=== PATIENT | male | born 1945 | race Caucasian/White ===

== ENCOUNTER 2018-02-08 04:52 | Emergency (ER) | payer OTHER ==
[~2018-02-08] VITALS: Ht 175.3 cm; Wt 145.0 kg
[~2018-02-08 04:52] MED LIST: ASPEC81; ATEN50TA8 PO; ATOR-24 PO; CALCTAB5 PO; CENTTAB41 PO; CLC100 PO; DVN/160 PO; FELO10TA2 PO; FINA5TAB PO; GLC500 PO; IBUP-1428; INSDGI SC; LISI40TA PO; LSX40 PO; MCR5 PO; NVLGI SC; POTA-335 PO; PRLSR20 PO; TERA5CAP PO; ULT50 PO; ZRX25 PO; [UNRECOGNIZED DRUG - OTHER]; [UNRECOGNIZED DRUG - OTHER]
[2018-02-08 04:56] VITALS: TEMP 36.4; Ht 175.3 cm; Wt 145.0 kg
[2018-02-08] MEDS ORDERED: KETOROLAC TROMETHAMINE 30 MG/ML VIAL IV STA (05:17)
[2018-02-08] MEDS ORDERED: DiphenhydrAMINE HCL 50 MG/ML VIAL IV STA (05:17)
[2018-02-08] MEDS ORDERED: METOCLOPRAMIDE HCL INJ 5 MG/ML 2 ML VIAL IV STA (05:17)
[2018-02-08 05:40] LABS: BASO % 0.4 %; BASO ABS # 0.03 K/uL (0-0.2); EOS % 5.3 %; HEMATOCRIT 37.2 % (42-52); IG# 0.02 K/uL (0.00-0.02); LYMPH % 23.9 %; LYMPH ABS # 1.82 K/uL (1.2-3.4); MEAN CELL VOLUME 85.1 fL (80-100); MEAN CORPUSCULAR HEMOGLOBIN 27.5 pg (25-34); MEAN CORPUSCULAR HGB CONC 32.3 g/dl (32-36); MEAN PLATELET VOLUME 11.1 fL (7.4-10.4); MONO ABS # 0.61 K/uL (0.11-0.59); NEUT % 62.1 %; NEUT ABS # 4.73 K/uL (1.4-6.5); PLATELET COUNT 194 K/uL (130-400); RED CELL DISTRIBUTION WIDTH CV 14.1 % (11.5-14.5); RED CELL DISTRIBUTION WIDTH SD 43.9 fL (36.4-46.3); WHITE BLOOD COUNT 7.61 K/uL (4.8-10.8)
--- NOTE | 2018-02-08 05:46 | EMERGENCY ROOM VISIT NOTE ---
ED Visit Note First contact with patient: 05:04 I saw this patient in conjunction with Candida Vasquez PA-C. I agree with her decision making and treatment plan.
[2018-02-08 06:01] LABS: ALBUMIN 3.2 gm/dl (3.4-5.0); ALKALINE PHOSPHATASE 133 U/L (45-117); ALT/SGPT 25 U/L (12-78); AST/SGOT 13 U/L (15-37); BLOOD UREA NITROGEN 20 mg/dl (7-18); CALCIUM 8.1 mg/dl (8.5-10.1); CARBON DIOXIDE 29 mmol/L (21-32); CREATININE 1.57 mg/dl (0.60-1.40); GLUCOSE 269 mg/dl (70-99); POTASSIUM 4.9 mmol/L (3.5-5.1); SODIUM 136 mmol/L (136-145)
[2018-02-08] MEDS ORDERED: SODIUM CHLORIDE 0.9% 500ML 500 ML IV STA (06:05)
--- NOTE | 2018-02-08 06:13 | DIAGNOSTIC IMAGING REPORT ---
ORBIT RADIOGRAPHS 3 VIEWS HISTORY: pre-MRI screening. COMPARISON: None. FINDINGS: There are no radiopaque foreign bodies identified within the orbits. IMPRESSION: No radiopaque foreign bodies identified within the orbits. Electronically signed by: Urban Borrero M.D. 02/08/2018 6:11 AM Dictated Date/Time: 02/08/2018 6:10 AM
[2018-02-08] MEDS ORDERED: ASPI81TA28 PO (06:48)
[2018-02-08] MEDS ORDERED: DOCU100C31 PO (06:49)
[2018-02-08] MEDS ORDERED: EPP3/2 IM (06:49)
[2018-02-08] MEDS ORDERED: LISI-725 PO (06:50)
--- NOTE | 2018-02-08 06:50 | EMERGENCY ROOM VISIT NOTE ---
History First contact with patient: 05:04 Chief Complaint: BACK PAIN Stated Complaint: SEVERE BACK PAIN,TROUBLE WALKING History of Present Illness The patient is a 73 year old male who presents to the Emergency Room with complaints of severe low back pain that radiates to his left side for the past month that has gotten progressively worse over the past few days. Patient states he is having difficulty ambulating secondary to the pain. Pain described as aching, ranging in severity 10 out of 10 worse with movement and better with rest. His legs bilaterally feel weak. [facility] and a muscle relaxant. This is not helping. No recent imaging of the back. Patient denies fall, fever, chills, chest pain, dyspnea, abdominal pain, loss of bowel bladder control, saddle anesthesia, IV drug abuse. Review of Systems An 10 system review of systems was completed with positives and pertinent negatives listed in the HPI. Past Medical/Surgical History Diabetes, hypertension, hyperlipidemia, BPH, leg edema, GERD, cataract surgery, tonsillectomy Social History Smoking Status: Former Smoker Smokeless Tobacco Use: No Alcohol Use: occasionally Drug Use: none Marital Status: Housing Status: lives with family Occupation Status: retired Current/Historical Medications Scheduled Aspirin (Aspirin Ec), 81 MG PO DAILY Atenolol (Tenormin), 25 MG PO BID Atorvastatin (Lipitor), 40 MG PO HS Calcium (Caltrate), 1 PO BID Docusate Sodium (Docusate Sodium), 1 CAP PO BID Felodipine (Plendil), 5 MG PO BID Furosemide (Furosemide), 80 MG PO DAILY Glyburide (Diabeta *), 5 MG PO BID Insulin Aspart (Novolog), 0 SC TIDM Insulin Glargine (Lantus), 55 UNITS SC BID Lisinopril (Zestril), 20 MG PO DAILY Metformin HCL (Glucophage *), 1,000 MG PO BID Metolazone (Metolazone), 2.5 MG PO 2XWK Omeprazole (Prilosec), 20 MG PO BID Potassium Chloride (Micro-K Ext Rel), 40 MEQ PO BIDM Terazosin (Hytrin), 5 MG PO BID Valsartan (Diovan), 160 MG PO DAILY Scheduled PRN Tramadol HCl (Tramadol HCl), 50 MG PO Q8 PRN for Pain Miscellaneous Medications Ibuprofen (Motrin) Physical Exam Vital Signs Date Time Temp Pulse Resp B/P (MAP) Pulse Ox O2 Delivery O2 Flow Rate FiO2 02/08/18 04:56 36.4 77 20 166/69 93 Room Air Physical Exam VITALS: Vitals are noted on the nurse's note and reviewed by myself. Vital signs reviewed. GENERAL: Pleasant male morbidly obese, in no acute distress, nondiaphoretic, well-developed well-nourished. SKIN: The skin was without rashes, erythema, edema, or bruising. There is no tenting of the skin. Capillary reflex less than 2 seconds. HEAD: Normocephalic atraumatic. EARS: External auditory canals clear, tympanic membranes pearly gunn without erythema or effusion bilaterally. EYES: Pupils equal round and reactive to light and accommodation. Conjunctivae without injection, sclerae without icterus. Extraocular movements intact. NOSE: Patent, turbinates without inflammation or discharge. MOUTH: Mucous membranes moist. Pharynx without erythema or exudate. Uvula midline. Airway patent. Tongue does not deviate. NECK: Supple without nuchal rigidity. No lymphadenopathy. No thyromegaly. Cervical spine is nontender. No JVD. HEART: Regular rate and rhythm LUNGS: Clear to auscultation bilaterally without wheezes, rales or rhonchi. No retractions or accessory muscle use. ABDOMEN: Positive bowel sounds x 4. Normal tympanic percussion. Soft, protuberant, obese, nontender, without masses or organomegaly. Sifuentes sign negative. No guarding or rebound tenderness. No CVA tenderness MUSCULOSKELETAL: No muscle atrophy, erythema, or edema noted. No thoracic or lumbar tenderness, no step-offs. Positive straight release on the left. +1 patellar reflexes bilaterally. Patient is able to plantarflex and dorsiflex. Patient has extreme difficulty with ambulation and required assistance to the bed. NEURO: Patient was alert and oriented to person place and time. Normal sensation to light and sharp touch. No focal neurological deficits. Medical Decision & Procedures Laboratory Results 02/08/18 05:20 Red Blood Count 4.37, Mean Corpuscular Volume 85.1, Mean Corpuscular Hemoglobin 27.5, Mean Corpuscular Hemoglobin Concent 32.3, Mean Platelet Volume 11.1, Neutrophils (%) (Auto) 62.1, Lymphocytes (%) (Auto) 23.9, Monocytes (%) (Auto) 8.0, Eosinophils (%) (Auto) 5.3, Basophils (%) (Auto) 0.4, Neutrophils # (Auto) 4.73, Lymphocytes # (Auto) 1.82, Monocytes # (Auto) 0.61, Eosinophils # (Auto) 0.40, Basophils # (Auto) 0.03 02/08/18 05:20 Test 02/08/18 05:20 White Blood Count 7.61 K/uL (4.8-10.8) Red Blood Count 4.37 M/uL (4.7-6.1) Hemoglobin 12.0 g/dL (14.0-18.0) Hematocrit 37.2 % (42-52) Mean Corpuscular Volume 85.1 fL (80-100) Mean Corpuscular Hemoglobin 27.5 pg (25-34) Mean Corpuscular Hemoglobin Concent 32.3 g/dl (32-36) Platelet Count 194 K/uL (130-400) Mean Platelet Volume 11.1 fL (7.4-10.4) Neutrophils (%) (Auto) 62.1 % Lymphocytes (%) (Auto) 23.9 % Monocytes (%) (Auto) 8.0 % Eosinophils (%) (Auto) 5.3 % Basophils (%) (Auto) 0.4 % Neutrophils # (Auto) 4.73 K/uL (1.4-6.5) Lymphocytes # (Auto) 1.82 K/uL (1.2-3.4) Monocytes # (Auto) 0.61 K/uL (0.11-0.59) Eosinophils # (Auto) 0.40 K/uL (0-0.5) Basophils # (Auto) 0.03 K/uL (0-0.2) RDW Standard Deviation 43.9 fL (36.4-46.3) RDW Coefficient of Variation 14.1 % (11.5-14.5) Immature Granulocyte % (Auto) 0.3 % Immature Granulocyte # (Auto) 0.02 K/uL (0.00-0.02) Anion Gap 6.0 mmol/L (3-11) Est Creatinine Clear Calc Drug Dose 61.3 ml/min Estimated GFR () 50.6 Estimated GFR (Non- 43.7 BUN/Creatinine Ratio 12.7 (10-20) Calcium Level 8.1 mg/dl (8.5-10.1) Total Bilirubin 0.3 mg/dl (0.2-1) Direct Bilirubin < 0.1 mg/dl (0-0.2) Aspartate Amino Transf (AST/SGOT) 13 U/L (15-37) Alanine Aminotransferase (ALT/SGPT) 25 U/L (12-78) Alkaline Phosphatase 133 U/L (45-117) Total Protein 7.0 gm/dl (6.4-8.2) Albumin 3.2 gm/dl (3.4-5.0) Medications Administered Medications (Trade) Dose Ordered Sig/Iris Route Start Time Stop Time Status Last Admin Dose Admin Ketorolac Tromethamine (Toradol Inj) 10 mg NOW STAT IV 02/08/18 05:17 02/08/18 05:19 DC 02/08/18 05:25 10 MG Diphenhydramine HCl (Benadryl Inj) 25 mg NOW STAT IV 02/08/18 05:17 02/08/18 05:19 DC 02/08/18 05:25 25 MG Metoclopramide HCl (Reglan Inj) 10 mg NOW STAT IV 02/08/18 05:17 02/08/18 05:19 DC 02/08/18 05:25 10 MG Sodium Chloride 500 ml @ 999 mls/hr Q31M STAT IV 02/08/18 06:05 02/08/18 06:35 DC 02/08/18 06:31 999 MLS/HR ED Course Prior records/ancillary studies reviewed. Triage Nursing notes reviewed. Additional history obtained from family. The patient's history was concerning for back pain. Differential diagnosis: Etiologies such as musculoskeletal, disc herniation, fracture, aortic disease, metastatic disease, cord compression, discitis, infection, renal colic, gastrointestinal, acute exacerbation of chronic back pain, sciatica, cauda equina, as well as others were entertained. Physical findings: As above. No focal neurologic findings noted. ER treatment provided: Toradol, Benadryl, Reglan, IV fluids On reassessment the patient felt better. Diagnostics interpreted by me: The labs revealed hyperglycemia without DKA. Slightly elevated creatinine. Mild anemia Imaging studies: Pending This appears to be consistent with severe low back pain with difficulty ambulating. Further imaging was ordered. MRI is pending at time of signout. Patient unfortunately could not fit in the MRI machine so he CT scan was ordered. Patient has diabetes. He was hyperglycemia without DKA. Patient states his kidney function normally runs around 1.51.6. Case reviewed with my attending The chart was completed utilizing [employer] Speech voice recognition software. Grammatical errors, random word insertions, pronoun errors, and incomplete sentences are an occassional consequence of this system due to software limitations, ambient noise, and hardware issues. Any formal questions or concerns about the content, text, or information contained within the body of this dictation should be directly addressed to the physician placement assistant for clarification. Case signed out to Jane SOLIS, pending MRI and reevaluation in stable condition. Medical Decision As above [place] Drug Monitoring Program Search Results: patient reviewed within database, no issues identified Medication Reconcilliation Current Medication List: was personally reviewed by me Blood Pressure Screening Patient's blood pressure: Elevated blood pressure Blood pressure disposition: Referred to PCP Impression Primary Impression: Low back pain Additional Impressions: Difficulty ambulating Hyperglycemia Anemia Departure Information Referrals Giovanny Melgar M.D. (PCP) Patient Instructions My [facility] Problem Qualifiers Primary Impression: Low back pain Chronicity: acute Back pain laterality: midline Sciatica presence: without sciatica Qualified Codes: M54.5 - Low back pain
[2018-02-08] MEDS ORDERED: SPIR25TA PO (06:54)
[2018-02-08] MEDS ORDERED: POTA20TA13 PO (06:56)
[2018-02-08] MEDS ORDERED: NIFE30TA83 PO (06:59)
[2018-02-08] MEDS ORDERED: FURO80TA63 PO ×2 (07:01)
[2018-02-08] MEDS ORDERED: INSU1INJ2 SQ (07:02)
[2018-02-08] MEDS ORDERED: MULT-190 PO (07:02)
[2018-02-08] MEDS ORDERED: MULT-897 PO (07:02)
[2018-02-08] MEDS ORDERED: HYDR-5688 PO (07:03)
[2018-02-08] MEDS ORDERED: KRIL1000 PO (07:04)
[2018-02-08] MEDS ORDERED: BIOFTAB30 PO (07:05)
[2018-02-08] MEDS ORDERED: NUTRCAP11 PO (07:05)
[2018-02-08] MEDS ORDERED: META-38 PO (07:07)
--- NOTE | 2018-02-08 08:06 | DIAGNOSTIC IMAGING REPORT ---
CT LUMBAR SPINE WITHOUT CT DOSE: 902.98 mGy.cm CLINICAL HISTORY: Severe low back pain. Inability to ambulate. Patient too large for an MRI. TECHNIQUE: Helical images were acquired in transverse plane. Reformatted sagittal and coronal images were reviewed. A dose lowering technique was utilized adhering to the principles of ALARA. CONTRAST: No contrast was administered COMPARISON STUDY: None. FINDINGS: L1-2 level: There is no evidence of significant disc bulge or focal herniation. There is no evidence of spinal or foraminal stenosis. L2-3 level: There is a circumferential disc bulge. There is mild spinal stenosis. There is no significant foraminal narrowing L3-4 level: There is a circumferential disc bulge. There is mild to moderate spinal stenosis. There is no significant foraminal narrowing L4-5 level: There is a circumferential disc bulge. There is mild to moderate spinal stenosis. There is mild bilateral foraminal narrowing L5-S1 level: There is no evidence of significant disc bulge or focal herniation. There is no evidence of spinal or foraminal stenosis. No acute fractures or traumatic subluxations are visualized. No destructive lesions are visualized. The examination is slightly limited from a technical standpoint due to quantum mottle, given the patient's large body habitus. IMPRESSION: 1. Mildly limited study from a technical standpoint 2. No acute fractures or traumatic subluxations 3. Mild multilevel degenerative changes. Multilevel disc bulges with mild to moderate spinal stenosis at the L3-4, and L4-5 levels. Electronically signed by: Christopher Cabrales M.D. 02/08/2018 8:05 AM Dictated Date/Time: 02/08/2018 8:00 AM
[2018-02-08 08:33] VITALS: BP 164/71; PULSE 79; O2SAT 95
--- NOTE | 2018-02-08 08:50 | DIAGNOSTIC IMAGING REPORT ---
KUB HISTORY: Acute low back pain with constipation Constipation COMPARISON: CT lumbar spine of same day FINDINGS: The bowel gas pattern is non-obstructive. There is no organomegaly. Moderate volume of formed colonic stool is noted about the cecum, ascending and transverse colon with mild to moderate stool volume about the rectum. No renal calculi. No ureteral calculi. No pneumoperitoneum or pneumatosis. No fracture. Multilevel degenerative changes are noted about the spine. IMPRESSION: 1. Nonobstructive bowel gas pattern. 2. Moderate formed colonic stool as above. Electronically signed by: Igor Joy M.D. 02/08/2018 8:48 AM Dictated Date/Time: 02/08/2018 8:46 AM
[2018-02-08] MEDS ORDERED: MAGNESIUM CITRATE 296 ML/BTL PO PRN (09:00)
--- NOTE | 2018-02-08 09:01 | EMERGENCY ROOM VISIT NOTE ---
ED Visit Note First contact with patient: 06:57 This patient's case was signed out to me by Candida Vasquez PA-C at the end her shift. The patient had presented with persistent low back pain [facility] He can barely ambulate at the time of arrival. An MRI was attempted but he was too large to fit in the MRI machine. Labs were performed and reviewed by Candida Valentino PA-C. A CT was pending when I took over the patient's case. A CT was interpreted by the radiologist. DIAGNOSTICS:CT LUMBAR SPINE WITHOUT CT DOSE: 902.98 mGy.cm CLINICAL HISTORY: Severe low back pain. Inability to ambulate. Patient too large for an MRI. TECHNIQUE: Helical images were acquired in transverse plane. Reformatted sagittal and coronal images were reviewed. A dose lowering technique was utilized adhering to the principles of ALARA. CONTRAST: No contrast was administered COMPARISON STUDY: None. FINDINGS: L1-2 level: There is no evidence of significant disc bulge or focal herniation. There is no evidence of spinal or foraminal stenosis. L2-3 level: There is a circumferential disc bulge. There is mild spinal stenosis. There is no significant foraminal narrowing L3-4 level: There is a circumferential disc bulge. There is mild to moderate spinal stenosis. There is no significant foraminal narrowing L4-5 level: There is a circumferential disc bulge. There is mild to moderate spinal stenosis. There is mild bilateral foraminal narrowing L5-S1 level: There is no evidence of significant disc bulge or focal herniation. There is no evidence of spinal or foraminal stenosis. No acute fractures or traumatic subluxations are visualized. No destructive lesions are visualized. The examination is slightly limited from a technical standpoint due to quantum mottle, given the patient's large body habitus. IMPRESSION: 1. Mildly limited study from a technical standpoint 2. No acute fractures or traumatic subluxations 3. Mild multilevel degenerative changes. Multilevel disc bulges with mild to moderate spinal stenosis at the L3-4, and L4-5 levels. Electronically signed by: Christopher Cabrales M.D. 02/08/2018 8:05 AM Dictated Date/Time: 02/08/2018 8:00 AM The patient was informed of the findings. When I was telling the patient was going to prescribe him a small amount of narcotics I told him to make sure that he is taking a laxative and at that time he informed me that he has not moved his bowels for 3 days. A KUB was ordered and interpreted by the radiologist and myself. KUB HISTORY: Acute low back pain with constipation Constipation COMPARISON: CT lumbar spine of same day FINDINGS: The bowel gas pattern is non-obstructive. There is no organomegaly. Moderate volume of formed colonic stool is noted about the cecum, ascending and transverse colon with mild to moderate stool volume about the rectum. No renal calculi. No ureteral calculi. No pneumoperitoneum or pneumatosis. No fracture. Multilevel degenerative changes are noted about the spine. IMPRESSION: 1. Nonobstructive bowel gas pattern. 2. Moderate formed colonic stool as above. The patient was informed of this finding. The patient was given a bottle of mag citrate. He was instructed to do this today. If his back pain is relieved by moving his bowels he does not need to take the narcotics otherwise he can take the narcotics as directed for pain. He is to continue his Dulcolax daily to prevent constipation. The patient was discharged home in stable condition. DIAGNOSIS: Low back pain Constipation TREATMENT PLAN: Take mag citrate today. Stay near a bathroom when you take the mag citrate. He should have relief within several hours. If your back pain is resolved by taking the mag citrate. Do not take the narcotics. If he still had back pain take the [place] as prescribed. Do not drive while taking the [place]. Continue Dulcolax to prevent constipation. [facility] for [facility]ck and if back pain persists referral to back surgeon or follow- up with Dr. Saul for your back. If symptoms worsen, return to ER.
== END 2018-02-08 09:00 | disposition home or self-care (01) ==
LOC: C.EDB 04:53 → C.EDA 09:00
DX: M54.5 Low back pain (principal); K59.00 Constipation, unspecified; R26.2 Difficulty in walking, not elsewhere classified; E11.65 Type 2 diabetes mellitus with hyperglycemia; Z79.4 Long term (current) use of insulin; D64.9 Anemia, unspecified; E66.01 Morbid (severe) obesity due to excess calories; I10 Essential (primary) hypertension; Z79.82 Long term (current) use of aspirin; E78.5 Hyperlipidemia, unspecified; K21.9 Gastro-esophageal reflux disease without esophagitis; N40.0 Benign prostatic hyperplasia without lower urinary tract symptoms; Z87.891 Personal history of nicotine dependence

== ENCOUNTER 2019-06-23 21:04 | Observation (INO) ==
--- OUTSIDE RECORDS SUMMARY | 2019-06-23 21:07 | External Medical Summary | Continuity of Care Document ---
:1945 Author Name Sarai Wiley Address Unavailable Unavailable , Care Team Providers Name Role Phone SusnaG MJoon Unavailable [email or web address] Nicolasa LEON M.D. 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) Paroxysmal atrial fibrillation (427.31) (I48.0) Erectile dysfunction (607.84) (N52.9) PTSD (post-traumatic stress disorder) (309.81) (F43.10) Bladder cancer (188.9) (C67.9) Carotid artery stenosis (433.10) (I65.29) Obstructive sleep apnea (327.23) (G47.33) Morbid obesity (278.01) (E66.01) Hyperlipidemia (272.4) (E78.5) Gastroesophageal reflux disease (530.81) (K21.9) BPH (benign prostatic hyperplasia) (600.00) (N40.0) Sacroiliitis (720.2) (M46.1) Diabetes (250.00) (E11.9) Constipation (564.00) (K59.00) Edema (782.3) (R60.9) Hypertension (401.9) (I10) 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 Start: 15-Jan-2017 Refills: 0 metFORMIN HCl - 500 MG Oral Tablet; TAKE 1 TABLET TWICE SYD Y. Start: 15-Jan-2017 Quantity: 60 Refills: 3 NIFEdipine ER 30 MG Oral Tablet Extended Release 24 Hour; TA KE 1 TABLET DAILY. Start: 15-Jan-2017 Refills: 0 Valsartan 160 MG Oral Tablet; Take 1 and 1/2 tab daily Start: 15-Jan-2017 Refills: 0 traMADol HCl - 50 MG Oral Tablet; TAKE 1 TABLET EVERY 6 HOURS NEEDED FOR PAIN Start: 15-Jan-2017 Refills: 0 Terazosin HCl - 5 MG Oral Capsule; TAKE 1 CAPSULE TWICE SYD Y. Start: 15-Jan-2017 Refills: 0 Spironolactone 25 MG Oral Tablet; TAKE 1 TABLET DAILY. Start: 15-Jan-2017 Refills: 0 100 Tablet Bottle Potassium Chloride Nerissa ER 20 MEQ Oral T ablet Extended Release; TAKE 2 TABLETS DAILY. Start: 15-Jan-2017 Refills: 0 Omeprazole 20 MG Oral Capsule Delayed Re lease; TAKE 1 CAPSULE Every twelve hours Start: 15-Jan-2017 Refills: 0 Lisinopril 20 MG Oral Tablet; take 1 tablet by mouth once da mike Start: 15-Jan-2017 Refills: 5 15 Tablet Bottle Lantus SoloStar 100 UNIT/ML Subcutaneous Solution Pen-injector; inject 50 units subcutaneously twice daily Start: 15-Jan-2017 Refills: 0 NovoLOG FlexPen 100 UNIT/ML Subcutaneous Solution Pen-injector; INJECT 30 UNITS SUBCUTANEOUSLY 3 TIMES DAILY WITH MEALS Start: 2016 Refills: 0 Finasteride 5 MG Oral Tablet; 1 TAB BY MOUTH EVERY DAY Start: 15-Jan-2017 Refills: 3 Docusate Sodium 100 MG Oral Capsule; TAKE ONE CAPSULE BY RUFINA TH TWICE DAILY Start: 15-Jan-2017 Refills: 0 Atorvastatin Calcium 80 MG Oral Tablet; TAKE 1/2 TABLET SYD Y. Start: 15-Jan-2017 Refills: 0 Atenolol 25 MG Oral Tablet; TAKE 1 TABLET BY MOUTH DAILY Start: 15-Jan-2017 Refills: 5 45 Tablet Bottle Aspirin 81 MG Oral Tablet Delayed Release; Take 1 tablet nicci ly Start: 15-Jan-2017 Refills: 0 Accu-Chek Lynn Plus In Vitro Strip; TEST 3 TIMES DAILY AND NEEDED Start: 15-Jan-2017 Refills: 0 Procedures History of cataract surgery Status: Comp leted History of tonsillectomy Status: Complet ed History of vasectomy Status: Completed Immunizations Immunizations not documented Family History Mother Family history of diabetes mellitus (V18.0) (Z83.3) Status: Active Father Family history of cerebrovascular accident (CVA) (V17.1) (Z8 2.3) Status: Active Social History - Smoking Status Former smoker Plan of Treatment Planned Observations Planned Goals not documented Results No Known Results Results not documented
--- OUTSIDE RECORDS SUMMARY | 2019-06-23 21:08 | External Medical Summary | Continuity of Care Document ---
:1945 Author Name Sarai Wiley Address Unavailable Unavailable , Care Team Providers Name Role Phone [facility] M.Rinku Unavailable [email or web address] LEON M.D. Unavailable Unavailable Unavailable Unavailable [...] Reactions No Known Drug Allergies (Allergy) Medications Accu-Chek Lynn Plus In Vitro Strip; TEST 3 TIMES DAILY AND NEEDED Start: 15-Jan-2017 Refills: 0 Aspirin 81 MG Oral Tablet Delayed Release; Take 1 tablet nicci ly Start: 15-Jan-2017 Refills: 0 Atenolol 25 MG Oral Tablet; TAKE 1 TABLET BY MOUTH DAILY Start: 15-Jan-2017 Refills: 5 45 Tablet Bottle Atorvastatin Calcium 80 MG Oral Tablet; TAKE 1/2 TABLET SYD Y. Start: 15-Jan-2017 Refills: 0 Docusate Sodium 100 MG Oral Capsule; TAKE ONE CAPSULE BY RUFINA TH TWICE DAILY Start: 15-Jan-2017 Refills: 0 Finasteride 5 MG Oral Tablet; 1 TAB BY MOUTH EVERY DAY Start: 15-Jan-2017 Refills: 3 NovoLOG FlexPen 100 UNIT/ML Subcutaneous Solution Pen-injector; INJECT 30 UNITS SUBCUTANEOUSLY 3 TIMES DAILY WITH MEALS Start: 2016 Refills: 0 Lantus SoloStar 100 UNIT/ML Subcutaneous Solution Pen-injector; inject 50 units subcutaneously twice daily Start: 15-Jan-2017 Refills: 0 Lisinopril 20 MG Oral Tablet; take 1 tablet by mouth once da mike Start: 15-Jan-2017 Refills: 5 15 Tablet Bottle Omeprazole 20 MG Oral Capsule Delayed Re lease; TAKE 1 CAPSULE Every twelve hours Start: 15-Jan-2017 Refills: 0 Potassium Chloride Nerissa ER 20 MEQ Oral T ablet Extended Release; TAKE 2 TABLETS DAILY. Start: 15-Jan-2017 Refills: 0 Spironolactone 25 MG Oral Tablet; TAKE 1 TABLET DAILY. Start: 15-Jan-2017 Refills: 0 100 Tablet Bottle Terazosin HCl - 5 MG Oral Capsule; TAKE 1 CAPSULE TWICE SYD Y. Start: 15-Jan-2017 Refills: 0 traMADol HCl - 50 MG Oral Tablet; TAKE 1 TABLET EVERY 6 HOURS NEEDED FOR PAIN Start: 15-Jan-2017 Refills: 0 Valsartan 160 MG Oral Tablet; Take 1 and 1/2 tab daily Start: 15-Jan-2017 Refills: 0 NIFEdipine ER 30 MG Oral Tablet Extended Release 24 Hour; TA KE 1 TABLET DAILY. Start: 15-Jan-2017 Refills: 0 metFORMIN HCl - 500 MG Oral Tablet; TAKE 1 TABLET TWICE SYD Y. Start: 15-Jan-2017 Quantity: 60 Refills: 3 Methocarbamol 500 MG Oral Tablet; TAKE 1 TABLET 3 TIMES SYD Y. Start: 15-Jan-2017 Refills: 0 Procedures History of [...]
[2019-06-23 21:47] LABS: Basophils # (auto) 0.03 K/uL (0-0.2); Basophils % (auto) 0.3 %; Eosinophils # (auto) 0.28 K/uL (0-0.5); Eosinophils % (auto) 2.6 %; Hematocrit (blood only) 36.2 % (42-52); Hemoglobin 11.8 g/dL (14.0-18.0); Immature Granulocytes # (auto) 0.03 K/uL (0.00-0.02); Immature Granulocytes % (auto) 0.3 %; Lymphocytes # (auto) 2.97 K/uL (1.2-3.4); Lymphocytes % (auto) 27.1 %; Mean Corpuscular Hemoglobin 29.1 pg (25-34); Mean Corpuscular Hgb Conc 32.6 g/dL (32-36); Mean Corpuscular Volume 89.2 fL (80-100); Mean Platelet Volume 10.6 fL (7.4-10.4); Monocytes # (auto) 1.04 K/uL (0.11-0.59); Monocytes % (auto) 9.5 %; Neutrophils # (auto) 6.61 K/uL (1.4-6.5); Neutrophils % (auto) 60.2 %; Platelet Count 178 K/uL (130-400); RDW Standard Deviation 45.7 fL (36.4-46.3); Red Blood Count 4.06 M/uL (4.7-6.1); White Blood Count 10.96 K/uL (4.8-10.8)
[2019-06-23 21:58] LABS: Partial Thromboplastin Ratio 0.9; Partial Thromboplastin Time 25.1 Seconds (21.0-31.0); Prothrombin Time 10.1 Seconds (9.0-12.0)
[2019-06-23 22:02] LABS: Albumin Level 3.2 gm/dl (3.4-5.0); BUN Creatinine Ratio 20.5 (10-20); Blood Urea Nitrogen 41 mg/dl (7-18); Calcium 8.6 mg/dl (8.5-10.1); Carbon Dioxide 31 mmol/L (21-32); Chloride 104 mmol/L (98-107); Creatinine Clr Calc Pharmacy 51.1 ml/min; Est GFR (African American) 37.8; Est GFR (Non-African American) 32.6; Glucose 71 mg/dl (70-99); Potassium 3.9 mmol/L (3.5-5.1); Sodium 141 mmol/L (136-145)
[2019-06-23 22:07] LABS: Alanine Aminotransferase 39 U/L (12-78); Albumin Globulin Ratio 0.8 (0.9-2); Alkaline Phosphatase 115 U/L (45-117); Aspartate Aminotransferase 15 U/L (15-37); Bilirubin,Total 0.2 mg/dl (0.2-1); NT Pro B Type Natriuretic Pept 192 pg/ml (0-900); Total Protein 7.2 gm/dl (6.4-8.2); Troponin I < 0.015 ng/ml (0-0.045)
--- NOTE | 2019-06-23 22:43 | XRay Report ---
XR chest 1V portable CLINICAL HISTORY: Dyspnea COMPARISON STUDY: 05/20/2019 FINDINGS: Mild cardiomegaly. Increased prominence of pulmonary vasculature. Diaphragms are smooth. IMPRESSION: Developing congestive failure versus early pulmonary edema. ACT 112: Negative or not required by law. The above report was generated using voice recognition software. It may contain grammatical, syntax or spelling errors. Electronically signed by: Edson Winter M.D. 06/23/2019 10:42 PM
--- NOTE | 2019-06-23 22:45 | XRay Report ---
XR lumbar spine 2-3V CLINICAL HISTORY: lower back pain pain COMPARISON STUDY: No previous studies for comparison. FINDINGS: Generalized degenerative disc changes throughout. Degenerative changes of the vertebral end plates throughout the low thoracic as well as entire lumbar region. No evidence for an acute compression deformity. No evidence for subluxation. IMPRESSION: Considerable degenerative change. No acute process. ACT 112: Negative or not required by law. The above report was generated using voice recognition software. It may contain grammatical, syntax or spelling errors. Electronically signed by: Edson Winter M.D. 06/23/2019 10:44 PM
[2019-06-23] MEDS ORDERED: cefTRIAXone SODIUM 1,000 MG/50 ML BAG IV STA (23:23)
[2019-06-23] MEDS ORDERED: FUROSEMIDE 40 MG/4 ML VIAL IV STA ×2 (23:23→23:25)
[2019-06-23] MEDS ORDERED: cefTRIAXone SODIUM 2,000 MG/70 ML BAG IV STA (23:24)
--- NOTE | 2019-06-24 00:04 | Emergency Department Note ---
Entered by Zonia Ugalde acting as a scribe for History of Present Illness General Chief complaint: Back Injury/Pain Stated complaint: BACK PAIN Source: patient Limitations: no limitations History of Present Illness Onset (ago): hour(s) (a few) Location: back Radiation: non-radiation Severity: similar to prior episodes Maximum Pain Intensity: 8 Quality: + other (pain and "spasms") Exacerbated By: + movement Associated symptoms: + denies other symptoms (new SOB, chest pain, nausea/vomiting, diarrhea, and urinary symptoms) and + other (lower extremity swelling ) The patient is a 74 year old male who presents to the Emergency Room with complaints of back pain and "spasms" that began this afternoon, a few hours ago. He reports that this is similar to previous episodes, however, drinking a lot of water didn't provide relief like it has in the past. He denies any radiation of the pain to the buttocks. The patient notes that movement exacerbates the pain. He complains of recent weight gain. He admits that he normally weighs about 330 pounds and recently he went up to 360. He believes that his weight gain was over the past month. The patient notes that he has lower extremity swelling. He initially declines any new shortness of breath but does note he has been more short of breath with getting around recently as well. He reports that he has some cellulitis for which he's seen a public health internship. The patient notes some scrotum swelling that began a few months ago. He denies any new chest pain, nausea/vomiting, diarrhea, and urinary symptoms. The patient notes that he takes Lasix, but he denies any history of CHF. Home Medications Home Medications Medication Instructions Recorded Confirmed Type aspirin 81 mg PO DAILY 07/20/18 06/23/19 History atenolol 25 mg PO BID 07/20/18 06/23/19 History atorvastatin [Lipitor] 40 mg PO HS 07/20/18 06/23/19 History calcium carbonate [Calcium 600] 0 mg PO QAM 07/20/18 06/23/19 History docusate sodium 200 mg PO DAILY 07/20/18 06/23/19 History epinephrine [EpiPen] 0.3 mg IM DIRECTED PRN 07/20/18 06/23/19 History ferrous sulfate 325 mg PO BID 07/20/18 06/23/19 History finasteride 5 mg PO DAILY 07/20/18 06/23/19 History furosemide [Lasix] 80 mg PO DAILY 07/20/18 06/23/19 History glucosamine-chondroitin 0 mg PO DIRECTED 07/20/18 06/23/19 History insulin aspart U-100 [Novolog 42 unit SUBCUT TIDM 07/20/18 06/23/19 History Flexpen U-100 Insulin] insulin glargine [Lantus Solostar 57 unit SUBCUT BID 07/20/18 06/23/19 History U-100 Insulin] lisinopril 20 mg PO DAILY 07/20/18 06/23/19 History multivitamin 1 tab PO DAILY 07/20/18 06/23/19 History nifedipine 60 mg PO QPM 07/20/18 06/23/19 History omeprazole 20 mg PO Q12 07/20/18 06/23/19 History potassium chloride 20 meq PO BIDM 07/20/18 06/23/19 History spironolactone 25 mg PO QAM 07/20/18 06/23/19 History terazosin 5 mg PO BID 07/20/18 06/23/19 History tramadol 50 mg PO Q6 PRN 06/23/19 06/23/19 History Allergies Allergy/AdvReac Type Severity Reaction Status Date / Time No Known Allergies Allergy Unverified 06/23/19 22:22 Past Med/Surg History Medical History Cellulitis Diabetes Social History Preferred Language: Croatian Communication Ability: Effective Feels Safe at Home: Yes Smoking Status: Former smoker Review of Systems See HPI for pertinent positives & negatives. and A total of 10 systems reviewed and were otherwise negative Physical Exam Vital Signs Vital Signs - 24 hr 06/23/19 21:06 06/23/19 21:41 06/23/19 21:42 Temperature 36.3 C L Temperature Source Oral Pulse Rate 88 78 Pulse Rate from SpO2 Sensor 74 Respiratory Rate 20 15 Respiratory Effort / Characteristics Non-Labored Spontaneous Respiratory Depth Normal Blood Pressure 157/68 H 158/55 H Blood Pressure Mean 97 92 Pulse Oximetry 91 90 Oxygen Delivery Method Room Air Room Air Room Air Sepsis Recent Fever Within 48 Hours No Sepsis New/Unexplained Change in Mental Status No Sepsis Action Taken by Nursing No Action Required 06/23/19 22:00 06/23/19 22:41 Temperature Temperature Source Pulse Rate 74 80 Pulse Rate from SpO2 Sensor Respiratory Rate 18 19 Respiratory Effort / Characteristics Respiratory Depth Blood Pressure 133/54 L 124/77 Blood Pressure Mean 91 81 Pulse Oximetry 90 90 Oxygen Delivery Method Room Air Room Air Sepsis Recent Fever Within 48 Hours Sepsis New/Unexplained Change in Mental Status Sepsis Action Taken by Nursing GENERAL: obese, sitting on the edge of bed, dyspneic with conversation EYE EXAM: normal conjunctiva OROPHARYNX: no exudate, no erythema, lips, buccal mucosa, and tongue normal and mucous membranes are moist NECK: supple, no nuchal rigidity, no adenopathy, non-tender LUNGS: Distant and diminished at bilateral bases HEART: no murmurs, S1 normal and S2 normal ABDOMEN: Obese, firm, non-tender, normo-active bowel sounds, no masses, no rebound or guarding. BACK: Back is symmetrical on inspection and there is no deformity, no midline tenderness, no CVA tenderness. Minimal tenderness in the left lower back. SKIN: no rashes and no bruising UPPER EXTREMITIES: upper extremities are grossly normal. LOWER EXTREMITIES: Pitting edema tracking up to hips. Erythema to the anterior skins. NEURO EXAM: Normal sensorium, cranial nerves II-XII grossly intact, normal speech, no gross weakness of arms, no gross weakness of legs. Course Course ED COURSE: Vital signs were reviewed and showed hypertension. The patients medical record was reviewed The above diagnostic studies were performed and reviewed. ED treatments and interventions as stated above. 2117: The patient was evaluated in room B07. A complete history and physical examination was performed. 2256: I spoke with Dr. De Guzman, [facility] hospitalist, about the patient's case. He will further evaluate the patient. 2258: Upon reevaluation, the patient is stable. I discussed my findings with the patient and he understands and agrees with the treatment plan. Based on the patients age, coexisting illnesses, exam and lab findings the decision to treat as an outpatient was made. The patient remained stable while under my care. The patient will be evaluated for further management. Administered Medications Discontinued Medications Furosemide (Lasix) 40 mg IV NOW STA Stop: 06/23/19 23:24 Last Admin: 06/23/19 23:29 Dose: Not Given Documented by: [id number] Furosemide (Lasix) 60 mg IV NOW STA Stop: 06/23/19 23:26 Last Admin: 06/23/19 23:29 Dose: 60 mg Documented by: [id number] Ceftriaxone Sodium (Rocephin) 1,000 mg in 50 mls @ 100 mls/hr IV NOW STA Stop: 06/23/19 23:52 Last Admin: 06/23/19 23:29 Dose: Not Given Documented by: [id number] Ceftriaxone Sodium (Rocephin) 2,000 mg in 70 mls @ 140 mls/hr IV NOW STA Stop: 06/23/19 23:53 Last Admin: 06/23/19 23:32 Dose: 140 mls/hr Documented by: [id number] Medical Decision Making Differential Diagnosis Differential diagnoses includes but is not limited to pneumonia, bronchitis, COPD/Asthma exacerbation, pneumothorax, pulmonary embolism, congestive heart failure, acute coronary syndrome Medical Records Attestation: I reviewed the patient's medical records. Home Medications Current Medication List: was personally reviewed by me Laboratory Data Attestation: I reviewed the patient's lab results. Result diagrams: 06/23/19 21:39 06/23/19 21:39 Lab Results 06/23/19 06/23/19 06/23/19 Range/Units 21:39 21:39 21:39 WBC 10.96 H (4.8-10.8) K/uL RBC 4.06 L (4.7-6.1) M/uL Hgb 11.8 L (14.0-18.0) g/dL Hct 36.2 L (42-52) % MCV 89.2 (80-100) fL MCH 29.1 (25-34) pg MCHC 32.6 (32-36) g/dL RDW Std Deviation 45.7 (36.4-46.3) fL RDW Coeff of [place]by 14.0 (11.5-14.5) % Plt Count 178 (130-400) K/uL MPV 10.6 H (7.4-10.4) fL Immature Gran % (Auto) 0.3 % Neut % (Auto) 60.2 % Lymph % (Auto) 27.1 % [place] % (Auto) 9.5 % Eos % (Auto) 2.6 % Baso % (Auto) 0.3 % Immature Gran # (Auto) 0.03 H (0.00-0.02) K/uL Neut # (Auto) 6.61 H (1.4-6.5) K/uL Lymph # (Auto) 2.97 (1.2-3.4) K/uL [place] # (Auto) 1.04 H (0.11-0.59) K/uL Eos # (Auto) 0.28 (0-0.5) K/uL Baso # (Auto) 0.03 (0-0.2) K/uL PT 10.1 (9.0-12.0) Seconds INR 1.0 (0.9-1.1) APTT 25.1 (21.0-31.0) Seconds PTT Ratio 0.9 Sodium 141 (136-145) mmol/L Potassium 3.9 (3.5-5.1) mmol/L Chloride 104 (98-107) mmol/L Carbon Dioxide 31 (21-32) mmol/L Anion Gap 5.0 (3-11) BUN 41 H (7-18) mg/dl Creatinine 1.99 H (0.6-1.4) mg/dl Est Cr Clr Drug Dosing 51.1 ml/min Est GFR ( Amer) 37.8 Est GFR (Non-Af Amer) 32.6 BUN/Creatinine Ratio 20.5 H (10-20) Glucose 71 (70-99) mg/dl Calcium 8.6 (8.5-10.1) mg/dl Total Bilirubin 0.2 (0.2-1) mg/dl AST 15 (15-37) U/L ALT 39 (12-78) U/L Alkaline Phosphatase 115 (45-117) U/L Troponin I < 0.015 (0-0.045) ng/ml NT-Pro-B Natriuret Pep 192 (0-900) pg/ml Total Protein 7.2 (6.4-8.2) gm/dl Albumin 3.2 L (3.4-5.0) gm/dl Globulin 4.0 (2.5-4.0) gm/dl Albumin/Globulin Ratio 0.8 L (0.9-2) Imaging Data Radiologist's Impression: Radiology results as stated below per my review and the radiologist's interpretation: XR chest 1V portable CLINICAL HISTORY: Dyspnea COMPARISON STUDY: 05/20/2019 FINDINGS: Mild cardiomegaly. Increased prominence of pulmonary vasculature. Diaphragms are smooth. IMPRESSION: Developing congestive failure versus early pulmonary edema. ACT 112: Negative or not required by law. The above report was generated using voice recognition software. It may contain grammatical, syntax or spelling errors. Electronically signed by: Edson Winter M.D. 06/23/2019 10:42 PM XR lumbar spine 2-3V CLINICAL HISTORY: lower back pain pain COMPARISON STUDY: No previous studies for comparison. FINDINGS: Generalized degenerative disc changes throughout. Degenerative changes of the vertebral endplates throughout the low thoracic as well as entire lumbar region. No evidence for an acute compression deformity. No evidence for subluxation. IMPRESSION: Considerable degenerative change. No acute process. ACT 112: Negative or not required by law. The above report was generated using voice recognition software. It may contain grammatical, syntax or spelling errors. Electronically signed by: Edson Winter M.D. 06/23/2019 10:44 PM ECG Data Attestation: I personally reviewed and interpreted this ECG as follows: Indication: + back/shoulder pain Rate (beats per minute): 81 ECG Intervals/blocks: + Incomplete right bundle branch block ECG [place]: + Normal ECG Findings: no PVCs Blood Pressure Blood Pressure Findings: Elevated blood pressure Blood Pressure Disposition: further management by hospitalist NAHOMY Mobley Patient is a 74-year-old male who presents the ER with a past medical history of diabetes, hypertension and hyperlipidemia [facility] and presumably has CHF as he is on Lasix daily presents the ER for multiple complaints. Complains of swelling in his legs associated with redness as well as back pain. Patient initially denies shortness of breath but later admits that he has been having worsening dyspnea on exertion and with any kind of movement. He is gained close to 30 pounds in the past month per his report although not too sure how accurate and how often he has been weighing himself. IV was established blood work was obtained. Labs show a leukocytosis which is mild at 10.9 thousand. No significant anemia. INR unremarkable. BMP with a creatinine of 1.99 slightly up from baseline of about 1.6. Bilirubin LFTs and troponin was unremarkable. Chest x-ray with vascular congestion. Pitting edema tracking up his legs into his hips. Satting 90% while sitting. Does have a mild bilateral cellulitis and I do believe the back pain is musculoskeletal in nature. X-rays of the lumbar spine were unremarkable. Patient was given IV Lasix and IV Rocephin. With the morbid obesity diffuse pitting edema pulse ox of 90% while sitting lack of records I do favor that this gentleman would benefit and warrant an inpatient stay. Patient family were updated bedside discussed with the hospitalist for observation. Impression & Plan CHF (congestive heart failure), Back pain, Cellulitis, Edema, pitting Discharge Plan Visit Data Chief Complaint: Back Injury/Pain Stated Complaint: BACK PAIN ED Provider: Christian Menon Discharge Problem: CHF (congestive heart failure), Back pain, Cellulitis, Edema, pitting Patient Disposition: Being Evaluated by Hospitalist Forms Stand Alone Forms: My [facility] Prescriptions Prescriptions: No Action multivitamin Tablet 1 tab PO DAILY RF: 0 terazosin 5 mg Capsule 5 mg PO BID RF: 0 atorvastatin [Lipitor] 80 mg Tablet 40 mg PO HS RF: 0 lisinopril 20 mg Tablet 20 mg PO DAILY RF: 0 atenolol 25 mg Tablet 25 mg PO BID RF: 0 aspirin 81 mg Tablet,Delayed Release (Dr/Ec) 81 mg PO DAILY RF: 0 spironolactone 25 mg Tablet 25 mg PO QAM RF: 0 calcium carbonate [Calcium 600] 600 mg calcium (1,500 mg) Tablet 0 mg PO QAM RF: 0 furosemide [Lasix] 80 mg Tablet 80 mg PO DAILY RF: 0 ferrous sulfate 325 mg (65 mg iron) tablet 325 mg PO BID RF: 0 docusate sodium 100 mg Capsule 200 mg PO DAILY RF: 0 omeprazole 20 mg Capsule,Delayed Release(Dr/Ec) 20 mg PO Q12 RF: 0 epinephrine [EpiPen] 0.3 mg/0.3 mL Auto-Injector 0.3 mg IM DIRECTED PRN (Reason: Allergic Reaction) RF: 0 nifedipine 60 mg Tablet Extended Release 60 mg PO QPM RF: 0 finasteride 5 mg Tablet 5 mg PO DAILY RF: 0 Novolog Flexpen U-100 Insulin 100 unit/mL Insulin Pen 42 unit SUBCUT TIDM RF: 0 Lantus Solostar U-100 Insulin 100 unit/mL (3 mL) Insulin Pen 57 unit SUBCUT BID RF: 0 glucosamine-chondroitin 167-133 mg Capsule 0 mg PO DIRECTED RF: 0 potassium chloride 20 mEq Tablet Extended Release 20 meq PO BIDM RF: 0 tramadol 50 mg tablet 50 mg PO Q6 PRN (Reason: Pain) RF: 0 Referrals Referrals: Vincent Melgar MD [Primary Care Provider] - Discharge Problem: CHF (congestive heart failure) Qualifiers: Heart failure type: unspecified Heart failure chronicity: unspecified Qualified Code(s): I50.9 - Heart failure, unspecified Back pain Qualifiers: Back pain location: back pain in unspecified location Chronicity: unspecified Back pain laterality: unspecified Qualified Code(s): M54.9 - Dorsalgia, unspecified Cellulitis Qualifiers: Site of cellulitis: extremity Site of cellulitis of extremity: lower extremity Laterality: unspecified laterality Qualified Code(s): L03.119 - Cellulitis of unspecified part of limb The scribe's documentation has been prepared under my direction and personally reviewed by me in its entirety. I confirm that the note above accurately reflects all work, treatment, procedures, and medical decision making performed by me.
[2019-06-24 00:27] LABS: Appearance Urine Clear (Clear); Bacteria Urine Automated Negative (Negative); Bilirubin Urine Negative (Negative); Blood Urine Negative (Negative); Color Urine Yellow; Glucose Urine UA Negative (Negative); Ketones Urine Negative (Negative); Leukocyte Esterase Urine Negative (Negative); Nitrite Urine Negative (Negative); Protein Urine Trace (Negative); RBC Urine Automated 0-4 /hpf (0-4); Specific Gravity Urine 1.011 (1.000-1.030); Urobilinogen Urine Negative (Negative); WBC Urine Automated 0 /hpf (0-5)
[2019-06-24] MEDS ORDERED: ALUMINUM/MAGNESIUM SUSP 30 ML UDC PO PRN (00:35)
[2019-06-24] MEDS ORDERED: ZOLPIDEM TARTRATE 5 MG TAB PO PRN (00:35)
[2019-06-24] MEDS ORDERED: ACETAMINOPHEN 325 MG TAB PO PRN (00:35)
[2019-06-24] MEDS ORDERED: MAGNESIUM HYDROXIDE SUSP 30 ML UDC PO PRN (00:35)
--- NOTE | 2019-06-24 01:06 | History & Physical Report ---
Date of Service June 23, 2019 Assessment & Plan (1) CHF (congestive heart failure): 74 y/o M Hx HTN, HLD, COPD, chronic lower extremity edema, CKD III, Dm II, morbid obesity, CARINA, chronic back pain. The pt presented with an initial complaint of back pain. He was assessed in the ER and found to be mildly hypoxic. A CXR was consistent with CHF. The pt states he was never diagnosed with any heart problems. He takes diuretics but states that they were prescribed for edema only. He admits to shortness of breath with exertion, however, he states that this has been present for over a year. The pt normally follows up at the [facility] and has not previously sen a electronic device monitor. Labs are not able for worsening renal function. A CXR is consistent with CHF. 1) CHF - this has not been officially diagnosed, although it is not likely a new issue. He received a dose of Lasix in the ER. We will keep him on his current PO dose of Lasix and Aldactone, obtain an echo and request a cardiology consult as he has poor f/u. I/O, daily weight requested. 2) Back pain - responded to treatment in the ER - cont Tramadol PRN 3) Dm II - placed on a SS 4) COPD - not currently treated - no evidence of exacerbation 5) HTN/HLD - cont Lasix/Aldactone,Lisinopril, Atenolol 6) CARINA - has not been compliant - CPAP ordered 7) CKD - worsening function may be due to volume overload - repeat labs AM as he received IV Lasix Full code - Heparin prophylaxis Total time for this admit including review of labs, meds, imaging, records - discussion with pt and ER "attending" - 40 min History of Present Illness Chief Complaint: "back spasm" Primary Care Provider: Vincent Melgar MD 74 y/o M Hx HTN, HLD, COPD, chronic lower extremity edema, CKD III, Dm II, morbid obesity, CARINA, chronic back pain. The pt presented with an initial complaint of back pain. He was assessed in the ER and found to be mildly hypoxic. A CXR was consistent with CHF. The pt states he was never diagnosed with any heart problems. He takes diuretics but states that they were prescribed for edema only. He admits to shortness of breath with exertion, however, he states that this has been present for over a year. The pt normally follows up at the [facility] and has not previously sen a electronic device monitor. Labs are notable for worsening renal function. A CXR is consistent with CHF. 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, lives with Family: Both parents had CVAs Mother was diabetic Allergies Allergy/AdvReac Type Severity Reaction Status Date / Time No Known Allergies Allergy Unverified 06/23/19 22:22 Home Medications Home Medications Medication Instructions Recorded Confirmed Type aspirin 81 mg PO DAILY 07/20/18 06/23/19 History atenolol 25 mg PO BID 07/20/18 06/23/19 History atorvastatin [Lipitor] 40 mg PO HS 07/20/18 06/23/19 History calcium carbonate [Calcium 600] 0 mg PO QAM 07/20/18 06/23/19 History docusate sodium 200 mg PO DAILY 07/20/18 06/23/19 History epinephrine [EpiPen] 0.3 mg IM DIRECTED PRN 07/20/18 06/23/19 History ferrous sulfate 325 mg PO BID 07/20/18 06/23/19 History finasteride 5 mg PO DAILY 07/20/18 06/23/19 History furosemide [Lasix] 80 mg PO DAILY 07/20/18 06/23/19 History glucosamine-chondroitin 0 mg PO DIRECTED 07/20/18 06/23/19 History insulin aspart U-100 [Novolog 42 unit SUBCUT TIDM 07/20/18 06/23/19 History Flexpen U-100 Insulin] insulin glargine [Lantus Solostar 57 unit SUBCUT BID 07/20/18 06/23/19 History U-100 Insulin] lisinopril 20 mg PO DAILY 07/20/18 06/23/19 History multivitamin 1 tab PO DAILY 07/20/18 06/23/19 History nifedipine 60 mg PO QPM 07/20/18 06/23/19 History omeprazole 20 mg PO Q12 07/20/18 06/23/19 History potassium chloride 20 meq PO BIDM 07/20/18 06/23/19 History spironolactone 25 mg PO QAM 07/20/18 06/23/19 History terazosin 5 mg PO BID 07/20/18 06/23/19 History tramadol 50 mg PO Q6 PRN 06/23/19 06/23/19 History Past Med/Surg History Medical History Cellulitis Diabetes Social History Preferred Language: Luxembourgish Communication Ability: Effective Feels Safe at Home: Yes Smoking Status: Former smoker Review of Systems Review of Systems: Gen: Denies fevers, night sweats, rigors, fatigue, malaise, weight loss/gain ENT: Denies congestion, throat pain, hearing loss Eyes: Denies acute visual changes CV: Denies CP, palpitations Pulmonary: Exertional dyspnea x 1 year GI: Denies N/V, diarrhea, constipation Neuro: Denies acute or unilateral weakness, acute gait impairment, headache or acute visual changes Musculoskeletal: Denies joint pain, inflammation - chronic edema Endocrine: Denies polydipsia, polyuria Skin: Chronic LE erythema Physical Exam Physical Exam: General: Pleasant, overweight, elderly M, AAO x 3, no distress ENT: No erythema or exudates, no thrush Eyes: BALDEV, EOMI Head and neck: Normocephalic, atraumatic, No JVD, neck is supple. Chest/heart: Nontender, S1,2, RRR, no murmurs, no gallops Lungs: CTAB, no wheezing or crackles Abdomen: Nontender, nondistended, BS+ Neuro: AAO x 3, speech is clear, no unilateral weakness or loss of sensation, coordination intact Musculoskeletal: Pronounced BL edema Skin: BL erythema - no overt cellulitis Extremities: No clubbing, cyanosis Results & Data Vital Signs (Past 12 Hours) Vital Signs Temp Pulse Resp BP Pulse Ox 06/23/19 22:41 80 19 124/77 90 06/23/19 22:00 74 18 133/54 L 90 06/23/19 21:41 78 15 158/55 H 90 06/23/19 21:06 97.3 F L 88 20 157/68 H 91 Diagnostic Findings CXR: CHF EKG: NSR PG Care Time/CCT Total # of Minutes Spent Total Time Spent with Patient: Total time spent is greater than 50% in coordination of care (as documented) at patient's floor/unit and/or counseling patient: (1) CHF (congestive heart failure) Heart failure chronicity: unspecified Heart failure type: unspecified Qualified Code(s): I50.9 - Heart failure, unspecified
[2019-06-24 01:48] LABS: BUN Creatinine Ratio 21.1 (10-20); Calcium 8.2 mg/dl (8.5-10.1); Creatinine Clr Calc Pharmacy 51.1 ml/min; Est GFR (African American) 37.8; Est GFR (Non-African American) 32.6; Potassium 3.9 mmol/L (3.5-5.1)
[2019-06-24] MEDS ORDERED: TRAMADOL HCL 50 MG TABLET PO PRN (02:05)
[2019-06-24] MEDS ORDERED: HEPARIN SOD 5,000 UNIT/0.5 ML VIAL SQ SCH (06:00)
[2019-06-24] MEDS ORDERED: POTASSIUM CHLORIDE 20 MEQ TABCR PO SCH (08:00)
[2019-06-24] MEDS ORDERED: ASPIRIN 81 MG ECTAB PO SCH (09:00)
[2019-06-24] MEDS ORDERED: MULTIVITAMIN TAB PO SCH (09:00)
[2019-06-24] MEDS ORDERED: TERAZOSIN HCL 5 MG CAP PO SCH (09:00)
[2019-06-24] MEDS ORDERED: ATENOLOL 25 MG TABLET PO SCH (09:00)
[2019-06-24] MEDS ORDERED: DOCUSATE SODIUM 100 MG CAP PO SCH (09:00)
[2019-06-24] MEDS ORDERED: FUROSEMIDE 80 MG TAB PO SCH (09:00)
[2019-06-24] MEDS ORDERED: FERROUS SULFATE 325 MG TAB PO SCH (09:00)
[2019-06-24] MEDS ORDERED: INSULIN GLARGINE SOLOSTAR 100 UNITS/ML 3 ML PEN SQ SCH (09:00)
[2019-06-24] MEDS ORDERED: FINASTERIDE 5 MG TAB PO SCH (09:00)
[2019-06-24] MEDS ORDERED: lisinopriL 20 MG TAB PO SCH (09:00)
[2019-06-24] MEDS ORDERED: PANTOprazole 40 MG TAB PO SCH (09:00)
[2019-06-24] MEDS ORDERED: SPIRONOLACTONE 25 MG TAB PO SCH (09:00)
[2019-06-24 09:15] LABS: BUN Creatinine Ratio 21.4 (10-20); Calcium 8.7 mg/dl (8.5-10.1); Creatinine Clr Calc Pharmacy 50.3 ml/min; Est GFR (African American) 37.5; Est GFR (Non-African American) 32.4; Potassium 3.9 mmol/L (3.5-5.1)
--- NOTE | 2019-06-24 09:22 | Cardiology Consultation ---
Date of Consultation June 24, 2019 Assessment & Plan (1) Lower extremity edema: --likely multifactorial 2. COPD 3. Sleep apnea--untreated 4. Obesity 5. Hypertension 6. Insulin dependent type 2 DM 7. Dyslipidemia 8. Chronic back pain Patient has a history of chronic back pain and was admitted yesterday after experiencing increased back pain at work. He was noted to be hypoxic in the ED and chest xray was read as possible congestive heart failure. Patient has not experienced any change in his chronic exertional dyspnea which is likely due to his COPD. His proBNP level was normal making congestive heart failure unlikely. His lower extremity edema is likely multifactorial. Suspect he has chronic venous insufficiency and lymphedema given appearance of lower extremities on exam. Can continue his usual dose of Lasix but do not feel he needs additional diuresis at this point. Recommend continuing compression stockings (20-30 mmHg) and leg elevation. Consider lower extremity venous reflux study as an outpatient to evaluate for any venous disease amenable to ablation. Echo pending, as long as unremarkable patient OK to be discharged today from cardiac standpoint. History of Present Illness Attending Physician: Nery Jimenez MD History of Present Illness Mr. Narvaez is a 74 year old male with a medical history significant for sleep apnea untreated, obesity, COPD, dyslipidemia, hypertension, type 2 diabetes on insulin, chronic lower extremity edema, chronic back pain. Cardiology was consulted for evaluation of possible heart failure. He presented to the emergency department yesterday with increased back pain. He reports a longstanding history of low back pain since an injury many years ago. 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 In the ED was found to be hypoxic with a pulse ox of 88%. He had a chest xray which was read by radiology as developing congestive failure. Patient reports having chronic shortness of breath if he walks up one flight of stairs. This is unchanged over several years. He stops frequently at work due to back pain but has no limiting dyspnea. He denies shortness of breath at rest, orthopnea or PND. Sleeps in a recliner chair because he finds it more comfortable. He is noncompliant with his CPAP. He denies having any shortness of breath yesterday in the ED. BNP level is normal. He was given a dose of IV Lasix in the ED. He takes Lasix 80 mg daily due to chronic lower extremity edema. He wears compression stockings and several months ago got new compression stockings. Reports that since then his edema has worsened. He currently has the start of a small ulceration on his right rowley. No history of lower extremity wounds. No prior vascular procedures. No history of DVT. He has chronic lower extremity heaviness. He denies chest pain, palpitations, lightheadedness, near syncope or syncope. Social history: and lives with . 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 Quit smoking in the , previously smoked 3 packs per day. Surgical history: R carotid endarterectomy Family history: Mother and father with CVAs. Allergies Allergy/AdvReac Type Severity Reaction Status Date / Time No Known Allergies Allergy Unverified 06/23/19 22:22 Home Medications Home Medications Medication Instructions Recorded Confirmed Type aspirin 81 mg PO DAILY 07/20/18 06/23/19 History atenolol 25 mg PO BID 07/20/18 06/23/19 History atorvastatin [Lipitor] 40 mg PO HS 07/20/18 06/23/19 History calcium carbonate [Calcium 600] 0 mg PO QAM 07/20/18 06/23/19 History docusate sodium 200 mg PO DAILY 07/20/18 06/23/19 History epinephrine [EpiPen] 0.3 mg IM DIRECTED PRN 07/20/18 06/23/19 History ferrous sulfate 325 mg PO BID 07/20/18 06/23/19 History finasteride 5 mg PO DAILY 07/20/18 06/23/19 History furosemide [Lasix] 80 mg PO DAILY 07/20/18 06/23/19 History glucosamine-chondroitin 0 mg PO DIRECTED 07/20/18 06/23/19 History insulin aspart U-100 [Novolog 42 unit SUBCUT TIDM 07/20/18 06/23/19 History Flexpen U-100 Insulin] insulin glargine [Lantus Solostar 57 unit SUBCUT BID 07/20/18 06/23/19 History U-100 Insulin] lisinopril 20 mg PO DAILY 07/20/18 06/23/19 History multivitamin 1 tab PO DAILY 07/20/18 06/23/19 History nifedipine 60 mg PO QPM 07/20/18 06/23/19 History omeprazole 20 mg PO Q12 07/20/18 06/23/19 History potassium chloride 20 meq PO BIDM 07/20/18 06/23/19 History spironolactone 25 mg PO QAM 07/20/18 06/23/19 History terazosin 5 mg PO BID 07/20/18 06/23/19 History tramadol 50 mg PO Q6 PRN 06/23/19 06/23/19 History Patient History Medical History Cellulitis Diabetes Social History Preferred Language: Persian Communication Ability: Effective Beliefs That Will Affect Care: None Current Living Situation: Spouse Feels Safe at Home: Yes Safety Concerns: Feels Safe At This Time Smoking Status: Never smoker Hx Alcohol Use: No Hx Substance Use: No Review of Systems Review of Systems: All systems reviewed & are unremarkable except as noted in HPI & below Physical Exam Physical Exam: General: No acute distress, comfortable. HEENT: Head is normal. PERRLA. EOMI. Sclerae anicteric. Ears, nose and throat unremarkable. Mucous membranes moist. Neck: No appreciable JVD but neck is thick making exam difficult Lungs: Clear to auscultation bilaterally without rales, rhonchi or wheezes. Cardiac: Regular rate and rhythm. S1-S2 normal. No appreciable murmur, gallop or rub. Abdomen: Soft and nontender. Bowel sounds normal. No mass or organomegaly. No abdominal bruit. Extremities/vascular: --Well perfused. 2+ bilateral lower extremity edema to the knees --Skin thickening/changes consistent with lymphedema and chronic venous insufficiency --Shins with venous dermatitis --Small, shallow ulceration right distal rowley --Radial, DP and PT pulses 2+ bilaterally Skin: No rash or abnormal lesions. Normal turgor. Neurologic: Nonfocal Psychiatric: Affect appropriate. Alert and oriented. Results & Data Vital Signs (Past 12 Hours) Vital Signs Temp Pulse Pulse Pulse Pulse Pulse Resp 06/24/19 08:38 36.9 C 86 20 06/24/19 04:32 36.9 C 82 18 06/24/19 02:21 06/24/19 01:36 36.5 C 74 21 06/24/19 01:02 81 22 06/24/19 01:01 73 11 L 06/24/19 00:31 83 28 H 06/24/19 00:29 97 H 98 H 84 06/24/19 00:01 73 16 06/24/19 00:00 78 16 06/23/19 23:31 80 13 06/23/19 23:01 80 19 06/23/19 22:41 80 19 06/23/19 22:00 74 18 06/23/19 21:41 78 15 Resp Resp Resp BP BP BP Pulse Ox 06/24/19 08:38 179/57 H 92 06/24/19 04:32 158/64 H 91 06/24/19 02:21 06/24/19 01:36 166/59 H 92 06/24/19 01:02 93 06/24/19 01:01 153/71 H 91 06/24/19 00:31 161/62 H 95 06/24/19 00:29 30 H 30 H 22 06/24/19 00:01 92 06/24/19 00:00 140/47 L 90 06/23/19 23:31 139/67 89 L 06/23/19 23:01 160/67 H 90 06/23/19 22:41 124/77 90 06/23/19 22:00 133/54 L 90 06/23/19 21:41 158/55 H 90 Pulse Ox Pulse Ox Pulse Ox Pulse Ox 06/24/19 08:38 06/24/19 04:32 06/24/19 02:21 95 06/24/19 01:36 06/24/19 01:02 06/24/19 01:01 06/24/19 00:31 06/24/19 00:29 88 L 94 90 06/24/19 00:01 06/24/19 00:00 06/23/19 23:31 06/23/19 23:01 06/23/19 22:41 06/23/19 22:00 06/23/19 21:41 Laboratory Results Laboratory Results - last 24 hr 06/23/19 06/23/19 06/23/19 21:39 21:39 21:39 WBC 10.96 H RBC 4.06 L Hgb 11.8 L Hct 36.2 L MCV 89.2 MCH 29.1 MCHC 32.6 RDW Std Deviation 45.7 RDW Coeff of Barby 14.0 Plt Count 178 MPV 10.6 H Immature Gran % (Auto) 0.3 Neut % (Auto) 60.2 Lymph % (Auto) 27.1 [place] % (Auto) 9.5 Eos % (Auto) 2.6 Baso % (Auto) 0.3 Immature Gran # (Auto) 0.03 H Neut # (Auto) 6.61 H Lymph # (Auto) 2.97 [place] # (Auto) 1.04 H Eos # (Auto) 0.28 Baso # (Auto) 0.03 PT 10.1 INR 1.0 APTT 25.1 PTT Ratio 0.9 Sodium 141 Potassium 3.9 Chloride 104 Carbon Dioxide 31 Anion Gap 5.0 BUN 41 H Creatinine 1.99 H Est Cr Clr Drug Dosing 51.1 Est GFR ( Amer) 37.8 Est GFR (Non-Af Amer) 32.6 BUN/Creatinine Ratio 20.5 H Glucose 71 POC Glucose Calcium 8.6 Total Bilirubin 0.2 AST 15 ALT 39 Alkaline Phosphatase 115 Troponin I < 0.015 NT-Pro-B Natriuret Pep 192 Total Protein 7.2 Albumin 3.2 L Globulin 4.0 Albumin/Globulin Ratio 0.8 L Urine Color Urine Appearance Urine pH Ur Specific [place] Urine Protein Urine Glucose (UA) Urine Ketones Urine Blood Urine Nitrite Urine Bilirubin Urine Urobilinogen Ur Leukocyte Esterase Urine WBC (Auto) Urine RBC (Auto) U Hyaline Cast (Auto) U Epithel Cells (Auto) Urine Bacteria (Auto) 06/24/19 06/24/19 06/24/19 00:17 01:18 07:17 WBC RBC Hgb Hct MCV MCH MCHC RDW Std Deviation RDW Coeff of Barby Plt Count MPV Immature Gran % (Auto) Neut % (Auto) Lymph % (Auto) [place] % (Auto) Eos % (Auto) Baso % (Auto) Immature Gran # (Auto) Neut # (Auto) Lymph # (Auto) [place] # (Auto) Eos # (Auto) Baso # (Auto) PT INR APTT PTT Ratio Sodium 139 Potassium 3.9 Chloride 103 Carbon Dioxide 33 H Anion Gap 3.0 BUN 42 H Creatinine 1.99 H Est Cr Clr Drug Dosing 51.1 Est GFR ( Amer) 37.8 Est GFR (Non-Af Amer) 32.6 BUN/Creatinine Ratio 21.1 H Glucose 76 POC Glucose 182 H Calcium 8.2 L Total Bilirubin AST ALT Alkaline Phosphatase Troponin I NT-Pro-B Natriuret Pep Total Protein Albumin Globulin Albumin/Globulin Ratio Urine Color Yellow Urine Appearance Clear Urine pH 5.0 Ur Specific [place] 1.011 Urine Protein Trace H Urine Glucose (UA) Negative Urine Ketones Negative Urine Blood Negative Urine Nitrite Negative Urine Bilirubin Negative Urine Urobilinogen Negative Ur Leukocyte Esterase Negative Urine WBC (Auto) 0 Urine RBC (Auto) 0-4 U Hyaline Cast (Auto) 5-10 H U Epithel Cells (Auto) 5-10 H Urine Bacteria (Auto) Negative 06/24/19 08:04 WBC RBC Hgb Hct MCV MCH MCHC RDW Std Deviation RDW Coeff of Barby Plt Count MPV Immature Gran % (Auto) Neut % (Auto) Lymph % (Auto) [place] % (Auto) Eos % (Auto) Baso % (Auto) Immature Gran # (Auto) Neut # (Auto) Lymph # (Auto) [place] # (Auto) Eos # (Auto) Baso # (Auto) PT INR APTT PTT Ratio Sodium 140 Potassium 3.9 Chloride 102 Carbon Dioxide 32 Anion Gap 5.0 BUN 43 H Creatinine 2.00 H Est Cr Clr Drug Dosing 50.3 Est GFR ( Amer) 37.5 Est GFR (Non-Af Amer) 32.4 BUN/Creatinine Ratio 21.4 H Glucose 133 H POC Glucose Calcium 8.7 Total Bilirubin AST ALT Alkaline Phosphatase Troponin I NT-Pro-B Natriuret Pep Total Protein Albumin Globulin Albumin/Globulin Ratio Urine Color Urine Appearance Urine pH Ur Specific [place] Urine Protein Urine Glucose (UA) Urine Ketones Urine Blood Urine Nitrite Urine Bilirubin Urine Urobilinogen Ur Leukocyte Esterase Urine WBC (Auto) Urine RBC (Auto) U Hyaline Cast (Auto) U Epithel Cells (Auto) Urine Bacteria (Auto) ECG Additional Comments: EKG 06/23/19 -- sinus rhythm with incomplete RBBB PG Care Time/CCT Total # of Minutes Spent Total Time Spent with Patient: Total time spent is greater than 50% in coordination of care (as documented) at patient's floor/unit and/or counseling patient:
[2019-06-24] MEDS: INSULIN ASPART 100 UNITS/ML 3 ML PEN SC SCH ×2 (09:52→13:01)
--- NOTE | 2019-06-24 13:22 | Discharge Summary ---
Date of Service June 24, 2019 Admission HPI Per Admitting Provider 74 y/o M Hx HTN, HLD, COPD, chronic lower extremity edema, CKD III, Dm II, morbid obesity, CARINA, chronic back pain. The pt presented with an initial complaint of back pain. He was assessed in the ER and found to be mildly hypoxic. A CXR was consistent with CHF. The pt states he was never diagnosed with any heart problems. He takes diuretics but states that they were prescribed for edema only. He admits to shortness of breath with exertion, however, he states that this has been present for over a year. The pt normally [facility] and has not previously sen a risk manager. Labs are notable for worsening renal function. A CXR is consistent with CHF. 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, quit smoking , lives with Family: Both parents had CVAs Mother was diabetic Principal Diagnosis Acute on likely chronic respiratory failure with hypoxia, lower extremity cellulitis, chronic lower extremity edema Discharge Exam Constitutional WD/WN, vitals as above + obese Eyes PERRL, conjunctivae normal, anicteric sclerae ENMT external ear and nose normal, oropharynx normal Neck trachea midline, no thyromegaly Respiratory normal respiratory effort, lungs clear to auscultation Auscultation: + diminished lung sounds (throughout) Cardiovascular Rate/Rhythm: regular rate and regular rhythm Vessels: dorsalis pedis pulses present Extremities: + edema (1-2+ pitting edema legs bilat) Chest (Breasts) Chest: normal inspection of chest Gastrointestinal (Abdomen) normal bowel sounds, soft, nontender, no hepatosplenomegaly Musculoskeletal Extremities: no cyanosis and no clubbing Skin + erythema (bilat legs with warmth,erythema,a few scattered scabs) Neurologic moves all extremities and awake; no focal motor deficits Psychiatric A+Ox3, euthymic affect Lymphatic no lymphedema Discharge Data Allergies Allergy/AdvReac Type Severity Reaction Status Date / Time No Known Allergies Allergy Unverified 06/23/19 22:22 Consultations 06/23/19 23:00 ED Decision to Admit Stat 06/24/19 02:40 Consult Cardiology Routine Ordered Studies CXR Lumbar spine xray ECHO Hospital Course (1) Acute respiratory failure with hypoxia: This patient is a 74 y/o M Hx HTN, HLD, COPD, ALANA, chronic lower extremity edema, CKD III, Dm II, morbid obesity, CARINA, chronic back pain. The pt presented with an initial complaint of back pain. He was assessed in the ER and found to be mildly hypoxic. A CXR was consistent with CHF. The pt states he was never diagnosed with any heart problems. He takes diuretics but states that they were prescribed for edema only. He admits to shortness of breath with exertion, however, he states that this has been present for over a year. The [facility] and has not previously seen a risk manager. Labs are notable for worsening renal function. A CXR is consistent with CHF. a proBNP is normal ECHO performed and is normal. With normal proBNP, chronic LE edema likely secondary to venous reflux and obesity, chronic dyspnea. Does not have CHF. Seen by Cardiology here who agrees. He was given diuresis here and feels about the same as always. -advised f/u with Interventional Cardio for his LE edema -continue current PO dose of Lasix and Aldactone -advised ANA hose during the daytime -not requiring O2 at time of discharge -advised formal PFTs with PCP to look for Pulm causes of hypoxia -advised weight loss 2) Back pain - responded to treatment in the ER - cont Tramadol PRN, f/u with PCP 3) Dm II - placed on a SS of insulin here, f/u with PCP 4) COPD - not currently treated - no evidence of exacerbation, needs formal PFTs as outpt, likely cause of mild hypoxia on admission 5) HTN/HLD - cont Lasix/Aldactone,Lisinopril, Atenolol 6) CARINA - has not been compliant - CPAP ordered and encouraged for home use 7) CKD stage 3-4- suspected worsening function on admission but 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 8) LE cellulitis-does seem hot, erythematous, and pt and report worse than usual -treat with 7 day course of keflex-prescribed upon discharge, f/u with PCP Stable for dc to home (2) Cellulitis: (3) Lower extremity edema: (4) Back pain: (5) Edema, pitting: (6) Dyspnea: (7) Obesity: (8) Diabetes mellitus type 2 in obese: (9) CARINA on CPAP: (10) CKD (chronic kidney disease) stage 4, GFR 15-29 ml/min: Total Time Total Time Spent Total Time Spent (In Minutes): 35 min Total Time Includes: Examination of the Patient, Discharge Planning, Medication Reconciliation and Communication With Other Providers (Cardiology, Dr. Alonso) Discharge Plan Discharge Items Patient Disposition: Home - Self-Care Reason For Visit: Shortness of breath Discharge Diagnosis: Shortness of breath-possible COPD (emphysema), Leg swelling and cellulitis Condition on Discharge: Fair Activity: Resume your previous activity Bathing: No limitations Non-emergency contact: Primary Care Provider Call non-emergency contact if: you have any medication questions and your symptoms worsen Follow-up/Referrals: Vincent Melgar MD [Primary Care Provider] - Diet: Carb Consistent or DM2 and Low Sodium (2gm) Addtl Attending Provider Instructions: Continue your same medications as before. You will be given an antibiotic for your leg cellulitis infection to be taken x 10 days. Please follow up with your PCP and ask about having PFTs (Pulmonary Function Tests) to see if you have chronic lung disease. Your leg swelling could be from venous reflux and you will be scheduled with Dr. Toth of [facility] to see if you would benefit from a procedure to fix your veins. Overall, weight loss would be excellent for you for many reasons. You did NOT qualify for home oxygen, but your lowest oxygen level was 89% with walking around. Continue to wear compression stockings to help with your leg swelling. Pending Studies at Discharge: No Stand-Alone Forms: My [facility] Medications and DC Order Prescriptions: Continued multivitamin Tablet 1 tab PO DAILY RF: 0 terazosin 5 mg Capsule 5 mg PO BID RF: 0 atorvastatin [Lipitor] 80 mg Tablet 40 mg PO HS RF: 0 lisinopril 20 mg Tablet 20 mg PO DAILY RF: 0 atenolol 25 mg Tablet 25 mg PO BID RF: 0 aspirin 81 mg Tablet,Delayed Release (Dr/Ec) 81 mg PO DAILY RF: 0 spironolactone 25 mg Tablet 25 mg PO QAM RF: 0 calcium carbonate [Calcium 600] 600 mg calcium (1,500 mg) Tablet 0 mg PO QAM RF: 0 furosemide [Lasix] 80 mg Tablet 80 mg PO DAILY RF: 0 ferrous sulfate 325 mg (65 mg iron) tablet 325 mg PO BID RF: 0 docusate sodium 100 mg Capsule 200 mg PO DAILY RF: 0 omeprazole 20 mg Capsule,Delayed Release(Dr/Ec) 20 mg PO Q12 RF: 0 epinephrine [EpiPen] 0.3 mg/0.3 mL Auto-Injector 0.3 mg IM DIRECTED PRN (Reason: Allergic Reaction) RF: 0 nifedipine 60 mg Tablet Extended Release 60 mg PO QPM RF: 0 finasteride 5 mg Tablet 5 mg PO DAILY RF: 0 Novolog Flexpen U-100 Insulin 100 unit/mL Insulin Pen 42 unit SUBCUT TIDM RF: 0 Lantus Solostar U-100 Insulin 100 unit/mL (3 mL) Insulin Pen 57 unit SUBCUT BID RF: 0 glucosamine-chondroitin 167-133 mg Capsule 0 mg PO DIRECTED RF: 0 potassium chloride 20 mEq Tablet Extended Release 20 meq PO BIDM RF: 0 tramadol 50 mg tablet 50 mg PO Q6 PRN (Reason: Pain) RF: 0 Discharge Orders: Discharge Order (Routine); Ordered 06/24/19 Ordered By: Nery Jimenez Admission Data Admit Date/Time: 06/24/19 00:35 Attending Provider: Nery Jimenez Admit Provider: Sunil De Guzman Primary Care Provider: Vincent Melgar Other Providers: Suinl De Guzman ; Janes Alonso Other Interventions: Discharge Summary Assessment (RN) Last Done: 06/24/19 13:32 DC Date/Time DO NOT enter until pt leaves facility: 06/24/19 14:08
[2019-06-24] MEDS ORDERED: NIFEdipine EXTENDED REL 30 MG TABCR PO SCH (21:00)
[2019-06-24] MEDS ORDERED: ATORVASTATIN 40 MG TAB PO SCH (21:00)
--- NOTE | 2019-06-25 07:30 | Electrocardiogram Report ---
Test Reason : Blood Pressure : / mmHG Vent. Rate : 081 BPM Atrial Rate : 081 BPM P-R Int : 174 ms QRS Dur : 092 ms QT Int : 382 ms P-R-T Axes : 066 001 037 degrees QTc Int : 443 ms Normal sinus rhythm Low voltage QRS Incomplete right bundle branch block Borderline ECG When compared with ECG of 20-JUL-2018 14:09, Premature atrial complexes are no longer Present Confirmed by Zhang Andrade ([id number]) on 06/25/2019 7:30:07 AM Referred By: REFERRED SELF Confirmed By:Bert Andrade
== END 2019-06-24 14:08 | disposition home or self-care (01) ==
LOC: ED 21:04 → 2E 21:04 → SUATTDRO 06-24 00:35 → 2E 06-24 01:22

== ENCOUNTER 2020-11-28 14:27 | Inpatient (IN) ==
[2020-11-28 15:28] LABS: Basophils # (auto) 0.01 K/uL (0-0.2); Basophils % (auto) 0.1 %; Eosinophils % (auto) 0.8 %; Hematocrit (blood only) 37.9 % (42-52); Immature Granulocytes # (auto) 0.03 K/uL (0.00-0.02); Immature Granulocytes % (auto) 0.2 %; Lymphocytes # (auto) 1.68 K/uL (1.2-3.4); Mean Corpuscular Hemoglobin 27.6 pg (25-34); Mean Corpuscular Hgb Conc 31.7 g/dL (32-36); Mean Corpuscular Volume 87.1 fL (80-100); Mean Platelet Volume 11.2 fL (7.4-10.4); Monocytes # (auto) 1.01 K/uL (0.11-0.59); Monocytes % (auto) 8.4 %; Neutrophils % (auto) 76.5 %; Platelet Count 227 K/uL (130-400); RDW Standard Deviation 48.3 fL (36.4-46.3); Red Blood Count 4.35 M/uL (4.7-6.1); White Blood Count 12.03 K/uL (4.8-10.8)
[2020-11-28 15:36] LABS: Base Excess VBG 10.6 mEq/L; Oxygen Saturation VBG 86.4 %; pH VBG 7.38 (7.36-7.41)
[2020-11-28 15:39] LABS: Partial Thromboplastin Ratio 1.1; Partial Thromboplastin Time 27.8 Seconds (21.0-31.0); Prothrombin Time 10.6 Seconds (9.0-12.0)
[2020-11-28 15:44] LABS: BUN Creatinine Ratio 28.8 (10-20); Blood Urea Nitrogen 53 mg/dl (7-18); Calcium 8.3 mg/dl (8.5-10.1); Carbon Dioxide 37 mmol/L (21-32); Chloride 97 mmol/L (98-107); Creatinine Clr Calc Pharmacy 51.3 ml/min; Est GFR (African American) 41.8 ml/min; Glucose 152 mg/dl (70-99); Lipase 84 U/L (73-393); Magnesium 2.1 mg/dl (1.8-2.4); Potassium 3.2 mmol/L (3.5-5.1); Sodium 138 mmol/L (136-145)
--- NOTE | 2020-11-28 15:48 | XRay Report ---
XR chest 1V portable CLINICAL HISTORY: Atypical chest pain COMPARISON STUDY: 10/13/2019 FINDINGS: The heart is the upper limits of normal in size. There is no failure. There is no focal pul monary consolidation. There are no pleural effusions. There is a mildly prominent left cardiophrenic angle fat pad.[ IMPRESSION: No active disease in the chest. ACT 112: Negative or not required by law. Electronically signed by: Christopher Cabrales M.D. 11/28/2020 3:46 PM
[2020-11-28 15:49] LABS: NT Pro B Type Natriuretic Pept 433 pg/ml (0-900); Troponin I < 0.015 ng/ml (0-0.045)
--- NOTE | 2020-11-28 16:12 | Emergency Department Note ---
History of Present Illness General Chief Complaint: Shortness of Breath/Dyspnea Stated Complaint: CHEST PAINS,SITTING AND AT NIGHT TROUBLE BREATHING Time Seen by Provider: 11/28/20 14:48 History of Present Illness Provider Complaint: shortness of breath Onset (ago): week(s) (1) Severity: severe Consistency/Duration: + progressively worsening Maximum Pain Intensity: 4 Relieved By: + upright position Exacerbated By: + lying flat, + exertion, + movement and + coughing Context: + occurred during exertion Known history of: congestive heart failure Associated symptoms: + orthopnea; no chest pain, no fever, no cough, no wheezing, no sputum production, no paresthesias, no palpitations, no hemoptysis, no nausea/vomiting, no syncope, no abdominal pain, no dizziness and no lighthea dedness HPI Narrative: Patient states he has been vaccinated against COVID-19. Related Data Home oxygen amount: none Home Medications Medication Instructions Recorded Confirmed Type Lantus Solostar U-100 Insulin 57 unit SUBCUT BID 07/20/18 11/28/20 History aspirin 81 mg PO QAM 07/20/18 11/28/20 History atenolol [Tenormin] 25 mg PO BID 07/20/18 11/28/20 History atorvastatin [Lipitor] 40 mg PO HS 07/20/18 11/28/20 History calcium carbonate [Calcium 600] 600 mg PO QAM 07/20/18 11/28/20 History docusate sodium 200 mg PO DAILY 07/20/18 11/28/20 History epinephrine [EpiPen] 0.3 mg IM DIRECTED PRN 07/20/18 11/28/20 History finasteride [Proscar] 5 mg PO DAILY 07/20/18 11/28/20 History furosemide [Lasix] 80 mg PO BID 07/20/18 11/28/20 History glucosamine-chondroitin 1 cap PO DAILY 07/20/18 11/28/20 History insulin aspart U-100 [Novolog 42 unit SUBCUT TIDM 07/20/18 11/28/20 History Flexpen U-100 Insulin] omeprazole 20 mg PO Q12 07/20/18 11/28/20 History potassium chloride [K-Tab] 20 meq PO BIDM 07/20/18 11/28/20 History terazosin 5 mg PO BID 07/20/18 11/28/20 History hydralazine 20 mg PO Q8 10/13/19 11/28/20 History cholecalciferol (vitamin D3) 25 mcg PO DAILY 11/28/20 11/28/20 History [Vitamin D3] clobetasol 1 applic TOPICAL DAILY PRN 11/28/20 11/28/20 History clotrimazole 1 applic TOPICAL DAILY 11/28/20 11/28/20 History fluocinonide 1 applic TOPICAL BID 11/28/20 11/28/20 History losartan 50 mg PO DAILY 11/28/20 11/28/20 History metolazone 2.5 mg PO 4XWK 11/28/20 11/28/20 History multivitamin with minerals 1 tab PO DAILY 11/28/20 11/28/20 History vit [id number] 1 tab PO DAILY 11/28/20 11/28/20 History [Bioflex] Allergies Allergy/AdvReac Type Severity Reaction Status Date / Time No Known Allergies Allergy Unverified 11/28/20 16:21 Past Med/Surg History Medical History (Updated 11/28/20 @ 16:51 by Adiel Zhu) Cellulitis CKD (chronic kidney disease) stage 4, GFR 15-29 ml/min Diabetes Diabetes mellitus type 2 in obese Obesity CARINA on CPAP Social History Smoking Status: Former smoker Hx Alcohol Use: No Hx Substance Use: No Preferred Language: Emir[place] Communication Ability: Effective Beliefs That Will Affect Care: None Current Living Situation: Spouse Feels Safe at Home: Yes Assistive Devices: Cane Review of Systems A total of 10 systems reviewed and were otherwise negative Physical Exam Vital Signs: Vital Signs - 24 hr 11/28/20 14:36 11/28/20 14:52 11/28/20 15:16 Temperature 36.4 C L Temperature Source Skin Pulse Rate 76 85 82 Pulse Rate from Sp O2 Sensor 82 Pulse Rhythm Regular Respiratory Rate 20 26 H Respiratory Effort / Characteristics Non-Labored Sponta neous Labored Respiratory Depth Normal Blood Pressure 139/65 146/81 H Blood Pressure Rosanna n 89 102 Blood Pressure Pos ition Sitting Pulse Oximetry 87 L 83 L 98 Oxygen Delivery Me thod Room Air Room Air Oxygen Flow Rate 3 Sepsis Recent Feve r Within 48 Hours No Sepsis New/Unexpla ined Change in Men afshin Status N/A Sepsis Action Take n by Nursing No Action Required 11/28/20 15:30 11/28/20 16:00 11/28/20 16:31 Temperature Temperature Source Pulse Rate 79 84 Pulse Rate from Sp O2 Sensor 80 83 86 Pulse Rhythm Respiratory Rate 22 20 Respiratory Effort / Characteristics Respiratory Depth Blood Pressure 148/64 H 157/101 H 104/66 Blood Pressure Rosanna n 92 119 78 Blood Pressure Pos ition Pulse Oximetry 98 97 97 Oxygen Delivery Me thod Oxygen Flow Rate 3 3 3 Sepsis Recent Feve r Within 48 Hours Sepsis New/Unexpla ined Change in Men afshin Status Sepsis Action Take n by Nursing Physical Exam: Physical Exam GENERAL: Patient in respiratory distress. HENT: Exam performed. - Head: Normocephalic and atraumatic. - Right Ear: External ear normal. No mastoid tenderness. - Left Ear: External ear normal. No mastoid tenderness. - Mouth/Throat: The oropharynx is clear and moist. No trismus in the jaw. No dental abscesses or uvula swelling. No oropharyngeal exudate or tonsillar abscesses. EYES: Conjunctivae and EOM are normal. Pupils are equal, round, and reactive to light. Right eye exhibits no discharge. Left eye exhibits no discharge. No scleral icterus. NECK: Normal range of motion. Neck supple. No JVD present. No spinous process tenderness present. No carotid bruit present. No rigidity. No tracheal deviation and normal range of motion present. No Brudzinski's sign and no Kernig's sign noted. CV: Normal rate, regular rhythm, normal heart sounds and intact distal pulses. 2+ pitting edema of the bilateral lower extremities.. Palpable radial pulses bue. PULM/CHEST: Diminished breath sounds bilaterally. Inspiratory rales at the bases. Tachypneic. - Chest Wall: He exhibits no tenderness. ABD: The abdomen is soft. Bowel sounds are normal. He has no distension. No mass is present. There is no tenderness. There is no rebound, no guarding, no Sifuentes's sign and no tenderness at McBurney's point. Rovsig negative. MUSC/SKEL: Normal range of motion. There is no tenderness or deformity.2+ pitting edema of the bilateral lower extremities. LYMPH: No cervical adenopathy. NEURO: He is alert and oriented to person, place, and time. He has normal strength. No cranial nerve deficit or sensory deficit. Coordination and gait normal. GCS eye subscore is 4. GCS verbal subscore is 5. GCS motor subscore is 6. Cerebellar tests wnl. SKIN: Skin is warm and dry. He is not diaphoretic. PSYCH: He has a normal mood and affect. Behavior is normal. Judgment and thought content normal. Course Course 1448: The patient was evaluated in room C6. A complete history and physical exam was performed Cardiac monitoring: An order was placed for continuous cardiac monitoring. The monitor shows a rate of 80 with sinus rhythm Patient found to be hypoxic at 83% on room air. Patient was placed on 3 L via nasal cannula which improved his oxygen saturation. EMR reviewed. Patient was admitted to the hospital in June 2019 for acute respiratory failure with hypoxia and his chest x-ray was consistent with c ongestive heart failure. Patient has never been diagnosed with congestive heart failure per that note. Patient had an echocardiogram which did not show any decrease in ejection fraction. They thought that his lower extremity edema was likely secondary to venous reflux and obesity as well as chronic dyspnea. 1648: Vital signs stable on supplemental oxygen via nasal cannula. Patient's labs show leukocytosis of 12.03. Potassium 3.2. Potassium placed in the emergency department. Creatinine of 1.82 which is at the patient's baseline. Chest x-ray and proBNP are within normal limits. Troponin within normal limits. D-dimer is elevated at 710. VBG shows mild increase in the PCO2 of 65 pH 7.38. We cannot scan the patient for rule out PE given her is CKD. Patient will be admitted to the [facility] service given his hypoxia. I discussed the case with the [facility] hospitalist Dr. Smyth and both he and I feel that the patient should be anticoagulated given his elevated D-dimer and hypoxia for possible PE. Patient will be admitted and have a VQ scan during admission. We decided to start the patient on heparin with bolus as opposed to Lovenox given the patient's weight and BMI. Medical Decision Making Laboratory Data Result diagrams: 11/28/20 15:15 11/28/20 15:14 Lab Results 11/28/20 11/28/20 11/28/20 Range/Units 15:14 15:14 15:14 WBC (4.8-10.8) K/uL RBC (4.7-6.1) M/uL Hgb (14.0-18.0) g/dL Hct (42-52) % MCV (80-100) fL MCH (25-34) pg MCHC (32-36) g/dL RDW Std Deviation (36.4-46.3) fL RDW Coeff of Barby (11.5-14.5) % Plt Count (130-400) K/uL MPV (7.4-10.4) fL Immature Gran % (Auto) % Neut % (Auto) % Lymph % (Auto) % Woodson % (Auto) % Eos % (Auto) % Baso % (Auto) % Neut # (Auto) (1.4-6.5) K/uL Lymph # (Auto) (1.2-3.4) K/uL Woodson # (Auto) (0.11-0.59) K/uL Eos # (Auto) (0-0.5) K/uL Baso # (Auto) (0-0.2) K/uL Immature Gran # (Auto) (0.00-0.02) K/uL PT 10.6 (9.0-12.0) Seconds INR 1.0 (0.9-1.1) APTT 27.8 (21.0-31.0) Seconds PTT Ratio 1.1 D-Dimer (0-500) ug/L FEU VBG pH (7.36-7.41) VBG pCO2 (38-50) mmHg VBG pO2 mmHg VBG HCO3 mmol/L VBG O2 Saturation % VBG Base Excess mEq/L Barometric Pressure mm/Hg Sodium 138 Cancelled (136-145) mmol/L Potassium 3.2 L Cancelled (3.5-5.1) mmol/L Chloride 97 L Cancelled (98-107) mmol/L Carbon Dioxide 37 H Cancelled (21-32) mmol/L Anion Gap 4.0 Cancelled (3-11) BUN 53 H Cancelled (7-18) mg/dl Creatinine 1.82 H Cancelled (0.6-1.4) mg/dl Est Cr Clr Drug Dosing 51.3 Cancelled ml/min Est GFR ( Amer) 41.8 Cancelled ml/min Est GFR (Non-Af Amer) 36.0 Cancelled ml/min BUN/Creatinine Ratio 28.8 H Cancelled (10-20) Glucose 152 H Cancelled (70-99) mg/dl Calcium 8.3 L Cancelled (8.5-10.1) mg/dl Magnesium 2.1 (1.8-2.4) mg/dl Troponin I < 0.015 Cancelled (0-0.045) ng/ml NT-Pro-B Natriuret Pep 433 (0-900) pg/ml Lipase 84 Cancelled (73-393) U/L COVID-19 Eval Order SARS-CoV-2 (PCR) (Negative) 11/28/20 11/28/20 11/28/20 Range/Units 15:14 15:15 15:15 WBC 12.03 H (4.8-10.8) K/uL RBC 4.35 L (4.7-6.1) M/uL Hgb 12.0 L (14.0-18.0) g/dL Hct 37.9 L (42-52) % MCV 87.1 (80-100) fL MCH 27.6 (25-34) pg MCHC 31.7 L (32-36) g/dL RDW Std Deviation 48.3 H (36.4-46.3) fL RDW Coeff of Barby 15.0 H (11.5-14.5) % Plt Count 227 (130-400) K/uL MPV 11.2 H (7.4-10.4) fL Immature Gran % (Auto) 0.2 % Neut % (Auto) 76.5 % Lymph % (Auto) 14.0 % Woodson % (Auto) 8.4 % Eos % (Auto) 0.8 % Baso % (Auto) 0.1 % Neut # (Auto) 9.20 H (1.4-6.5) K/uL Lymph # (Auto) 1.68 (1.2-3.4) K/uL Woodson # (Auto) 1.01 H (0.11-0.59) K/uL Eos # (Auto) 0.10 (0-0.5) K/uL Baso # (Auto) 0.01 (0-0.2) K/uL Immature Gran # (Auto) 0.03 H (0.00-0.02) K/uL PT (9.0-12.0) Seconds INR (0.9-1.1) APTT (21.0-31.0) Seconds PTT Ratio D-Dimer 710 H* (0-500) ug/L FEU VBG pH 7.38 (7.36-7.41) VBG pCO2 65 H (38-50) mmHg VBG pO2 49 mmHg VBG HCO3 38 mmol/L VBG O2 Saturation 86.4 % VBG Base Excess 10.6 mEq/L Barometric Pressure 733.6 mm/Hg Sodium (136-145) mmol/L Potassium (3.5-5.1) mmol/L Chloride (98-107) mmol/L Carbon Dioxide (21-32) mmol/L Anion Gap (3-11) BUN (7-18) mg/dl Creatinine (0.6-1.4) mg/dl Est Cr Clr Drug Dosing ml/min Est GFR ( Amer) ml/min Est GFR (Non-Af Amer) ml/min BUN/Creatinine Ratio (10-20) Glucose (70-99) mg/dl Calcium (8.5-10.1) mg/dl Magnesium (1.8-2.4) mg/dl Troponin I (0-0.045) ng/ml NT-Pro-B Natriuret Pep (0-900) pg/ml Lipase (73-393) U/L COVID-19 Eval Order SARS-CoV-2 (PCR) (Negative) 11/28/20 11/28/20 Range/Units 15:18 15:18 WBC (4.8-10.8) K/uL RBC (4.7-6.1) M/uL Hgb (14.0-18.0) g/dL Hct (42-52) % MCV (80-100) fL MCH (25-34) pg MCHC (32-36) g/dL RDW Std Deviation (36.4-46.3) fL RDW Coeff of Barby (11.5-14.5) % Plt Count (130-400) K/uL MPV (7.4-10.4) fL Immature Gran % (Auto) % Neut % (Auto) % Lymph % (Auto) % Woodson % (Auto) % Eos % (Auto) % Baso % (Auto) % Neut # (Auto) (1.4-6.5) K/uL Lymph # (Auto) (1.2-3.4) K/uL Woodson # (Auto) (0.11-0.59) K/uL Eos # (Auto) (0-0.5) K/uL Baso # (Auto) (0-0.2) K/uL Immature Gran # (Auto) (0.00-0.02) K/uL PT (9.0-12.0) Seconds INR (0.9-1.1) APTT (21.0-31.0) Seconds PTT Ratio D-Dimer (0-500) ug/L FEU VBG pH (7.36-7.41) VBG pCO2 (38-50) mmHg VBG pO2 mmHg VBG HCO3 mmol/L VBG O2 Saturation % VBG Base Excess mEq/L Barometric Pressure mm/Hg Sodium (136-145) mmol/L Potassium (3.5-5.1) mmol/L Chloride (98-107) mmol/L Carbon Dioxide (21-32) mmol/L Anion Gap (3-11) BUN (7-18) mg/dl Creatinine (0.6-1.4) mg/dl Est Cr Clr Drug Dosing ml/min Est GFR ( Amer) ml/min Est GFR (Non-Af Amer) ml/min BUN/Creatinine Ratio (10-20) Glucose (70-99) mg/dl Calcium (8.5-10.1) mg/dl Magnesium (1.8-2.4) mg/dl Troponin I (0-0.045) ng/ml NT-Pro-B Natriuret Pep (0-900) pg/ml Lipase (73-393) U/L COVID-19 Eval Order Covid19 at [facility] SARS-CoV-2 (PCR) NEGATIVE (Negative) Imaging Data Radiologist's Impression: Chest X-Ray 11/28/20 14:49 XR chest 1V portable CLINICAL HISTORY: Atypical chest pain COMPARISON STUDY: 10/13/2019 FINDINGS: The heart is the upper limits of normal in size. There is no failure. There is no focal pulmonary consolidation. There are no pleural effusions. There is a mildly prominent left cardiophrenic angle fat pad.[ IMPRESSION: No active disease in the chest. ACT 112: Negative or not required by law. Electronically signed by: Christopher Cabrales M.D. 11/28/2020 3:46 PM ECG Data Interpretation: Sinus rhythm with a rate of 83. CO QTC intervals within normal limits. QRS 152. Right bundle branch block present. No ST elevation or ST depression. [facility] Narrative 1448: The patient was evaluated in room C6. A complete history and physical exam was performed Cardiac monitoring: An order was placed for continuous cardiac monitoring. The monitor shows a rate of 80 with sinus rhythm Patient found to be hypoxic at 83% on room air. Patient was placed on 3 L via nasal cannula which improved his oxygen saturation. EMR reviewed. Patient was admitted to the hospital in June 2019 for acute respiratory failure with hypoxia and his chest x-ray was consistent with con gestive heart failure. Patient has never been diagnosed with congestive heart failure per that note. Patient had an echocardiogram which did not show any decrease in ejection fraction. They thought that his lower extremity edema was likely secondary to venous reflux and obesity as well as chronic dyspnea. 1648: Vital signs stable on supplemental oxygen via nasal cannula. Patient's labs show leukocytosis of 12.03. Potassium 3.2. Potassium placed in the emergency department. Creatinine of 1.82 which is at the patient's baseline. Chest x-ray and proBNP are within normal limits. Troponin within normal limits. D-dimer is elevated at 710. VBG shows mild increase in the PCO2 of 65 pH 7. 38. We cannot scan the patient for rule out PE given her is CKD. Patient will be admitted to the [facility] service given his hypoxia. [facility] and both he and I feel that the patient should be anticoagulated given his elevated D-dimer and hypoxia for possible PE. Patient will be admitted and have a VQ scan during admission. We decided to start the patient on heparin with bolus as opposed to Lovenox given the patient's weight and BMI. Impression & Plan Hypoxia, Lower extremity edema, CKD (chronic kidney disease) stage 4, GFR 15-29 ml/min, D-dimer, elevated Critical Care Time Critical Care Time: Yes Total Critical Care Time: 45 I have personally spent greater than 45 minutes of critical care time in the direct management of this patient. This includes bedside care, interpretation of diagnostic studies, and testing, discussion with consultants, patient, and family members, and other required patient management activities. This 45 minutes is in excess of all separately billable procedures. Discharge Plan Visit Data Chief Complaint: Shortness of Breath/Dyspnea Stated Complaint: CHEST PAINS,SITTING AND AT NIGHT TROUBLE BREATHING ED Provider: Adiel Zhu Discharge Problem: Hypoxia, Lower extremity edema, CKD (chronic kidney disease) stage 4, GFR 15-29 ml/min, D-dimer, elevated Patient Disposition: Admitted As Inpatient Forms Stand Alone Forms: [facility] Prescriptions Prescriptions: No Action terazosin 5 mg Capsule 5 mg PO BID RF: 0 atorvastatin [Lipitor] 80 mg Tablet 40 mg PO HS RF: 0 atenolol [Tenormin] 25 mg Tablet 25 mg PO BID RF: 0 aspirin 81 mg Tablet,Delayed Release (Dr/Ec) 81 mg PO QAM RF: 0 calcium carbonate [Calcium 600] 600 mg calcium (1,500 mg) Tablet 600 mg PO QAM RF: 0 furosemide [Lasix] 80 mg Tablet 80 mg PO BID RF: 0 docusate sodium 100 mg Capsule 200 mg PO DAILY RF: 0 omeprazole 20 mg Capsule,Delayed Release(Dr/Ec) 20 mg PO Q12 RF: 0 epinephrine [EpiPen] 0.3 mg/0.3 mL Auto-Injector 0.3 mg IM DIRECTED PRN (Reason: Allergic Reaction) RF: 0 finasteride [Proscar] 5 mg Tablet 5 mg PO DAILY RF: 0 insulin aspart U-100 [Novolog Flexpen U-100 Insulin] 100 unit/mL Insulin Pen 42 unit SUBCUT TIDM RF: 0 Lantus Solostar U-100 Insulin 100 unit/mL (3 mL) Insulin Pen 57 unit SUBCUT BID RF: 0 glucosamine-chondroitin 167-133 mg Capsule 1 cap PO DAILY RF: 0 potassium chloride [K-Tab] 20 mEq Tablet Extended Release 20 meq PO BIDM RF: 0 hydralazine 10 mg tablet 20 mg PO Q8 RF: 0 metolazone 2.5 mg tablet 2.5 mg PO 4XWK RF: 0 losartan 50 mg tablet 50 mg PO DAILY RF: 0 cholecalciferol (vitamin D3) [Vitamin D3] 25 mcg (1,000 unit) Tablet 25 mcg PO DAILY RF: 0 Bioflex 164-27-62-40 mg Tablet 1 tab PO DAILY RF: 0 multivitamin with minerals Tablet 1 tab PO DAILY RF: 0 fluocinonide 0.05 % Cream 1 applic TOPICAL BID RF: 0 clobetasol 0.05 % solution 1 applic TOPICAL DAILY PRN (Reason: Itching) RF: 0 clotrimazole 1 % cream 1 applic TOPICAL DAILY RF: 0 Referrals Referrals: Vincent Melgar MD [Primary Care Provider] -
[2020-11-28 16:27] LABS: D Dimer 710 ug/L FEU (0-500)
[2020-11-28] MEDS ORDERED: Heparin IV Adult Wt-Based Standard WITH Bolus Protocol IV STA (16:35)
[2020-11-28] MEDS ORDERED: POTASSIUM CHLORIDE 10 MEQ TABCR PO STA (16:47)
[2020-11-28] MEDS ORDERED: HEPARIN SOD (PORCINE) 1000 UNIT/ML IV ONE (16:51)
[2020-11-28] MEDS: HEPARIN SODIUM/DEXTROSE 25,000 UNITS/500 ML BAG IV SCH (17:27)
--- NOTE | 2020-11-28 17:42 | History & Physical Report ---
Date of Service November 28, 2020 Assessment & Plan (1) Acute respiratory failure with hypoxia: I suspect this is multifactorial, most concerning is the patient's known obstructive sleep apnea for which he is noncompliant with CPAP. Likely has component of obesity hypoventilation as well admit to monitored bed further work-up as noted below patient tells me he does not typically use home oxygen, I suspect he may need to do this, especially nightly if he cannot tolerate CPAP. consider 6-minute walk before discharge (2) D-dimer, elevated: Somewhat elevated D-dimer, unfortunately secondary to the patient's size and renal function, CT angiogram could not be performed I suspect a VQ scan will be of less value in a very morbidly obese patient, will order for now, agree with the ER physicians plan to initiate a heparin drip for full anticoagulation Will Doppler bilateral lower extremities 2D echo (3) CARINA on CPAP: Will request overnight pulse oximetry while on [place] oxygen, patient may be amenable to this if he cannot tolerate CPAP in any form (4) Diabetes mellitus type 2 in obese: Check hemoglobin A1c Continue twice daily Lantus dosing Sliding scale Diabetic diet History of Present Illness Chief Complaint: Shortness of breath Primary Care Provider: Vincent Melgar MD This is a 75-year-old male with past medical history of morbid obesity, CKD, obstructive sleep apnea with noncompliance to CPAP the complains of shortness of breath. Patient is a decent historian. Patient tells me that he has been having issues with shortness of breath for about 1 week now although became much more severe last night. He was unable to sleep very much as he felt like he "had to think about breathing ". He has not been able to lie flat in a while and typically sleeps upright in a lazy boy chair. He has been having some cough which has had scant white sputum production. He has chronic lower extremity edema which is no worse, he actually feels that is improved since he is using compression socks. He does note some mild chest pressure, especially with the cough. I did discuss patient's sleep apnea, he tells me he is unable to tolerate the mask or the nasal pillows. He does have a device at home but is essentially not using it. He denies any other symptoms such as fever, chills, palpitations, abdominal pain, or changes in bowel habits. On work-up in the ER, patient had an O2 sat of 83%. He is now on nasal cannula oxygen with an O2 sat of 96%. Allergies Allergy/AdvReac Type Severity Reaction Status Date / Time No Known Allergies Allergy Unverified 11/28/20 16:21 Home Medications Medication Instructions Recorded Confirmed Type Lantus Solostar U-100 Insulin 57 unit SUBCUT BID 07/20/18 11/28/20 History aspirin 81 mg PO QAM 07/20/18 11/28/20 History atenolol [Tenormin] 25 mg PO BID 07/20/18 11/28/20 History atorvastatin [Lipitor] 40 mg PO HS 07/20/18 11/28/20 History calcium carbonate [Calcium 600] 600 mg PO QAM 07/20/18 11/28/20 History docusate sodium 200 mg PO DAILY 07/20/18 11/28/20 History epinephrine [EpiPen] 0.3 mg IM DIRECTED PRN 07/20/18 11/28/20 History finasteride [Proscar] 5 mg PO DAILY 07/20/18 11/28/20 History furosemide [Lasix] 80 mg PO BID 07/20/18 11/28/20 History glucosamine-chondroitin 1 cap PO DAILY 07/20/18 11/28/20 History insulin aspart U-100 [Novolog 42 unit SUBCUT TIDM 07/20/18 11/28/20 History Flexpen U-100 Insulin] omeprazole 20 mg PO Q12 07/20/18 11/28/20 History potassium chloride [K-Tab] 20 meq PO BIDM 07/20/18 11/28/20 History terazosin 5 mg PO BID 07/20/18 11/28/20 History hydralazine 20 mg PO Q8 10/13/19 11/28/20 History cholecalciferol (vitamin D3) 25 mcg PO DAILY 11/28/20 11/28/20 History [Vitamin D3] clobetasol 1 applic TOPICAL DAILY PRN 11/28/20 11/28/20 History clotrimazole 1 applic TOPICAL DAILY 11/28/20 11/28/20 History fluocinonide 1 applic TOPICAL BID 11/28/20 11/28/20 History losartan 50 mg PO DAILY 11/28/20 11/28/20 History metolazone 2.5 mg PO 4XWK 11/28/20 11/28/20 History multivitamin with minerals 1 tab PO DAILY 11/28/20 11/28/20 History vit [id number] 1 tab PO DAILY 11/28/20 11/28/20 History [Bioflex] Past Med/Surg History Medical History Cellulitis CKD (chronic kidney disease) stage 4, GFR 15-29 ml/min Diabetes Diabetes mellitus type 2 in obese Obesity CARINA on CPAP Social History Smoking Status: Former smoker Hx Alcohol Use: No Hx Substance Use: No Preferred Language: Nepalese Communication Ability: Effective Beliefs That Will Affect Care: None Current Living Situation: Spouse Feels Safe at Home: Yes Assistive Devices: Cane Review of Systems Constitutional: + fatigue; no fever, no chills, no weakness, no weight loss and no weight gain Eyes: as per Subjective / HPI Respiratory: + dyspnea, + dyspnea on exertion, + pain with cough, + stopping breathing during sleep and + sputum production; no cough, no chest congestion and no hemoptysis Cardiovascular: + chest pain, + dyspnea and + problem reported; no radiating jaw, neck or arm pain, no orthopnea, no palpitations, no lightheadedness, no syncope and no edema Gastrointestinal: no abdominal pain, no nausea, no vomiting, no constipation and no diarrhea/loose stools Musculoskeletal: no back pain, no neck pain, no joint pain, no stiffness and no myalgia Integumentary: no rash Neurologic: no gait abnormality, no unsteadiness, no falls and no generalized weakness Physical Exam Constitutional: cooperative and comfortable; no acute distress Neck: trachea midline, no thyromegaly Respiratory: normal respiratory effort Auscultation: + diminished lung sounds; no crackles, no rales, no rhonchi and no wheezes Cardiovascular: Rate/Rhythm: regular rate and regular rhythm Heart Sounds: normal S1 and normal S2; no murmur Extremities: + edema (23+, has compression stockings on) Cannot examine neck secondary to obesity and a very prominent leavitt Gastrointestinal (Abdomen): Inspection/Auscultation: abdomen normal to inspection Percussion/Palpation: abdomen soft; abdomen nontender, no guarding, abdomen not rigid and no hepatosplenomegaly Skin: no rashes, warm and dry Psychiatric: A+Ox3, euthymic affect Results & Data Results & Data ([facility]) Vital Signs (Past 12 Hours) Vital Signs Temp Pulse Resp BP Pulse Ox 11/28/20 17:00 83 23 138/77 96 11/28/20 16:31 104/66 97 11/28/20 16:00 84 20 157/101 H 97 11/28/20 15:30 79 22 148/64 H 98 11/28/20 15:16 82 146/81 H 98 11/28/20 14:52 85 26 H 83 L 11/28/20 14:36 36.4 C L 76 20 139/65 87 L Diagnostic Findings XR chest 1V portable CLINICAL HISTORY: Atypical chest pain COMPARISON STUDY: 10/13/2019 FINDINGS: The heart is the upper limits of normal in size. There is no failure. There is no focal pulmonary consolidation. There are no pleural effusions. There is a mildly prominent left cardiophrenic angle fat pad.[ IMPRESSION: No active disease in the chest. PG Care Time/CCT Total # of Minutes Spent Total Time Spent with Patient: Total time spent is greater than 50% in coordination of care (as documented) at patient's floor/unit and/or counseling patient: Coding Level of Care Code 78848 Initial Inpt Care Lvl 3 Diagnoses Acute respiratory failure with hypoxia J96.01 D-dimer, elevated R79.89 CARINA on CPAP G47.33; Z99.89 Diabetes mellitus type 2 in obese E11.69; E66.9
[2020-11-28] MEDS ORDERED: ONDANSETRON INJ 2 MG/ML 2 ML VIAL IV PRN (20:15)
[2020-11-28] MEDS ORDERED: ACETAMINOPHEN 325 MG TAB PO PRN (20:15)
[2020-11-28] MEDS ORDERED: CARBOHYDRATES FOR HYPOGLYCEMIA PO PRN (20:15)
[2020-11-28] MEDS ORDERED: GLUCOSE 10 TABS/TUBE PO PRN (20:15)
[2020-11-28] MEDS ORDERED: GLUCOSE 40% GEL 15 GM TUBE PO PRN (20:15)
[2020-11-28] MEDS ORDERED: DEXTROSE 50% 50 ML SYRINGE IV PRN (20:15)
[2020-11-28] MEDS ORDERED: GLUCAGON FOR INJ 1 MG VIAL SQ PRN (20:15)
[2020-11-28] MEDS: ATORVASTATIN 40 MG TAB PO SCH (21:49)
[2020-11-28] MEDS: ATENOLOL 25 MG TABLET PO SCH (21:49)
[2020-11-28] MEDS: FUROSEMIDE 80 MG TAB PO SCH (21:50)
[2020-11-28] MEDS: PANTOprazole 40 MG TAB PO SCH (21:51)
[2020-11-28] MEDS: TERAZOSIN HCL 5 MG CAP PO SCH (21:51)
[2020-11-28] MEDS: hydrALAZINE 10 MG TAB PO SCH (21:52)
[2020-11-28] MEDS: INSULIN GLARGINE SOLOSTAR 100 UNITS/ML 3 ML PEN SQ SCH (21:54)
[2020-11-28] MEDS: INSULIN ASPART 100 UNITS/ML 3 ML PEN SC SCH (21:56)
[2020-11-29 00:58] LABS: Partial Thromboplastin Ratio 1.9
[2020-11-29 00:59] LABS: Partial Thromboplastin Time 50.5 Seconds (21.0-31.0)
[2020-11-29] MEDS: hydrALAZINE 10 MG TAB PO SCH ×3 (06:13→20:33)
[2020-11-29 06:17] LABS: Basophils # (auto) 0.02 K/uL (0-0.2); Basophils % (auto) 0.2 %; Eosinophils # (auto) 0.24 K/uL (0-0.5); Eosinophils % (auto) 2.4 %; Hematocrit (blood only) 37.4 % (42-52); Hemoglobin 11.7 g/dL (14.0-18.0); Immature Granulocytes # (auto) 0.02 K/uL (0.00-0.02); Immature Granulocytes % (auto) 0.2 %; Lymphocytes # (auto) 1.97 K/uL (1.2-3.4); Lymphocytes % (auto) 19.7 %; Mean Corpuscular Hemoglobin 27.7 pg (25-34); Mean Corpuscular Hgb Conc 31.3 g/dL (32-36); Mean Corpuscular Volume 88.4 fL (80-100); Mean Platelet Volume 11.5 fL (7.4-10.4); Monocytes # (auto) 0.96 K/uL (0.11-0.59); Monocytes % (auto) 9.6 %; Neutrophils # (auto) 6.79 K/uL (1.4-6.5); Neutrophils % (auto) 67.9 %; Platelet Count 200 K/uL (130-400); RDW Coefficient of Variation 15.1 % (11.5-14.5); RDW Standard Deviation 48.8 fL (36.4-46.3); Red Blood Count 4.23 M/uL (4.7-6.1)
[2020-11-29 06:34] LABS: Partial Thromboplastin Ratio 2.3
[2020-11-29 06:50] LABS: BUN Creatinine Ratio 23.5 (10-20); Calcium 8.1 mg/dl (8.5-10.1); Creatinine Clr Calc Pharmacy 45.5 ml/min; Est GFR (African American) 35.3 ml/min; Est GFR (Non-African American) 30.5 ml/min; Magnesium 2.3 mg/dl (1.8-2.4); Potassium 3.5 mmol/L (3.5-5.1)
[2020-11-29 06:51] LABS: Partial Thromboplastin Time 60.6 Seconds (21.0-31.0)
[2020-11-29 06:59] LABS: Estimated Average Glucose 192 mg/dl; Hemoglobin A1C 8.3 % (4.5-5.6)
[2020-11-29] MEDS: PANTOprazole 40 MG TAB PO SCH ×2 (07:32→20:33)
[2020-11-29] MEDS: ATENOLOL 25 MG TABLET PO SCH (07:32)
[2020-11-29] MEDS: FINASTERIDE 5 MG TAB PO SCH (07:32)
[2020-11-29] MEDS: HEPARIN SODIUM/DEXTROSE 25,000 UNITS/500 ML BAG IV SCH ×2 (07:32→22:30)
[2020-11-29] MEDS: CALCIUM 600MG + VIT D 400 IU TAB PO SCH (07:33)
[2020-11-29] MEDS: FUROSEMIDE 80 MG TAB PO SCH ×2 (07:33→20:34)
[2020-11-29] MEDS: CHOLECALCIFEROL 1,000 UNITS 25 MCG TAB PO SCH (07:33)
[2020-11-29] MEDS: ASPIRIN 81 MG ECTAB PO SCH (07:33)
[2020-11-29] MEDS: LOSARTAN POTASSIUM 50 MG TAB PO SCH (07:33)
[2020-11-29] MEDS: CEROVITE ADV FORMULA TAB PO SCH (07:33)
[2020-11-29] MEDS: DOCUSATE SODIUM 100 MG CAP PO SCH (07:33)
[2020-11-29] MEDS: TERAZOSIN HCL 5 MG CAP PO SCH ×2 (07:33→20:34)
[2020-11-29] MEDS: POTASSIUM CHLORIDE CRTAB 20 MEQ TABCR PO SCH ×2 (07:33→16:47)
[2020-11-29] MEDS: INSULIN GLARGINE SOLOSTAR 100 UNITS/ML 3 ML PEN SQ SCH ×2 (07:39→20:39)
[2020-11-29] MEDS: INSULIN ASPART 100 UNITS/ML 3 ML PEN SC SCH ×4 (07:54→20:39)
[2020-11-29] MEDS ORDERED: NON-FORMULARY MEDICATION (Vit C-Bioflav-Hesp-Rutin-Hb196 [Bioflex] 500-50-25-40 mg Tablet) PO SCH (09:00)
[2020-11-29] MEDS ORDERED: metOLazone 2.5 MG TABLET PO SCH (09:00)
[2020-11-29] MEDS ORDERED: GLUCOSAMINE CHONDROITIN PO SCH (09:00)
--- NOTE | 2020-11-29 13:22 | Nuclear Medicine Report ---
NM pul perfusion CLINICAL HISTORY: Elevated d-dimer COMPARISON STUDY: No previous studies for comparison. FINDINGS: The patient was injected with 6 mCi of technetium 99m MAA. Multiple projection perfusion im ages were acquired. Ventilatory studies are not being performed during the pancreatic. There are no m oderate or large perfusion defects. There is a small perfusion defect within the left lower lobe post eriorly. This study would be characterized as a low probability for pulmonary embolism examination. I f there is a high a priori probability of acute pulmonary embolism, then CT angiography the chest christen uld be obtained in follow-up. IMPRESSION: 1. Perfusion only study which would be characterized as low probability for acute pulmonary embolism ACT 112: Negative or not required by law. Electronically signed by: Christopher Cabrales M.D. 11/29/2020 1:21 PM
--- NOTE | 2020-11-29 15:38 | Hospitalist Progress Note ---
Date of Service November 29, 2020 Assessment & Plan (1) Acute respiratory failure with hypoxia: I suspect this is multifactorial, most concerning is the patient's known obstructive sleep apnea for which he is noncompliant with CPAP. Likely has component of obesity hypoventilation as well chest x-ray is clear, no edema, no infiltrate lungs are clear, no wheezing or crackles PE? his perfusion scan was low probability for PE, will check dopplers tomorrow will plan for two step tomorrow as well to arrange for home oxygen (2) D-dimer, elevated: Somewhat elevated D-dimer, unfortunately secondary to the patient's size and renal function, CT angiogram could not be performed perfusion study -- low PE probability will check venous doppler, if negative could stop heparin, however, now with afib would need anticoagulation for different reason (3) CARINA on CPAP: Will request overnight pulse oximetry while on [place] oxygen, patient may be amenable to this if he cannot tolerate CPAP in any form (4) Diabetes mellitus type 2 in obese: Check hemoglobin A1c - 8.3% Continue twice daily Lantus dosing Sliding scale Diabetic diet monitor for hypoglycemia (5) Atrial fibrillation: on monitor appears to be irregular irregular rates are controlled, will change Atenolol to Metoprolol will need to discuss full anticoagulation, Admission and Anticipated Discharge Date Admission Date: November 28, 2020 Subjective patient feels better now that he is on oxygen, no dyspnea at rest or on exertion reviewed chart, had a similar presentation in June 2019, hypoxia and dyspnea, no obvious etiology was discharged at that time without oxygen, recommended he get [facility], he cannot remember being told results, he is not on maintenance inhalers echo was normal perfusion scan showed low probability of PE labs are normal updated his at the bedside noted that he was in afib on monitor, this is new for him, rates controlled, changed Atenolol to Metoprolol on heparin drip for possible PE? he will likely be too large for NOAC Review of Systems Review of Systems: All systems reviewed & are unremarkable except as noted in Subjective Respiratory: + dyspnea on exertion; no cough, no dyspnea and no wheezing Cardiovascular: + edema; no chest pain Physical Exam Constitutional: well developed, + morbidly obese and + edematous; no acute distress Neck: trachea midline, no thyromegaly Respiratory: normal respiratory effort, lungs clear to auscultation Auscultation: + diminished lung sounds (bases) Cardiovascular: Rate/Rhythm: regular rate and + irregularly irregular Heart Sounds: normal S1 and normal S2; no murmur Vessels: no JVD Extremities: normal capillary refill and + edema Gastrointestinal (Abdomen): normal bowel sounds, soft, nontender, no hepatosplenomegaly Musculoskeletal: no cyanosis or clubbing, extremities motor strength 5/5 Skin: no rashes, warm and dry Neurologic: normal touch/pain/proprioception, CN's II-XI intact bilaterally, moves all extremities and awake; no focal motor deficits Psychiatric: A+Ox3, euthymic affect Results & Data Results & Data ([facility]) Vital Signs (Past 12 Hours) Vital Signs Temp Pulse Pulse Resp BP Pulse Ox 11/29/20 08:15 36.8 C 87 22 111/59 L 97 11/29/20 08:00 99 H Laboratory Results Laboratory Results - last 24 hr 11/28/20 11/29/20 11/29/20 23:52 00:16 05:54 WBC 10.00 RBC 4.23 L Hgb 11.7 L Hct 37.4 L MCV 88.4 MCH 27.7 MCHC 31.3 L RDW Std Deviation 48.8 H RDW Coeff of Barby 15.1 H Plt Count 200 MPV 11.5 H Immature Gran % (Auto) 0.2 Neut % (Auto) 67.9 Lymph % (Auto) 19.7 [place] % (Auto) 9.6 Eos % (Auto) 2.4 Baso % (Auto) 0.2 Neut # (Auto) 6.79 H Lymph # (Auto) 1.97 [place] # (Auto) 0.96 H Eos # (Auto) 0.24 Baso # (Auto) 0.02 Immature Gran # (Auto) 0.02 APTT 50.5 H* PTT Ratio 1.9 Sodium Potassium Chloride Carbon Dioxide Anion Gap BUN Creatinine Est Cr Clr Drug Dosing Est GFR ( Amer) Est GFR (Non-Af Amer) BUN/Creatinine Ratio Glucose POC Glucose 219 H Estimat Average Glucose Hemoglobin A1c Calcium Magnesium 11/29/20 11/29/20 11/29/20 05:54 05:54 05:54 WBC RBC Hgb Hct MCV MCH MCHC RDW Std Deviation RDW Coeff of Barby Plt Count MPV Immature Gran % (Auto) Neut % (Auto) Lymph % (Auto) [place] % (Auto) Eos % (Auto) Baso % (Auto) Neut # (Auto) Lymph # (Auto) [place] # (Auto) Eos # (Auto) Baso # (Auto) Immature Gran # (Auto) APTT 60.6 H* PTT Ratio 2.3 Sodium 138 Potassium 3.5 Chloride 98 Carbon Dioxide 36 H Anion Gap 4.0 BUN 49 H Creatinine 2.09 H Est Cr Clr Drug Dosing 45.5 Est GFR ( Amer) 35.3 Est GFR (Non-Af Amer) 30.5 BUN/Creatinine Ratio 23.5 H Glucose 181 H POC Glucose Estimat Average Glucose 192 Hemoglobin A1c 8.3 H Calcium 8.1 L Magnesium 2.3 11/29/20 11/29/20 11/29/20 07:21 11:37 16:19 WBC RBC Hgb Hct MCV MCH MCHC RDW Std Deviation RDW Coeff of Barby Plt Count MPV Immature Gran % (Auto) Neut % (Auto) Lymph % (Auto) [place] % (Auto) Eos % (Auto) Baso % (Auto) Neut # (Auto) Lymph # (Auto) [place] # (Auto) Eos # (Auto) Baso # (Auto) Immature Gran # (Auto) APTT PTT Ratio Sodium Potassium Chloride Carbon Dioxide Anion Gap BUN Creatinine Est Cr Clr Drug Dosing Est GFR ( Amer) Est GFR (Non-Af Amer) BUN/Creatinine Ratio Glucose POC Glucose 173 H 207 H 231 H Estimat Average Glucose Hemoglobin A1c Calcium Magnesium 11/29/20 11/29/20 20:23 23:01 WBC RBC Hgb Hct MCV MCH MCHC RDW Std Deviation RDW Coeff of Barby Plt Count MPV Immature Gran % (Auto) Neut % (Auto) Lymph % (Auto) [place] % (Auto) Eos % (Auto) Baso % (Auto) Neut # (Auto) Lymph # (Auto) [place] # (Auto) Eos # (Auto) Baso # (Auto) Immature Gran # (Auto) APTT PTT Ratio Sodium Potassium Chloride Carbon Dioxide Anion Gap BUN Creatinine Est Cr Clr Drug Dosing Est GFR ( Amer) Est GFR (Non-Af Amer) BUN/Creatinine Ratio Glucose POC Glucose 174 H 157 H Estimat Average Glucose Hemoglobin A1c Calcium Magnesium Medications Administered Current Inpatient Medications Acetaminophen (Acetaminophen 325 Mg Tab) 650 mg PO Q4H PRN PRN Reason: Pain or Fever Stop: 12/28/20 20:14 Aspirin (Aspirin 81 Mg Ectab) 81 mg PO QAM [facility] Stop: 12/29/20 08:59 Last Admin: 11/29/20 07:33 Dose: 81 mg Documented by: Atorvastatin Calcium (Atorvastatin 40 Mg Tab) 40 mg PO HS [facility] Stop: 12/28/20 20:59 Last Admin: 11/29/20 20:36 Dose: 40 mg Documented by: Dextrose (Dextrose 50% 50 Ml Syringe) 25 - 50 ml IV UD PRN; Protocol PRN Reason: Hypoglycemia Protocol Stop: 12/28/20 20:14 Docusate Sodium (Docusate Sodium 100 Mg Cap) 200 mg PO DAILY [facility] Stop: 12/29/20 08:59 Last Admin: 11/29/20 07:33 Dose: 200 mg Documented by: Finasteride (Finasteride 5 Mg Tab) 5 mg PO DAILY [facility] Stop: 12/29/20 08:59 Last Admin: 11/29/20 07:32 Dose: 5 mg Documented by: Furosemide (Furosemide 80 Mg Tab) 80 mg PO BID [facility] Stop: 12/28/20 20:59 Last Admin: 11/29/20 20:34 Dose: 80 mg Documented by: Glucagon (Glucagon For Inj 1 Mg Vial) 1 mg SQ UD PRN; Protocol PRN Reason: Hypoglycemia Protocol Stop: 12/28/20 20:14 Glucose (Glucose 10 Tabs/Tube) 4 - 8 tabs PO UD PRN; Protocol PRN Reason: Hypoglycemia Protocol Stop: 12/28/20 20:14 Glucose (Glucose 40% Gel 15 Gm Tube) 15 - 30 gm PO UD PRN; Protocol PRN Reason: Hypoglycemia Protocol Stop: 12/28/20 20:14 Hydralazine HCl (Hydralazine 10 Mg Tab) 20 mg PO Q8 [facility] Stop: 12/28/20 21:59 Last Admin: 11/29/20 20:33 Dose: 20 mg Documented by: Heparin Sodium/Dextrose (Heparin Sodium/Dextrose) 25,000 units in 500 mls @ 36 mls/hr IV .[id number] [facility]; Protocol Stop: 12/28/20 16:50 Last Admin: 11/29/20 22:30 Dose: 1,800 units/hr, 36 mls/hr Documented by: Insulin Aspart (Insulin Aspart 100 Units/Ml 3 Ml Pen) 0 units SC ACHS [facility] Stop: 12/28/20 20:59 Last Admin: 11/29/20 20:39 Dose: 3 units Documented by: Insulin Glargine (Insulin Glargine Solostar 100 Units/Ml 3 Ml Pen) 57 units SQ BID [facility] Stop: 12/28/20 20:59 Last Admin: 11/29/20 20:39 Dose: 57 units Documented by: Losartan Potassium (Losartan Potassium 50 Mg Tab) 50 mg PO DAILY [facility] Stop: 12/29/20 08:59 Last Admin: 11/29/20 07:33 Dose: 50 mg Documented by: Metolazone (Metolazone 2.5 Mg Tablet) 2.5 mg PO SuTuThSa@0900 [facility] Stop: 12/29/20 08:59 Last Admin: 11/29/20 07:33 Dose: 2.5 mg Documented by: Metoprolol Tartrate (Metoprolol Tartrate 25 Mg Tab) 25 mg PO BID [facility] Stop: 12/29/20 20:59 Last Admin: 11/29/20 20:33 Dose: 25 mg Documented by: Miscellaneous (Carbohydrates For Hypoglycemia ) 15 - 30 gm PO UD PRN PRN Reason: Hypoglycemia Protocol Stop: 12/28/20 20:14 Multivitamins/Minerals (Calcium 600mg + Vit D 400 Iu Tab) 1 tab PO QAM [facility] Stop: 12/29/20 08:59 Last Admin: 11/29/20 07:33 Dose: 1 tab Documented by: Multivitamins/Minerals (Cerovite Adv Formula Tab) 1 tab PO DAILY [facility] Stop: 12/29/20 08:59 Last Admin: 11/29/20 07:33 Dose: 1 tab Documented by: Ondansetron HCl (Ondansetron Inj 2 Mg/Ml 2 Ml Vial) 4 mg IV Q6H PRN PRN Reason: Nausea Stop: 12/28/20 20:14 Pantoprazole Sodium (Pantoprazole 40 Mg Tab) 40 mg PO Q12 [facility]; Protocol Stop: 12/28/20 20:59 Last Admin: 11/29/20 20:33 Dose: 40 mg Documented by: Potassium Chloride (Potassium Chloride Crtab 20 Meq Tabcr) 20 meq PO BIDM [facility] Stop: 12/29/20 07:59 Last Admin: 06/10/21 16:47 Dose: 20 meq Documented by: Terazosin HCl (Terazosin Hcl 5 Mg Cap) 5 mg PO BID [facility] Stop: 12/28/20 20:59 Last Admin: 11/29/20 20:34 Dose: 5 mg Documented by: Vitamin D (Cholecalciferol 1,000 Units 25 Mcg Tab) 1,000 units PO DAILY [facility] Stop: 12/29/20 08:59 Last Admin: 11/29/20 07:33 Dose: 1,000 units Documented by: PG Care Time/CCT Total # of Minutes Spent Total Time Spent with Patient: Total time spent is greater than 50% in coordination of care (as documented) at patient's floor/unit and/or counseling patient: Coding Level of Care Code 85215 Subseq Hosp Care Lvl 3 Diagnoses Acute respiratory failure with hypoxia J96.01 D-dimer, elevated R79.89 CARINA on CPAP G47.33; Z99.89 Diabetes mellitus type 2 in obese E11.69; E66.9 Atrial fibrillation I48.91
[2020-11-29] MEDS: METOPROLOL TARTRATE 25 MG TAB PO SCH (20:33)
[2020-11-29] MEDS: ATORVASTATIN 40 MG TAB PO SCH (20:36)
--- NOTE | 2020-11-29 23:07 | XCELERA ---
[id number]
[2020-11-30] MEDS: hydrALAZINE 10 MG TAB PO SCH (05:51)
--- NOTE | 2020-11-30 06:12 | Electrocardiogram Report ---
Test Reason : Blood Pressure : / mmHG Vent. Rate : 083 BPM Atrial Rate : 083 BPM P-R Int : 184 ms QRS Dur : 152 ms QT Int : 414 ms P-R-T Axes : 041 053 047 degrees QTc Int : 486 ms Sinus rhythm with Premature supraventricular complexes Right bundle branch block Abnormal ECG When compared with ECG of 13-OCT-2019 15:46, Premature ventricular complexes are no longer Present Premature supraventricular complexes are now Present Right bundle branch block has replaced Incomplete right bundle branch block Confirmed by Adair Broderick ([id number]) on 11/30/2020 6:12:28 AM Referred By: Confirmed By:Adair Broderick
--- NOTE | 2020-11-30 06:32 | Ultrasound Report ---
BILATERAL LOWER EXTREMITY VENOUS DOPPLER HISTORY: Acute pain and swelling of the lower extremities, left greater than right swelling, pain in left thigh specifically COMPARISON STUDY: CT abdomen pelvis 07/20/2018. FINDINGS: There is normal compressibility, flow, and augmentation within the bilateral lower extremit y deep venous systems. Lymph nodes of the bilateral inguinal chains nodule to 3.6 x 1.0 x 1.7 cm on t he right and 3.0 x 1.3 x 2.5 cm on the left demonstrating echogenic eliza with mostly thin cortices, f avored to be reactive. IMPRESSION: No DVT within the right or left lower extremity. ACT 112: Negative or not required by law. Electronically signed by: Spencer Joy M.D. 11/30/2020 6:31 AM
[2020-11-30 07:32] LABS: Partial Thromboplastin Ratio 2.2
[2020-11-30 07:36] LABS: Partial Thromboplastin Time 57.3 Seconds (21.0-31.0)
[2020-11-30] MEDS: INSULIN ASPART 100 UNITS/ML 3 ML PEN SC SCH ×2 (08:08→12:44)
[2020-11-30] MEDS: INSULIN GLARGINE SOLOSTAR 100 UNITS/ML 3 ML PEN SQ SCH (08:09)
[2020-11-30] MEDS: CALCIUM 600MG + VIT D 400 IU TAB PO SCH (08:14)
[2020-11-30] MEDS: CEROVITE ADV FORMULA TAB PO SCH (08:14)
[2020-11-30] MEDS: POTASSIUM CHLORIDE CRTAB 20 MEQ TABCR PO SCH (08:15)
[2020-11-30] MEDS: PANTOprazole 40 MG TAB PO SCH (08:15)
[2020-11-30] MEDS: LOSARTAN POTASSIUM 50 MG TAB PO SCH (08:16)
[2020-11-30] MEDS: FUROSEMIDE 80 MG TAB PO SCH (08:16)
[2020-11-30] MEDS: DOCUSATE SODIUM 100 MG CAP PO SCH (08:17)
[2020-11-30] MEDS: TERAZOSIN HCL 5 MG CAP PO SCH (08:17)
[2020-11-30] MEDS: ASPIRIN 81 MG ECTAB PO SCH (08:18)
[2020-11-30] MEDS: METOPROLOL TARTRATE 25 MG TAB PO SCH (08:19)
[2020-11-30] MEDS: CHOLECALCIFEROL 1,000 UNITS 25 MCG TAB PO SCH (08:19)
[2020-11-30] MEDS: FINASTERIDE 5 MG TAB PO SCH (08:19)
--- NOTE | 2020-11-30 12:57 | Discharge Summary ---
Date of Service November 30, 2020 Admission HPI Per Admitting Provider This is a 75-year-old male with past medical history of morbid obesity, CKD, obstructive sleep apnea with noncompliance to CPAP the complains of shortness of breath. Patient is a decent historian. Patient tells me that he has been having issues with shortness of breath for about 1 week now although became much more severe last night. He was unable to sleep very much as he felt like he "had to think about breathing ". He has not been able to lie flat in a while and typically sleeps upright in a lazy boy chair. He has been having some cough which has had scant white sputum production. He has chronic lower extremity edema which is no worse, he actually feels that is improved since he is using compression socks. He does note some mild chest pressure, especially with the cough. I did discuss patient's sleep apnea, he tells me he is unable to tolerate the mask or the nasal pillows. He does have a device at home but is essentially not using it. He denies any other symptoms such as fever, chills, palpitations, abdominal pain, or changes in bowel habits. On work-up in the ER, patient had an O2 sat of 83%. He is now on nasal cannula oxygen with an O2 sat of 96%. Principal Diagnosis Dyspnea and hypoxia Discharge Exam Constitutional well developed, + morbidly obese and + edematous; no acute distress Neck trachea midline, no thyromegaly Respiratory normal respiratory effort, lungs clear to auscultation Auscultation: + diminished lung sounds (bases) Cardiovascular Rate/Rhythm: regular rate and + irregularly irregular Heart Sounds: normal S1 and normal S2; no murmur Vessels: no JVD Extremities: normal capillary refill and + edema Gastrointestinal (Abdomen) normal bowel sounds, soft, nontender, no hepatosplenomegaly Musculoskeletal no cyanosis or clubbing, extremities motor strength 5/5 Skin no rashes, warm and dry Neurologic normal touch/pain/proprioception, CN's II-XI intact bilaterally, moves all extremities and awake; no focal motor deficits Psychiatric A+Ox3, euthymic affect Discharge Data Allergies Allergy/AdvReac Type Severity Reaction Status Date / Time No Known Allergies Allergy Unverified 11/28/20 16:21 Consultations 11/28/20 16:31 ED Decision to Admit Stat Ordered Studies 11/30/20 09:00 US venous doppler LE BI Routine Hospital Course (1) Acute respiratory failure with hypoxia: I suspect this is multifactorial, most concerning is the patient's known obstructive sleep apnea for which he is noncompliant with CPAP. Likely has component of obesity hypoventilation as well chest x-ray is clear, no edema, no infiltrate lungs are clear, no wheezing or crackles PE? his perfusion scan was low probability for PE, dopplers neg for DVT, stop heparin drip two step today - no need for home oxygen recommend he is compliant with CPAP follow fluid restriction (2) Atrial fibrillation: on monitor appears to be irregular irregular rates are controlled, will change Atenolol to Metoprolol he is fully aware of this diagnosis, nothing new discussed anticoagulation, he is in agreement cannot use Eliquis or Xarelto due to BMI of 51 as well as CKD he agrees to Warfarin, will start on 5mg daily check INR on Thursday, he will go to the [place] spoke with RN at his PCP office, they have a coag clinic through the [place], will fax them information (3) D-dimer, elevated: Somewhat elevated D-dimer (700s), unfortunately secondary to the patient's size and renal function, CT angiogram could not be performed perfusion study -- low PE probability doppler negative for DVT stop heparin drip, but will be starting Coumadin for afib (4) CARINA on CPAP: non compliant (5) Diabetes mellitus type 2 in obese: Check hemoglobin A1c - 8.3% Continue twice daily Lantus dosing Sliding scale Diabetic diet monitor for hypoglycemia Total Time Total Time Spent Total Time Spent (In Minutes): 35 Total Time Includes: Examination of the Patient, Discharge Planning and Medication Reconciliation Discharge Plan Discharge Items Patient Disposition: Home - Self-Care Reason For Visit: SOB Discharge Diagnosis: Atrial fibrillation Dyspnea (shortness of breath) Condition on Discharge: Good Goals: continue with home medications recommend you maintain a fluid restriction of less than 2 liters a day Activity: Resume your previous activity Exercise/Sports: Gradually increase as tolerated Weightbearing: Full weightbearing Non-emergency contact: Primary Care Provider Call non-emergency contact if: you have any medication questions Follow-up/Referrals: Vincent Melgar MD [Primary Care Provider] - (one week) Diet: Carb Consistent or DM2 and Heart Healthy Fluids: 2000ml (8 cups) Ambulatory Orders: Prothrombin Time INR (Routine) Timeframe: 3 Days Location: Determined by Patient Ordered By: Richar Kelly Attending Provider Instructions: Medications: two new medications - METOPROLOL: 25mg twice a day, this replaces Atenolol for better heart rate control with atrial fibrillation, next dose is due tonight - WARFARIN: blood thinner for atrial fibrillation to prevent stroke, take 5mg daily until told to change dose, see below Dyspnea, initially with hypoxia (low oxygen) unclear cause and the hypoxia is resolved performed a walking oxygen study today with respiratory therapy and you did not need oxygen both at rest or on exertion chest x-ray was clear, no edema, no pneumonia lung perfusion scan was low probability for blood clot and on lower extremity dopplers there was no DVT lungs are clear, no wheezing Atrial fibrillation: long standing issue rates go up with activity to 110-120 but at rest you are in 90's changed you to metoprolol 25mg twice a day, might be able to go up on rate control in future recommend that you start on blood thinner to protect from stroke unfortunately due to your BMI (weight) and poor renal function you cannot take Eliquis or Xarelto recommend you take Warfarin 5mg daily you will need to get your INR checked I called the [place], they coordinate through their own coagulation clinic, you can get blood work (INR) here and results will go to them they should contact you Thursday or Thursday to coordinate this you will notice that you bruise easier and will bleed more if you cut yourself on the Warfarin Pending Studies at Discharge: No Stand-Alone Forms: My [facility], Smoking Cessation Medications and DC Order Prescriptions: New metoprolol tartrate 25 mg Tablet 25 mg PO BID 30 Days Qty: 60 RF: 3 warfarin 5 mg tablet 5 mg PO DAILY Qty: 30 RF: 3 Continued terazosin 5 mg Capsule 5 mg PO BID RF: 0 atorvastatin [Lipitor] 80 mg Tablet 40 mg PO HS RF: 0 aspirin 81 mg Tablet,Delayed Release (Dr/Ec) 81 mg PO QAM RF: 0 calcium carbonate [Calcium 600] 600 mg calcium (1,500 mg) Tablet 600 mg PO QAM RF: 0 furosemide [Lasix] 80 mg Tablet 80 mg PO BID RF: 0 docusate sodium 100 mg Capsule 200 mg PO DAILY RF: 0 omeprazole 20 mg Capsule,Delayed Release(Dr/Ec) 20 mg PO Q12 RF: 0 epinephrine [EpiPen] 0.3 mg/0.3 mL Auto-Injector 0.3 mg IM DIRECTED PRN (Reason: Allergic Reaction) RF: 0 finasteride [Proscar] 5 mg Tablet 5 mg PO DAILY RF: 0 insulin aspart U-100 [Novolog Flexpen U-100 Insulin] 100 unit/mL Insulin Pen 42 unit SUBCUT TIDM RF: 0 Lantus Solostar U-100 Insulin 100 unit/mL (3 mL) Insulin Pen 57 unit SUBCUT BID RF: 0 glucosamine-chondroitin 167-133 mg Capsule 1 cap PO DAILY RF: 0 potassium chloride [K-Tab] 20 mEq Tablet Extended Release 20 meq PO BIDM RF: 0 hydralazine 10 mg tablet 20 mg PO Q8 RF: 0 metolazone 2.5 mg tablet 2.5 mg PO 4XWK RF: 0 losartan 50 mg tablet 50 mg PO DAILY RF: 0 cholecalciferol (vitamin D3) [Vitamin D3] 25 mcg (1,000 unit) Tablet 25 mcg PO DAILY RF: 0 Bioflex 375-05-88-40 mg Tablet 1 tab PO DAILY RF: 0 multivitamin with minerals Tablet 1 tab PO DAILY RF: 0 fluocinonide 0.05 % Cream 1 applic TOPICAL BID RF: 0 clobetasol 0.05 % solution 1 applic TOPICAL DAILY PRN (Reason: Itching) RF: 0 clotrimazole 1 % cream 1 applic TOPICAL DAILY RF: 0 Discontinued atenolol [Tenormin] 25 mg Tablet 25 mg PO BID RF: 0 Discharge Orders: Discharge Order (Routine); Ordered 11/30/20 Ordered By: Richar Grimm/Other Patient Handouts: Managing Type 2 Diabetes, 5 Steps for Eating Healthier, Discharge Instructions for Atrial ..., A1C Admission Data Admit Date/Time: 11/28/20 18:05 Attending Provider: Richar White Admit Provider: Sebastian Thao Primary Care Provider: Vincent Melgar Other Providers: Sebastian Thao ; [facility] Other Interventions: Discharge Summary Assessment (RN) Last Done: 11/30/20 13:10 Coding Level of Care Code D/C Day Management >30 mins Diagnoses Acute respiratory failure with hypoxia J96.01 Atrial fibrillation I48.91 D-dimer, elevated R79.89 CARINA on CPAP G47.33; Z99.89 Diabetes mellitus type 2 in obese E11.69; E66.9
== END 2020-11-30 13:46 | disposition home or self-care (01) | DRG 205 ==
LOC: ED 14:27 → 2S 18:05 → SUATTDRO 18:05 → 2S 19:53

== ENCOUNTER 2022-09-12 19:40 | Inpatient (IN) ==
--- NOTE | 2022-09-12 20:34 | XRay Report ---
SINGLE VIEW CHEST CLINICAL HISTORY: Atypical chest pain. FINDINGS: 2 AP, portable, upright chest radiographs are compared to study dated 11/28/2020. The heart i s enlarged noting atherosclerotic calcification of the thoracic aorta. The pulmonary vasculature is n oncongested. Chronic interstitial thickening similar to previous. There is left basilar consolidation and a small left pleural effusion. Right lung appears clear. No pneumothorax is seen. The skeletal s tructures are osteopenic. The bony thorax is grossly intact. IMPRESSION: 1. Cardiomegaly without radiographic evidence of congestive failure. 2. There is a small left pleural effusion and left basilar consolidation. Correlate clinically for ev idence of pneumonia/aspiration pneumonitis. Radiographic follow-up to resolution is recommended. ACT 112: Negative or not required by law. Electronically signed by: Rolo Kidd M.D. 09/12/2022 8:33 PM
[2022-09-12 21:14] LABS: Basophils # (auto) 0.03 K/uL (0-0.2); Basophils % (auto) 0.2 %; Eosinophils # (auto) 0.19 K/uL (0-0.50); Eosinophils % (auto) 1.5 %; Hematocrit (blood only) 33.6 % (42.0-52.0); Hemoglobin 10.8 g/dl (14.0-18.0); Immature Granulocytes # (auto) 0.03 K/uL (0.01-0.20); Immature Granulocytes % (auto) 0.2 %; Lymphocytes # (auto) 1.25 K/uL (1.2-3.4); Mean Corpuscular Hemoglobin 28.1 pg (25.0-34.0); Mean Corpuscular Hgb Conc 32.1 g/dL (32.0-36.0); Mean Corpuscular Volume 87.5 fL (80.0-100.0); Mean Platelet Volume 11.5 fL (9.4-12.4); Monocytes # (auto) 0.91 K/uL (0.11-0.59); Monocytes % (auto) 7.3 %; Neutrophils # (auto) 10.09 K/uL (1.40-6.50); Neutrophils % (auto) 80.8 %; Platelet Count 281 K/uL (130-400); RDW Coefficient of Variation 15.3 % (11.5-14.5); RDW Standard Deviation 48.9 fL (36.4-46.3); Red Blood Count 3.84 M/uL (4.70-6.10)
[2022-09-12 21:28] LABS: Alanine Aminotransferase 9 U/L (7-52); Albumin Level 3.3 gm/dl (3.4-5.0); Alkaline Phosphatase 71 U/L (34-104); Anion Gap 7 (3-11); Aspartate Aminotransferase 11 U/L (13-39); BUN Creatinine Ratio 22.1 (10-20); Bilirubin,Total 0.3 mg/dl (0.2-1.0); Blood Urea Nitrogen 50 mg/dl (6-23); Calcium 8.5 mg/dl (8.6-10.3); Carbon Dioxide 36 mmol/L (21-32); Chloride 97 mmol/L (98-107); Est GFR (African American) 31.7 ml/min; Est GFR (Non-African American) 27.4 ml/min; Globulin 3.4 gm/dl (2.5-4.0); Glucose 196 mg/dl (70-99(Fasting)); Potassium 4.1 mmol/L (3.5-5.1); Sodium 140 mmol/L (136-145); Total Protein 6.7 gm/dl (6.0-8.3)
[2022-09-12 21:43] LABS: INR 1.1 (0.9-1.1); Partial Thromboplastin Ratio 1.2; Partial Thromboplastin Time 32.5 Seconds (21.0-31.0); Prothrombin Time 11.4 Seconds (9.0-12.0)
[2022-09-12] MEDS ORDERED: PIPERACILLIN/TAZOBACTAM 4.5 GM/120 ML BAG IV ONE (23:37)
[2022-09-12] MEDS ORDERED: SODIUM CHLORIDE 0.9% 500 ML IV ONE (23:40)
[2022-09-12] MEDS ORDERED: SODIUM CHLORIDE 0.9% 1000ML 1,000 ML IV SCH (23:45)
--- NOTE | 2022-09-13 00:46 | CT Scan Report ---
Exam(s): CT CHEST Without Contrast EXAM: CT Chest Without Intravenous Contrast CLINICAL HISTORY: Reason for exam: PNA, pl effusion, obese. TECHNIQUE: Axial computed tomography images of the chest without intravenous contrast. Automated exposure control was utilized for the study. A dose lowering technique was utilized adhering to the principles of ALARA. COMPARISON: Chest radiograph earlier the same day. FINDINGS: Lungs: Left lower lobe consolidation which may be infectious. Pleural space: Small to moderate left effusion. No pneumothorax. Heart: Trace pericardial effusion. Coronary vascular calcification. Bones/joints: See above. Soft tissues: Unremarkable. Vasculature: There is diffuse atherosclerotic calcification of the aorta and its major branch vessels. Lymph nodes: Unremarkable. No enlarged lymph nodes. IMPRESSION: Small to moderate left pleural effusion with left lower lobe consolidation which may be infectious. Electronically signed by: Don Vasquez MD 09/13/22 00:45 AM
[2022-09-13 00:49] LABS: Influenza A virus by PCR Negative (Neg); Influenza B virus by PCR Negative (Neg); RSV by PCR Negative (Neg); SARS CoV2 RNA(COVID-19) Ceph NEGATIVE (Negative)
--- NOTE | 2022-09-13 01:59 | History & Physical Report ---
Date of Service September 13, 2022 Assessment & Plan (1) Edema, pitting: Plan: 77yo male with persistent SOB, volume overload. Patient with CKD. Last echo in our system is from November 2020 which reveals EF of 55-65%, poor image. His symptoms and weight seem to be responding to Lasix 80mg po BID. -Admit to medical with telemetry -Check BNP -Check Mg -Lasix 80mg IV BID -Montior BMP q 12 hours to assess renal function with aggressive diuresis -Daily weights -Monitor intake and output -Obtain [facility] record of workup done thus far -May need repeat imaging to assess effusion - thoracentesis if persistent despite more aggressive diuresis or if diuresis is not tolerated (2) Atrial fibrillation: Plan: Rate controlled. Anticoagulated with Apixaban -Continue Apixaban 5mg po BID -Continue Diltiazem 120mg po daily -Continue Metoprolol 25mg po BID (3) CKD (chronic kidney disease) stage 4, GFR 15-29 ml/min: Plan: Mildly elevated BUN and Cr -Montior renal function closely with diuresis -Renal dosing where needed (4) Diabetes mellitus type 2 in obese: Plan: Patient is on high doses on insulin. Elevated blood sugar today at 196. Last HgbA1 on record from 11/20/20=8.3 -Repeat A1C -Lantus 45u BID and ISS -Pharmacy glycemic management consultation appreciated -Patient has Gabapentin on his medication list but states he stopped this due to muscle twitching (5) Hypertension: Plan: Chornic. BP mildly elevated -Hold Losartan and monitor renal function -Continue Metoprolol -Continue Hydralazine -Continue Diltiazem (6) GERD (gastroesophageal reflux disease): Plan: Chronic -Protonix 40mg po daily F/E/N - Diuresis. Monitor BMP BID. CC diet as tolerated, Lactulose for chronic constipation Ppx - continue Apixaban, Protonix Code - Full Dispo - Admit to medical with telemetry History of Present Illness Chief Complaint: shortness of breath Primary Care Provider: Vincent Melgar MD Anup Narvaez is a pleasant 77yo male presenting with SOB. He has CKD IV, DM, PAF, BPH. Reports that for the last several months he has had significant shortness of breath and weight gain with acute worsening over the last several weeks. [facility] Patient seen two days ago at the [facility] with these complaints. He had a CXR performed that reportedly showed fluid in the lungs. His Lasix was increased from 80mg po daily to 80mg po BID in addition to his Metolazone every other day. Patient reports increased UOP with this medication adjustment and a weight loss of approximately 10 pounds over the last week. He also reports improved breathing and decreased in edema and orthopnea and orthostatic dizziness. He was seen again today at the [facility] and reportedly had a CT scan and blood work performed - uncertain what the results were but patient was contacted to come to the ER for additional removal of fluid, possible thoracentesis. In the ER patient was mildly hypoxic to 87% on room air requiring supplemental O2. He does not use O2 at home. Presently with adequate oxygenation on 2L Allergies Allergy/AdvReac Type Severity Reaction Status Date / Time No Known Allergies Allergy Unverified 08/29/22 14:00 Home Medications Medication Instructions Recorded Confirmed Type aspirin 81 mg tablet,delayed 81 mg PO QAM 07/20/18 09/13/22 History release atorvastatin 80 mg tablet (Lipitor) 40 mg PO HS 07/20/18 09/13/22 History calcium carbonate 600 mg calcium 600 mg PO QAM 07/20/18 09/13/22 History (1,500 mg) tablet (Calcium) docusate sodium 100 mg capsule 200 mg PO DAILY 07/20/18 09/13/22 History finasteride 5 mg tablet (Proscar) 5 mg PO DAILY 07/20/18 09/13/22 History furosemide 80 mg tablet (Lasix) 80 mg PO BID 07/20/18 09/13/22 History glucosamine-chondroitin 167 mg-133 1 cap PO DAILY 07/20/18 09/13/22 History mg capsule insulin aspart U-100 100 unit/mL 42 unit subcut TIDM 07/20/18 09/13/22 History (3 mL) subcutaneous pen (Novolog FlexPen U-100 Insulin aspart) insulin glargine 100 unit/mL (3 57 unit subcut BID 07/20/18 09/13/22 History mL) subcutaneous pen (Lantus Solostar U-100 Insulin) omeprazole 20 mg capsule,delayed 20 mg PO Q12 07/20/18 09/13/22 History release terazosin 5 mg capsule 5 mg PO BID 07/20/18 09/13/22 History losartan 50 mg tablet 50 mg PO DAILY 11/28/20 09/13/22 History metolazone 2.5 mg tablet 2.5 mg PO Q2D 11/28/20 09/13/22 History multivitamin with minerals 1 tab PO DAILY 11/28/20 09/13/22 History metoprolol tartrate 25 mg tablet 25 mg PO BID 30 days #60 tabs 11/30/20 09/13/22 Rx diltiazem HCl 120 mg 120 mg PO DAILY 08/27/22 09/13/22 History capsule,extended release 24 hr gabapentin 300 mg capsule 300 mg PO BID 08/27/22 09/13/22 History lactulose 10 gram/15 mL oral 30 g PO DAILY 08/27/22 09/13/22 History solution tramadol 50 mg tablet 50 mg PO Q8H PRN Pain 08/27/22 09/13/22 History apixaban 5 mg tablet (Eliquis) 5 mg PO BID 08/29/22 09/13/22 History hydralazine 10 mg tablet 20 mg PO TID 08/29/22 09/13/22 History potassium chloride 20 mEq 20 meq PO BIDM 08/29/22 09/13/22 History tablet,extended release (K-Tab) Past Med/Surg History Medical History (Updated 09/13/22 @ 03:49 by Antonietta Diamond DO) Acute respiratory failure with hypoxia Anemia of chronic disease Cellulitis CKD (chronic kidney disease) stage 4, GFR 15-29 ml/min D-dimer, elevated Diabetes Diabetes mellitus type 2 in obese GERD (gastroesophageal reflux disease) Hypertension Hypoxia Obesity CARINA on CPAP Proteinuria Vitamin D deficiency Social History Smoking Status: Former smoker Second Hand Exposure: Yes; Hx Alcohol Use: Yes Alcohol type: beer Hx Substance Use: No Preferred Language: Burmese Communication Ability: Effective 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 Beliefs That Will Affect Care: None Current Living Situation: Spouse Feels Safe at Home: Yes Assistive Devices: Oxygen - Continuous Review of Systems Review of Systems: All systems reviewed & are unremarkable except as noted in HPI & below Physical Exam Physical Exam: General: patient resting comfortably, NAD, non-toxic in appearance, AA&O x 4 Skin: warm, dry, intact, no rashes or lesions HEENT: NC/AT, PERRL, EOMI, anicteric sclera, conjunctiva without injection, external ear normal to inspection and nontender, nares patent, moist mucus membranes, dentition intact, no oropharyngeal lesions, neck supple, trachea midline, no LAD, no thyromegaly, no JVD Heart: +S1/S2, regular, no m/r/g, +ectopy Lungs: equal air entry bilaterally, no rales/rhonchi/wheezes, diminished in left base Abd: +BS, soft, NT/ND, no masses/organomegaly/ascites, reducible ventral hernia Ext: warm, 2+ pulses in UE/LE bilaterally, no clubbing/cyanosis, 2+ pitting edema, weeping skin lesions on bilateral LE with fluid filled blisters, warm, venous stasis changes Neuro: nonfocal, patient AA&O x 4, speech intact, no facial droop, moving all extremities on command with equal strength 5/5 Results & Data Results & Data Vital Signs (Past 12 Hours) Vital Signs Temp Pulse Pulse Resp BP Pulse Ox O2 Del Method 09/13/22 00:41 98 H 16 129/59 L 100 Nasal Cannula 09/12/22 23:00 87 L Nasal Cannula 09/12/22 22:39 93 Room Air 09/12/22 22:39 103 H 18 136/69 90 Room Air 09/12/22 19:46 36.5 C 97 H 24 92 Room Air O2 Flow Rate 09/13/22 00:41 2 09/12/22 23:00 0 09/12/22 22:39 09/12/22 22:39 09/12/22 19:46 Laboratory Results Laboratory Results WBC 12.50 K/ul (4.8-10.8) H 09/12/22 20:49 RBC 3.84 M/uL (4.70-6.10) L 09/12/22 20:49 Hgb 10.8 g/dl (14.0-18.0) L 09/12/22 20:49 Hct 33.6 % (42.0-52.0) L 09/12/22 20:49 MCV 87.5 fL (80.0-100.0) 09/12/22 20:49 MCH 28.1 pg (25.0-34.0) 09/12/22 20:49 MCHC 32.1 g/dL (32.0-36.0) 09/12/22 20:49 RDW Std Deviation 48.9 fL (36.4-46.3) H 09/12/22 20:49 RDW Coeff of Barby 15.3 % (11.5-14.5) H 09/12/22 20:49 Plt Count 281 K/uL (130-400) 09/12/22 20:49 MPV 11.5 fL (9.4-12.4) 09/12/22 20:49 Immature Gran % (Auto) 0.2 % 09/12/22 20:49 Neut % (Auto) 80.8 % 09/12/22 20:49 Lymph % (Auto) 10.0 % 09/12/22 20:49 [place] % (Auto) 7.3 % 09/12/22 20:49 Eos % (Auto) 1.5 % 09/12/22 20:49 Baso % (Auto) 0.2 % 09/12/22 20:49 Neut # (Auto) 10.09 K/uL (1.40-6.50) H 09/12/22 20:49 Lymph # (Auto) 1.25 K/uL (1.2-3.4) 09/12/22 20:49 [place] # (Auto) 0.91 K/uL (0.11-0.59) H 09/12/22 20:49 Eos # (Auto) 0.19 K/uL (0-0.50) 09/12/22 20:49 Baso # (Auto) 0.03 K/uL (0-0.2) 09/12/22 20:49 Immature Gran # (Auto) 0.03 K/uL (0.01-0.20) 09/12/22 20:49 PT 11.4 Seconds (9.0-12.0) 09/12/22 20:49 INR 1.1 (0.9-1.1) 09/12/22 20:49 APTT 32.5 Seconds (21.0-31.0) H 09/12/22 20:49 PTT Ratio 1.2 09/12/22 20:49 Sodium 140 mmol/L (136-145) 09/12/22 20:49 Potassium 4.1 mmol/L (3.5-5.1) 09/12/22 20:49 Chloride 97 mmol/L (98-107) L 09/12/22 20:49 Carbon Dioxide 36 mmol/L (21-32) H 09/12/22 20:49 Anion Gap 7 (3-11) 09/12/22 20:49 BUN 50 mg/dl (6-23) H 09/12/22 20:49 Creatinine 2.26 mg/dl (0.6-1.4) H 09/12/22 20:49 Est Cr Clr Drug Dosing Not Reportable 09/12/22 20:49 Est GFR ( Amer) 31.7 ml/min 09/12/22 20:49 Est GFR (Non-Af Amer) 27.4 ml/min 09/12/22 20:49 BUN/Creatinine Ratio 22.1 (10-20) H 09/12/22 20:49 Glucose 196 mg/dl (70-99(Fasting)) H 09/12/22 20:49 Calcium 8.5 mg/dl (8.6-10.3) L 09/12/22 20:49 Total Bilirubin 0.3 mg/dl (0.2-1.0) 09/12/22 20:49 AST 11 U/L (13-39) L 09/12/22 20:49 ALT 9 U/L (7-52) 09/12/22 20:49 Alkaline Phosphatase 71 U/L (34-104) 09/12/22 20:49 Troponin I High Sens 9.0 pg/ml (0-20) 09/12/22 20:49 Total Protein 6.7 gm/dl (6.0-8.3) 09/12/22 20:49 Albumin 3.3 gm/dl (3.4-5.0) L 09/12/22 20:49 Globulin 3.4 gm/dl (2.5-4.0) 09/12/22 20:49 Albumin/Globulin Ratio 1.0 (0.9-2) 09/12/22 20:49 SARS-CoV-2 (PCR) NEGATIVE (Negative) 09/12/22 00:00 Influenza Type A (PCR) Negative (Neg) 09/12/22 00:00 Influenza Type B (PCR) Negative (Neg) 09/12/22 00:00 RSV (RT-PCR) Negative (Neg) 09/12/22 00:00 Impressions Chest X-Ray 09/12/22 19:51 SINGLE VIEW CHEST CLINICAL HISTORY: Atypical chest pain. FINDINGS: 2 AP, portable, upright chest radiographs are compared to study dated 11/28/2020. The heart is enlarged noting atherosclerotic calcification of the thoracic aorta. The pulmonary vasculature is noncongested. Chronic interstitial thickening similar to previous. There is left basilar consolidation and a small left pleural effusion. Right lung appears clear. No pneumothorax is seen. The skeletal structures are osteopenic. The bony thorax is grossly intact. IMPRESSION: 1. Cardiomegaly without radiographic evidence of congestive failure. 2. There is a small left pleural effusion and left basilar consolidation. Correlate clinically for evidence of pneumonia/aspiration pneumonitis. Radiographic follow-up to resolution is recommended. ACT 112: Negative or not required by law. Electronically signed by: Rolo Kidd M.D. 09/12/2022 8:[address] 09/12/22 23:46 Exam(s): CT CHEST Without Contrast EXAM: CT Chest Without Intravenous Contrast CLINICAL HISTORY: Reason for exam: PNA, pl effusion, obese. TECHNIQUE: Axial computed tomography images of the chest without intravenous contrast. Automated exposure control was utilized for the study. A dose lowering technique was utilized adhering to the principles of ALARA. COMPARISON: Chest radiograph earlier the same day. FINDINGS: Lungs: Left lower lobe consolidation which may be infectious. Pleural space: Small to moderate left effusion. No pneumothorax. Heart: Trace pericardial effusion. Coronary vascular calcification. Bones/joints: See above. Soft tissues: Unremarkable. Vasculature: There is diffuse atherosclerotic calcification of the aorta and its major branch vessels. Lymph nodes: Unremarkable. No enlarged lymph nodes. IMPRESSION: Small to moderate left pleural effusion with left lower lobe consolidation which may be infectious. Electronically signed by: Don Vasquez MD 09/13/22 00:45 AM PG Care Time/CCT Total # of Minutes Spent Total Time Spent with Patient: Total time spent is greater than 50% in coordination of care (as documented) at patient's floor/unit and/or counseling patient: Coding Level of Care Code 26131 INT INP/OBS CARE 3/75MIN Diagnoses Edema, pitting R60.9 Atrial fibrillation I48.91 CKD (chronic kidney disease) stage 4, GFR 15-29 ml/min N18.4 Diabetes mellitus type 2 in obese E11.69; E66.9 Hypertension I10 GERD (gastroesophageal reflux disease) K21.9
[2022-09-13] MEDS ORDERED: CARBOHYDRATES FOR HYPOGLYCEMIA PO PRN (04:09)
[2022-09-13] MEDS ORDERED: GLUCAGON FOR INJ 1 MG VIAL SQ PRN (04:09)
[2022-09-13] MEDS ORDERED: GLUCOSE 40% GEL 15 GM TUBE PO PRN (04:09)
[2022-09-13] MEDS ORDERED: GLUCOSE 10 TAB/TUBE PO PRN (04:09)
[2022-09-13] MEDS ORDERED: PHARMACY GLYCEMIC MGMT CONSULT PRN (04:09)
[2022-09-13] MEDS ORDERED: ONDANSETRON INJ 2 MG/ML 2 ML VIAL IV PRN (04:09)
[2022-09-13] MEDS ORDERED: DEXTROSE 50% 50 ML SYRINGE IV PRN (04:09)
--- NOTE | 2022-09-13 04:36 | Ultrasound Report ---
Exam(s): US VENOUS BILATERAL LOWER EXTREMITIES EXAM: US Duplex Bilateral Lower Extremities Veins CLINICAL HISTORY: Reason for exam: DVT, increased swelling. TECHNIQUE: Real-time duplex ultrasound scan of the bilateral lower extremity veins integrating B-mode two-dimensional vascular structure, Doppler spectral analysis, color flow Doppler imaging and compression. COMPARISON: No relevant prior studies available. FINDINGS: Right deep veins: Unremarkable. No DVT in the right common femoral, femoral, proximal deep femoral or popliteal veins. The veins demonstrate normal color flow, are normally compressible, with normal phasic flow and/or augmentation response. Right superficial veins: Unremarkable. No thrombus in the visualized right great saphenous vein. Left deep veins: Unremarkable. No DVT in the left common femoral, femoral, proximal deep femoral or popliteal veins. The veins demonstrate normal color flow, are normally compressible, with normal phasic flow and/or augmentation response. Left superficial veins: Unremarkable. No thrombus in the visualized left great saphenous vein. Soft tissues: No acute findings. No popliteal cyst. IMPRESSION: No evidence of DVT in the lower extremities. Electronically signed by: Teo Peterson MD 09/13/22 04:35 AM
[2022-09-13 06:14] LABS: BUN Creatinine Ratio 21.4 (10-20); Calcium 8.2 mg/dl (8.6-10.3); Creatinine Clr Calc Pharmacy 40.2 ml/min; Est GFR (African American) 31.2 ml/min; Est GFR (Non-African American) 26.9 ml/min; Magnesium 1.7 mg/dl (1.7-2.4); Potassium 3.7 mmol/L (3.5-5.1)
--- NOTE | 2022-09-13 07:17 | Emergency Department Note ---
Impression & Plan Acute dyspnea, Lower extremity edema, CKD (chronic kidney disease) stage 4, GFR 15-29 ml/min, Pleural effusion on left ED Provider Note CHIEF COMPLAINT: SOB, L lung "full of fluid" HISTORY OF PRESENT ILLNESS: This 77 yo male patient with a history of chronic kidney disease, atrial fibrillation on anticoagulation, diabetes mellitus type 2, morbid obesity, hypertension presents to the emergency department with complaints of shortness of breath. He states symptoms have been increasing over the last week or so. He was seen by his primary care team at the [place], his Lasix was increased from 80 mg daily to 80 mg twice daily. He was reevaluated today, chest x-ray ordered. The patient was advised to proceed to the [facility] however he was already back in [place]. The patient and his felt that they could not drive back to [place] and came to our emergency department. The patient complains of a moist cough. He has had increased edema of the lower extremities. Patient denies any fevers and chest pain. He has not had any recent abdominal pain, vomiting or diarrhea. REVIEW OF SYSTEMS: A review of systems was performed with positives and pertinent negatives listed in the history of present illness. 10 systems were reviewed and are otherwise negative. ALLERGIES: see below MEDICATIONS: see below PMH: see below SOCIAL HISTORY: see below DDx: Reactive airway disease, pneumonia, pneumothorax, COPD, CHF, infections, cardiac ischemia, pulmonary embolism, musculoskeletal, gastrointestinal, as well as other pathologies. PHYSICAL EXAM: Vital signs reviewed. General: Chronically ill-appearing 77-year-old male, obese on nasal cannula oxygen but in no significant distress. HEENT: No scleral icterus, PERRLA, neck supple. Atraumatic. Cardiovascular: Irregular but rate controlled, no extra sounds. Distant heart tones. Pulmonary: Crackles to the bases to auscultation bilaterally, with diminished lung sounds, slightly increased work of breathing on nasal cannula Abdomen: Soft, nontender, nondistended, positive bowel sounds. Musculoskeletal: Atraumatic, + peripheral edema. Neurologic: Patient awake alert and oriented x 3, speech is clear Skin: Warm, dry, no rash EMERGENCY DEPARTMENT COURSE/MDM: This patient was evaluated and appeared to be in no significant distress. IV access was obtained and laboratory work was drawn. Patient was placed on the cafeteria monitor. Chest x-ray revealed evidence of a left pleural effusion, no significant pulmonary edema. As the chest x-ray was negative for significant pulmonary edema, concern for underlying parapneumonic effusion was considered. CT imaging of the chest was performed and is consistent with a small left pleural effusion and corresponding lung consolidation, " which may be infectious." IV Zosyn was initiated. Patient's laboratory work reveals renal insufficiency with a creatinine of 2.29. Patient's case was discussed with Dr. Diamond of the hospitalist service to evaluate the patient for admission and further management. Patient and his were made aware of the plan and agreed. MONITORING: An order for cardiac monitoring was placed and the patient is noted to be in a rate controlled atrial fibrillation at 98 beats per minute. RADIOLOGY: Chest x-ray to my interpretation reveals cardiomegaly with small left pleural effusion, otherwise defer to radiology. CT scan of the chest reveals small L pleural effusion with consolidation. US BLE reveals no evidence of DVT. EKG: To my interpretation reveals atrial fibrillation at 91 bpm. Right bundle branch block with repolarization abnormality. Normal ST segments. QTc is 460. No PVC, no PAC. When compared to previous dated November 28, 2020, atrial fibrillation and lateral T wave inversions are new. 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 Beliefs That Will Affect Care: None Current Living Situation: Spouse Other Information That Helps Us Care for You: No Feels Safe at Home: Yes Safety Concerns: Feels Safe At This Time Assistive Devices: Lift Chair, Scooter/Electric Scooter and Walker Allergies Allergies Allergy/AdvReac Type Severity Reaction Status Date / Time No Known Allergies Allergy Unverified 08/29/22 14:00 Home Meds Home Medications Medication Instructions Recorded Confirmed aspirin 81 mg tablet,delayed 81 mg PO QAM 07/20/18 09/13/22 release atorvastatin 80 mg tablet (Lipitor) 40 mg PO HS 07/20/18 09/13/22 calcium carbonate 600 mg calcium 600 mg PO QAM 07/20/18 09/13/22 (1,500 mg) tablet (Calcium) docusate sodium 100 mg capsule 200 mg PO DAILY 07/20/18 09/13/22 finasteride 5 mg tablet (Proscar) 5 mg PO DAILY 07/20/18 09/13/22 furosemide 80 mg tablet (Lasix) 80 mg PO BID 07/20/18 09/13/22 glucosamine-chondroitin 167 mg-133 1 cap PO DAILY 07/20/18 09/13/22 mg capsule insulin aspart U-100 100 unit/mL 10 - 35 unit subcut TIDM 07/20/18 09/14/22 (3 mL) subcutaneous pen (Novolog FlexPen U-100 Insulin aspart) insulin glargine 100 unit/mL (3 57 unit subcut BID 07/20/18 09/13/22 mL) subcutaneous pen (Lantus Solostar U-100 Insulin) omeprazole 20 mg capsule,delayed 20 mg PO Q12 07/20/18 09/13/22 release terazosin 5 mg capsule 5 mg PO BID 07/20/18 09/13/22 losartan 50 mg tablet 50 mg PO DAILY 11/28/20 09/13/22 metolazone 2.5 mg tablet 2.5 mg PO Q2D 11/28/20 09/13/22 multivitamin with minerals 1 tab PO DAILY 11/28/20 09/13/22 diltiazem HCl 120 mg 120 mg PO DAILY 08/27/22 09/13/22 capsule,extended release 24 hr gabapentin 300 mg capsule 300 mg PO BID 08/27/22 09/13/22 lactulose 10 gram/15 mL oral 30 g PO DAILY 08/27/22 09/13/22 solution tramadol 50 mg tablet 50 mg PO Q8H PRN Pain 08/27/22 09/13/22 apixaban 5 mg tablet (Eliquis) 5 mg PO BID 08/29/22 09/13/22 hydralazine 10 mg tablet 20 mg PO TID 08/29/22 09/13/22 potassium chloride 20 mEq 20 meq PO BIDM 08/29/22 09/13/22 tablet,extended release (K-Tab) Previous Rx's Medication Instructions Recorded metoprolol tartrate 25 mg tablet 25 mg PO BID 30 days #60 tabs 11/30/20 Results & Data (ED) Vital Signs Vital Signs - 24 hr 09/12/22 19:46 09/12/22 19:50 09/12/22 22:39 Temperature 36.5 C Temperature Source Temporal Artery Scan Pulse Rate 97 H Pulse Rate [Apical] 103 H Pulse Rate from SpO2 Sensor Pulse Rhythm Regular Respiratory Rate 24 18 Respiratory Effort / Characteristics Non-Labored Spontaneous Non-Labored Spontaneous Labored Short of Breath Respiratory Depth Normal Normal Normal Respiratory Pattern Regular Regular Blood Pressure Blood Pressure [Right Arm] 136/69 Blood Pressure Mean Blood Pressure Mean [Right Arm] 91 Blood Pressure Position Sitting Pulse Oximetry 92 90 Oxygen Delivery Method Room Air Room Air Oxygen Flow Rate Sepsis Recent Fever Within 48 Hours No Sepsis New/Unexplained Change in Mental Status N/A Sepsis Action Taken by Nursing No Action Required Fraction of Inspired Oxygen - Titration Pulse Oximetry Post Tiitration 09/12/22 22:39 09/12/22 23:00 09/13/22 00:41 Temperature Temperature Source Pulse Rate Pulse Rate [Apical] 98 H Pulse Rate from SpO2 Sensor Pulse Rhythm Respiratory Rate 16 Respiratory Effort / Characteristics Short of Breath Respiratory Depth Normal Respiratory Pattern Blood Pressure Blood Pressure [Right Arm] 129/59 L Blood Pressure Mean Blood Pressure Mean [Right Arm] 82 Blood Pressure Position Pulse Oximetry 93 87 L 100 Oxygen Delivery Method Room Air Nasal Cannula Nasal Cannula Oxygen Flow Rate 0 2 Sepsis Recent Fever Within 48 Hours Sepsis New/Unexplained Change in Mental Status Sepsis Action Taken by Nursing Fraction of Inspired Oxygen - Titration 2 Pulse Oximetry Post Tiitration 95 09/13/22 00:42 09/13/22 01:00 09/13/22 01:30 Temperature Temperature Source Pulse Rate 88 111 H 106 H Pulse Rate [Apical] Pulse Rate from SpO2 Sensor 88 92 H Pulse Rhythm Respiratory Rate 20 23 Respiratory Effort / Characteristics Respiratory Depth Respiratory Pattern Blood Pressure Blood Pressure [Right Arm] Blood Pressure Mean Blood Pressure Mean [Right Arm] Blood Pressure Position Pulse Oximetry 100 99 Oxygen Delivery Method Oxygen Flow Rate Sepsis Recent Fever Within 48 Hours Sepsis New/Unexplained Change in Mental Status Sepsis Action Taken by Nursing Fraction of Inspired Oxygen - Titration Pulse Oximetry Post Tiitration 09/13/22 01:31 Temperature Temperature Source Pulse Rate 92 H Pulse Rate [Apical] Pulse Rate from SpO2 Sensor 98 H Pulse Rhythm Respiratory Rate 17 Respiratory Effort / Characteristics Respiratory Depth Respiratory Pattern Blood Pressure 104/75 Blood Pressure [Right Arm] Blood Pressure Mean 84 Blood Pressure Mean [Right Arm] Blood Pressure Position Pulse Oximetry 96 Oxygen Delivery Method Oxygen Flow Rate Sepsis Recent Fever Within 48 Hours Sepsis New/Unexplained Change in Mental Status Sepsis Action Taken by Nursing Fraction of Inspired Oxygen - Titration Pulse Oximetry Post Tiitration Home Medications Current Medication List: was personally reviewed by me Laboratory Data Attestation: I reviewed the patient's lab results. 09/12/22 20:49 09/13/22 05:36 Lab Results 09/12/22 09/12/22 09/12/22 Range/Units 00:00 20:49 20:49 WBC 12.50 H (4.8-10.8) K/ul RBC 3.84 L (4.70-6.10) M/uL Hgb 10.8 L (14.0-18.0) g/dl Hct 33.6 L (42.0-52.0) % MCV 87.5 (80.0-100.0) fL MCH 28.1 (25.0-34.0) pg MCHC 32.1 (32.0-36.0) g/dL RDW Std Deviation 48.9 H (36.4-46.3) fL RDW Coeff of Barby 15.3 H (11.5-14.5) % Plt Count 281 (130-400) K/uL MPV 11.5 (9.4-12.4) fL Immature Gran % (Auto) 0.2 % Neut % (Auto) 80.8 % Lymph % (Auto) 10.0 % [place] % (Auto) 7.3 % Eos % (Auto) 1.5 % Baso % (Auto) 0.2 % Neut # (Auto) 10.09 H (1.40-6.50) K/uL Lymph # (Auto) 1.25 (1.2-3.4) K/uL [place] # (Auto) 0.91 H (0.11-0.59) K/uL Eos # (Auto) 0.19 (0-0.50) K/uL Baso # (Auto) 0.03 (0-0.2) K/uL Immature Gran # (Auto) 0.03 (0.01-0.20) K/uL PT 11.4 (9.0-12.0) Seconds INR 1.1 (0.9-1.1) APTT 32.5 H (21.0-31.0) Seconds PTT Ratio 1.2 Sodium (136-145) mmol/L Potassium (3.5-5.1) mmol/L Chloride (98-107) mmol/L Carbon Dioxide (21-32) mmol/L Anion Gap (3-11) BUN (6-23) mg/dl Creatinine (0.6-1.4) mg/dl Est Cr Clr Drug Dosing Est GFR ( Amer) ml/min Est GFR (Non-Af Amer) ml/min BUN/Creatinine Ratio (10-20) Glucose (70-99(Fasting)) mg/dl Calcium (8.6-10.3) mg/dl Total Bilirubin (0.2-1.0) mg/dl AST (13-39) U/L ALT (7-52) U/L Alkaline Phosphatase (34-104) U/L Troponin I High Sens (0-20) pg/ml Total Protein (6.0-8.3) gm/dl Albumin (3.4-5.0) gm/dl Globulin (2.5-4.0) gm/dl Albumin/Globulin Ratio (0.9-2) SARS-CoV-2 (PCR) NEGATIVE (Negative) Influenza Type A (PCR) Negative (Neg) Influenza Type B (PCR) Negative (Neg) RSV (RT-PCR) Negative (Neg) 09/12/22 Range/Units 20:49 WBC (4.8-10.8) K/ul RBC (4.70-6.10) M/uL Hgb (14.0-18.0) g/dl Hct (42.0-52.0) % MCV (80.0-100.0) fL MCH (25.0-34.0) pg MCHC (32.0-36.0) g/dL RDW Std Deviation (36.4-46.3) fL RDW Coeff of Barby (11.5-14.5) % Plt Count (130-400) K/uL MPV (9.4-12.4) fL Immature Gran % (Auto) % Neut % (Auto) % Lymph % (Auto) % [place] % (Auto) % Eos % (Auto) % Baso % (Auto) % Neut # (Auto) (1.40-6.50) K/uL Lymph # (Auto) (1.2-3.4) K/uL [place] # (Auto) (0.11-0.59) K/uL Eos # (Auto) (0-0.50) K/uL Baso # (Auto) (0-0.2) K/uL Immature Gran # (Auto) (0.01-0.20) K/uL PT (9.0-12.0) Seconds INR (0.9-1.1) APTT (21.0-31.0) Seconds PTT Ratio Sodium 140 (136-145) mmol/L Potassium 4.1 (3.5-5.1) mmol/L Chloride 97 L (98-107) mmol/L Carbon Dioxide 36 H (21-32) mmol/L Anion Gap 7 (3-11) BUN 50 H (6-23) mg/dl Creatinine 2.26 H (0.6-1.4) mg/dl Est Cr Clr Drug Dosing Not Reportable Est GFR ( Amer) 31.7 ml/min Est GFR (Non-Af Amer) 27.4 ml/min BUN/Creatinine Ratio 22.1 H (10-20) Glucose 196 H (70-99(Fasting)) mg/dl Calcium 8.5 L (8.6-10.3) mg/dl Total Bilirubin 0.3 (0.2-1.0) mg/dl AST 11 L (13-39) U/L ALT 9 (7-52) U/L Alkaline Phosphatase 71 (34-104) U/L Troponin I High Sens 9.0 (0-20) pg/ml Total Protein 6.7 (6.0-8.3) gm/dl Albumin 3.3 L (3.4-5.0) gm/dl Globulin 3.4 (2.5-4.0) gm/dl Albumin/Globulin Ratio 1.0 (0.9-2) SARS-CoV-2 (PCR) (Negative) Influenza Type A (PCR) (Neg) Influenza Type B (PCR) (Neg) RSV (RT-PCR) (Neg) Administered Medications Acetaminophen (Acetaminophen 325 Mg Tab) 650 mg PO Q4H PRN PRN Reason: pain/fever Stop: 10/13/22 04:08 Last Admin: 09/18/22 03:57 Dose: 650 mg Documented By: Admin: 09/17/22 22:01 Dose: 650 mg Documented By: Admin: 09/17/22 08:26 Dose: 650 mg Documented By: Admin: 09/16/22 22:01 Dose: 650 mg Documented By: Admin: 09/15/22 04:21 Dose: 650 mg Documented By: Admin: 09/13/22 20:10 Dose: 650 mg Documented By: CAROLINE Apixaban (Apixaban 5 Mg Tablet) 5 mg PO BID DAYAN Stop: 10/13/22 08:59 Last Admin: 09/17/22 21:53 Dose: 5 mg Documented By: Admin: 09/17/22 08:30 Dose: 5 mg Documented By: Admin: 09/16/22 21:55 Dose: 5 mg Documented By: Admin: 09/16/22 08:02 Dose: 5 mg Documented By: Admin: 09/15/22 20:29 Dose: 5 mg Documented By: Admin: 09/15/22 08:27 Dose: 5 mg Documented By: Admin: 09/14/22 20:49 Dose: 5 mg Documented By: Admin: 09/14/22 07:33 Dose: 5 mg Documented By: Admin: 09/13/22 19:56 Dose: 5 mg Documented By: Admin: 09/13/22 08:18 Dose: 5 mg Documented By: AMANDA Aspirin (Aspirin 81 Mg Ectab) 81 mg PO [facility] DAYAN Stop: 10/13/22 08:59 Last Admin: 09/17/22 08:30 Dose: 81 mg Documented By: Admin: 09/16/22 08:03 Dose: 81 mg Documented By: Admin: 09/15/22 08:26 Dose: 81 mg Documented By: Admin: 09/14/22 07:34 Dose: 81 mg Documented By: Admin: 09/13/22 08:18 Dose: 81 mg Documented By: AMANDA Atorvastatin Calcium (Atorvastatin 40 Mg Tab) 40 mg PO [facility] Stop: 10/13/22 20:59 Last Admin: 09/17/22 21:53 Dose: 40 mg Documented By: Admin: 09/16/22 21:55 Dose: 40 mg Documented By: Admin: 09/15/22 20:28 Dose: 40 mg Documented By: Admin: 09/14/22 20:49 Dose: 40 mg Documented By: Admin: 09/13/22 19:57 Dose: 40 mg Documented By: CAROLINE Benzonatate (Benzonatate 100 Mg Capsule) 100 mg PO TID DAYAN Stop: 10/16/22 08:59 Last Admin: 09/17/22 21:53 Dose: 100 mg Documented By: Admin: 09/17/22 13:03 Dose: 100 mg Documented By: Admin: 09/17/22 08:28 Dose: 100 mg Documented By: Admin: 09/16/22 21:55 Dose: 100 mg Documented By: Admin: 09/16/22 13:17 Dose: 100 mg Documented By: Admin: 09/16/22 08:31 Dose: 100 mg Documented By: Docusate Sodium (Docusate Sodium 100 Mg Cap) 200 mg PO DAILY DAYAN Stop: 10/13/22 08:59 Last Admin: 09/17/22 08:28 Dose: 200 mg Documented By: Admin: 09/16/22 08:26 Dose: 200 mg Documented By: Admin: 09/15/22 08:26 Dose: 200 mg Documented By: Admin: 09/14/22 07:32 Dose: 200 mg Documented By: Admin: 09/13/22 08:19 Dose: 200 mg Documented By: AMANDA Finasteride (Finasteride 5 Mg Tab) 5 mg PO DAILY DAYAN Stop: 10/13/22 08:59 Last Admin: 09/17/22 10:38 Dose: 5 mg Documented By: Admin: 09/16/22 08:02 Dose: 5 mg Documented By: Admin: 09/15/22 08:26 Dose: 5 mg Documented By: Admin: 09/14/22 07:31 Dose: 5 mg Documented By: Admin: 09/13/22 08:20 Dose: 5 mg Documented By: AMANDA Furosemide (Furosemide 40 Mg/4 Ml Vial) 80 mg IV BID17 DAYAN Stop: 10/13/22 08:59 Last Admin: 09/13/22 08:21 Dose: 80 mg Documented By: AMANDA Furosemide (Furosemide 40 Mg/4 Ml Vial) 40 mg IV BID DAYAN Stop: 10/15/22 10:59 Last Admin: 09/17/22 21:38 Dose: 40 mg Documented By: Admin: 09/17/22 08:28 Dose: 40 mg Documented By: JLDariel Admin: 09/16/22 21:56 Dose: 40 mg Documented By: BCLorenzo Admin: 09/16/22 08:45 Dose: 40 mg Documented By: Admin: 09/15/22 20:29 Dose: 40 mg Documented By: Admin: 09/15/22 12:03 Dose: 40 mg Documented By: MG Guaifenesin (Guaifenesin 600 Mg Tabcr) 1,200 mg PO Q12 DAYAN Stop: 10/16/22 08:59 Last Admin: 09/17/22 21:53 Dose: 1,200 mg Documented By: Admin: 09/17/22 08:29 Dose: 1,200 mg Documented By: Admin: 09/16/22 21:55 Dose: 1,200 mg Documented By: Admin: 09/16/22 08:31 Dose: 1,200 mg Documented By: MG Hydralazine HCl (Hydralazine 10 Mg Tab) 20 mg PO TID DAYAN Stop: 10/13/22 08:59 Last Admin: 09/17/22 21:53 Dose: 20 mg Documented By: Admin: 09/17/22 13:03 Dose: 20 mg Documented By: Admin: 09/17/22 08:29 Dose: 20 mg Documented By: Admin: 09/16/22 21:55 Dose: 20 mg Documented By: Admin: 09/16/22 13:17 Dose: 20 mg Documented By: Admin: 09/16/22 08:02 Dose: 20 mg Documented By: Admin: 09/15/22 20:29 Dose: 20 mg Documented By: Admin: 09/15/22 13:58 Dose: 20 mg Documented By: Admin: 09/15/22 08:27 Dose: 20 mg Documented By: Admin: 09/14/22 20:49 Dose: 20 mg Documented By: Admin: 09/14/22 13:25 Dose: 20 mg Documented By: Admin: 09/14/22 07:33 Dose: 20 mg Documented By: Admin: 09/13/22 19:56 Dose: 20 mg Documented By: Admin: 09/13/22 13:33 Dose: 20 mg Documented By: Admin: 09/13/22 08:18 Dose: 20 mg Documented By: AMANDA Iron Sucrose 200 mg/ Sodium (Chloride) 110 mls @ 220 mls/hr IV DAILY DAYAN Stop: 09/19/22 10:14 Last Infusion: 09/17/22 10:05 Dose: 0 mls/hr Documented By: Admin: 09/17/22 09:35 Dose: 220 mls/hr Documented By: Infusion: 09/16/22 10:12 Dose: 0 mls/hr Documented By: Admin: 09/16/22 08:01 Dose: 220 mls/hr Documented By: Infusion: 09/15/22 17:19 Dose: 0 mls/hr Documented By: Admin: 09/15/22 15:29 Dose: 220 mls/hr Documented By: Ceftriaxone Sodium 2,000 mg/ (Dextrose) 70 mls @ 100 mls/hr IV Q24H DAYAN; Protocol Stop: 09/24/22 15:59 Last Infusion: 09/17/22 17:18 Dose: 0 mls/hr Documented By: Admin: 09/17/22 16:36 Dose: 100 mls/hr Documented By: JULIUS Doxycycline Hyclate 100 mg/ (Dextrose) 110 mls @ 50 mls/hr IV Q12H DAYAN Stop: 09/24/22 15:59 Last Admin: 09/18/22 06:06 Dose: 55 mls/hr Documented By: Infusion: 09/17/22 19:56 Dose: 0 mls/hr Documented By: Admin: 09/17/22 17:44 Dose: 50 mls/hr Documented By: JULIUS Insulin Aspart (Insulin Aspart Per Unit Charge) 0 units SC ACHS DAYAN; Protocol Stop: 10/15/22 11:29 Last Admin: 09/17/22 22:03 Dose: 6 units Documented By: CAROLINE Co-signed By: MAME Admin: 09/17/22 17:15 Dose: 5 units Documented By: JULIUS Co-signed By: SANDY Admin: 09/17/22 12:01 Dose: 9 units Documented By: JULIUS Co-signed By: SANDY Admin: 09/17/22 08:24 Dose: 6 units Documented By: JULIUS Co-signed By: SANDY Admin: 09/16/22 22:04 Dose: 5 units Documented By: CAROLINE Co-signed By: MAME Admin: 09/16/22 17:30 Dose: 5 units Documented By: Co-signed By: SANDY Admin: 09/16/22 12:07 Dose: Not Given Documented By: Admin: 09/16/22 08:24 Dose: 2 units Documented By: Co-signed By: MARIA DOLORES Admin: 09/15/22 20:29 Dose: Not Given Documented By: AMARIS Co-signed By: MAME Admin: 09/15/22 17:28 Dose: 7 units Documented By: Co-signed By: [id number] Admin: 09/15/22 12:04 Dose: 4 units Documented By: Co-signed By: SANDY(2) Insulin Glargine (Lantus Per Unit Charge) 20 units SQ BID [facility]; Protocol Stop: 10/16/22 08:59 Last Admin: 09/17/22 22:03 Dose: 20 units Documented By: CAROLINE Co-signed By: MAME Admin: 09/17/22 08:25 Dose: 20 units Documented By: JULIUS Co-signed By: SANDY Admin: 09/16/22 22:04 Dose: 20 units Documented By: CAROLINE Co-signed By: MAME Admin: 09/16/22 10:15 Dose: Not Given Documented By: Lactulose (Lactulose Syrup 30 Gm/45 Ml Udp) 30 gm PO DAILY [facility] Stop: 10/13/22 08:59 Last Admin: 09/17/22 08:31 Dose: 30 gm Documented By: Admin: 09/16/22 08:01 Dose: 30 gm Documented By: Admin: 09/15/22 09:45 Dose: 30 gm Documented By: Admin: 09/14/22 07:32 Dose: 30 gm Documented By: Admin: 09/13/22 08:20 Dose: 30 gm Documented By: AMANDA Metoprolol Tartrate (Metoprolol Tartrate 50 Mg Tab) 50 mg PO BID DAYAN Stop: 10/16/22 20:59 Last Admin: 09/17/22 21:53 Dose: 50 mg Documented By: Admin: 09/17/22 08:27 Dose: 50 mg Documented By: Admin: 09/16/22 21:56 Dose: 50 mg Documented By: CAROLINE Pantoprazole Sodium (Pantoprazole 40 Mg Tab) 40 mg PO DAILY DAYAN Stop: 10/13/22 08:59 Last Admin: 09/17/22 08:30 Dose: 40 mg Documented By: Admin: 09/16/22 08:03 Dose: 40 mg Documented By: Admin: 09/15/22 08:26 Dose: 40 mg Documented By: Admin: 09/14/22 07:33 Dose: 40 mg Documented By: Admin: 09/13/22 08:20 Dose: 40 mg Documented By: AMANDA Potassium Chloride (Potassium Chloride Crtab 20 Meq Tabcr) 40 meq PO BID DAYAN Stop: 10/16/22 09:59 Last Admin: 09/17/22 22:01 Dose: 40 meq Documented By: Admin: 09/17/22 08:27 Dose: 40 meq Documented By: Admin: 09/16/22 22:03 Dose: 40 meq Documented By: Admin: 09/16/22 10:20 Dose: 40 meq Documented By: MG Terazosin HCl (Terazosin Hcl 5 Mg Cap) 5 mg PO BID DAYAN Stop: 10/13/22 08:59 Last Admin: 09/17/22 21:53 Dose: 5 mg Documented By: Admin: 09/17/22 08:30 Dose: 5 mg Documented By: Admin: 09/16/22 21:55 Dose: 5 mg Documented By: Admin: 09/16/22 08:03 Dose: 5 mg Documented By: Admin: 09/15/22 20:28 Dose: 5 mg Documented By: Admin: 09/15/22 08:28 Dose: 5 mg Documented By: Admin: 09/14/22 20:49 Dose: 5 mg Documented By: Admin: 09/14/22 07:31 Dose: 5 mg Documented By: Admin: 09/13/22 19:57 Dose: 5 mg Documented By: Admin: 09/13/22 08:20 Dose: 5 mg Documented By: AMANDA Discontinued Medications Bisacodyl (Bisacodyl 10 Mg Supp) 10 mg NE NOW STA Stop: 09/17/22 16:01 Last Admin: 09/17/22 18:36 Dose: Not Given Documented By: JULIUS Bisacodyl (Bisacodyl 10 Mg Supp) Confirm Administered Dose 10 mg NE .STK-MED ONE Stop: 09/17/22 18:34 Last Admin: 09/17/22 18:36 Dose: 10 mg Documented By: JULIUS Diltiazem HCl (Diltiazem Hcl 120 Mg Capcr) 120 mg PO DAILY DAYAN Stop: 10/13/22 08:59 Last Admin: 09/17/22 08:29 Dose: 120 mg Documented By: Admin: 09/16/22 08:03 Dose: 120 mg Documented By: Admin: 09/15/22 08:27 Dose: 120 mg Documented By: Admin: 09/14/22 07:34 Dose: 120 mg Documented By: Admin: 09/13/22 08:17 Dose: 120 mg Documented By: AMANDA Piperacillin Sod/Tazobactam Sod (Zosyn) 4.5 gm in 120 mls @ 240 mls/hr IV NOW ONE Stop: 09/13/22 00:06 Last Infusion: 09/13/22 00:42 Dose: 0 mls/hr Documented By: Admin: 09/13/22 00:11 Dose: 240 mls/hr Documented By: ALESSIA Sodium Chloride (Nss) 500 mls @ 999 mls/hr IV .Q31M ONE Stop: 09/13/22 00:10 Last Infusion: 09/13/22 01:35 Dose: 0 mls/hr Documented By: Admin: 09/13/22 00:11 Dose: 999 mls/hr Documented By: ALESSIA Sodium Chloride (Nss 1000ml) 1,000 mls @ 80 mls/hr IV .[id number] DAYAN Stop: 10/12/22 23:44 Last Infusion: 09/13/22 04:42 Dose: 0 mls/hr Documented By: Infusion: 09/13/22 03:42 Dose: 0 mls/hr Documented By: Admin: 09/13/22 00:37 Dose: 80 mls/hr Documented By: ALESSIA Potassium Chloride (K Walter / Wtr) 10 meq in 100 mls @ 100 mls/hr IV Q1H DAYAN Stop: 09/14/22 00:59 Last Infusion: 09/14/22 02:15 Dose: 0 mls/hr Documented By: Admin: 09/14/22 01:15 Dose: 100 mls/hr Documented By: Infusion: 09/14/22 01:15 Dose: 100 mls/hr Documented By: Admin: 09/14/22 00:19 Dose: 100 mls/hr Documented By: CAROLINE Insulin Aspart (Insulin Aspart Per Unit Charge) 0 units SC ACHS DAYAN Stop: 10/13/22 07:29 Last Admin: 09/15/22 08:44 Dose: 5 units Documented By: Co-signed By: MARIA DOLORES Admin: 09/14/22 21:21 Dose: Not Given Documented By: HAY Co-signed By: MAIK Admin: 09/14/22 16:46 Dose: 8 units Documented By: AMANDA Co-signed By: [id number] Admin: 09/14/22 12:23 Dose: 8 units Documented By: AMANDA Co-signed By: [id number] Admin: 09/14/22 07:59 Dose: 3 units Documented By: AMANDA Co-signed By: [id number] Admin: 09/13/22 20:10 Dose: 3 units Documented By: CAROLINE Co-signed By: [email or web address] Admin: 09/13/22 17:04 Dose: 5 units Documented By: AMANDA Co-signed By: [id number] Admin: 09/13/22 12:05 Dose: Not Given Documented By: Admin: 09/13/22 08:21 Dose: 10 units Documented By: AMANDA Co-signed By: [id number] Insulin Glargine (Lantus Per Unit Charge) 45 units SQ BID DAYAN Stop: 10/13/22 08:59 Last Admin: 09/13/22 08:21 Dose: 45 units Documented By: AMANDA Co-signed By: [id number] Insulin Glargine (Lantus Per Unit Charge) 0 units SQ BID DAYAN; Protocol Stop: 10/13/22 20:59 Last Admin: 09/15/22 08:46 Dose: 20 units Documented By: Co-signed By: MARIA DOLORES Admin: 09/14/22 21:21 Dose: 20 units Documented By: HAY Co-signed By: MAIK Admin: 09/14/22 07:59 Dose: 20 units Documented By: AMANDA Co-signed By: [id number] Admin: 09/13/22 20:09 Dose: 30 units Documented By: CAROLINE Co-signed By: SANDHYA Insulin Glargine (Lantus Per Unit Charge) 0 units SQ BID [facility]; Protocol Stop: 10/15/22 20:59 Last Admin: 09/16/22 08:23 Dose: 20 units Documented By: Co-signed By: MARIA DOLORES Admin: 09/15/22 20:27 Dose: 30 units Documented By: AMARIS Co-signed By: MAME Lactulose (Lactulose Syrup 30 Gm/45 Ml Udp) 30 gm PO ONE ONE Stop: 09/17/22 16:16 Last Admin: 09/17/22 16:52 Dose: 30 gm Documented By: JULIUS Metoprolol Tartrate (Metoprolol Tartrate 25 Mg Tab) 25 mg PO BID DAYAN Stop: 10/13/22 08:59 Last Admin: 09/16/22 08:02 Dose: 25 mg Documented By: Admin: 09/15/22 20:28 Dose: 25 mg Documented By: Admin: 09/15/22 08:27 Dose: 25 mg Documented By: Admin: 09/14/22 20:49 Dose: 25 mg Documented By: Admin: 09/14/22 07:33 Dose: 25 mg Documented By: Admin: 09/13/22 19:57 Dose: 25 mg Documented By: Admin: 09/13/22 08:20 Dose: 25 mg Documented By: AMANDA Metoprolol Tartrate (Metoprolol Tartrate 25 Mg Tab) 25 mg PO NOW STA Stop: 09/16/22 09:52 Last Admin: 09/16/22 10:20 Dose: 25 mg Documented By: MG Imaging Data Radiologist's Impression: Chest X-Ray 09/12/22 19:51 SINGLE VIEW CHEST CLINICAL HISTORY: Atypical chest pain. FINDINGS: 2 AP, portable, upright chest radiographs are compared to study dated 11/28/2020. The heart is enlarged noting atherosclerotic calcification of the thoracic aorta. The pulmonary vasculature is noncongested. Chronic interstitial thickening similar to previous. There is left basilar consolidation and a small left pleural effusion. Right lung appears clear. No pneumothorax is seen. The skeletal structures are osteopenic. The bony thorax is grossly intact. IMPRESSION: 1. Cardiomegaly without radiographic evidence of congestive failure. 2. There is a small left pleural effusion and left basilar consolidation. Correlate clinically for evidence of pneumonia/aspiration pneumonitis. Radiographic follow-up to resolution is recommended. ACT 112: Negative or not required by law. Electronically signed by: Rolo Kidd M.D. 09/12/2022 8:[address] 09/12/22 23:46 Exam(s): CT CHEST Without Contrast EXAM: CT Chest Without Intravenous Contrast CLINICAL HISTORY: Reason for exam: PNA, pl effusion, obese. TECHNIQUE: Axial computed tomography images of the chest without intravenous contrast. Automated exposure control was utilized for the study. A dose lowering technique was utilized adhering to the principles of ALARA. COMPARISON: Chest radiograph earlier the same day. FINDINGS: Lungs: Left lower lobe consolidation which may be infectious. Pleural space: Small to moderate left effusion. No pneumothorax. Heart: Trace pericardial effusion. Coronary vascular calcification. Bones/joints: See above. Soft tissues: Unremarkable. Vasculature: There is diffuse atherosclerotic calcification of the aorta and its major branch vessels. Lymph nodes: Unremarkable. No enlarged lymph nodes. IMPRESSION: Small to moderate left pleural effusion with left lower lobe consolidation which may be infectious. Electronically signed by: Don Vasquez MD 09/13/22 00:45 AM Venous Doppler Study 09/13/22 00:00 Exam(s): US VENOUS BILATERAL LOWER EXTREMITIES EXAM: US Duplex Bilateral Lower Extremities Veins CLINICAL HISTORY: Reason for exam: DVT, increased swelling. TECHNIQUE: Real-time duplex ultrasound scan of the bilateral lower extremity veins integrating B-mode two-dimensional vascular structure, Doppler spectral analysis, color flow Doppler imaging and compression. COMPARISON: No relevant prior studies available. FINDINGS: Right deep veins: Unremarkable. No DVT in the right common femoral, femoral, proximal deep femoral or popliteal veins. The veins demonstrate normal color flow, are normally compressible, with normal phasic flow and/or augmentation response. Right superficial veins: Unremarkable. No thrombus in the visualized right great saphenous vein. Left deep veins: Unremarkable. No DVT in the left common femoral, femoral, proximal deep femoral or popliteal veins. The veins demonstrate normal color flow, are normally compressible, with normal phasic flow and/or augmentation response. Left superficial veins: Unremarkable. No thrombus in the visualized left great saphenous vein. Soft tissues: No acute findings. No popliteal cyst. IMPRESSION: No evidence of DVT in the lower extremities. Electronically signed by: Teo Peterson MD 09/13/22 04:35 AM Discharge Plan Visit Data Chief Complaint: Shortness of Breath/Dyspnea Stated Complaint: POSSIBLE FLUID IN LUNGS, REF BY ED Provider: Sarah Eason Discharge Problem: Acute dyspnea, Lower extremity edema, CKD (chronic kidney disease) stage 4, GFR 15-29 ml/min, Pleural effusion on left Patient Disposition: Admitted As Inpatient Discharge Instructions Interventions: ED Discharge Assessment Last Done: 09/13/22 03:58
[2022-09-13] MEDS: dilTIAZem HCL 120 MG CAPCR PO SCH (08:17)
[2022-09-13] MEDS: ASPIRIN 81 MG ECTAB PO SCH (08:18)
[2022-09-13] MEDS: APIXABAN 5 MG TABLET PO SCH ×2 (08:18→19:56)
[2022-09-13] MEDS: hydrALAZINE 10 MG TAB PO SCH ×3 (08:18→19:56)
[2022-09-13] MEDS: DOCUSATE SODIUM 100 MG CAP PO SCH (08:19)
[2022-09-13] MEDS: LACTULOSE SYRUP 30 GM/45 ML UDP PO SCH (08:20)
[2022-09-13] MEDS: TERAZOSIN HCL 5 MG CAP PO SCH ×2 (08:20→19:57)
[2022-09-13] MEDS: METOPROLOL TARTRATE 25 MG TAB PO SCH ×2 (08:20→19:57)
[2022-09-13] MEDS: PANTOprazole 40 MG TAB PO SCH (08:20)
[2022-09-13] MEDS: FINASTERIDE 5 MG TAB PO SCH (08:20)
[2022-09-13] MEDS: INSULIN ASPART PER UNIT CHARGE SC SCH ×4 (08:21→20:10)
[2022-09-13] MEDS ORDERED: FUROSEMIDE 40 MG/4 ML VIAL IV SCH (09:00)
[2022-09-13] MEDS ORDERED: LANTUS PER UNIT CHARGE SQ SCH (09:00)
[2022-09-13 09:21] LABS: Estimated Average Glucose 151 mg/dl; Hemoglobin A1C 6.9 % (4.5-5.6)
--- NOTE | 2022-09-13 12:29 | Electrocardiogram Report ---
Test Reason : Blood Pressure : / mmHG Vent. Rate : 091 BPM Atrial Rate : 068 BPM P-R Int : 000 ms QRS Dur : 136 ms QT Int : 374 ms P-R-T Axes : 000 060 059 degrees QTc Int : 460 ms Poor data quality, interpretation may be adversely affected Atrial fibrillation Right bundle branch block Abnormal ECG When compared with ECG of 28-NOV-2020 14:51, Atrial fibrillation has replaced Sinus rhythm T wave inversion now evident in Lateral leads Confirmed by Janes Alonso ([id number]) on 09/13/2022 12:28:59 PM Referred By: Vincent Melgar Confirmed By:Janes Alonso
--- NOTE | 2022-09-13 15:10 | Pharmacy Report ---
Pharmacy Glycemic Short Note 2 - Date of Service September 13, 2022 - Glycemic Short BSG Results (Last 24 hours): 09/12/22 09/13/22 09/13/22 20:49 05:36 07:33 Glucose 196 H 104 H POC Glucose 90 09/13/22 09/13/22 11:34 11:48 Glucose POC Glucose 56 L* 67 L* OUTPATIENT ANTIDIABETIC REGIMEN: * Lantus 57 units bid, Novolog 42 units TIDM ASSESSMENT: * 77 year old admitted with shortness of breath/edema. Type 2 diabetic managed on high amounts of insulin at home (>200 units/day) * Fasting BSG 104 mg/dL - small reduction in home basal given this morning ~20% decrease as unclear PO intake * Lunch BSG low at 56 mg/dL, 10 units of novolog given for breakfast. Possibly too tight novolog, therefore will loosen parameters with dinner. No insulin given at lunch time as BSG low * Plan to have a scale for PM basal with reduced amounts PLAN FOR INPATIENT GLYCEMIC CONTROL: * Hold outpatient oral diabetes medications * Basal insulin * Lantus 30-40 units bid * Bolus insulin * NovoLog per scale ACHS or Q6hrs while NPO * Goal Range: Low 120 mg/dL - High 160 mg/dL * Correction Factor: 20 mg/dL/unit * Nutritional / Prandial insulin per carb ratio of 1 unit per 7 grams CHO consumed
[2022-09-13 17:25] LABS: BUN Creatinine Ratio 19.4 (10-20); Calcium 7.9 mg/dl (8.6-10.3); Creatinine Clr Calc Pharmacy 37.5 ml/min; Est GFR (African American) 28.3 ml/min; Est GFR (Non-African American) 24.4 ml/min; Potassium 3.4 mmol/L (3.5-5.1)
[2022-09-13] MEDS: ATORVASTATIN 40 MG TAB PO SCH (19:57)
[2022-09-13] MEDS: LANTUS PER UNIT CHARGE SQ SCH (20:09)
[2022-09-13] MEDS: ACETAMINOPHEN 325 MG TAB PO PRN (20:10)
[2022-09-14] MEDS: POTASSIUM CHLORIDE / WTR 10 MEQ/100 ML PLCT IV SCH ×2 (00:19→01:15)
[2022-09-14 07:02] LABS: Mean Corpuscular Hemoglobin 27.5 pg (25.0-34.0); Mean Corpuscular Hgb Conc 31.3 g/dL (32.0-36.0); Mean Corpuscular Volume 88.2 fL (80.0-100.0); Mean Platelet Volume 11.5 fL (9.4-12.4); Platelet Count 242 K/uL (130-400); RDW Coefficient of Variation 15.3 % (11.5-14.5); RDW Standard Deviation 49.9 fL (36.4-46.3); Red Blood Count 3.63 M/uL (4.70-6.10); White Blood Count 9.35 K/ul (4.8-10.8)
[2022-09-14 07:18] LABS: BUN Creatinine Ratio 21.2 (10-20); Calcium 8.1 mg/dl (8.6-10.3); Creatinine Clr Calc Pharmacy 40.1 ml/min; Est GFR (African American) 30.9 ml/min; Est GFR (Non-African American) 26.6 ml/min; Potassium 3.3 mmol/L (3.5-5.1)
[2022-09-14] MEDS: FINASTERIDE 5 MG TAB PO SCH (07:31)
[2022-09-14] MEDS: TERAZOSIN HCL 5 MG CAP PO SCH ×2 (07:31→20:49)
[2022-09-14] MEDS: DOCUSATE SODIUM 100 MG CAP PO SCH (07:32)
[2022-09-14] MEDS: LACTULOSE SYRUP 30 GM/45 ML UDP PO SCH (07:32)
[2022-09-14] MEDS: APIXABAN 5 MG TABLET PO SCH ×2 (07:33→20:49)
[2022-09-14] MEDS: METOPROLOL TARTRATE 25 MG TAB PO SCH ×2 (07:33→20:49)
[2022-09-14] MEDS: hydrALAZINE 10 MG TAB PO SCH ×3 (07:33→20:49)
[2022-09-14] MEDS: PANTOprazole 40 MG TAB PO SCH (07:33)
[2022-09-14] MEDS: ASPIRIN 81 MG ECTAB PO SCH (07:34)
[2022-09-14] MEDS: dilTIAZem HCL 120 MG CAPCR PO SCH (07:34)
--- NOTE | 2022-09-14 07:53 | Communication Note ---
Date of Service: September 13, 2022 Due to rising creatinine, will hold evening dose of lasix. Will recheck BMP in AM to determine if AM lasix should be given.
[2022-09-14] MEDS: LANTUS PER UNIT CHARGE SQ SCH ×2 (07:59→21:21)
[2022-09-14] MEDS: INSULIN ASPART PER UNIT CHARGE SC SCH ×4 (07:59→21:21)
--- NOTE | 2022-09-14 12:55 | Nephrology Consultation ---
Date of Consultation September 14, 2022 Assessment & Plan (1) CKD (chronic kidney disease) stage 4, GFR 15-29 ml/min: (2) Proteinuria: (3) Anemia of chronic disease: (4) Hypertension: (5) Lower extremity edema: (6) Dyspnea: Plan Stage IV CKD, b/l cr around 2.0-2.4, at least since 2016 with moderate degree proteinuria, most likely secondary to diabetic nephropathy. CT abdomen pelvis in 2009 was otherwise unremarkable. Has been on high dose of diuretics for chronic lower extremity edema and progressive volume overload. Admitted with volume overload, hypoxia and left pleural effusion. Renal function seems relatively stable, creatinine close to baseline however hypokalemia, metabolic alkalosis suggestive of intravascular volume depletion with aggressive diuresis. --would continue to hold diuretics today, dyspnea could be due to moderate to large left pleural effusion. Accurate intake and output, daily weight, aim for net negative, if stays positive off of diuretics, will consider resuming Lasix tomorrow. if no improvement in respiratory status, recommend repeat chest x-ray tomorrow and pulmonary evaluation as needed. -- okay to resume losartan, no hypotensive episode noted --considering anemia, proteinuria and hypoalbuminemia as well as advanced age, check iron study and paraproteinemia workup. Thank you for allowing me to participate in your patient's care. It was a pleasure to see Anup. History of Present Illness Reason for Consultation: stage 4 CKD, volume overload Attending Physician: Nikhil Mcghee MD History of Present Illness Mr. Anup Narvaez is a 77yo male with past medical history significant for a stage IV CKD, hypertension, diabetes admitted to the hospital with concern for volume overload, respiratory distress and hypoxia. Nephrology consult was requested for diuretic and volume status management with history of advanced CKD and chronic need for high-dose diuretics therapy. EMR records are reviewed in detail during patient's visit. Anup was recently seen at [facility] to establish care for history of stage IV CKD, b/l c 2-2.4 at least since 2016 most likely secondary to diabetic nephropathy. Prior urinalysis showed moderate degree proteinuria with no hematuria pyuria.CT abdomen pelvis in 2019 showed bilateral otherwise normal si ze kidney. Has history of long-term NSAID use but stopped several years ago. Previous history of smoking more than 20 years ago, does not drink alcohol. No known family history of CKD or ESRD. Retired. He has been on Lasix 80 mg daily for chronic lower extremity edema. Recently he was seen at [facility] and he was noted to have progressive weight gain , LE edema and was having shortness of breath and his diuretics was increased to Lasix 80 mg twice a day and metolazone every other day and he noticed significant improvement in respiratory status with that regimen. He was seen at [facility] yesterday where he had a CT scan showing moderate left pleural effusion and consolidation ? pneumonia and referred to ER for further evaluation, additional removal of fluid and /or possible thoracentesis. In ER he was noted to be mildly hypoxic to 87% on room air requiring supplemental O2. He does not use O2 at home. EKG showed AFib but cardiac enzymes are unremarkable. on admission creatinine was 2.3 which is close to his baseline but repeat lab showed creatinine was 2.6. Initially he was started on Lasix 80 mg IV twice a day but has been on hold. creatinine this morning was 2.3, other electrolyte suggestive of aggressive diuresis and volume depletion, potassium was 3.3 and bicarb was 39. losartan has been on hold since admission. Diabetes for more than 30 years, complicated by diabetic retinopathy and proteinuria, no history of CAD or peripheral vascular disease. blood pressure seems to be well controlled.. Has been on high dose of diuretics for chronic lower extremity edema. Has BPH, denies bothersome LUTS, on finasteride. On Eliquis 5 mg twice a day for history of AFib. Overall he denies any specific symptoms today, no dysuria, flank pain. Has stable lower extremity edema. No shortness of breath or chest pain. Allergies Allergy/AdvReac Type Severity Reaction Status Date / Time No Known Allergies Allergy Unverified 08/29/22 14:00 Home Medications Medication Instructions Recorded Confirmed Type aspirin 81 mg tablet,delayed 81 mg PO QAM 07/20/18 09/13/22 History release atorvastatin 80 mg tablet (Lipitor) 40 mg PO HS 07/20/18 09/13/22 History calcium carbonate 600 mg calcium 600 mg PO QAM 07/20/18 09/13/22 History (1,500 mg) tablet (Calcium) docusate sodium 100 mg capsule 200 mg PO DAILY 07/20/18 09/13/22 History finasteride 5 mg tablet (Proscar) 5 mg PO DAILY 07/20/18 09/13/22 History furosemide 80 mg tablet (Lasix) 80 mg PO BID 07/20/18 09/13/22 History glucosamine-chondroitin 167 mg-133 1 cap PO DAILY 07/20/18 09/13/22 History mg capsule insulin aspart U-100 100 unit/mL 10 - 35 unit subcut TIDM 07/20/18 09/14/22 History (3 mL) subcutaneous pen (Novolog FlexPen U-100 Insulin aspart) insulin glargine 100 unit/mL (3 57 unit subcut BID 07/20/18 09/13/22 History mL) subcutaneous pen (Lantus Solostar U-100 Insulin) omeprazole 20 mg capsule,delayed 20 mg PO Q12 07/20/18 09/13/22 History release terazosin 5 mg capsule 5 mg PO BID 07/20/18 09/13/22 History losartan 50 mg tablet 50 mg PO DAILY 11/28/20 09/13/22 History metolazone 2.5 mg tablet 2.5 mg PO Q2D 11/28/20 09/13/22 History multivitamin with minerals 1 tab PO DAILY 11/28/20 09/13/22 History metoprolol tartrate 25 mg tablet 25 mg PO BID 30 days #60 tabs 11/30/20 09/13/22 Rx diltiazem HCl 120 mg 120 mg PO DAILY 08/27/22 09/13/22 History capsule,extended release 24 hr gabapentin 300 mg capsule 300 mg PO BID 08/27/22 09/13/22 History lactulose 10 gram/15 mL oral 30 g PO DAILY 08/27/22 09/13/22 History solution tramadol 50 mg tablet 50 mg PO Q8H PRN Pain 08/27/22 09/13/22 History apixaban 5 mg tablet (Eliquis) 5 mg PO BID 08/29/22 09/13/22 History hydralazine 10 mg tablet 20 mg PO TID 08/29/22 09/13/22 History potassium chloride 20 mEq 20 meq PO BIDM 08/29/22 09/13/22 History tablet,extended release (K-Tab) Patient History Medical History (Updated 09/13/22 @ 03:49 by Antonietta Diamond DO) Acute respiratory failure with hypoxia Anemia of chronic disease Cellulitis CKD (chronic kidney disease) stage 4, GFR 15-29 ml/min D-dimer, elevated Diabetes Diabetes mellitus type 2 in obese GERD (gastroesophageal reflux disease) Hypertension Hypoxia Obesity CARINA on CPAP Proteinuria Vitamin D deficiency Social History Smoking Status: Former smoker Second Hand Exposure: Yes; Hx Alcohol Use: No Hx Substance Use: No Preferred Language: Cambodian Communication Ability: Effective Space Planner Required: No Beliefs That Will Affect Care: None Current Living Situation: Spouse Other Information That Helps Us Care for You: No Feels Safe at Home: Yes Safety Concerns: Feels Safe At This Time Assistive Devices: CPAP, Denture - Upper, Glasses, Hearing Aid - Bilateral, Scooter/Electric Scooter and Walker Review of Systems Review of Systems: detailed review of system was otherwise unremarkable except mentioned above. Physical Exam Constitutional: WD/WN, vitals as above no acute distress Eyes: + anicteric sclerae Neck: normal visual inspection Respiratory: no respiratory distress Auscultation: + diminished lung sounds; no crackles and no wheezes Cardiovascular: Rate/Rhythm: + irregularly irregular Extremities: + edema Gastrointestinal (Abdomen): Inspection/Auscultation: abdomen normal to inspection Percussion/Palpation: abdomen soft; abdomen nontender obese. Musculoskeletal: Extremities: extremities normal to inspection Skin: no rashes Neurologic: no focal motor deficits Psychiatric: Orientation: alert and oriented x 3 Affect: euthymic affect Results & Data Vital Signs (Past 12 Hours) Vital Signs Temp Pulse Pulse Resp BP Pulse Ox O2 Del Method 09/14/22 11:22 36.6 C 88 16 139/76 93 Nasal Cannula 09/14/22 08:28 Nasal Cannula 09/14/22 07:14 36.6 C 95 H 16 146/76 H 94 Nasal Cannula 09/14/22 07:02 93 H 09/14/22 03:08 36.4 C L 92 H 20 133/66 96 Nasal Cannula 09/14/22 02:40 93 Nasal Cannula 09/14/22 02:30 86 L Room Air O2 Flow Rate 09/14/22 11:22 2 09/14/22 08:28 2 09/14/22 07:14 2 09/14/22 07:02 09/14/22 03:08 2 09/14/22 02:40 2 09/14/22 02:30 PG Care Time/CCT Total # of Minutes Spent Total Time Spent with Patient: Total time spent is greater than 50% in coordination of care (as documented) at patient's floor/unit and/or counseling patient: Coding Level of Care Code 70846 INT INP/OBS CARE 3/75MIN Diagnoses CKD (chronic kidney disease) stage 4, GFR 15-29 ml/min N18.4 Proteinuria R80.9 Anemia of chronic disease D63.8 Hypertension I10 Lower extremity edema R60.0 Dyspnea R06.00
--- NOTE | 2022-09-14 13:47 | Pharmacy Report ---
Pharmacy Glycemic Short Note 2 - Date of Service September 14, 2022 - Glycemic Short BSG Results (Last 24 hours): 09/13/22 09/13/22 09/13/22 16:26 16:36 19:56 Glucose 88 POC Glucose 89 117 H 09/14/22 09/14/22 09/14/22 06:21 07:12 11:20 Glucose 75 POC Glucose 72 148 H OUTPATIENT ANTIDIABETIC REGIMEN: * Lantus 57 units bid, Novolog 42 units TIDM ASSESSMENT: 09/14 * Patient received total of 93 units of insulin yesterday, of which 75 units were basal insulin * Fasting BSG 72 mg/dL - below goal range, therefore will scale back on basal ~30-40% and have scale for BSG * Continue same CF/CR for now 09/13 * 77 year old admitted with shortness of breath/edema. Type 2 diabetic managed on high amounts of insulin at home (>200 units/day) * Fasting BSG 104 mg/dL - small reduction in home basal given this morning ~20% decrease as unclear PO intake * Lunch BSG low at 56 mg/dL, 10 units of novolog given for breakfast. Possibly too tight novolog, therefore will loosen parameters with dinner. No insulin given at lunch time as BSG low * Plan to have a scale for PM basal with reduced amounts PLAN FOR INPATIENT GLYCEMIC CONTROL: * Hold outpatient oral diabetes medications * Basal insulin * Lantus 20-30 units bid * Bolus insulin * NovoLog per scale ACHS or Q6hrs while NPO * Goal Range: Low 120 mg/dL - High 160 mg/dL * Correction Factor: 20 mg/dL/unit * Nutritional / Prandial insulin per carb ratio of 1 unit per 7 grams CHO consumed
[2022-09-14 15:27] LABS: Ferritin 214.8 ng/ml (8-388)
--- NOTE | 2022-09-14 16:22 | Hospitalist Progress Note ---
Date of Service September 14, 2022 Assessment & Plan (1) Edema, pitting: Plan: 77yo male with persistent SOB, volume overload. Progressively increasing leg swelling despite increasing diuretics Chest x-ray showed left sided pleural effusion Patient was started on Lasix 80 mg IV twice daily However creatinine started to go up Lasix held Consult nephrology as the patient has CKD stage IV at baseline and now needing Lasix Monitor intake and output, daily weights Monitor BMP Ordered echocardiogram -May need repeat imaging to assess effusion - thoracentesis if persistent despite more aggressive diuresis or if diuresis is not tolerated (2) Atrial fibrillation: Plan: Rate controlled. 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 Nephrology to decide. Hold Lasix for the time being -Montior renal function -Renal dosing where needed (4) Diabetes mellitus type 2 in obese: Plan: Patient is on high doses on insulin. Elevated blood sugar today at 196. Last HgbA1 on record from 11/20/20=8.3 -Repeat A1C -Lantus 45u BID and ISS -Pharmacy glycemic management consultation appreciated -Patient has Gabapentin on his medication list but states he stopped this due to muscle twitching (5) Hypertension: Plan: Chornic. BP mildly elevated -Hold Losartan and monitor renal function -Continue Metoprolol -Continue Hydralazine -Continue Diltiazem (6) GERD (gastroesophageal reflux disease): Plan: Chronic -Protonix 40mg po daily F/E/N -hold diuresis. Monitor BMP BID. CC diet as tolerated, Lactulose for chronic constipation Ppx - continue Apixaban, Protonix Code - Full Dispo - Admit to medical with telemetry Admission and Anticipated Discharge Date Admission Date: September 13, 2022 Subjective Patient appears comfortable. Denies shortness of breath. He is on 2 L of oxygen at this time. Was not using oxygen at home Review of Systems Review of Systems: All systems reviewed & are unremarkable except as noted in Subjective Physical Exam Physical Exam: General: Awake, conversant. Appears comfortable. Obese Heart: S1, S2/regular rate and rhythm, no murmur rubs or gallops Lungs: Diminished breath sounds bilaterally. Normal effort Abdomen: Soft/nontender/nondistended. No hepatosplenomegaly Extremities: No clubbing/cyanosis. 2+ pitting bilateral edema with weeping skin lesions and fluid-filled blisters on bilateral lower extremities. Venous stasis changes noted. Behavior: Appropriate, cooperative Results & Data Results & Data Vital Signs (Past 12 Hours) Vital Signs Temp Pulse Pulse Resp BP Pulse Ox O2 Del Method 09/14/22 15:49 87 09/14/22 15:03 37.1 C 90 16 134/72 95 Nasal Cannula 09/14/22 11:22 36.6 C 88 16 139/76 93 Nasal Cannula 09/14/22 08:28 Nasal Cannula 09/14/22 07:14 36.6 C 95 H 16 146/76 H 94 Nasal Cannula 09/14/22 07:02 93 H O2 Flow Rate 09/14/22 15:49 09/14/22 15:03 2 09/14/22 11:22 2 09/14/22 08:28 2 09/14/22 07:14 2 09/14/22 07:02 Laboratory Results Abnormal lab results 09/13/22 09/13/22 09/14/22 Range/Units 16:36 19:56 06:21 RBC 3.63 L (4.70-6.10) M/uL Hgb 10.0 L (14.0-18.0) g/dl Hct 32.0 L (42.0-52.0) % MCHC 31.3 L (32.0-36.0) g/dL RDW Std Deviation 49.9 H (36.4-46.3) fL RDW Coeff of Barby 15.3 H (11.5-14.5) % Potassium 3.4 L (3.5-5.1) mmol/L Carbon Dioxide 36 H (21-32) mmol/L BUN 48 H (6-23) mg/dl Creatinine 2.48 H (0.6-1.4) mg/dl BUN/Creatinine Ratio (10-20) POC Glucose 117 H (70-99) mg/dl Calcium 7.9 L (8.6-10.3) mg/dl Iron (35-175) mcg/dl Unsaturated IBC (155-355) mcg/dl Transferrin (200-360) mg/dl 09/14/22 09/14/22 09/14/22 Range/Units 06:21 11:20 13:52 RBC (4.70-6.10) M/uL Hgb (14.0-18.0) g/dl Hct (42.0-52.0) % MCHC (32.0-36.0) g/dL RDW Std Deviation (36.4-46.3) fL RDW Coeff of Barby (11.5-14.5) % Potassium 3.3 L (3.5-5.1) mmol/L Carbon Dioxide 39 H (21-32) mmol/L BUN 49 H (6-23) mg/dl Creatinine 2.31 H (0.6-1.4) mg/dl BUN/Creatinine Ratio 21.2 H (10-20) POC Glucose 148 H (70-99) mg/dl Calcium 8.1 L (8.6-10.3) mg/dl Iron 21 L (35-175) mcg/dl Unsaturated IBC 134 L (155-355) mcg/dl Transferrin 134 L (200-360) mg/dl PG Care Time/CCT Total # of Minutes Spent Total Time Spent with Patient: Total time spent is greater than 50% in coordination of care (as documented) at patient's floor/unit and/or counseling patient: Coding Level of Care Code 64331 SUB INP/OBS CARE 2/35MIN Diagnoses Edema, pitting R60.9 Atrial fibrillation I48.91 CKD (chronic kidney disease) stage 4, GFR 15-29 ml/min N18.4 Diabetes mellitus type 2 in obese E11.69; E66.9 Hypertension I10 GERD (gastroesophageal reflux disease) K21.9
[2022-09-14 16:41] LABS: Appearance Urine Clear (Clear); Bacteria Urine Automated Negative (Negative); Bilirubin Urine Negative (Negative); Blood Urine Negative (Negative); Color Urine Yellow; Glucose Urine UA Negative (Negative); Ketones Urine Negative (Negative); Leukocyte Esterase Urine Negative (Negative); Nitrite Urine Negative (Negative); Protein Urine 1+ (Negative); RBC Urine Automated 0-4 /hpf (0-4); Specific Gravity Urine 1.014 (1.000-1.030); Urobilinogen Urine Negative (Negative); pH Urine 5.5 (4.5-7.5)
[2022-09-14] MEDS: ATORVASTATIN 40 MG TAB PO SCH (20:49)
[2022-09-15] MEDS: ACETAMINOPHEN 325 MG TAB PO PRN (04:21)
[2022-09-15 08:00] LABS: Hemoglobin 9.6 g/dl (14.0-18.0); Mean Corpuscular Hemoglobin 27.7 pg (25.0-34.0); Mean Corpuscular Volume 86.7 fL (80.0-100.0); Platelet Count 230 K/uL (130-400); RDW Coefficient of Variation 15.2 % (11.5-14.5); RDW Standard Deviation 47.8 fL (36.4-46.3); Red Blood Count 3.46 M/uL (4.70-6.10); White Blood Count 10.89 K/ul (4.8-10.8)
[2022-09-15 08:23] LABS: Albumin Level 3.1 gm/dl (3.4-5.0); BUN Creatinine Ratio 18.8 (10-20); Calcium 8.1 mg/dl (8.6-10.3); Creatinine Clr Calc Pharmacy 36.9 ml/min; Est GFR (African American) 28.1 ml/min; Est GFR (Non-African American) 24.2 ml/min; Magnesium 1.9 mg/dl (1.7-2.4); Phosphorus 3.9 mg/dl (2.5-4.9); Potassium 3.7 mmol/L (3.5-5.1)
[2022-09-15] MEDS: FINASTERIDE 5 MG TAB PO SCH (08:26)
[2022-09-15] MEDS: ASPIRIN 81 MG ECTAB PO SCH (08:26)
[2022-09-15] MEDS: DOCUSATE SODIUM 100 MG CAP PO SCH (08:26)
[2022-09-15] MEDS: PANTOprazole 40 MG TAB PO SCH (08:26)
[2022-09-15] MEDS: dilTIAZem HCL 120 MG CAPCR PO SCH (08:27)
[2022-09-15] MEDS: APIXABAN 5 MG TABLET PO SCH ×2 (08:27→20:29)
[2022-09-15] MEDS: METOPROLOL TARTRATE 25 MG TAB PO SCH ×2 (08:27→20:28)
[2022-09-15] MEDS: hydrALAZINE 10 MG TAB PO SCH ×3 (08:27→20:29)
[2022-09-15] MEDS: TERAZOSIN HCL 5 MG CAP PO SCH ×2 (08:28→20:28)
[2022-09-15] MEDS: INSULIN ASPART PER UNIT CHARGE SC SCH ×4 (08:44→20:29)
[2022-09-15] MEDS: LANTUS PER UNIT CHARGE SQ SCH ×2 (08:46→20:27)
[2022-09-15] MEDS: LACTULOSE SYRUP 30 GM/45 ML UDP PO SCH (09:45)
--- NOTE | 2022-09-15 10:36 | XCELERA ---
[id number]
[2022-09-15] MEDS: FUROSEMIDE 40 MG/4 ML VIAL IV SCH ×2 (12:03→20:29)
--- NOTE | 2022-09-15 14:55 | Nephrology Progress Note ---
Date of Service September 15, 2022 Assessment & Plan (1) CKD (chronic kidney disease) stage 4, GFR 15-29 ml/min: (2) Proteinuria: (3) Anemia of chronic disease: (4) Hypertension: (5) Lower extremity edema: (6) Dyspnea: Plan Stage IV CKD, b/l cr around 2.0-2.4, at least since 2017 with moderate degree proteinuria, most likely secondary to diabetic nephropathy. CT abdomen pelvis in 2009 was otherwise unremarkable. Has been on high dose of diuretics for chronic lower extremity edema and progressive volume overload. Admitted with volume overload, hypoxia and left pleural effusion. Renal function seems relatively stable , creatinine close to baseline although with some variability. urine output dropped off of diuretics and lower extremity edema worsened. -- resume Lasix at 40 mg IV twice a day, aim for net negative. -- okay to resume losartan, no hypotensive episode noted -- start on Venofer 20 mg IV daily for total 5 doses, consider FOBT Admission and Anticipated Discharge Date Admission Date: September 13, 2022 Oksana Hebert was seen and evaluated this morning. Overall he feels about the same, no SOB at rest but has some exertional dyspnea. Blood pressure acceptable. O2 sat 95% on 2 L nasal cannula. renal function staying somewhat stable, potassium normalized, unfortunately weight, intake and output seems inaccurate. Review of Systems Review of Systems: detailed review of system was otherwise unremarkable except mentioned above. Physical Exam Constitutional: WD/WN, vitals as above + morbidly obese; no acute distress Eyes: + anicteric sclerae Neck: normal visual inspection Respiratory: no respiratory distress Auscultation: + diminished lung sounds; no crackles and no wheezes Cardiovascular: Rate/Rhythm: + irregularly irregular Extremities: + edema Skin: + erythema Neurologic: no focal motor deficits Psychiatric: Orientation: alert and oriented x 3 Affect: euthymic affect Results & Data Vital Signs (Past 12 Hours) Vital Signs Temp Pulse Pulse Resp BP BP Pulse Ox 09/15/22 13:26 99 H 131/67 09/15/22 11:14 09/15/22 11:02 37.1 C 105 H 20 166/93 H 95 09/15/22 08:03 36.9 C 109 H 20 145/80 H 94 09/15/22 05:59 112 H 09/15/22 03:55 36.8 C 105 H 20 178/63 H 94 O2 Del Method O2 Flow Rate 09/15/22 13:26 09/15/22 11:14 Nasal Cannula 2 09/15/22 11:02 Room Air 09/15/22 08:03 Room Air 09/15/22 05:59 09/15/22 03:55 Nasal Cannula 2 PG Care Time/CCT Total # of Minutes Spent Total Time Spent with Patient: Total time spent is greater than 50% in coordination of care (as documented) at patient's floor/unit and/or counseling patient: Coding Level of Care Code 06230 SUB INP/OBS CARE 3/50MIN Diagnoses CKD (chronic kidney disease) stage 4, GFR 15-29 ml/min N18.4 Proteinuria R80.9 Anemia of chronic disease D63.8 Hypertension I10 Lower extremity edema R60.0 Dyspnea R06.00
[2022-09-15] MEDS: IRON SUCROSE 200 MG in 0.9 % SODIUM CHLORIDE 100 ML IV SCH (15:29)
--- NOTE | 2022-09-15 16:20 | Hospitalist Progress Note ---
Date of Service September 15, 2022 Assessment & Plan (1) Edema, pitting: Plan: 77yo male with persistent SOB, volume overload. Presented with progressively increasing leg swelling despite increasing diuretics Chest x-ray showed left sided pleural effusion Patient was started on Lasix 80 mg IV twice daily However creatinine started to go up Lasix held, creatinine still going up. Neurology on board since the patient has CKD stage IV Today was resumed on 40 mg of IV Lasix twice daily Monitor intake and output, daily weights Monitor BMP Echocardiogram reviewed. No new changes. -May need repeat imaging to assess effusion - thoracentesis if persistent despite more aggressive diuresis or if diuresis is not tolerated (2) Atrial fibrillation: Plan: Rate controlled. Anticoagulated with Apixaban -Continue Apixaban 5mg po BID -Continue Diltiazem 120mg po daily -Continue Metoprolol 25mg po BID (3) CKD (chronic kidney disease) stage 4, GFR 15-29 ml/min: Plan: Mildly elevated BUN and Cr [employer] Systems involved Patient appears to be intravascularly depleted May consider albumin followed by Lasix. Nephrology to decide. Hold Lasix for the time being -Montior renal function -Renal dosing where needed (4) Diabetes mellitus type 2 in obese: Plan: Patient is on high doses on insulin. Elevated blood sugar today at 196. Last HgbA1 on record from 11/20/20=8.3 -A1c 6.9 -Lantus 45u BID and ISS -Pharmacy glycemic management consultation appreciated -Patient has Gabapentin on his medication list but states he stopped this due to muscle twitching (5) Hypertension: Plan: Chornic. BP mildly elevated -Hold Losartan and monitor renal function -Continue Metoprolol -Continue Hydralazine -Continue Diltiazem (6) GERD (gastroesophageal reflux disease): Plan: Chronic -Protonix 40mg po daily F/E/N -resume diuresis. Monitor BMP. CC diet as tolerated, Lactulose for chronic constipation Ppx - continue Apixaban, Protonix Code - Full Admission and Anticipated Discharge Date Admission Date: September 13, 2022 Subjective Patient does not complain of feeling short of breath. Still quite edematous. Review of Systems Review of Systems: All systems reviewed & are unremarkable except as noted in Subjective Physical Exam Physical Exam: General: Awake, conversant. Appears comfortable. Obese Heart: S1, S2/regular rate and rhythm, no murmur rubs or gallops Lungs: Diminished breath sounds bilaterally. Normal effort Abdomen: Soft/nontender/nondistended. No hepatosplenomegaly Extremities: No clubbing/cyanosis. 2+ pitting bilateral edema with weeping skin lesions and fluid-filled blisters on bilateral lower extremities. Venous stasis changes noted. Behavior: Appropriate, cooperative Results & Data Results & Data Vital Signs (Past 12 Hours) Vital Signs Temp Pulse Pulse Resp BP Pulse Ox O2 Del Method 09/15/22 15:16 37.0 C 93 H 20 149/71 H 96 Nasal Cannula 09/15/22 13:26 99 H 131/67 09/15/22 11:14 Nasal Cannula 09/15/22 11:02 37.1 C 105 H 20 166/93 H 95 Nasal Cannula 09/15/22 08:03 36.9 C 109 H 20 145/80 H 94 Nasal Cannula 09/15/22 05:59 112 H O2 Flow Rate 09/15/22 15:16 3 09/15/22 13:26 09/15/22 11:14 2 09/15/22 11:02 3 09/15/22 08:03 3 09/15/22 05:59 Laboratory Results Abnormal lab results 09/14/22 09/14/22 09/14/22 Range/Units 16:17 16:19 20:36 WBC (4.8-10.8) K/ul RBC (4.70-6.10) M/uL Hgb (14.0-18.0) g/dl Hct (42.0-52.0) % RDW Std Deviation (36.4-46.3) fL RDW Coeff of Barby (11.5-14.5) % Chloride (98-107) mmol/L Carbon Dioxide (21-32) mmol/L BUN (6-23) mg/dl Creatinine (0.6-1.4) mg/dl Glucose (70-99(Fasting)) mg/dl POC Glucose 106 H 101 H (70-99) mg/dl Calcium (8.6-10.3) mg/dl Albumin (3.4-5.0) gm/dl Urine Protein 1+ H (Negative) U Epithel Cells (Auto) 5-10 H (0-5) /lpf 09/15/22 09/15/22 09/15/22 Range/Units 07:43 07:48 07:48 WBC 10.89 H (4.8-10.8) K/ul RBC 3.46 L (4.70-6.10) M/uL Hgb 9.6 L (14.0-18.0) g/dl Hct 30.0 L (42.0-52.0) % RDW Std Deviation 47.8 H (36.4-46.3) fL RDW Coeff of Barby 15.2 H (11.5-14.5) % Chloride 96 L (98-107) mmol/L Carbon Dioxide 39 H (21-32) mmol/L BUN 47 H (6-23) mg/dl Creatinine 2.50 H (0.6-1.4) mg/dl Glucose 118 H (70-99(Fasting)) mg/dl POC Glucose 116 H (70-99) mg/dl Calcium 8.1 L (8.6-10.3) mg/dl Albumin 3.1 L (3.4-5.0) gm/dl Urine Protein (Negative) U Epithel Cells (Auto) (0-5) /lpf 09/15/22 Range/Units 11:22 WBC (4.8-10.8) K/ul RBC (4.70-6.10) M/uL Hgb (14.0-18.0) g/dl Hct (42.0-52.0) % RDW Std Deviation (36.4-46.3) fL RDW Coeff of Barby (11.5-14.5) % Chloride (98-107) mmol/L Carbon Dioxide (21-32) mmol/L BUN (6-23) mg/dl Creatinine (0.6-1.4) mg/dl Glucose (70-99(Fasting)) mg/dl POC Glucose 158 H (70-99) mg/dl Calcium (8.6-10.3) mg/dl Albumin (3.4-5.0) gm/dl Urine Protein (Negative) U Epithel Cells (Auto) (0-5) /lpf PG Care Time/CCT Total # of Minutes Spent Total Time Spent with Patient: Total time spent is greater than 50% in coordination of care (as documented) at patient's floor/unit and/or counseling patient: Coding Level of Care Code 94392 SUB INP/OBS CARE MIN Diagnoses Edema, pitting R60.9 Atrial fibrillation I48.91 CKD (chronic kidney disease) stage 4, GFR 15-29 ml/min N18.4 Diabetes mellitus type 2 in obese E11.69; E66.9 Hypertension I10 GERD (gastroesophageal reflux disease) K21.9
[2022-09-15] MEDS: ATORVASTATIN 40 MG TAB PO SCH (20:28)
[2022-09-16] MEDS: LACTULOSE SYRUP 30 GM/45 ML UDP PO SCH (08:01)
[2022-09-16] MEDS: IRON SUCROSE 200 MG in 0.9 % SODIUM CHLORIDE 100 ML IV SCH (08:01)
[2022-09-16] MEDS: FINASTERIDE 5 MG TAB PO SCH (08:02)
[2022-09-16] MEDS: hydrALAZINE 10 MG TAB PO SCH ×3 (08:02→21:55)
[2022-09-16] MEDS: METOPROLOL TARTRATE 25 MG TAB PO SCH (08:02)
[2022-09-16] MEDS: APIXABAN 5 MG TABLET PO SCH ×2 (08:02→21:55)
[2022-09-16] MEDS: ASPIRIN 81 MG ECTAB PO SCH (08:03)
[2022-09-16] MEDS: dilTIAZem HCL 120 MG CAPCR PO SCH (08:03)
[2022-09-16] MEDS: PANTOprazole 40 MG TAB PO SCH (08:03)
[2022-09-16] MEDS: TERAZOSIN HCL 5 MG CAP PO SCH ×2 (08:03→21:55)
[2022-09-16] MEDS: LANTUS PER UNIT CHARGE SQ SCH ×3 (08:23→22:04)
[2022-09-16] MEDS: INSULIN ASPART PER UNIT CHARGE SC SCH ×4 (08:24→22:04)
[2022-09-16] MEDS: DOCUSATE SODIUM 100 MG CAP PO SCH (08:26)
[2022-09-16] MEDS: BENZONATATE 100 MG CAPSULE PO SCH ×3 (08:31→21:55)
[2022-09-16] MEDS: guaiFENesin 600 MG TABCR PO SCH ×2 (08:31→21:55)
[2022-09-16] MEDS: FUROSEMIDE 40 MG/4 ML VIAL IV SCH ×2 (08:45→21:56)
[2022-09-16 08:56] LABS: BUN Creatinine Ratio 20.7 (10-20); Calcium 8.2 mg/dl (8.6-10.3); Creatinine Clr Calc Pharmacy 38.3 ml/min; Est GFR (African American) 29.9 ml/min; Est GFR (Non-African American) 25.8 ml/min; Phosphorus 4.3 mg/dl (2.5-4.9); Potassium 3.2 mmol/L (3.5-5.1)
[2022-09-16] MEDS ORDERED: INSULIN ASPART PER UNIT CHARGE SC ONE (09:42)
[2022-09-16] MEDS ORDERED: LANTUS PER UNIT CHARGE SQ ONE (09:42)
[2022-09-16] MEDS ORDERED: METOPROLOL TARTRATE 25 MG TAB PO STA (09:51)
[2022-09-16] MEDS: POTASSIUM CHLORIDE CRTAB 20 MEQ TABCR PO SCH ×2 (10:20→22:03)
[2022-09-16 11:47] LABS: Free Kappa 122.9 mg/L (3.3-19.4); Free Kappa/Lambda Ratio 1.35 (0.26-1.65); Free Lambda 90.9 mg/L (5.7-26.3)
--- NOTE | 2022-09-16 13:27 | Pharmacy Report ---
Pharmacy Glycemic Short Note 2 - Date of Service September 16, 2022 - Glycemic Short BSG Results (Last 24 hours): 09/15/22 09/15/22 09/16/22 16:28 20:17 07:36 Glucose POC Glucose 126 H 143 H 89 09/16/22 09/16/22 07:54 11:29 Glucose 82 POC Glucose 135 H OUTPATIENT ANTIDIABETIC REGIMEN: * Lantus 57 units SQ BID * Novolog 42 units SQ TID with meals * HbA1c: 6.9% (09/13/22) ASSESSMENT: 09/16/22 * BSGs remain stable. * Slight decrease in basal insulin this morning for fasting BSG trending down. * Loosened Novolog parameters slightly. 09/14 * Patient received total of 93 units of insulin yesterday, of which 75 units were basal insulin * Fasting BSG 72 mg/dL - below goal range, therefore will scale back on basal ~30-40% and have scale for BSG * Continue same CF/CR for now 09/13 * 77 year old admitted with shortness of breath/edema. Type 2 diabetic managed on high amounts of insulin at home (>200 units/day) * Fasting BSG 104 mg/dL - small reduction in home basal given this morning ~20% decrease as unclear PO intake * Lunch BSG low at 56 mg/dL, 10 units of novolog given for breakfast. Possibly too tight novolog, therefore will loosen parameters with dinner. No insulin given at lunch time as BSG low * Plan to have a scale for PM basal with reduced amounts PLAN FOR INPATIENT GLYCEMIC CONTROL: * Basal insulin * Lantus 20 units SQ BID * Bolus insulin * NovoLog per scale ACHS or Q6hrs while NPO * Goal Range: Low 120 mg/dL - High 160 mg/dL * Correction Factor: 20 mg/dL/unit * Nutritional / Prandial insulin per carb ratio of 1 unit per 8 grams CHO consumed
--- NOTE | 2022-09-16 16:26 | Nephrology Progress Note ---
Date of Service September 16, 2022 Assessment & Plan (1) CKD (chronic kidney disease) stage 4, GFR 15-29 ml/min: (2) Proteinuria: (3) Anemia of chronic disease: (4) Hypertension: (5) Lower extremity edema: (6) Dyspnea: Plan Stage IV CKD, b/l cr around 2.0-2.4, at least since 2017 with moderate degree proteinuria, most likely secondary to diabetic nephropathy. CT abdomen pelvis in 2009 was otherwise unremarkable. Has been on high dose of diuretics for chronic lower extremity edema and progressive volume overload. Admitted with volume overload, hypoxia and left pleural effusion. Renal function seems relatively stable , creatinine close to baseline although with some variability. Continues to be volume overloaded although responding better with diuretics and net negative. -- continue Lasix 40 mg IV twice a day -- on Venofer 20 mg IV daily for total 5 doses, consider FOBT Admission and Anticipated Discharge Date Admission Date: September 13, 2022 Oksana Hebert was seen and evaluated this morning. Overall he feels about the same, no SOB at rest. Blood pressure acceptable. O2 sat 95% on 2 L nasal cannula. Renal function staying somewhat stable, potassium slightly low this morning, decent respond to diuretics, urine output 1625 and net -640 mL.. Review of Systems Review of Systems: detailed review of system was otherwise unremarkable except mentioned above. Physical Exam Constitutional: WD/WN, vitals as above + morbidly obese; no acute distress Eyes: + anicteric sclerae Neck: normal visual inspection Respiratory: no respiratory distress Auscultation: + diminished lung sounds; no crackles and no wheezes Cardiovascular: Rate/Rhythm: + irregularly irregular Extremities: + edema Skin: + erythema Neurologic: no focal motor deficits Psychiatric: Orientation: alert and oriented x 3 Affect: euthymic affect Results & Data Vital Signs (Past 12 Hours) Vital Signs Temp Pulse Pulse Resp BP BP Pulse Ox 09/16/22 14:10 97 H 09/16/22 15:27 36.6 C 102 H 18 121/52 L 92 09/16/22 13:18 96 H 127/73 09/16/22 11:02 36.4 C L 95 H 20 146/69 H 92 09/16/22 07:40 09/16/22 07:22 36.4 C L 112 H 20 131/84 95 09/16/22 06:00 98 H 09/16/22 06:00 109 H 169/74 H O2 Del Method O2 Flow Rate 09/16/22 14:10 09/16/22 15:27 Nasal Cannula 3 09/16/22 13:18 09/16/22 11:02 Nasal Cannula 3 09/16/22 07:40 Nasal Cannula 2 09/16/22 07:22 Nasal Cannula 2 09/16/22 06:00 09/16/22 06:00 PG Care Time/CCT Total # of Minutes Spent Total Time Spent with Patient: Total time spent is greater than 50% in coordination of care (as documented) at patient's floor/unit and/or counseling patient: Coding Level of Care Code 36943 SUB INP/OBS CARE 3/50MIN Diagnoses CKD (chronic kidney disease) stage 4, GFR 15-29 ml/min N18.4 Proteinuria R80.9 Anemia of chronic disease D63.8 Hypertension I10 Lower extremity edema R60.0 Dyspnea R06.00
--- NOTE | 2022-09-16 19:02 | Hospitalist Progress Note ---
Date of Service September 16, 2022 Assessment & Plan (1) Chest pain: Plan: EKG today with flattened T waves inferior leads but largely unchanged from prior EKG CXR unchanged Troponin negative Suspect musculoskeletal as it hurts with coughing Doubt PE - he is already on Eliquis 5mg BID Follow symptoms Can try heating pad if he desires (2) Pulmonary edema: Plan: Echo this admission with preserved EF. Suspect volume overload is more so due to CKD stage 4. However, uncontrolled a.fib could be causing some issues due to diastolic dysfunction. Defer diuretic management to Dr Hernandez, nephrology. Daily labs. (3) Atrial fibrillation: Plan: Rates uncontrolled. Increase metoprolol to 50mg BID. Continue Apixaban 5mg po BID. Continue Diltiazem CD 120mg po daily. This could be contributing to edema. (4) CKD (chronic kidney disease) stage 4, GFR 15-29 ml/min: Plan: Renal function baseline -- about 2. Cr modestly higher in the face of diuresis. Cont diuretics for #2. Appreciate nephrology assistance. BMP am daily. (5) Diabetes mellitus type 2 in obese: Plan: A1c 6.9% Cont basal-bolus insulin Pharmacy glycemic management consultation appreciated (6) Hypertension: Plan: Hold losartan due to CKD stage 4 and bump in creatinine with diuresis. Continue Metoprolol but increase to 50mg BID. Continue Hydralazine 20mg TID. Continue Diltiazem daily. Continue terazosin 5mg BID. (7) GERD (gastroesophageal reflux disease): Plan: cont PPI (8) CARINA on CPAP: Plan: compliant with such? (9) Morbid obesity with BMI of 45.0-49.9, adult: Plan: BMI 47 check TSH in am Plan CT a/p in 2019 at [facility] without cirrhosis of liver despite his morbid obesity needs PT/OT sylvia /daughter updated at bedside Admission and Anticipated Discharge Date Admission Date: September 13, 2022 Subjective patient reports that he has chest wall pain - some pleuritic - with coughing this is new for him has been present for much of today dyspnea improved appetite fair family was at bedside during the visit - state edema is improved he has had chronic dyspnea on exertion for about 6-12 months but recently worse baseline dry weight is uncertain he also c/o b/l knee pain worse on right tele - a.fib, rates often >100 Review of Systems Review of Systems: gen - no fevers or chills; fatigue; has not been out of bed much last few days cv - see HPI; pain does not radiate to neck or arms pulm - ongoing cough, some sputum, ongoing BANEGAS GI - no pain Physical Exam Physical Exam: gen - morbidly obese, NAD, comfortable chest - no reproducible chest wall pain to palpation neck - unable to assess for JVD due to large neck size mouth - MMM heart - irregularly irregular, s1 s2, no murmur lungs - decreased BS bases, mild dry rales bases abd - soft, umbilical hernia present (small, reducible); BS+, NT ext - 1+ edema b/l, pulses 2+ b/l skin - stasis changes b/l shins; venous ulcers b/l shins - optifoams in place Results & Data Results & Data Vital Signs (Past 12 Hours) Vital Signs Temp Pulse Pulse Resp BP BP Pulse Ox 09/16/22 16:34 68 09/16/22 14:10 97 H 09/16/22 15:27 36.6 C 102 H 18 121/52 L 92 09/16/22 13:18 96 H 127/73 09/16/22 11:02 36.4 C L 95 H 20 146/69 H 92 09/16/22 07:40 09/16/22 07:22 36.4 C L 112 H 20 131/84 95 O2 Del Method O2 Flow Rate 09/16/22 16:34 09/16/22 14:10 09/16/22 15:27 Nasal Cannula 3 09/16/22 13:18 09/16/22 11:02 Nasal Cannula 3 09/16/22 07:40 Nasal Cannula 2 09/16/22 07:22 Nasal Cannula 2 Laboratory Results Laboratory Results - last 24 hr 09/14/22 09/15/22 09/16/22 13:52 07:48 11:29 Sodium Potassium Chloride Carbon Dioxide Anion Gap BUN Creatinine Est Cr Clr Drug Dosing Est GFR ( Amer) Est GFR (Non-Af Amer) BUN/Creatinine Ratio Glucose POC Glucose 135 H Calcium Phosphorus Troponin I High Sens Total Protein (PEP) 5.8 L Albumin Albumin (PEP) 2.7 L Xciad-6-Bqfjstxfl 0.4 H Cormd-2-Yyjymuotx 0.9 Deln-5-Gjfpyuxt 0.3 L Vdco-5-Ppupogja 0.4 Gamma Globulins 1.2 Monoclonal Peak 3 DNR Ser Monoclonl Protein DNR Ser Monoclonal Prot 2 DNR PEP Interpretation SEE NOTE Procalcitonin Free [place] LC, Quant 122.9 H Free Lambda LC, Quant 90.9 H Free [place]/Lambda Ratio 1.35 09/16/22 09/16/22 09/16/22 16:33 19:13 20:14 Sodium Potassium Chloride Carbon Dioxide Anion Gap BUN Creatinine Est Cr Clr Drug Dosing Est GFR ( Amer) Est GFR (Non-Af Amer) BUN/Creatinine Ratio Glucose POC Glucose 123 H 164 H Calcium Phosphorus Troponin I High Sens 14.2 Total Protein (PEP) Albumin Albumin (PEP) Eceds-4-Yosvikhke Rwpaw-0-Fkqlvyzpe Lsrw-7-Wgzxsvai Swos-6-Inqnzdoy Gamma Globulins Monoclonal Peak 3 Ser Monoclonl Protein Ser Monoclonal Prot 2 PEP Interpretation Procalcitonin Free [place] LC, Quant Free Lambda LC, Quant Free [place]/Lambda Ratio PG Care Time/CCT Total # of Minutes Spent Total Time Spent with Patient: Total time spent is greater than 50% in coordination of care (as documented) at patient's floor/unit and/or counseling patient: Coding Level of Care Code 68076 SUB INP/OBS CARE 3/50MIN Diagnoses Chest pain R07.9 Pulmonary edema J81.1 Atrial fibrillation I48.91 CKD (chronic kidney disease) stage 4, GFR 15-29 ml/min N18.4 Diabetes mellitus type 2 in obese E11.69; E66.9 Hypertension I10 GERD (gastroesophageal reflux disease) K21.9 CARINA on CPAP G47.33; Z99.89 Morbid obesity with BMI of 45.0-49.9, adult E66.01; Z68.42
--- NOTE | 2022-09-16 19:30 | XRay Report ---
SINGLE VIEW CHEST CLINICAL HISTORY: Follow-up pleural effusion. FINDINGS: An AP, portable, upright chest radiograph is compared to study dated 09/12/2022 and correlat ed with chest CT dated 09/13/2022. The heart is enlarged noting atherosclerotic calcification of the t horacic aorta. There is pulmonary vascular congestion. There is a left pleural effusion with left bas ilar consolidation. This is unchanged to modestly increased from 09/12/2022. The right lung appears cl ear. No pneumothorax is seen. The skeletal structures are osteopenic. The bony thorax is grossly inta ct. IMPRESSION: 1. Cardiomegaly with pulmonary vascular congestion. 2. Layering left pleural effusion with left basilar consolidation. This is unchanged to modestly incr eased in size as compared to 09/12/2022. ACT 112: Negative or not required by law. Electronically signed by: Rolo Kidd M.D. 09/16/2022 7:27 PM
[2022-09-16] MEDS: ATORVASTATIN 40 MG TAB PO SCH (21:55)
[2022-09-16] MEDS: METOPROLOL TARTRATE 50 MG TAB PO SCH (21:56)
[2022-09-16] MEDS: ACETAMINOPHEN 325 MG TAB PO PRN (22:01)
[2022-09-17] MEDS: INSULIN ASPART PER UNIT CHARGE SC SCH ×4 (08:24→22:03)
[2022-09-17] MEDS: LANTUS PER UNIT CHARGE SQ SCH ×2 (08:25→22:03)
[2022-09-17] MEDS: ACETAMINOPHEN 325 MG TAB PO PRN ×2 (08:26→22:01)
[2022-09-17] MEDS: METOPROLOL TARTRATE 50 MG TAB PO SCH ×2 (08:27→21:53)
[2022-09-17] MEDS: POTASSIUM CHLORIDE CRTAB 20 MEQ TABCR PO SCH ×2 (08:27→22:01)
[2022-09-17] MEDS: BENZONATATE 100 MG CAPSULE PO SCH ×3 (08:28→21:53)
[2022-09-17] MEDS: DOCUSATE SODIUM 100 MG CAP PO SCH (08:28)
[2022-09-17] MEDS: FUROSEMIDE 40 MG/4 ML VIAL IV SCH ×2 (08:28→21:38)
[2022-09-17] MEDS: guaiFENesin 600 MG TABCR PO SCH ×2 (08:29→21:53)
[2022-09-17] MEDS: dilTIAZem HCL 120 MG CAPCR PO SCH (08:29)
[2022-09-17] MEDS: hydrALAZINE 10 MG TAB PO SCH ×3 (08:29→21:53)
[2022-09-17] MEDS: PANTOprazole 40 MG TAB PO SCH (08:30)
[2022-09-17] MEDS: TERAZOSIN HCL 5 MG CAP PO SCH ×2 (08:30→21:53)
[2022-09-17] MEDS: ASPIRIN 81 MG ECTAB PO SCH (08:30)
[2022-09-17] MEDS: APIXABAN 5 MG TABLET PO SCH ×2 (08:30→21:53)
[2022-09-17] MEDS: LACTULOSE SYRUP 30 GM/45 ML UDP PO SCH (08:31)
[2022-09-17 09:02] LABS: Albumin 2.7 g/dL (3.8-4.8); Alpha 1 Globulin 0.4 g/dL (0.2-0.3); Alpha 2 Globulin 0.9 g/dL (0.5-0.9); Beta-1-Globulin 0.3 g/dL (0.4-0.6); Beta-2-Globulin 0.4 g/dL (0.2-0.5); Gamma Globulin 1.2 g/dL (0.8-1.7); Monoclonal Protein Band 1 DNR g/dL (NONE DETECTED); Monoclonal Protein Band 2 DNR g/dL (NONE DETECTED); Monoclonal Protein Band 3 DNR g/dL (NONE DETECTED); Total Protein 5.8 g/dL (6.1-8.1)
[2022-09-17] MEDS: IRON SUCROSE 200 MG in 0.9 % SODIUM CHLORIDE 100 ML IV SCH (09:35)
[2022-09-17 09:38] LABS: Albumin Level 2.9 gm/dl (3.4-5.0); Calcium 8.4 mg/dl (8.6-10.3); Potassium 3.6 mmol/L (3.5-5.1)
[2022-09-17 09:44] LABS: BUN Creatinine Ratio 20.7 (10-20); Creatinine Clr Calc Pharmacy 36.3 ml/min; Est GFR (African American) 27.9 ml/min; Est GFR (Non-African American) 24.1 ml/min
[2022-09-17 10:08] LABS: Creatinine Ur 91 mg/dL (20-320); Protein, Urine Random 32 mg/dL (5-25); Ur Protein/Creat Ratio mg/g 352 mg/g creat (25-148); Urine Abnormal Protein Band 1 DNR mg/dL (NONE DETECTED); Urine Abnormal Protein Band 2 DNR mg/dL (NONE DETECTED); Urine Abnormal Protein Band 3 DNR mg/dL (NONE DETECTED); Urine Protein/Creatinine Ratio 0.352 (0.025-0.148)
[2022-09-17] MEDS: FINASTERIDE 5 MG TAB PO SCH (10:38)
--- NOTE | 2022-09-17 13:20 | Electrocardiogram Report ---
Test Reason : Blood Pressure : / mmHG Vent. Rate : 108 BPM Atrial Rate : 062 BPM P-R Int : 000 ms QRS Dur : 140 ms QT Int : 366 ms P-R-T Axes : 000 139 070 degrees QTc Int : 490 ms Atrial fibrillation with rapid ventricular response with premature ventricular or aberrantly conducte d complexes Right bundle branch block Abnormal ECG When compared with ECG of 12-SEP-2022 20:41, QRS axis Shifted right Nonspecific T wave abnormality now evident in Inferior leads Confirmed by Janes Alonso ([id number]) on 09/17/2022 1:20:06 PM Referred By: Vincent Melgar Confirmed By:Janes Alonso
--- NOTE | 2022-09-17 14:36 | Nephrology Progress Note ---
Date of Service September 17, 2022 Assessment & Plan (1) CKD (chronic kidney disease) stage 4, GFR 15-29 ml/min: (2) Proteinuria: (3) Anemia of chronic disease: (4) Hypertension: (5) Lower extremity edema: (6) Dyspnea: Plan Stage IV CKD, b/l cr around 2.0-2.4, at least since 2017 with moderate degree proteinuria, most likely secondary to diabetic nephropathy. CT abdomen pelvis in 2009 was otherwise unremarkable. Has been on high dose of diuretics for chronic lower extremity edema and progressive volume overload. Admitted with volume overload, hypoxia and left pleural effusion. Renal function seems relatively stable , creatinine close to baseline although with some variability. Continues to be volume overloaded although responding better with diuretics and net negative. -- continue Lasix 40 mg IV twice a day -- on Venofer 20 mg IV daily for total 5 doses, consider FOBT -- Recommend compression stockings for bilateral lower extremity edema Admission and Anticipated Discharge Date Admission Date: September 13, 2022 Oksana Hebert was seen and evaluated this morning. Overall he feels about the same, no SOB at rest. Blood pressure acceptable. O2 sat 95% on 2 L nasal cannula. Renal function staying somewhat stable, potassium normal, decent respond to diuretics, net negative around 350 mL last 24 hours.. Review of Systems Review of Systems: detailed review of system was otherwise unremarkable except mentioned above. Physical Exam Constitutional: WD/WN, vitals as above + morbidly obese; no acute distress Eyes: + anicteric sclerae Neck: normal visual inspection Respiratory: no respiratory distress Auscultation: + diminished lung sounds; no crackles and no wheezes Cardiovascular: Rate/Rhythm: regular rate, regular rhythm and + irregularly irregular Extremities: + edema Musculoskeletal: Extremities: extremities normal to inspection Skin: + erythema; no rashes Neurologic: no focal motor deficits Psychiatric: Orientation: alert and oriented x 3 Affect: euthymic affect Results & Data Vital Signs (Past 12 Hours) Vital Signs Temp Pulse Pulse Resp BP Pulse Ox Pulse Ox 09/17/22 11:12 36.8 C 105 H 22 136/63 95 09/17/22 10:57 93 09/17/22 06:04 117 H 09/17/22 10:26 91 09/17/22 08:00 37.1 C 109 H 20 156/62 H 94 09/17/22 07:55 09/17/22 03:10 36.9 C 103 H 20 132/73 93 Pulse Ox Pulse Ox O2 Del Method O2 Flow Rate O2 Flow Rate O2 Flow Rate O2 Flow Rate 09/17/22 11:12 Nasal Cannula 4 09/17/22 10:57 94 88 L 4 4 4 09/17/22 06:04 09/17/22 10:26 09/17/22 08:00 Nasal Cannula 3 09/17/22 07:55 Nasal Cannula 2 09/17/22 03:10 Nasal Cannula 3 PG Care Time/CCT Total # of Minutes Spent Total Time Spent with Patient: Total time spent is greater than 50% in coordination of care (as documented) at patient's floor/unit and/or counseling patient: Coding Level of Care Code 09072 SUB INP/OBS CARE 3/50MIN Diagnoses CKD (chronic kidney disease) stage 4, GFR 15-29 ml/min N18.4 Proteinuria R80.9 Anemia of chronic disease D63.8 Hypertension I10 Lower extremity edema R60.0 Dyspnea R06.00
--- NOTE | 2022-09-17 14:48 | Pharmacy Report ---
Pharmacy Glycemic Short Note 2 - Date of Service September 17, 2022 - Glycemic Short BSG Results (Last 24 hours): 09/16/22 09/16/22 09/16/22 16:33 20:14 23:53 Glucose POC Glucose 123 H 164 H 125 H 09/17/22 09/17/22 09/17/22 07:16 07:49 11:27 Glucose 110 H POC Glucose 118 H 184 H OUTPATIENT ANTIDIABETIC REGIMEN: * Lantus 57 units SC BID * Novolog 42 units SC TID with meals * HbA1c: 6.9% (09/13/22) ASSESSMENT: 09/17: * Anup received 52 units of insulin yesterday, 40 units basal + 12 units bolus. BSGs were: 25-735-396-164 mg/dL. * Fasting BSG this AM was 118 mg/dL. * No change to regimen today. 09/16: * BSGs remain stable. * Slight decrease in basal insulin this morning for fasting BSG trending down. * Loosened Novolog parameters slightly. 09/14 * Patient received total of 93 units of insulin yesterday, of which 75 units were basal insulin * Fasting BSG 72 mg/dL - below goal range, therefore will scale back on basal ~30-40% and have scale for BSG * Continue same CF/CR for now 09/13 * 77 year old admitted with shortness of breath/edema. Type 2 diabetic managed on high amounts of insulin at home (>200 units/day) * Fasting BSG 104 mg/dL - small reduction in home basal given this morning ~20% decrease as unclear PO intake * Lunch BSG low at 56 mg/dL, 10 units of novolog given for breakfast. Possibly too tight novolog, therefore will loosen parameters with dinner. No insulin given at lunch time as BSG low * Plan to have a scale for PM basal with reduced amounts PLAN FOR INPATIENT GLYCEMIC CONTROL: * Basal insulin * Lantus 20 units SC BID * Bolus insulin * NovoLog per scale ACHS or Q6hrs while NPO * Goal Range: Low 120 mg/dL - High 160 mg/dL * Correction Factor: 20 mg/dL/unit * Nutritional / Prandial insulin per carb ratio of 1 unit per 8 grams CHO consumed
--- NOTE | 2022-09-17 16:02 | Hospitalist Progress Note ---
Date of Service September 17, 2022 Assessment & Plan (1) LLL pneumonia: Plan: patient continues with cough, poor appetite, and multiple imaging studies with ?LLL pneumonia. he continues with a NC O2 requirement as well (some of which could be from CHF as well). I think it is reasonable to treat for LLL pneumonia - start rocephin 2gm daily + doxy 100mg BID. check cbc, crp am. cont supportive care. (2) Chest pain: Plan: EKGs stable/unchanged CXR unchanged Troponin negative Suspect musculoskeletal as it hurts with coughing Doubt PE - he is already on Eliquis 5mg BID Follow symptoms (3) Pulmonary edema: Plan: Echo this admission with preserved EF. Suspect volume overload is more so due to CKD stage 4. However, uncontrolled a.fib could be causing some issues due to diastolic dysfunction as well. Defer diuretic management to Dr Hernandez, nephrology. Daily labs. (4) Acute on chronic diastolic (congestive) heart failure: Plan: Cont to diurese. Needs better rate control for a.fib. (5) Atrial fibrillation: Plan: CHRONIC/PERMANENT. Rates uncontrolled still despite increase in metoprolol to 50mg BID. Continue Apixaban 5mg po BID. Will increase tomorrow AM's Diltiazem CD to 180mg po daily. (6) CKD (chronic kidney disease) stage 4, GFR 15-29 ml/min: Plan: Renal function baseline -- about 2. Cr modestly higher in the face of diuresis. Cont diuretics for #3. Appreciate nephrology assistance. BMP am daily. (7) Diabetes mellitus type 2 in obese: Plan: A1c 6.9% Cont basal-bolus insulin Pharmacy glycemic management consultation appreciated control is very satisfactory (8) Hypertension: Plan: Hold losartan due to CKD stage 4 and bump in creatinine with diuresis. Continue Metoprolol 50mg BID. Continue Hydralazine 20mg TID. Continue Diltiazem daily - increasing to 180mg/day. Continue terazosin 5mg BID. (9) GERD (gastroesophageal reflux disease): Plan: cont PPI (10) CARINA on CPAP: Plan: compliant with such? (11) Morbid obesity with BMI of 45.0-49.9, adult: Plan: BMI 47 TSH wnl (12) Weakness of right arm: Plan: patient reports subjective weakness of right arm and in particular the right hand this is chronic. however, on exam today, his b/l arm strength both proximally & distally are intact he mentions he gets shakes/tremors/jerks and when these occur he drops things I am uncertain about the etiology of this Could consider neuro consult Could consider imaging of the brain and cervical spine follow for now in light of other more active medical issues Plan CT a/p in 2019 at [facility] without cirrhosis of liver despite his morbid obesity needs PT/OT sylvia updated at bedside Admission and Anticipated Discharge Date Admission Date: September 13, 2022 Subjective patient laying in recliner chair during the visit is at bedside tele overnight - ongoing a.fib, rates about 100-110 at rest he has multiple complaints today - 1. b/l knee pain (chronic). 2. right hand "weakness" - dropping things for "some time" - months he thinks. He will "all of a sudden get a jerk and I drop things." Thinks this is worse than baseline. 3. ongoing severe cough - dry for the most part. No dyspnea at rest. 4. poor appetite - states he "hasn't eaten well since [facility] day", but then she and the patient state he was "eating really good when he first got here [the hospital]". Sounds like his appetite, however, has been fair-poor for months. 5. buttock pain from sacral decubitus ulcer. Review of Systems Review of Systems: gen - fatigue, weak, poor appetite, no fevers cv - chest discomfort with coughing is improved today; edema still present in legs but improved pulm - coughing constantly GI - no abd pain, no N/V musculo - denies neck pain neuro - denies headaches Physical Exam Physical Exam: gen - morbidly obese, NAD, sitting in recliner chair neck - unable to assess for JVD due to large neck size mouth - MMM heart - irregularly irregular, s1 s2, no murmur, rate about 100 lungs - decreased BS bases, mild dry rales bases especially on Left abd - soft, umbilical hernia present (small, reducible); BS+, NT ext - 1+ edema b/l, pulses 2+ b/l skin - stasis changes b/l shins; venous ulcers b/l shins - optifoams in place b/l shins neuro - strength b/l arms - prox and distal muscle groups - 5/5; strength hip flexion 5/5 b/l; strength dorsiflexion/plantarflexion 5/5 of ankles Results & Data Results & Data Vital Signs (Past 12 Hours) Vital Signs Temp Pulse Pulse Resp BP Pulse Ox Pulse Ox 09/17/22 14:28 93 H 09/17/22 11:12 36.8 C 105 H 22 136/63 95 09/17/22 10:57 93 09/17/22 06:04 117 H 09/17/22 10:26 91 09/17/22 08:00 37.1 C 109 H 20 156/62 H 94 09/17/22 07:55 Pulse Ox Pulse Ox O2 Del Method O2 Flow Rate O2 Flow Rate O2 Flow Rate O2 Flow Rate 09/17/22 14:28 09/17/22 11:12 Nasal Cannula 4 09/17/22 10:57 94 88 L 4 4 4 09/17/22 06:04 09/17/22 10:26 09/17/22 08:00 Nasal Cannula 3 09/17/22 07:55 Nasal Cannula 2 Laboratory Results Laboratory Results - last 48 hr 09/14/22 09/14/22 09/15/22 13:52 16:19 07:48 Sodium Potassium Chloride Carbon Dioxide Anion Gap BUN Creatinine Est Cr Clr Drug Dosing Est GFR ( Amer) Est GFR (Non-Af Amer) BUN/Creatinine Ratio Glucose POC Glucose Calcium Phosphorus Troponin I High Sens Total Protein (PEP) 5.8 L Albumin Albumin (PEP) 2.7 L Mppcv-1-Pyudkuadq 0.4 H Ojtak-1-Zdhglrxob 0.9 Vqsk-3-Gbsvhrek 0.3 L Htlg-6-Vlqldoer 0.4 Gamma Globulins 1.2 Monoclonal Peak 3 DNR Ser Monoclonl Protein DNR Ser Monoclonal Prot 2 DNR PEP Interpretation SEE NOTE Procalcitonin TSH U Random Total Protein 32 H Ur Creatinine mg/dL 91 Protein/Creatinin Ratio 0.352 H Urine Albumin (%) 67 U Kssdp-8-Isjehemr (%) 2 U Janva-4-Viglkyhw (%) 6 U Beta Globulin (%) 10 U Gamma Globulin (%) 15 U Abnormal Prot Band 1 DNR U Abnormal Prot Band 2 DNR U Abnormal Prot Band 3 DNR Urine PEP Interpret SEE NOTE Free [place] LC, Quant 122.9 H Free Lambda LC, Quant 90.9 H [facility] [place]/Lambda Ratio 1.35 09/16/22 09/16/22 09/16/22 11:29 16:33 19:13 Sodium Potassium Chloride Carbon Dioxide Anion Gap BUN Creatinine Est Cr Clr Drug Dosing Est GFR ( Amer) Est GFR (Non-Af Amer) BUN/Creatinine Ratio Glucose POC Glucose 135 H 123 H Calcium Phosphorus Troponin I High Sens 14.2 Total Protein (PEP) Albumin Albumin (PEP) Lzmfn-2-Idusmveys Ocvai-7-Pmbwpvtsq Tdsf-7-Gsntxbxc Sqip-7-Zljgjjdy Gamma Globulins Monoclonal Peak 3 Ser Monoclonl Protein Ser Monoclonal Prot 2 PEP Interpretation Procalcitonin TSH U Random Total Protein Ur Creatinine mg/dL Protein/Creatinin Ratio Urine Albumin (%) U Sofak-1-Xgpwashw (%) U Dhtba-1-Tviuriky (%) U Beta Globulin (%) U Gamma Globulin (%) U Abnormal Prot Band 1 U Abnormal Prot Band 2 U Abnormal Prot Band 3 Urine PEP Interpret Free [place] LC, Quant Free Lambda LC, Quant [facility] [place]/Lambda Ratio 09/16/22 09/16/22 09/17/22 20:14 23:53 07:16 Sodium 141 Potassium 3.6 Chloride 96 L Carbon Dioxide 39 H Anion Gap 6 BUN 52 H Creatinine 2.51 H Est Cr Clr Drug Dosing 36.3 Est GFR ( Amer) 27.9 Est GFR (Non-Af Amer) 24.1 BUN/Creatinine Ratio 20.7 H Glucose 110 H POC Glucose 164 H 125 H Calcium 8.4 L Phosphorus 4.0 Troponin I High Sens Total Protein (PEP) Albumin 2.9 L Albumin (PEP) Citvc-2-Vfwplijdu Ykubo-4-Alvmhrpbz Ikry-3-Rmxtbtfc Lfud-5-Hvkzxfqa Gamma Globulins Monoclonal Peak 3 Ser Monoclonl Protein Ser Monoclonal Prot 2 PEP Interpretation Procalcitonin TSH U Random Total Protein Ur Creatinine mg/dL Protein/Creatinin Ratio Urine Albumin (%) U Sjnlq-6-Ujnuuyzn (%) U Rasox-4-Lhamrxeu (%) U Beta Globulin (%) U Gamma Globulin (%) U Abnormal Prot Band 1 U Abnormal Prot Band 2 U Abnormal Prot Band 3 Urine PEP Interpret Free [place] LC, Quant Free Lambda LC, Quant [facility] [place]/Lambda Ratio 09/17/22 09/17/22 09/17/22 07:16 07:49 10:17 Sodium Potassium Chloride Carbon Dioxide Anion Gap BUN Creatinine Est Cr Clr Drug Dosing Est GFR ( Amer) Est GFR (Non-Af Amer) BUN/Creatinine Ratio Glucose POC Glucose 118 H Calcium Phosphorus Troponin I High Sens Total Protein (PEP) Albumin Albumin (PEP) Iajwe-4-Zfskumecr Xvcoa-7-Mkwhoanqk Odmr-5-Phhzuhzu Grjl-5-Hqmdrymg Gamma Globulins Monoclonal Peak 3 Ser Monoclonl Protein Ser Monoclonal Prot 2 PEP Interpretation Procalcitonin 0.22 TSH 2.656 U Random Total Protein Ur Creatinine mg/dL Protein/Creatinin Ratio Urine Albumin (%) U Tlefn-5-Jlhwnjwg (%) U Nuogj-4-Zmbzhglt (%) U Beta Globulin (%) U Gamma Globulin (%) U Abnormal Prot Band 1 U Abnormal Prot Band 2 U Abnormal Prot Band 3 Urine PEP Interpret Free [place] LC, Quant Free Lambda LC, Quant [facility] [place]/Lambda Ratio 09/17/22 09/17/22 09/17/22 11:27 16:32 20:14 Sodium Potassium Chloride Carbon Dioxide Anion Gap BUN Creatinine Est Cr Clr Drug Dosing Est GFR ( Amer) Est GFR (Non-Af Amer) BUN/Creatinine Ratio Glucose POC Glucose 184 H 113 H 154 H Calcium Phosphorus Troponin I High Sens Total Protein (PEP) Albumin Albumin (PEP) Ozesv-3-Agwzyxrqq Erjoo-6-Lkgtrbwgc Vtdv-8-Bopueotw Latz-1-Rtavcibc Gamma Globulins Monoclonal Peak 3 Ser Monoclonl Protein Ser Monoclonal Prot 2 PEP Interpretation Procalcitonin TSH U Random Total Protein Ur Creatinine mg/dL Protein/Creatinin Ratio Urine Albumin (%) U Elier-6-Gpoxvxva (%) U Agdmr-5-Olrahxqx (%) U Beta Globulin (%) U Gamma Globulin (%) U Abnormal Prot Band 1 U Abnormal Prot Band 2 U Abnormal Prot Band 3 Urine PEP Interpret Free [place] LC, Quant Free Lambda LC, Quant Free [place]/Lambda Ratio PG Care Time/CCT Total # of Minutes Spent Total Time Spent with Patient: Total time spent is greater than 50% in coordination of care (as documented) at patient's floor/unit and/or counseling patient: Coding Level of Care Code 46080 SUB INP/OBS CARE 3/50MIN Diagnoses LLL pneumonia J18.9 Chest pain R07.9 Pulmonary edema J81.1 Acute on chronic diastolic (congestive) heart failure I50.33 Atrial fibrillation I48.91 CKD (chronic kidney disease) stage 4, GFR 15-29 ml/min N18.4 Diabetes mellitus type 2 in obese E11.69; E66.9 Hypertension I10 GERD (gastroesophageal reflux disease) K21.9 CARINA on CPAP G47.33; Z99.89 Morbid obesity with BMI of 45.0-49.9, adult E66.01; Z68.42 Weakness of right arm R29.898
[2022-09-17] MEDS ORDERED: LACTULOSE SYRUP 30 GM/45 ML UDP PO ONE (16:15)
[2022-09-17] MEDS: cefTRIAXone SODIUM 2,000 MG in DEXTROSE 5% 50 ML IV SCH (16:36)
[2022-09-17] MEDS: DOXYCYCLINE HYCLATE 100 MG in DEXTROSE 5% 100 ML IV SCH (17:44)
[2022-09-17] MEDS: bisacodyL 10 MG SUPP PR STA ×2 (17:44→18:36)
[2022-09-17] MEDS ORDERED: bisacodyL 10 MG SUPP PR ONE (18:33)
[2022-09-17] MEDS: ATORVASTATIN 40 MG TAB PO SCH (21:53)
[2022-09-18] MEDS: ACETAMINOPHEN 325 MG TAB PO PRN ×2 (03:57→21:53)
[2022-09-18] MEDS: DOXYCYCLINE HYCLATE 100 MG in DEXTROSE 5% 100 ML IV SCH ×2 (06:06→18:32)
[2022-09-18] MEDS: INSULIN ASPART PER UNIT CHARGE SC SCH ×4 (08:22→21:54)
[2022-09-18] MEDS: LANTUS PER UNIT CHARGE SQ SCH ×2 (08:23→21:55)
[2022-09-18] MEDS: FUROSEMIDE 40 MG/4 ML VIAL IV SCH ×2 (08:24→21:45)
[2022-09-18] MEDS: hydrALAZINE 10 MG TAB PO SCH ×3 (08:24→21:44)
[2022-09-18] MEDS: BENZONATATE 100 MG CAPSULE PO SCH ×3 (08:24→21:44)
[2022-09-18] MEDS: dilTIAZem HCL 180 MG CAPCR PO SCH (08:24)
[2022-09-18] MEDS: METOPROLOL TARTRATE 50 MG TAB PO SCH ×2 (08:24→22:19)
[2022-09-18] MEDS: PANTOprazole 40 MG TAB PO SCH (08:25)
[2022-09-18] MEDS: APIXABAN 5 MG TABLET PO SCH ×2 (08:25→21:44)
[2022-09-18] MEDS: FINASTERIDE 5 MG TAB PO SCH (08:25)
[2022-09-18] MEDS: ASPIRIN 81 MG ECTAB PO SCH (08:25)
[2022-09-18] MEDS: TERAZOSIN HCL 5 MG CAP PO SCH ×2 (08:25→21:44)
[2022-09-18] MEDS: guaiFENesin 600 MG TABCR PO SCH ×2 (08:25→21:44)
[2022-09-18] MEDS: LACTULOSE SYRUP 30 GM/45 ML UDP PO SCH (08:26)
[2022-09-18] MEDS: POTASSIUM CHLORIDE CRTAB 20 MEQ TABCR PO SCH ×2 (08:28→21:53)
[2022-09-18] MEDS: DOCUSATE SODIUM 100 MG CAP PO SCH (08:28)
[2022-09-18] MEDS: IRON SUCROSE 200 MG in 0.9 % SODIUM CHLORIDE 100 ML IV SCH (08:29)
[2022-09-18 09:59] LABS: Basophils # (auto) 0.04 K/uL (0-0.2); Basophils % (auto) 0.4 %; Eosinophils # (auto) 0.21 K/uL (0-0.50); Hematocrit (blood only) 30.8 % (42.0-52.0); Hemoglobin 9.5 g/dl (14.0-18.0); Immature Granulocytes # (auto) 0.04 K/uL (0.01-0.20); Immature Granulocytes % (auto) 0.4 %; Lymphocytes # (auto) 1.09 K/uL (1.2-3.4); Lymphocytes % (auto) 10.5 %; Mean Corpuscular Hemoglobin 27.7 pg (25.0-34.0); Mean Corpuscular Hgb Conc 30.8 g/dL (32.0-36.0); Mean Corpuscular Volume 89.8 fL (80.0-100.0); Mean Platelet Volume 11.3 fL (9.4-12.4); Monocytes # (auto) 0.97 K/uL (0.11-0.59); Monocytes % (auto) 9.3 %; Neutrophils # (auto) 8.07 K/uL (1.40-6.50); Neutrophils % (auto) 77.4 %; Platelet Count 234 K/uL (130-400); Red Blood Count 3.43 M/uL (4.70-6.10); White Blood Count 10.42 K/ul (4.8-10.8)
--- NOTE | 2022-09-18 10:11 | Nephrology Progress Note ---
Date of Service September 18, 2022 Assessment & Plan (1) CKD (chronic kidney disease) stage 4, GFR 15-29 ml/min: (2) Proteinuria: (3) Anemia of chronic disease: (4) Hypertension: (5) Lower extremity edema: (6) Dyspnea: Plan Stage IV CKD, b/l cr around 2.0-2.4, at least since 2017 with moderate degree proteinuria, negative paraproteinemia workup, most likely secondary to diabetic nephropathy. CT abdomen pelvis in 2009 was otherwise unremarkable. Has been on high dose of diuretics for chronic lower extremity edema and progressive volume overload. Admitted with volume overload, hypoxia and left pleural effusion. Echo with EF 60 -65%, mild concentric LVH, no wall motion abnormality. Lab pending, Continues to be volume overloaded and net positive. -- increase Lasix to 80 mg IV twice a day from this afternoon. -- on Venofer 20 mg IV daily for total 5 doses, consider FOBT -- [place] [address] units x 1 dose today. -- Recommend compression stockings for bilateral lower extremity edema. Will follow Admission and Anticipated Discharge Date Admission Date: September 13, 2022 Oksana Hebert was seen and evaluated this morning. Overall he feels about the same, no SOB at rest. Blood pressure has been high, has A fib with HR around 100 to 114. O2 sat 95% on 4 L nasal cannula. Lab pending, suboptimal respond to diuretics, net positive and weight up. Review of Systems Review of Systems: detailed review of system was otherwise unremarkable except mentioned above. Physical Exam Constitutional: WD/WN, vitals as above + morbidly obese; no acute distress Eyes: + anicteric sclerae Neck: normal visual inspection Respiratory: no respiratory distress Auscultation: + diminished lung sounds; no crackles and no wheezes Cardiovascular: Rate/Rhythm: regular rate, regular rhythm and + irregularly irregular Extremities: + edema Gastrointestinal (Abdomen): Inspection/Auscultation: + abdomen distended and + abdominal edema Percussion/Palpation: abdomen soft; abdomen nontender Musculoskeletal: Extremities: extremities normal to inspection Skin: + erythema; no rashes Neurologic: no focal motor deficits Psychiatric: Orientation: alert and oriented x 3 Affect: euthymic affect Results & Data Vital Signs (Past 12 Hours) Vital Signs Temp Pulse Pulse Resp BP Pulse Ox O2 Del Method 09/18/22 07:51 36.7 C 100 H 20 150/64 H 92 Nasal Cannula 09/18/22 07:46 105 H 09/18/22 03:54 36.7 C 101 H 20 136/64 94 Nasal Cannula 09/17/22 23:01 37.0 C 102 H 20 127/62 91 Nasal Cannula O2 Flow Rate 09/18/22 07:51 3 09/18/22 07:46 09/18/22 03:54 3 09/17/22 23:01 3 PG Care Time/CCT Total # of Minutes Spent Total Time Spent with Patient: Total time spent is greater than 50% in coordination of care (as documented) at patient's floor/unit and/or counseling patient: Coding Level of Care Code 65902 SUB INP/OBS CARE 3/50MIN Diagnoses CKD (chronic kidney disease) stage 4, GFR 15-29 ml/min N18.4 Proteinuria R80.9 Anemia of chronic disease D63.8 Hypertension I10 Lower extremity edema R60.0 Dyspnea R06.00
[2022-09-18] MEDS ORDERED: EPOETIN ALFA 40,000 UNITS/ML VIAL SQ ONE (10:30)
--- NOTE | 2022-09-18 12:54 | Pharmacy Report ---
Pharmacy Glycemic Short Note 2 - Date of Service September 18, 2022 - Glycemic Short BSG Results (Last 24 hours): 09/17/22 09/17/22 09/18/22 16:32 20:14 07:49 POC Glucose 113 H 154 H 131 H 09/18/22 11:30 POC Glucose 155 H OUTPATIENT ANTIDIABETIC REGIMEN: * Lantus 57 units SC BID * Novolog 42 units SC TID with meals * HbA1c: 6.9% (09/13/22) ASSESSMENT: 09/18: * Patient received 66 units of insulin yesterday, 40 units of basal + 26 of bolus * BSGs 603-139-216-154 mg/dL * Fasting this AM- 131 mg/dL- will continue same basal today, monitor for upward trend and need for uptitration * No change to novolog parameters 09/17: * Anup received 52 units of insulin yesterday, 40 units basal + 12 units bolus. BSGs were: 21-300-486-164 mg/dL. * Fasting BSG this AM was 118 mg/dL. * No change to regimen today. 09/16: * BSGs remain stable. * Slight decrease in basal insulin this morning for fasting BSG trending down. * Loosened Novolog parameters slightly. 09/14 * Patient received total of 93 units of insulin yesterday, of which 75 units were basal insulin * Fasting BSG 72 mg/dL - below goal range, therefore will scale back on basal ~30-40% and have scale for BSG * Continue same CF/CR for now 09/13 * 77 year old admitted with shortness of breath/edema. Type 2 diabetic managed on high amounts of insulin at home (>200 units/day) * Fasting BSG 104 mg/dL - small reduction in home basal given this morning ~20% decrease as unclear PO intake * Lunch BSG low at 56 mg/dL, 10 units of novolog given for breakfast. Possibly too tight novolog, therefore will loosen parameters with dinner. No insulin given at lunch time as BSG low * Plan to have a scale for PM basal with reduced amounts PLAN FOR INPATIENT GLYCEMIC CONTROL: * Basal insulin * Lantus 20 units SC BID * Bolus insulin * NovoLog per scale ACHS or Q6hrs while NPO * Goal Range: Low 120 mg/dL - High 160 mg/dL * Correction Factor: 20 mg/dL/unit * Nutritional / Prandial insulin per carb ratio of 1 unit per 8 grams CHO consumed
[2022-09-18 15:58] LABS: Albumin Level 3.2 gm/dl (3.4-5.0); BUN Creatinine Ratio 23.6 (10-20); Calcium 8.6 mg/dl (8.6-10.3); Creatinine Clr Calc Pharmacy 37.8 ml/min; Est GFR (African American) 28.6 ml/min; Est GFR (Non-African American) 24.7 ml/min; Phosphorus 3.9 mg/dl (2.5-4.9); Potassium 3.7 mmol/L (3.5-5.1)
[2022-09-18] MEDS: cefTRIAXone SODIUM 2,000 MG in DEXTROSE 5% 50 ML IV SCH (16:27)
[2022-09-18 19:23] LABS: Base Excess VBG 8.6 mEq/L; HCO3 VBG 39 mmol/L; Oxygen Saturation VBG < 60.0 %; PCO2 VBG 85 mmHg (38-50); PO2 VBG 34 mmHg; pH VBG 7.27 (7.36-7.41)
--- NOTE | 2022-09-18 20:23 | CT Scan Report ---
HEAD CT NONCONTRAST CT DOSE: 884.08 mGy.cm HISTORY: myoclonic jerks, slurry speech TECHNIQUE: Multiaxial CT images of the head were performed without the use of intravenous contrast. A utomated exposure control was utilized for this study. A dose lowering technique was utilized adheri ng to the principles of ALARA. Comparison: Head CT 07/20/2018. Findings: Mild mucosal thickening within the right sphenoid sinus. The mastoid air cells are clear. T he calvarium and skull base are intact. There is no mass, hematoma, midline shift, acute infarct. Whi te matter hypodensity is nonspecific but suggestive of microvascular ischemic change. The ventricles and sulci demonstrate mild age-related involutional changes. Mild motion artifact. Impression: Mild motion artifact. No definite acute intracranial abnormality. ACT 112: Negative or not required by law. Electronically signed by: Rustam Bridges M.D. 09/18/2022 8:21 PM
--- NOTE | 2022-09-18 21:34 | Hospitalist Progress Note ---
Date of Service September 18, 2022 Assessment & Plan (1) Acute on chronic respiratory failure with hypercapnia: Plan: VBG checked today due to slurry speech, weakness, respiratory status, myoclonic jerks, and prior h/o hypercapnia. VBG returned with resp acidosis with CO2 in the 80s. His current symptoms may be due to the hyperapnia. The acute resp acidosis likely is from noncompliance with CPAP for CARINA in the setting of suspected pneumonia and acute/chronic diastolic CHF. BIPAP ordered. Will recheck VBG in am. he NEEDS TO USE BIPAP every night. this was impressed upon him today. reassess myoclonic jerks and slurred speech once pCO2 is improved. (2) LLL pneumonia: Plan: day #2 of rocephin/doxy for suspected pneumonia. CRP 20 c/w inflammatory state. He continues with cough and poor appetite. Cont abx. BIPAP, and when awake NC o2. sats low 90s are acceptable. (3) Chest pain: Plan: EKGs stable/unchanged CXR unchanged Troponin negative Suspect musculoskeletal as it hurts with coughing Doubt PE - he is already on Eliquis 5mg BID Follow symptoms (4) Pulmonary edema: Plan: Echo this admission with preserved EF. Suspect volume overload is more so due to CKD stage 4. However, uncontrolled a.fib could be causing some issues due to diastolic dysf unction as well. Defer diuretic management to Dr Hernandez, nephrology. Daily labs. (5) Acute on chronic diastolic (congestive) heart failure: Plan: Cont to diurese. Needs better rate control for a.fib. see below. (6) Atrial fibrillation: Plan: CHRONIC/PERMANENT. Rates uncontrolled still despite increase in metoprolol to 50mg BID. Thus increased Diltiazem CD to 180mg po daily. Cont eliquis. reassess tomorrow. (7) CKD (chronic kidney disease) stage 4, GFR 15-29 ml/min: Plan: Renal function baseline -- about 2. Cr higher in the face of diuresis. Cont diuretics. Appreciate nephrology assistance. BMP am daily. (8) Diabetes mellitus type 2 in obese: Plan: A1c 6.9% Cont basal-bolus insulin Pharmacy glycemic management consultation appreciated control is very satisfactory (9) Hypertension: Plan: Hold losartan due to CKD stage 4 and bump in creatinine with diuresis. Continue Metoprolol 50mg BID. Continue Hydralazine 20mg TID. Continue Diltiazem daily - increasing to 180mg/day. Continue terazosin 5mg BID. (10) GERD (gastroesophageal reflux disease): Plan: cont PPI (11) CARINA on CPAP: Plan: noncompliant see #1 above (12) Morbid obesity with BMI of 45.0-49.9, adult: Plan: BMI 47 TSH wnl (13) Weakness of right arm: Plan: patient reports subjective weakness of right arm and in particular the right hand this is chronic. neuro exam continues to show normal b/l arm strength both proximally & distally he mentions he gets shakes/tremors/jerks and when these occur he drops things I observed this for myself today - myoclonic jerks? intention tremor? perhaps the jerks are due to metabolic issues - worsening renal function, hypercapnia, etc CT head obtained today -- negative treat hypercapnia if jerks/etc continue then neuro consultation Plan CT a/p in 2019 at [facility] without cirrhosis of liver despite his morbid obesity updated at bedside PT and OT when able Admission and Anticipated Discharge Date Admission Date: September 13, 2022 Subjective a.fib rates still 90s to 100s at rest during the visit his speech seemed even more slurry than yesterday (it has been dysarthric since I met him earlier this week) family states "oh, it's been like that for a while" (weeks-month or so) his largest complaints cont to be - 1. cough - mostly dry 2. b/l knee pain from OA 3. ongoing "dropping things" because of myoclonic jerks vs intention tremor; the jerks occur mainly with doing an activity (holding a cup or glass, etc); the jerks occur in the arms and legs; again - present for "some time" but recently worse patient confirms he has CPAP at home but doesn't use it Review of Systems Review of Systems: gen - appetite remains poor; hot/cold chills cv - chest wall pain with COUGHING ONLY; edema improved pulm - cough/congestion/dyspnea/wheezing GI - no pain, nausea or emesis; finally had BM last pm Physical Exam Physical Exam: gen - morbidly obese, NAD but coughing; laying in bed neck - unable to assess for JVD due to large neck size mouth - MMM heart - irregularly irregular, s1 s2, no murmur lungs - decreased BS bases, minimal rales bases; faint end-exp wheezes abd - soft, umbilical hernia present (small, reducible); BS+, scant tenderness RUQ ext - 1+ edema b/l, pulses 2+ b/l skin - stasis changes b/l shins; venous ulcers b/l shins - optifoams in place b/l shins neuro - strength b/l arms - prox and distal muscle groups; with holding a cup he DOES have myoclonic jerking vs intention tremor; this improves with placing the cup down slurred/dysarthric type speech Results & Data Results & Data Vital Signs (Past 12 Hours) Vital Signs Temp Pulse Pulse Resp BP BP Pulse Ox 09/18/22 20:46 80 24 96 09/18/22 19:26 37 C 112 H 18 160/66 H 93 09/18/22 16:14 96 H 09/18/22 16:02 36.9 C 106 H 20 129/63 95 09/18/22 13:31 95 09/18/22 12:11 36.7 C 97 H 18 160/67 H 90 O2 Del Method O2 Flow Rate 09/18/22 20:46 3 09/18/22 19:26 Nasal Cannula 3 09/18/22 16:14 09/18/22 16:02 Nasal Cannula 4 09/18/22 13:31 Nasal Cannula 4 09/18/22 12:11 Nasal Cannula 3 Laboratory Results Laboratory Results - last 24 hr 09/18/22 09/18/22 09/18/22 07:49 09:24 09:24 WBC 10.42 RBC 3.43 L Hgb 9.5 L Hct 30.8 L MCV 89.8 MCH 27.7 MCHC 30.8 L RDW Std Deviation 49.0 H RDW Coeff of [place] 15.0 H Plt Count 234 MPV 11.3 Immature Gran % (Auto) 0.4 Neut % (Auto) 77.4 Lymph % (Auto) 10.5 [place] % (Auto) 9.3 Eos % (Auto) 2.0 Baso % (Auto) 0.4 Neut # (Auto) 8.07 H Lymph # (Auto) 1.09 L [place] # (Auto) 0.97 H Eos # (Auto) 0.21 Baso # (Auto) 0.04 Immature Gran # (Auto) 0.04 VBG pH VBG pCO2 VBG pO2 VBG HCO3 VBG O2 Saturation VBG Base Excess Sodium 138 Potassium 3.7 Chloride 96 L Carbon Dioxide 36 H Anion Gap 6 BUN 58 H Creatinine 2.46 H Est Cr Clr Drug Dosing 37.8 Est GFR ( Amer) 28.6 Est GFR (Non-Af Amer) 24.7 BUN/Creatinine Ratio 23.6 H Glucose 143 H POC Glucose 131 H Calcium 8.6 Phosphorus 3.9 Ammonia C-Reactive Protein Albumin 3.2 L Vitamin B12 09/18/22 09/18/22 09/18/22 09:24 09:55 09:55 WBC RBC Hgb Hct MCV MCH MCHC RDW Std Deviation RDW Coeff of Barby Plt Count MPV Immature Gran % (Auto) Neut % (Auto) Lymph % (Auto) [place] % (Auto) Eos % (Auto) Baso % (Auto) Neut # (Auto) Lymph # (Auto) [place] # (Auto) Eos # (Auto) Baso # (Auto) Immature Gran # (Auto) VBG pH VBG pCO2 VBG pO2 VBG HCO3 VBG O2 Saturation VBG Base Excess Sodium Potassium Chloride Carbon Dioxide Anion Gap BUN Creatinine Est Cr Clr Drug Dosing Est GFR ( Amer) Est GFR (Non-Af Amer) BUN/Creatinine Ratio Glucose POC Glucose Calcium Phosphorus Ammonia 44.0 C-Reactive Protein 20.15 H Albumin Vitamin B12 389 09/18/22 09/18/22 09/18/22 11:30 16:23 19:06 WBC RBC Hgb Hct MCV MCH MCHC RDW Std Deviation RDW Coeff of Barby Plt Count MPV Immature Gran % (Auto) Neut % (Auto) Lymph % (Auto) [place] % (Auto) Eos % (Auto) Baso % (Auto) Neut # (Auto) Lymph # (Auto) [place] # (Auto) Eos # (Auto) Baso # (Auto) Immature Gran # (Auto) VBG pH 7.27 L VBG pCO2 85 H VBG pO2 34 VBG HCO3 39 VBG O2 Saturation < 60.0 VBG Base Excess 8.6 Sodium Potassium Chloride Carbon Dioxide Anion Gap BUN Creatinine Est Cr Clr Drug Dosing Est GFR ( Amer) Est GFR (Non-Af Amer) BUN/Creatinine Ratio Glucose POC Glucose 155 H 121 H Calcium Phosphorus Ammonia C-Reactive Protein Albumin Vitamin B12 03/30/23 20:22 WBC RBC Hgb Hct MCV MCH MCHC RDW Std Deviation RDW Coeff of Barby Plt Count MPV Immature Gran % (Auto) Neut % (Auto) Lymph % (Auto) [place] % (Auto) Eos % (Auto) Baso % (Auto) Neut # (Auto) Lymph # (Auto) [place] # (Auto) Eos # (Auto) Baso # (Auto) Immature Gran # (Auto) VBG pH VBG pCO2 VBG pO2 VBG HCO3 VBG O2 Saturation VBG Base Excess Sodium Potassium Chloride Carbon Dioxide Anion Gap BUN Creatinine Est Cr Clr Drug Dosing Est GFR ( Amer) Est GFR (Non-Af Amer) BUN/Creatinine Ratio Glucose POC Glucose 189 H Calcium Phosphorus Ammonia C-Reactive Protein Albumin Vitamin B12 PG Care Time/CCT Total # of Minutes Spent Total Time Spent with Patient: Total time spent is greater than 50% in coordination of care (as documented) at patient's floor/unit and/or counseling patient: Coding Level of Care Code 23947 SUB INP/OBS CARE 3/50MIN Diagnoses Acute on chronic respiratory failure with hypercapnia J96.22 LLL pneumonia J18.9 Chest pain R07.9 Pulmonary edema J81.1 Acute on chronic diastolic (congestive) heart failure I50.33 Atrial fibrillation I48.91 CKD (chronic kidney disease) stage 4, GFR 15-29 ml/min N18.4 Diabetes mellitus type 2 in obese E11.69; E66.9 Hypertension I10 GERD (gastroesophageal reflux disease) K21.9 CARINA on CPAP G47.33; Z99.89 Morbid obesity with BMI of 45.0-49.9, adult E66.01; Z68.42 Weakness of right arm R29.898
[2022-09-18] MEDS ORDERED: hydrOXYzine HCl 25 MG TAB PO STA (21:44)
[2022-09-18] MEDS: ATORVASTATIN 40 MG TAB PO SCH (21:44)
[2022-09-18 23:29] LABS: Adenovirus PCR Not Detected (NotDetected); Bordetella parapertussis PCR Not Detected (NotDetected); Bordetella pertussis PCR Not Detected (NotDetected); Chlamydia pneumoniae PCR Not Detected (NotDetected); Coronavirus 229E PCR Not Detected (NotDetected); Coronavirus CoV-2 (COVID19)PCR Not Detected (NotDetected); Coronavirus HKU1 PCR Not Detected (NotDetected); Coronavirus NL63 PCR Not Detected (NotDetected); Coronavirus OC43PCR Not Detected (NotDetected); Human Metapneumovirus PCR Not Detected (NotDetected); Influenza A PCR Not Detected (NotDetected); Influenza B PCR Not Detected (NotDetected); Mycoplasma pneumoniae PCR Not Detected (NotDetected); Parainfluenza Virus 1 PCR Not Detected (NotDetected); Parainfluenza Virus 2 PCR Not Detected (NotDetected); Parainfluenza Virus 3 PCR Not Detected (NotDetected); Parainfluenza Virus 4 PCR Not Detected (NotDetected); Respiratory Syncytial VirusPCR Not Detected (NotDetected); Rhinovirus/Enterovirus PCR Not Detected (NotDetected)
[2022-09-19 02:01] LABS: Base Excess VBG 11.1 mEq/L; HCO3 VBG 39 mmol/L; PCO2 VBG 68 mmHg (38-50); PO2 VBG 42 mmHg; pH VBG 7.37 (7.36-7.41)
[2022-09-19 02:23] LABS: Albumin Level 2.9 gm/dl (3.4-5.0); BUN Creatinine Ratio 23.6 (10-20); C Reactive Protein 13.05 mg/dl (0-0.5); Calcium 8.3 mg/dl (8.6-10.3); Creatinine Clr Calc Pharmacy 35.9 ml/min; Est GFR (African American) 26.9 ml/min; Est GFR (Non-African American) 23.2 ml/min; Phosphorus 3.2 mg/dl (2.5-4.9)
[2022-09-19] MEDS: DOXYCYCLINE HYCLATE 100 MG in DEXTROSE 5% 100 ML IV SCH ×2 (06:37→17:22)
[2022-09-19 07:33] LABS: Base Excess VBG 11.4 mEq/L; HCO3 VBG 38 mmol/L; Oxygen Saturation VBG 81.3 %; PCO2 VBG 61 mmHg (38-50); PO2 VBG 47 mmHg
[2022-09-19] MEDS: LANTUS PER UNIT CHARGE SQ SCH ×2 (08:56→21:13)
[2022-09-19] MEDS: INSULIN ASPART PER UNIT CHARGE SC SCH ×4 (08:56→21:09)
[2022-09-19] MEDS: POTASSIUM CHLORIDE CRTAB 20 MEQ TABCR PO SCH ×2 (08:57→21:12)
[2022-09-19] MEDS: METOPROLOL TARTRATE 50 MG TAB PO SCH ×2 (08:57→21:06)
[2022-09-19] MEDS: BENZONATATE 100 MG CAPSULE PO SCH ×3 (08:57→21:06)
[2022-09-19] MEDS: hydrALAZINE 10 MG TAB PO SCH ×3 (08:57→21:06)
[2022-09-19] MEDS: DOCUSATE SODIUM 100 MG CAP PO SCH (08:57)
[2022-09-19] MEDS: FUROSEMIDE 40 MG/4 ML VIAL IV SCH ×2 (08:57→16:16)
[2022-09-19] MEDS: PANTOprazole 40 MG TAB PO SCH (08:58)
[2022-09-19] MEDS: dilTIAZem HCL 180 MG CAPCR PO SCH (08:58)
[2022-09-19] MEDS: guaiFENesin 600 MG TABCR PO SCH ×2 (08:58→21:07)
[2022-09-19] MEDS: FINASTERIDE 5 MG TAB PO SCH (08:58)
[2022-09-19] MEDS: ASPIRIN 81 MG ECTAB PO SCH (08:58)
[2022-09-19] MEDS: APIXABAN 5 MG TABLET PO SCH ×2 (08:58→21:07)
[2022-09-19] MEDS: TERAZOSIN HCL 5 MG CAP PO SCH ×2 (08:58→21:06)
[2022-09-19] MEDS: IRON SUCROSE 200 MG in 0.9 % SODIUM CHLORIDE 100 ML IV SCH (08:59)
[2022-09-19] MEDS: LACTULOSE SYRUP 30 GM/45 ML UDP PO SCH (08:59)
[2022-09-19] MEDS ORDERED: FUROSEMIDE 40 MG/4 ML VIAL IV SCH (09:15)
[2022-09-19] MEDS ORDERED: FUROSEMIDE 40 MG/4 ML VIAL IV ONE (09:15)
--- NOTE | 2022-09-19 12:08 | Nephrology Progress Note ---
Date of Service September 19, 2022 Assessment & Plan (1) CKD (chronic kidney disease) stage 4, GFR 15-29 ml/min: (2) Proteinuria: (3) Anemia of chronic disease: (4) Hypertension: (5) Lower extremity edema: (6) Dyspnea: Plan Stage IV CKD, b/l cr around 2.0-2.4, at least since 2017 with moderate degree proteinuria, negative paraproteinemia workup, most likely secondary to diabetic nephropathy ( negative SPEP ) . CT abdomen pelvis in 2009 was otherwise unremarkable. Has been on high dose of diuretics for chronic lower extremity edema and progressive volume overload. Admitted with volume overload, hypoxia and left pleural effusion. Echo with EF 60 -65%, mild concentric LVH, no wall motion abnormality. On Rocephin for possible LL Lpneumonia. Continues to be volume overloaded and net positive, slow decline in renal function. -- increase Lasix to 120 mg IV twice a day, aim for net negative -- [place] [address] units x 1 dose given on 09/18/22, completed Venofer 20 mg IV daily for total 5 doses, consider FOBT -- Recommend compression stockings for bilateral lower extremity edema. Will follow Admission and Anticipated Discharge Date Admission Date: September 13, 2022 Oksana Hebert was seen and evaluated this morning. Overall he feels poorly but no SOB at rest. Blood pressure better, has A fib with HR around 100 to 114. O2 sat 95% on 4 L nasal cannula. Slow worsening of renal function, suboptimal respond to diuretics, net positive total >2 L and weight up. Review of Systems Review of Systems: detailed review of system was otherwise unremarkable except mentioned above. Physical Exam Constitutional: WD/WN, vitals as above + morbidly obese; no acute distress Eyes: + anicteric sclerae Neck: normal visual inspection Respiratory: no respiratory distress Auscultation: + diminished lung sounds; no crackles and no wheezes Cardiovascular: Rate/Rhythm: regular rate, regular rhythm and + irregularly irregular Extremities: + edema Gastrointestinal (Abdomen): Inspection/Auscultation: + abdomen distended and + abdominal edema Percussion/Palpation: abdomen soft; abdomen nontender Musculoskeletal: Extremities: extremities normal to inspection Skin: + erythema; no rashes Neurologic: no focal motor deficits Psychiatric: Orientation: alert and oriented x 3 Affect: euthymic affect Results & Data Vital Signs (Past 12 Hours) Vital Signs Temp Pulse Pulse Resp BP BP Pulse Ox 09/19/22 11:12 36.8 C 91 H 18 135/66 95 09/19/22 07:59 36.9 C 96 H 20 152/69 H 98 09/19/22 07:26 86 09/19/22 07:12 92 H 23 93 09/19/22 04:11 80 18 93 09/19/22 02:50 36.9 C 92 H 18 137/71 92 09/19/22 01:58 79 22 97 09/19/22 01:05 89 L 09/19/22 00:45 16 85 L 09/19/22 00:30 16 78 L 09/19/22 01:50 95 O2 Del Method O2 Flow Rate 09/19/22 11:12 Nasal Cannula 5 09/19/22 07:59 Nasal Cannula 5 09/19/22 07:26 09/19/22 07:12 7 09/19/22 04:11 7 09/19/22 02:50 BiPAP 09/19/22 01:58 7 09/19/22 01:05 BiPAP 7 09/19/22 00:45 BiPAP 5 09/19/22 00:30 BiPAP 3 09/19/22 01:50 BiPAP 7 PG Care Time/CCT Total # of Minutes Spent Total Time Spent with Patient: Total time spent is greater than 50% in coordination of care (as documented) at patient's floor/unit and/or counseling patient: Coding Level of Care Code 83465 SUB INP/OBS CARE 3/50MIN Diagnoses CKD (chronic kidney disease) stage 4, GFR 15-29 ml/min N18.4 Proteinuria R80.9 Anemia of chronic disease D63.8 Hypertension I10 Lower extremity edema R60.0 Dyspnea R06.00
--- NOTE | 2022-09-19 13:19 | Pharmacy Report ---
Pharmacy Glycemic Short Note 2 - Date of Service September 19, 2022 - Glycemic Short BSG Results (Last 24 hours): 09/18/22 09/18/22 09/18/22 09:24 16:23 20:22 Glucose 143 H POC Glucose 121 H 189 H 09/19/22 09/19/22 09/19/22 01:56 07:53 11:09 Glucose 141 H POC Glucose 101 H 155 H OUTPATIENT ANTIDIABETIC REGIMEN: * Lantus 57 units SC BID * Novolog 42 units SC TID with meals * HbA1c: 6.9% (09/13/22) ASSESSMENT: 09/19: * A total of 60 units of insulin were administered yesterday (40 basal, 20 bolus). * Fasting BSG appears to be downtrending, will reduce basal dosing by 25%. * Prandial BSG's acceptable in respect to goal range. 09/18: * Patient received 66 units of insulin yesterday, 40 units of basal + 26 of bolus * BSGs [phone] mg/dL * Fasting this AM- 131 mg/dL- will continue same basal today, monitor for upward trend and need for uptitration * No change to novolog parameters 09/17: * Anup received 52 units of insulin yesterday, 40 units basal + 12 units bolus. BSGs were: [phone] mg/dL. * Fasting BSG this AM was 118 mg/dL. * No change to regimen today. 09/16: * BSGs remain stable. * Slight decrease in basal insulin this morning for fasting BSG trending down. * Loosened Novolog parameters slightly. 09/14 * Patient received total of 93 units of insulin yesterday, of which 75 units were basal insulin * Fasting BSG 72 mg/dL - below goal range, therefore will scale back on basal ~30-40% and have scale for BSG * Continue same CF/CR for now 09/13 * 77 year old admitted with shortness of breath/edema. Type 2 diabetic managed on high amounts of insulin at home (>200 units/day) * Fasting BSG 104 mg/dL - small reduction in home basal given this morning ~20% decrease as unclear PO intake * Lunch BSG low at 56 mg/dL, 10 units of novolog given for breakfast. Possibly too tight novolog, therefore will loosen parameters with dinner. No insulin given at lunch time as BSG low * Plan to have a scale for PM basal with reduced amounts PLAN FOR INPATIENT GLYCEMIC CONTROL: * Basal insulin * Lantus 15 units SC BID * Bolus insulin * NovoLog per scale ACHS or Q6hrs while NPO * Goal Range: Low 120 mg/dL - High 160 mg/dL * Correction Factor: 20 mg/dL/unit * Nutritional / Prandial insulin per carb ratio of 1 unit per 8 grams CHO consumed
[2022-09-19] MEDS: cefTRIAXone SODIUM 2,000 MG in DEXTROSE 5% 50 ML IV SCH (16:17)
--- NOTE | 2022-09-19 20:19 | Hospitalist Progress Note ---
Date of Service September 19, 2022 Assessment & Plan (1) Acute on chronic respiratory failure with hypercapnia: Plan: improved s/p BIPAP overnight pH now normal and pCO2 much improved from 80s to low 60s I impressed upon him today that regular use of night-time BIPAP is essential for his well-being Not using it will lead to ongoing morbidity The acute resp acidosis likely is from noncompliance with CPAP for CARINA in the setting of suspected pneumonia and acute/chronic diastolic CHF. he NEEDS TO USE BIPAP every night. (2) LLL pneumonia: Plan: day #3 of rocephin/doxy for suspected pneumonia. CRP 20 -- now 12 -- c/w improving inflammatory state. Cont abx. BIPAP, and when awake NC o2. sats low 90s are acceptable. (3) Chest pain: Plan: has not recurred trops were neg was likely musculoskeletal from coughing (4) Pulmonary edema: Plan: Echo this admission with preserved EF. Suspect volume overload is more so due to CKD stage 4. However, uncontrolled a.fib could be causing some issues due to diastolic dysfunction as well. Defer diuretic management to Dr Hernandez, nephrology. Daily labs. (5) Acute on chronic diastolic (congestive) heart failure: Plan: Cont to diurese. Needs better rate control for a.fib. see below. (6) Atrial fibrillation: Plan: CHRONIC/PERMANENT. rates 90s/low 100s. will leave meds as is today - metoprolol 50mg BID and Diltiazem CD 180mg po daily. Cont eliquis. reassess tomorrow. (7) CKD (chronic kidney disease) stage 4, GFR 15-29 ml/min: Plan: Renal function baseline -- about 2. Cr higher in the face of diuresis but stable. Cont diuretics. Appreciate nephrology assistance. BMP am daily. (8) Diabetes mellitus type 2 in obese: Plan: A1c 6.9% Cont basal-bolus insulin Pharmacy glycemic management consultation appreciated control is very satisfactory (9) Hypertension: Plan: Hold losartan due to CKD stage 4 and bump in creatinine with diuresis. BPs relatively controlled; some spikes at times. Continue Metoprolol 50mg BID. Continue Hydralazine 20mg TID. Continue Diltiazem 180mg/day. Continue terazosin 5mg BID. (10) GERD (gastroesophageal reflux disease): Plan: cont PPI (11) CARINA on CPAP: Plan: noncompliant at home needs consistent use of BIPAP -- see #1 above (12) Morbid obesity with BMI of 45.0-49.9, adult: Plan: BMI 47 TSH wnl (13) Weakness of right arm: Plan: patient reports subjective weakness of right arm and in particular the right hand this is chronic. neuro exam continues to show normal b/l arm strength both proximally & distally he mentions he gets shakes/tremors/jerks and when these occur he drops things I observed this for myself - likely myoclonic jerks. suspect the jerks were due to metabolic issues - worsening renal function, hypercapnia, etc jerks are IMPROVED with getting his CO2 down overnight CT head neg cont to treat hypercapnia if jerks/etc continue then neuro consultation Plan CT a/p in 2019 at [facility] without cirrhosis of liver despite his morbid obesity updated at bedside once again PT and OT recommend rehab - social work assisting with such Admission and Anticipated Discharge Date Admission Date: September 13, 2022 Subjective pt able to tolerate BIPAP all night last pm he feels better overall - more awake, less myoclonic jerks, able to hold things today without dropping them appetite much improved still coughing but no worse than previous tele - a.fib - rates 90s/low 100s (at rest) no new complaints Review of Systems Review of Systems: gen - no fevers cv - no cp pulm - no dyspnea at rest GI - no n/v or pain Physical Exam Physical Exam: gen - morbidly obese, NAD; looks a little better today neck - unable to assess for JVD due to large neck size mouth - MMM heart - irregularly irregular, s1 s2, no murmur; rate about 100 lungs - decreased BS bases, minimal rales bases; faint end-exp wheezes remain abd - soft, umbilical hernia present (small, reducible); BS+, scant tenderness RUQ ext - 1+ edema b/l, pulses 2+ b/l skin - stasis changes b/l shins; optifoams in place b/l shins neuro - I did not see any myoclonic jerks today during the visit Results & Data Results & Data Vital Signs (Past 12 Hours) Vital Signs Temp Pulse Pulse Resp BP Pulse Ox O2 Del Method 09/19/22 15:49 96 H 09/19/22 15:34 36.8 C 90 18 116/62 92 Nasal Cannula 09/19/22 08:45 Nasal Cannula 09/19/22 11:12 36.8 C 91 H 18 135/66 95 Nasal Cannula O2 Flow Rate 09/19/22 15:49 09/19/22 15:34 2 09/19/22 08:45 2 09/19/22 11:12 5 Laboratory Results Laboratory Results - last 24 hr 09/18/22 09/18/22 09/19/22 20:22 21:00 01:56 VBG pH VBG pCO2 VBG pO2 VBG HCO3 VBG O2 Saturation VBG Base Excess Sodium 139 Potassium 4.0 Chloride 96 L Carbon Dioxide 37 H Anion Gap 6 BUN 61 H Creatinine 2.59 H Est Cr Clr Drug Dosing 35.9 Est GFR ( Amer) 26.9 Est GFR (Non-Af Amer) 23.2 BUN/Creatinine Ratio 23.6 H Glucose 141 H POC Glucose 189 H Calcium 8.3 L Phosphorus 3.2 C-Reactive Protein 13.05 H Albumin 2.9 L Adenovirus (PCR) Not Detected B. pertussis DNA (PCR) Not Detected B.parapertussis DNA PCR Not Detected C. pneumoniae DNA (PCR) Not Detected Coronavirus OC43 (PCR) Not Detected Coronavirus HKU1 (PCR) Not Detected Coronavirus 229E (PCR) Not Detected SARS-CoV-2 (PCR) Not Detected Coronavirus NL63 (PCR) Not Detected Human Metapneumovir PCR Not Detected Influenza Type A (PCR) Not Detected Influenza Type B (PCR) Not Detected M. pneumoniae (PCR) Not Detected Parainfluenza 1 (PCR) Not Detected Parainfluenza 2 (PCR) Not Detected Parainfluenza 3 (PCR) Not Detected Parainfluenza 4 (PCR) Not Detected RSV (PCR) Not Detected Entero/Rhino (PCR) Not Detected 09/19/22 09/19/22 09/19/22 01:56 07:22 07:53 VBG pH 7.37 7.40 VBG pCO2 68 H 61 H VBG pO2 42 47 VBG HCO3 39 38 VBG O2 Saturation 75.0 81.3 VBG Base Excess 11.1 11.4 Sodium Potassium Chloride Carbon Dioxide Anion Gap BUN Creatinine Est Cr Clr Drug Dosing Est GFR ( Amer) Est GFR (Non-Af Amer) BUN/Creatinine Ratio Glucose POC Glucose 101 H Calcium Phosphorus C-Reactive Protein Albumin Adenovirus (PCR) B. pertussis DNA (PCR) B.parapertussis DNA PCR C. pneumoniae DNA (PCR) Coronavirus OC43 (PCR) Coronavirus HKU1 (PCR) Coronavirus 229E (PCR) SARS-CoV-2 (PCR) Coronavirus NL63 (PCR) Human Metapneumovir PCR Influenza Type A (PCR) Influenza Type B (PCR) M. pneumoniae (PCR) Parainfluenza 1 (PCR) Parainfluenza 2 (PCR) Parainfluenza 3 (PCR) Parainfluenza 4 (PCR) RSV (PCR) Entero/Rhino (PCR) 09/19/22 09/19/22 11:09 16:28 VBG pH VBG pCO2 VBG pO2 VBG HCO3 VBG O2 Saturation VBG Base Excess Sodium Potassium Chloride Carbon Dioxide Anion Gap BUN Creatinine Est Cr Clr Drug Dosing Est GFR ( Amer) Est GFR (Non-Af Amer) BUN/Creatinine Ratio Glucose POC Glucose 155 H 115 H Calcium Phosphorus C-Reactive Protein Albumin Adenovirus (PCR) B. pertussis DNA (PCR) B.parapertussis DNA PCR C. pneumoniae DNA (PCR) Coronavirus OC43 (PCR) Coronavirus HKU1 (PCR) Coronavirus 229E (PCR) SARS-CoV-2 (PCR) Coronavirus NL63 (PCR) Human Metapneumovir PCR Influenza Type A (PCR) Influenza Type B (PCR) M. pneumoniae (PCR) Parainfluenza 1 (PCR) Parainfluenza 2 (PCR) Parainfluenza 3 (PCR) Parainfluenza 4 (PCR) RSV (PCR) Entero/Rhino (PCR) PG Care Time/CCT Total # of Minutes Spent Total Time Spent with Patient: Total time spent is greater than 50% in coordination of care (as documented) at patient's floor/unit and/or counseling patient: Coding Level of Care Code 42614 SUB INP/OBS CARE 3/50MIN Diagnoses Acute on chronic respiratory failure with hypercapnia J96.22 LLL pneumonia J18.9 Chest pain R07.9 Pulmonary edema J81.1 Acute on chronic diastolic (congestive) heart failure I50.33 Atrial fibrillation I48.91 CKD (chronic kidney disease) stage 4, GFR 15-29 ml/min N18.4 Diabetes mellitus type 2 in obese E11.69; E66.9 Hypertension I10 GERD (gastroesophageal reflux disease) K21.9 CARINA on CPAP G47.33; Z99.89 Morbid obesity with BMI of 45.0-49.9, adult E66.01; Z68.42 Weakness of right arm R29.898
[2022-09-19] MEDS: ATORVASTATIN 40 MG TAB PO SCH (21:07)
[2022-09-19] MEDS: ACETAMINOPHEN 325 MG TAB PO PRN (23:03)
[2022-09-20] MEDS: DOXYCYCLINE HYCLATE 100 MG in DEXTROSE 5% 100 ML IV SCH ×2 (05:17→17:45)
[2022-09-20 07:17] LABS: Albumin Level 3.1 gm/dl (3.4-5.0); BUN Creatinine Ratio 25.5 (10-20); Calcium 8.5 mg/dl (8.6-10.3); Creatinine Clr Calc Pharmacy 40.1 ml/min; Est GFR (African American) 30.9 ml/min; Est GFR (Non-African American) 26.6 ml/min; Phosphorus 3.1 mg/dl (2.5-4.9); Potassium 4.1 mmol/L (3.5-5.1)
[2022-09-20] MEDS: INSULIN ASPART PER UNIT CHARGE SC SCH ×4 (08:12→20:20)
[2022-09-20] MEDS: LANTUS PER UNIT CHARGE SQ SCH ×2 (08:12→20:25)
[2022-09-20] MEDS: FINASTERIDE 5 MG TAB PO SCH (08:25)
[2022-09-20] MEDS: ACETAMINOPHEN 325 MG TAB PO PRN ×2 (08:25→20:25)
[2022-09-20] MEDS: guaiFENesin 600 MG TABCR PO SCH ×2 (08:26→20:21)
[2022-09-20] MEDS: PANTOprazole 40 MG TAB PO SCH (08:26)
[2022-09-20] MEDS: LACTULOSE SYRUP 30 GM/45 ML UDP PO SCH (08:26)
[2022-09-20] MEDS: APIXABAN 5 MG TABLET PO SCH ×2 (08:26→20:21)
[2022-09-20] MEDS: dilTIAZem HCL 180 MG CAPCR PO SCH (08:27)
[2022-09-20] MEDS: hydrALAZINE 10 MG TAB PO SCH ×3 (08:27→20:21)
[2022-09-20] MEDS: ASPIRIN 81 MG ECTAB PO SCH (08:27)
[2022-09-20] MEDS: BENZONATATE 100 MG CAPSULE PO SCH ×3 (08:27→20:21)
[2022-09-20] MEDS: TERAZOSIN HCL 5 MG CAP PO SCH ×2 (08:27→20:22)
[2022-09-20] MEDS: FUROSEMIDE 40 MG/4 ML VIAL IV SCH ×2 (08:28→17:46)
[2022-09-20] MEDS: METOPROLOL TARTRATE 25 MG TAB PO SCH ×2 (08:28→20:22)
[2022-09-20] MEDS: POTASSIUM CHLORIDE CRTAB 20 MEQ TABCR PO SCH ×2 (08:30→20:25)
[2022-09-20] MEDS: DOCUSATE SODIUM 100 MG CAP PO SCH (08:30)
[2022-09-20] MEDS: cefTRIAXone SODIUM 2,000 MG in DEXTROSE 5% 50 ML IV SCH (15:31)
[2022-09-20] MEDS ORDERED: MICONAZOLE NITRATE POWDER 85 GM EXT PRN (18:38)
--- NOTE | 2022-09-20 19:19 | Nephrology Progress Note ---
Date of Service September 20, 2022 Assessment & Plan (1) CKD (chronic kidney disease) stage 4, GFR 15-29 ml/min: Plan: Stage IV A3 (PCR 0.35). Baseline creatinine 2.0-2.4 mg/dL. CKD attributed to DKD. Screening for paraprotein negative. Electrolytes normal. Unfortunately complicated by diuretic resistant volume overload. Tolerating aggressive dosing of furosemide reasonably well but without notable negative fluid balance. Low sodium diet. Repeat metabolic profile tomorrow AM. (2) Proteinuria: (3) Anemia of chronic disease: Plan: Epogen 33689 units x 1 dose given on 09/18/22. completed Venofer 200 mg IV daily for total 5 doses. (4) Hypertension: Plan: BP controlled. Tolerating current therapy well. ALLA/ARB deferred due to advanced CKD and recent ARMOND. (5) Lower extremity edema: Plan: Notable scrotal and LE edema. Continued slow improvement. Discussed options for management including aggressive diuretic therapy vs dialysis or isolated ultrafiltration. Opted to avoid ER REGISTRAR for now. Unfortunately, given advanced CKD at baseline, I would not be able promise that Anup would not continue to require dialysis. Consider transition to 24 hour Bumex gtt if no improvement in next 24-48 hours. Admission and Anticipated Discharge Date Admission Date: September 13, 2022 Subjective Anup was seen and evaluated resting in a recliner this evening. He reports breathing comfortably. He notes that his shakes and jerking have resolved. He was able to perform some sitting to stand exercises today. Scrotal edema is unfortunately very uncomfortable and bothersome. Weakness and deconditioning remain a concern. Anup reports difficulty bearing weight and standing for periods of time. He has notable persistent lower extremity edema. His legs are heavy affecting his ability to walk as well. Review of Systems Review of Systems: All systems reviewed & are unremarkable except as noted in HPI & below Physical Exam Constitutional: well developed and + morbidly obese; no acute distress Eyes: + anicteric sclerae; no corneal abnormality Neck: normal visual inspection, trachea midline and + thick neck Respiratory: normal respiratory effort and + tachypneic Auscultation: + diminished lung sounds Cardiovascular: Rate/Rhythm: regular rate Heart Sounds: normal S1 and normal S2 Extremities: + edema Musculoskeletal: Extremities: no cyanosis and no clubbing Skin: normal turgor; no jaundice Neurologic: Motor/Sensory: no tremor and no asterixis Psychiatric: Orientation: alert and oriented x 3 Results & Data Vital Signs (Past 12 Hours) Vital Signs Temp Pulse Pulse Resp BP Pulse Ox O2 Del Method 09/20/22 14:32 88 09/20/22 15:47 36.5 C 85 22 134/82 97 Nasal Cannula 09/20/22 10:54 36.3 C L 116 H 18 156/83 H 98 Nasal Cannula 09/20/22 08:00 Nasal Cannula 09/20/22 07:58 36.8 C 108 H 18 139/86 95 Nasal Cannula O2 Flow Rate 09/20/22 14:32 09/20/22 15:47 3 09/20/22 10:54 3 09/20/22 08:00 3 09/20/22 07:58 4 Laboratory Results Laboratory Results - last 24 hr 09/19/22 09/20/22 09/20/22 20:40 06:20 07:49 Sodium 141 Potassium 4.1 Chloride 99 Carbon Dioxide 39 H Anion Gap 3 BUN 59 H Creatinine 2.31 H Est Cr Clr Drug Dosing 40.1 Est GFR ( Amer) 30.9 Est GFR (Non-Af Amer) 26.6 BUN/Creatinine Ratio 25.5 H Glucose 122 H POC Glucose 141 H 132 H Calcium 8.5 L Phosphorus 3.1 Albumin 3.1 L 09/20/22 09/20/22 11:39 16:15 Sodium Potassium Chloride Carbon Dioxide Anion Gap BUN Creatinine Est Cr Clr Drug Dosing Est GFR ( Amer) Est GFR (Non-Af Amer) BUN/Creatinine Ratio Glucose POC Glucose 180 H 139 H Calcium Phosphorus Albumin PG Care Time/CCT Total # of Minutes Spent Total Time Spent with Patient: Total time spent is greater than 50% in coordination of care (as documented) at patient's floor/unit and/or counseling patient: Coding Level of Care Code 23054 SUB INP/OBS CARE 3/50MIN Diagnoses CKD (chronic kidney disease) stage 4, GFR 15-29 ml/min N18.4 Proteinuria R80.9 Anemia of chronic disease D63.8 Hypertension I10 Lower extremity edema R60.0
[2022-09-20] MEDS: ATORVASTATIN 40 MG TAB PO SCH (20:21)
--- NOTE | 2022-09-20 20:24 | Hospitalist Progress Note ---
Date of Service September 20, 2022 Assessment & Plan (1) Acute on chronic respiratory failure with hypercapnia: Plan: patient noncompliant with CPAP at home (or BIPAP - not sure which one he has) wore it faithfully 1 night this week with marked improvement in pH and pCO2 last night only wore it for a few hours asked family to bring home unit in or at least the mask - the mask is the portion he dislikes here again told him & family he has to wear BIPAP or face ongoing morbidity (2) LLL pneumonia: Plan: day #4 of rocephin/doxy for suspected pneumonia. CRP 20 -- now 12 -- c/w improving inflammatory state. Cont abx - can likely change to PO cefdinir/doxy in am. recheck crp in am. BIPAP, and when awake NC o2. sats low 90s are acceptable. (3) Chest pain: Plan: has not recurred trops were neg was likely musculoskeletal from coughing (4) Pulmonary edema: Plan: Echo this admission with preserved EF. Suspect volume overload is more so due to CKD stage 4. However, uncontrolled a.fib could be causing some issues due to diastolic dysfunction as well. Defer diuretic management to Dr Hernandez, nephrology. Daily labs. (5) Acute on chronic diastolic (congestive) heart failure: Plan: Cont to diurese. defer diuretic management to nephrology. (6) Atrial fibrillation: Plan: CHRONIC/PERMANENT. rates 90s/low 100s. will leave meds as is today - metoprolol 50mg BID and Diltiazem CD 180mg po daily. Cont eliquis. reassess tomorrow. if rates still poor then increase BB. (7) CKD (chronic kidney disease) stage 4, GFR 15-29 ml/min: Plan: Renal function baseline -- about 2. Cr higher in the face of diuresis but stable. Cont diuretics. Appreciate nephrology assistance. BMP am daily. (8) Diabetes mellitus type 2 in obese: Plan: A1c 6.9% Cont basal-bolus insulin Pharmacy glycemic management consultation appreciated control is very satisfactory (9) Hypertension: Plan: Hold losartan due to CKD stage 4 and bump in creatinine with diuresis. BPs acceptable today. Continue Metoprolol 50mg BID. Continue Hydralazine 20mg TID. Continue Diltiazem 180mg day. Continue terazosin 5mg BID. (10) GERD (gastroesophageal reflux disease): Plan: cont PPI (11) CARINA on CPAP: Plan: noncompliant at home needs consistent use of BIPAP -- see #1 above (12) Morbid obesity with BMI of 45.0-49.9, adult: Plan: BMI 47 TSH wnl (13) Myoclonic jerking: Plan: was likely 2nd to acute resp acidosis / high pCO2 MARKED improvement in normalization of pH and pCO2 none seen in 48+ hours Plan CT a/p in 2019 at [facility] without cirrhosis of liver despite his morbid obesity updated at bedside once again today PT and OT recommend rehab - social work assisting with such - he is agreeable Admission and Anticipated Discharge Date Admission Date: September 13, 2022 Subjective pt sitting in chair during my visit multiple family present including son and his only used BIPAP last pm for a few hours I asked family to bring his home unit in he dislikes our mask and the securing device with it cough improved appetite MUCH better - 100% meals consumed myoclonic jerks just about resolved slurred speech better c/o scrotal edema tele - a. fib - rates low 100s Review of Systems Review of Systems: gen - sweats/chills resolved cv - no chest pain pulm - all pulmonary symptoms improved GI - no pain Physical Exam Physical Exam: gen - morbidly obese, NAD; best he has looked all week neck - unable to assess for JVD due to large neck size mouth - MMM heart - irregularly irregular, s1 s2, no murmur; rate >100 lungs - decreased BS bases, minimal rales bases; no wheezes abd - soft, BS+, NT ext - 1+ edema b/l, pulses 2+ b/l skin - stasis changes b/l shins; optifoams in place b/l shins neuro - again I did not see any myoclonic jerks today during the visit ; dysarthric speech resolved; very clear today Results & Data Results & Data Vital Signs (Past 12 Hours) Vital Signs Temp Pulse Pulse Resp BP Pulse Ox O2 Del Method 09/20/22 14:32 88 09/20/22 15:47 36.5 C 85 22 134/82 97 Nasal Cannula 09/20/22 10:54 36.3 C L 116 H 18 156/83 H 98 Nasal Cannula O2 Flow Rate 09/20/22 14:32 04/01/23 15:47 3 09/20/22 10:54 3 Laboratory Results Laboratory Results - last 24 hr 09/19/22 09/20/22 09/20/22 20:40 06:20 07:49 Sodium 141 Potassium 4.1 Chloride 99 Carbon Dioxide 39 H Anion Gap 3 BUN 59 H Creatinine 2.31 H Est Cr Clr Drug Dosing 40.1 Est GFR ( Amer) 30.9 Est GFR (Non-Af Amer) 26.6 BUN/Creatinine Ratio 25.5 H Glucose 122 H POC Glucose 141 H 132 H Calcium 8.5 L Phosphorus 3.1 Albumin 3.1 L 09/20/22 09/20/22 09/20/22 11:39 16:15 20:18 Sodium Potassium Chloride Carbon Dioxide Anion Gap BUN Creatinine Est Cr Clr Drug Dosing Est GFR ( Amer) Est GFR (Non-Af Amer) BUN/Creatinine Ratio Glucose POC Glucose 180 H 139 H 156 H Calcium Phosphorus Albumin PG Care Time/CCT Total # of Minutes Spent Total Time Spent with Patient: Total time spent is greater than 50% in coordination of care (as documented) at patient's floor/unit and/or counseling patient: Coding Level of Care Code 78156 SUB INP/OBS CARE 2/35MIN Diagnoses Acute on chronic respiratory failure with hypercapnia J96.22 LLL pneumonia J18.9 Chest pain R07.9 Pulmonary edema J81.1 Acute on chronic diastolic (congestive) heart failure I50.33 Atrial fibrillation I48.91 CKD (chronic kidney disease) stage 4, GFR 15-29 ml/min N18.4 Diabetes mellitus type 2 in obese E11.69; E66.9 Hypertension I10 GERD (gastroesophageal reflux disease) K21.9 CARINA on CPAP G47.33; Z99.89 Morbid obesity with BMI of 45.0-49.9, adult E66.01; Z68.42 Myoclonic jerking G25.3
[2022-09-21] MEDS: DOXYCYCLINE HYCLATE 100 MG in DEXTROSE 5% 100 ML IV SCH (05:57)
[2022-09-21 06:33] LABS: BUN Creatinine Ratio 26.8 (10-20); C Reactive Protein 8.6 mg/dl (0-0.5); Calcium 8.3 mg/dl (8.6-10.3); Creatinine Clr Calc Pharmacy 43.4 ml/min; Est GFR (African American) 34.1 ml/min; Est GFR (Non-African American) 29.4 ml/min; Potassium 4.3 mmol/L (3.5-5.1)
[2022-09-21] MEDS: INSULIN ASPART PER UNIT CHARGE SC SCH ×4 (08:14→20:35)
[2022-09-21] MEDS: FUROSEMIDE 40 MG/4 ML VIAL IV SCH ×2 (08:15→17:16)
[2022-09-21] MEDS: LANTUS PER UNIT CHARGE SQ SCH ×2 (08:15→20:42)
[2022-09-21] MEDS: POTASSIUM CHLORIDE CRTAB 20 MEQ TABCR PO SCH ×2 (08:18→20:42)
[2022-09-21] MEDS: ACETAMINOPHEN 325 MG TAB PO PRN (08:18)
[2022-09-21] MEDS: DOCUSATE SODIUM 100 MG CAP PO SCH (08:18)
[2022-09-21] MEDS: PANTOprazole 40 MG TAB PO SCH (08:19)
[2022-09-21] MEDS: BENZONATATE 100 MG CAPSULE PO SCH ×3 (08:19→20:33)
[2022-09-21] MEDS: METOPROLOL TARTRATE 25 MG TAB PO SCH ×2 (08:19→20:35)
[2022-09-21] MEDS: dilTIAZem HCL 180 MG CAPCR PO SCH (08:19)
[2022-09-21] MEDS: LACTULOSE SYRUP 30 GM/45 ML UDP PO SCH (08:19)
[2022-09-21] MEDS: TERAZOSIN HCL 5 MG CAP PO SCH ×2 (08:19→20:34)
[2022-09-21] MEDS: guaiFENesin 600 MG TABCR PO SCH ×2 (08:22→20:32)
[2022-09-21] MEDS: ASPIRIN 81 MG ECTAB PO SCH (08:22)
[2022-09-21] MEDS: APIXABAN 5 MG TABLET PO SCH ×2 (08:22→20:31)
[2022-09-21] MEDS: FINASTERIDE 5 MG TAB PO SCH (08:22)
[2022-09-21] MEDS: hydrALAZINE 10 MG TAB PO SCH ×3 (08:23→20:34)
--- NOTE | 2022-09-21 11:25 | Nephrology Progress Note ---
Date of Service September 21, 2022 Assessment & Plan (1) CKD (chronic kidney disease) stage 4, GFR 15-29 ml/min: Plan: Stage IV A3 (PCR 0.35). Baseline creatinine 2.0-2.4 mg/dL. CKD attributed to DKD. Screening for paraprotein negative. Electrolytes normal. Unfortunately complicated by diuretic resistant volume overload. Tolerating aggressive dosing of furosemide with noted significant improvement in UOP in past 24 hours. Low sodium diet. Repeat metabolic profile tomorrow AM. Document strict I/O's. (2) Proteinuria: (3) Anemia of chronic disease: Plan: Epogen 99687 units x 1 dose given on 09/18/22. completed Venofer 200 mg IV daily for total 5 doses. (4) Hypertension: Plan: BP controlled. Tolerating current therapy well. ALLA/ARB deferred due to advanced CKD and recent ARMOND. (5) Lower extremity edema: Plan: Notable scrotal and LE edema. Improved diuresis in past 24 hours. Continue furosemide as Rx. No indication to initiate dialysis at this time. Admission and Anticipated Discharge Date Admission Date: September 13, 2022 Subjective No acute events overnight. Scrotal edema persists. Expressed frustration regarding persistent discomfort. LE edema does seem to be improving. Overall, improvement noted. Denies notable dyspnea. UOP significantly increased overnight. Review of Systems Review of Systems: All systems reviewed & are unremarkable except as noted in HPI & below Physical Exam Constitutional: well developed and + morbidly obese; no acute distress Eyes: + anicteric sclerae; no scleral abnormality and no corneal abnormality ENMT: Mouth: no oral mucosal abnormality and oral mucous membranes not dry Neck: normal visual inspection, trachea midline and + thick neck Respiratory: normal respiratory effort and + tachypneic Auscultation: lungs clear to auscultation bilaterally and + diminished lung sounds Cardiovascular: Rate/Rhythm: regular rate Heart Sounds: normal S1 and normal S2 Extremities: + edema Musculoskeletal: Extremities: no cyanosis and no clubbing Skin: normal turgor; no lesions and no jaundice Neurologic: Motor/Sensory: no tremor and no asterixis Psychiatric: Orientation: alert and oriented x 3 Results & Data Vital Signs (Past 12 Hours) Vital Signs Temp Pulse Pulse Resp BP BP Pulse Ox 09/21/22 11:19 36.8 C 102 H 16 104/65 95 09/21/22 08:00 36.4 C L 108 H 16 176/83 H 98 09/21/22 07:15 09/21/22 06:03 106 H 09/21/22 03:11 36.6 C 90 20 137/54 L 95 09/20/22 23:34 79 O2 Del Method O2 Flow Rate 09/21/22 11:19 Nasal Cannula 3 09/21/22 08:00 Nasal Cannula 3 09/21/22 07:15 Nasal Cannula 3 09/21/22 06:03 09/21/22 03:11 Nasal Cannula 3 09/20/22 23:34 Laboratory Results Laboratory Results - last 24 hr 09/20/22 09/20/22 09/20/22 11:39 16:15 20:18 Sodium Potassium Chloride Carbon Dioxide Anion Gap BUN Creatinine Est Cr Clr Drug Dosing Est GFR ( Amer) Est GFR (Non-Af Amer) BUN/Creatinine Ratio Glucose POC Glucose 180 H 139 H 156 H Calcium C-Reactive Protein 09/21/22 09/21/22 09/21/22 05:35 07:45 11:11 Sodium 143 Potassium 4.3 Chloride 98 Carbon Dioxide 40 H Anion Gap 5 BUN 57 H Creatinine 2.13 H Est Cr Clr Drug Dosing 43.4 Est GFR ( Amer) 34.1 Est GFR (Non-Af Amer) 29.4 BUN/Creatinine Ratio 26.8 H Glucose 128 H POC Glucose 143 H 369 H* Calcium 8.3 L C-Reactive Protein 8.60 H 09/21/22 11:13 Sodium Potassium Chloride Carbon Dioxide Anion Gap BUN Creatinine Est Cr Clr Drug Dosing Est GFR ( Amer) Est GFR (Non-Af Amer) BUN/Creatinine Ratio Glucose POC Glucose 211 H Calcium C-Reactive Protein PG Care Time/CCT Total # of Minutes Spent Total Time Spent with Patient: Total time spent is greater than 50% in coordination of care (as documented) at patient's floor/unit and/or counseling patient: Coding Level of Care Code 21068 SUB INP/OBS CARE 3/50MIN Diagnoses CKD (chronic kidney disease) stage 4, GFR 15-29 ml/min N18.4 Proteinuria R80.9 Anemia of chronic disease D63.8 Hypertension I10 Lower extremity edema R60.0
[2022-09-21] MEDS: CEFDINIR 300 MG CAP PO SCH ×2 (14:07→20:31)
--- NOTE | 2022-09-21 20:00 | Hospitalist Progress Note ---
Date of Service September 21, 2022 Assessment & Plan (1) Acute on chronic respiratory failure with hypercapnia: Plan: patient noncompliant with CPAP at home (or BIPAP - not sure which one he has) wore it faithfully 1 night this week with marked improvement in pH and pCO2 2 nights ago only wore it for a few hours last night did not use at all family cannot find his home unit at his house again encouraged him to wear BIPAP faithfully/consistently (2) LLL pneumonia: Plan: day #5 of abx previously on rocephin/doxy for suspected pneumonia. changed to PO cefdinir/doxy today. plan 7 day course of IV/PO abx. CRP 20 --> 13 --> 8. c/w improving inflammatory state. BIPAP HS, and when awake NC o2. sats low 90s are acceptable. (3) Chest pain: Plan: has not recurred trops were negative was likely musculoskeletal from coughing has not had this in a couple of days (4) Pulmonary edema: Plan: Echo this admission with preserved EF. Suspect volume overload is more so due to CKD stage 4. However, uncontrolled a.fib could be causing some issues due to diastolic d ysfunction as well. Defer diuretic management to [facility] nephrology. Daily labs. (5) Acute on chronic diastolic (congestive) heart failure: Plan: Cont to diurese. defer diuretic management to nephrology. (6) Atrial fibrillation: Plan: CHRONIC/PERMANENT. rates 90s/low 100s. Cont eliquis. Plan to increase metoprolol to 100mg BID. Cont cardizem CD as is. reassess tomorrow. (7) CKD (chronic kidney disease) stage 4, GFR 15-29 ml/min: Plan: Renal function baseline -- about 2. Cr had risen higher in the face of diuresis but now Cr has improved to 2.1 today. Cont diuretics. Appreciate nephrology assistance. BMP am daily. (8) Diabetes mellitus type 2 in obese: Plan: A1c 6.9% Cont basal-bolus insulin Pharmacy glycemic management consultation appreciated control is very satisfactory (9) Hypertension: Plan: Hold losartan due to CKD stage 4 and bump in creatinine with diuresis. BPs mildly high today. Cont to titrate metoprolol for improved rate control of a.fib & his HTN. Since we will be increasing his metoprolol will lower Hydralazine to 10mg TID. Continue Diltiazem 180mg day. Continue terazosin 5mg BID. (10) GERD (gastroesophageal reflux disease): Plan: cont PPI (11) CARINA on CPAP: Plan: noncompliant at home needs consistent use of BIPAP -- see #1 above (12) Morbid obesity with BMI of 45.0-49.9, adult: Plan: BMI 45-50 TSH wnl (13) Myoclonic jerking: Plan: was likely 2nd to acute resp acidosis / high pCO2 MARKED improvement with normalization of pH and pCO2 none seen in 72+ hours Plan CT a/p in 2019 at [facility] without cirrhosis of liver despite his morbid obesity updated at bedside yesterday PT and OT recommend rehab - social work assisting with such - he is agreeable Admission and Anticipated Discharge Date Admission Date: September 13, 2022 Subjective patient upset that the Cable TV is not working he denies any new complaints he did not use BIPAP last pm he states his tried to find his home BIPAP unit but she cannot find it cough improved myoclonic jerks just about resolved able to hold things without his arms/hands jerking denies dyspnea at rest moved his bowels yesterday eating 100% of meals now Review of Systems Review of Systems: gen - no fevers; eating well; feels better overall cv - denies chest pain pulm - no sputum GI - no n/v musculo - b/l knee pain Physical Exam Physical Exam: gen - morbidly obese, NAD; sitting in chair neck - unable to assess for JVD due to large neck size mouth - MMM heart - irregularly irregular, s1 s2, no murmur; rate about 100 lungs - decreased BS bases, scant dry rales bases; no wheezes abd - soft, BS+, NT ext - 1+ edema b/l, pulses 2+ b/l - scrotal & penile edema skin - stasis changes b/l shins; optifoams in place b/l shins; neither ulcer b/l shins without cellulitis/infection neuro - no myoclonic jerks today Results & Data Results & Data Vital Signs (Past 12 Hours) Vital Signs Temp Pulse Pulse Resp BP Pulse Ox O2 Del Method 09/21/22 14:35 77 09/21/22 15:09 37.3 C 90 16 153/78 H 95 Nasal Cannula 09/21/22 11:19 36.8 C 102 H 16 104/65 95 Nasal Cannula O2 Flow Rate 09/21/22 14:35 09/21/22 15:09 3 09/21/22 11:19 3 Laboratory Results Laboratory Results - last 24 hr 09/20/22 09/21/22 09/21/22 20:18 05:35 07:45 Sodium 143 Potassium 4.3 Chloride 98 Carbon Dioxide 40 H Anion Gap 5 BUN 57 H Creatinine 2.13 H Est Cr Clr Drug Dosing 43.4 Est GFR ( Amer) 34.1 Est GFR (Non-Af Amer) 29.4 BUN/Creatinine Ratio 26.8 H Glucose 128 H POC Glucose 156 H 143 H Calcium 8.3 L C-Reactive Protein 8.60 H 09/21/22 09/21/22 09/21/22 11:11 11:13 16:07 Sodium Potassium Chloride Carbon Dioxide Anion Gap BUN Creatinine Est Cr Clr Drug Dosing Est GFR ( Amer) Est GFR (Non-Af Amer) BUN/Creatinine Ratio Glucose POC Glucose 369 H* 211 H 105 H Calcium C-Reactive Protein PG Care Time/CCT Total # of Minutes Spent Total Time Spent with Patient: Total time spent is greater than 50% in coordination of care (as documented) at patient's floor/unit and/or counseling patient: Coding Level of Care Code 52717 SUB INP/OBS CARE 2/35MIN Diagnoses Acute on chronic respiratory failure with hypercapnia J96.22 LLL pneumonia J18.9 Chest pain R07.9 Pulmonary edema J81.1 Acute on chronic diastolic (congestive) heart failure I50.33 Atrial fibrillation I48.91 CKD (chronic kidney disease) stage 4, GFR 15-29 ml/min N18.4 Diabetes mellitus type 2 in obese E11.69; E66.9 Hypertension I10 GERD (gastroesophageal reflux disease) K21.9 CARINA on CPAP G47.33; Z99.89 Morbid obesity with BMI of 45.0-49.9, adult E66.01; Z68.42 Myoclonic jerking G25.3
[2022-09-21] MEDS: ATORVASTATIN 40 MG TAB PO SCH (20:31)
[2022-09-21] MEDS: DOXYCYCLINE HYCLATE 100 MG CAP PO SCH (20:32)
[2022-09-22 07:50] LABS: Base Excess VBG 14.4 mEq/L; HCO3 VBG 44 mmol/L; Oxygen Saturation VBG < 60.0 %; PCO2 VBG 82 mmHg (38-50); PO2 VBG 30 mmHg; pH VBG 7.34 (7.36-7.41)
[2022-09-22 07:54] LABS: Hematocrit (blood only) 30.8 % (42.0-52.0); Hemoglobin 9.5 g/dl (14.0-18.0); Mean Corpuscular Hemoglobin 27.6 pg (25.0-34.0); Mean Corpuscular Hgb Conc 30.8 g/dL (32.0-36.0); Mean Corpuscular Volume 89.5 fL (80.0-100.0); Mean Platelet Volume 10.9 fL (9.4-12.4); Platelet Count 286 K/uL (130-400); RDW Coefficient of Variation 15.5 % (11.5-14.5); RDW Standard Deviation 49.7 fL (36.4-46.3); Red Blood Count 3.44 M/uL (4.70-6.10); White Blood Count 10.53 K/ul (4.8-10.8)
[2022-09-22] MEDS: LANTUS PER UNIT CHARGE SQ SCH ×2 (08:18→21:06)
[2022-09-22] MEDS: INSULIN ASPART PER UNIT CHARGE SC SCH ×4 (08:18→21:05)
[2022-09-22] MEDS: DOCUSATE SODIUM 100 MG CAP PO SCH (08:19)
[2022-09-22] MEDS: POTASSIUM CHLORIDE CRTAB 20 MEQ TABCR PO SCH ×2 (08:19→21:16)
[2022-09-22] MEDS: BENZONATATE 100 MG CAPSULE PO SCH ×3 (08:19→21:11)
[2022-09-22] MEDS: guaiFENesin 600 MG TABCR PO SCH ×2 (08:19→21:10)
[2022-09-22] MEDS: DOXYCYCLINE HYCLATE 100 MG CAP PO SCH ×2 (08:20→21:11)
[2022-09-22] MEDS: TERAZOSIN HCL 5 MG CAP PO SCH ×2 (08:20→21:09)
[2022-09-22] MEDS: APIXABAN 5 MG TABLET PO SCH ×2 (08:20→21:09)
[2022-09-22] MEDS: ASPIRIN 81 MG ECTAB PO SCH (08:21)
[2022-09-22] MEDS: hydrALAZINE 10 MG TAB PO SCH ×3 (08:21→21:08)
[2022-09-22] MEDS: dilTIAZem HCL 180 MG CAPCR PO SCH (08:21)
[2022-09-22] MEDS: FINASTERIDE 5 MG TAB PO SCH (08:21)
[2022-09-22] MEDS: CEFDINIR 300 MG CAP PO SCH ×2 (08:22→21:12)
[2022-09-22] MEDS: PANTOprazole 40 MG TAB PO SCH (08:22)
[2022-09-22] MEDS: LACTULOSE SYRUP 30 GM/45 ML UDP PO SCH (08:25)
[2022-09-22] MEDS: METOPROLOL TARTRATE 100 MG TAB PO SCH ×2 (08:25→21:09)
[2022-09-22] MEDS: FUROSEMIDE 40 MG/4 ML VIAL IV SCH ×2 (08:26→17:41)
[2022-09-22 10:01] LABS: Calcium 8.4 mg/dl (8.6-10.3); Magnesium 1.7 mg/dl (1.7-2.4)
[2022-09-22 10:06] LABS: BUN Creatinine Ratio 24.7 (10-20); Creatinine Clr Calc Pharmacy 41.5 ml/min; Est GFR (African American) 32.2 ml/min; Est GFR (Non-African American) 27.8 ml/min
--- NOTE | 2022-09-22 10:18 | Nephrology Progress Note ---
Date of Service September 22, 2022 Assessment & Plan (1) CKD (chronic kidney disease) stage 4, GFR 15-29 ml/min: Plan: Stage IV A3 (PCR 0.35). Baseline creatinine 2.0-2.4 mg/dL. CKD attributed to DKD. Screening for paraprotein negative. Electrolytes normal. Unfortunately complicated by diuretic resistant volume overload. Tolerating aggressive dosing of furosemide. Low sodium diet. Repeat metabolic profile tomorrow AM. Document strict I/O's. (2) Anemia of chronic disease: Plan: Epogen 64410 units x 1 dose given on 09/18/22. completed Venofer 200 mg IV daily for total 5 doses. (3) Hypertension: Plan: BP controlled. Tolerating current therapy well. ALLA/ARB deferred due to advanced CKD and recent ARMOND. (4) Lower extremity edema: Plan: Continue furosemide as Rx. No indication to initiate dialysis at this time. Admission and Anticipated Discharge Date Admission Date: September 13, 2022 Subjective No acute events overnight. Anup is resting comfortable in his recliner. Able to tolerate ~3 hours of BIPAP last night. Unfortunately, not sleeping well. Edema is improving. Overall, he states that he feels well. Denies dyspnea. Appetite fair. Review of Systems Review of Systems: All systems reviewed & are unremarkable except as noted in HPI & below Physical Exam Constitutional: well developed and + morbidly obese; no acute distress Eyes: + anicteric sclerae; no scleral abnormality and no corneal abnormality ENMT: Mouth: no oral mucosal abnormality and oral mucous membranes not dry Neck: normal visual inspection, trachea midline and + thick neck Respiratory: normal respiratory effort and + tachypneic Auscultation: lungs clear to auscultation bilaterally and + diminished lung sounds Cardiovascular: Rate/Rhythm: regular rate Heart Sounds: normal S1 and normal S2 Extremities: + edema Musculoskeletal: Extremities: no cyanosis and no clubbing Skin: normal turgor; no lesions and no jaundice Neurologic: Motor/Sensory: no tremor and no asterixis Psychiatric: Orientation: alert and oriented x 3 Results & Data Vital Signs (Past 12 Hours) Vital Signs Temp Pulse Pulse Resp BP Pulse Ox O2 Del Method 09/22/22 07:20 Nasal Cannula 09/22/22 06:23 97 H 09/22/22 03:22 36.6 C 102 H 18 147/92 H 97 Nasal Cannula 09/21/22 23:23 92 H 09/21/22 22:48 63 16 94 O2 Flow Rate 09/22/22 07:20 3 09/22/22 06:23 09/22/22 03:22 3 09/21/22 23:23 09/21/22 22:48 3 Laboratory Results Laboratory Results - last 24 hr 09/21/22 09/21/22 09/21/22 11:11 11:13 16:07 WBC RBC Hgb Hct MCV MCH MCHC RDW Std Deviation RDW Coeff of Barby Plt Count MPV VBG pH VBG pCO2 VBG pO2 VBG HCO3 VBG O2 Saturation VBG Base Excess Sodium Potassium Chloride Carbon Dioxide Anion Gap BUN Creatinine Est Cr Clr Drug Dosing Est GFR ( Amer) Est GFR (Non-Af Amer) BUN/Creatinine Ratio Glucose POC Glucose 369 H* 211 H 105 H Calcium Magnesium 09/21/22 09/22/22 09/22/22 20:29 07:36 07:36 WBC RBC Hgb Hct MCV MCH MCHC RDW Std Deviation RDW Coeff of Barby Plt Count MPV VBG pH 7.34 L VBG pCO2 82 H VBG pO2 30 VBG HCO3 44 VBG O2 Saturation < 60.0 VBG Base Excess 14.4 Sodium 143 Potassium 4.0 Chloride 98 Carbon Dioxide 38 H Anion Gap 7 BUN 55 H Creatinine 2.23 H Est Cr Clr Drug Dosing 41.5 Est GFR ( Amer) 32.2 Est GFR (Non-Af Amer) 27.8 BUN/Creatinine Ratio 24.7 H Glucose 118 H POC Glucose 139 H Calcium 8.4 L Magnesium 1.7 09/22/22 09/22/22 07:36 07:43 WBC 10.53 RBC 3.44 L Hgb 9.5 L Hct 30.8 L MCV 89.5 MCH 27.6 MCHC 30.8 L RDW Std Deviation 49.7 H RDW Coeff of Barby 15.5 H Plt Count 286 MPV 10.9 VBG pH VBG pCO2 VBG pO2 VBG HCO3 VBG O2 Saturation VBG Base Excess Sodium Potassium Chloride Carbon Dioxide Anion Gap BUN Creatinine Est Cr Clr Drug Dosing Est GFR ( Amer) Est GFR (Non-Af Amer) BUN/Creatinine Ratio Glucose POC Glucose 127 H Calcium Magnesium PG Care Time/CCT Total # of Minutes Spent Total Time Spent with Patient: Total time spent is greater than 50% in coordination of care (as documented) at patient's floor/unit and/or counseling patient: Coding Level of Care Code 88455 SUB INP/OBS CARE 3/50MIN Diagnoses CKD (chronic kidney disease) stage 4, GFR 15-29 ml/min N18.4 Anemia of chronic disease D63.8 Hypertension I10 Lower extremity edema R60.0
--- NOTE | 2022-09-22 14:24 | Pharmacy Report ---
Pharmacy Glycemic Short Note 2 - Date of Service September 22, 2022 - Glycemic Short BSG Results (Last 24 hours): 09/21/22 09/21/22 09/22/22 16:07 20:29 07:36 Glucose 118 H POC Glucose 105 H 139 H 09/22/22 09/22/22 07:43 11:43 Glucose POC Glucose 127 H 154 H OUTPATIENT ANTIDIABETIC REGIMEN: * Lantus 57 units SC BID * Novolog 42 units SC TID with meals * HbA1c: 6.9% (09/13/22) ASSESSMENT: 09/22/22 * BSGs yesterday were [id number] mg/dL. Patient received 51 units (30 units of basal and 21 units of bolus). * BSGs today are 127-154 mg/dL. Fasting within goal range so continue current regimen. * For bolus insulin, patient tends to have highest BSGs reading at lunch so tightened CR slightly at breakfast. Loosen CF since patient overcorrects when BSG elevated. Continue to monitor. 09/19: * A total of 60 units of insulin were administered yesterday (40 basal, 20 bolus). * Fasting BSG appears to be downtrending, will reduce basal dosing by 25%. * Prandial BSG's acceptable in respect to goal range. 09/18: * Patient received 66 units of insulin yesterday, 40 units of basal + 26 of bolus * BSGs 250-360-530-154 mg/dL * Fasting this AM- 131 mg/dL- will continue same basal today, monitor for upward trend and need for uptitration * No change to novolog parameters 09/17: * Anup received 52 units of insulin yesterday, 40 units basal + 12 units bolus. BSGs were: 72-769-265-164 mg/dL. * Fasting BSG this AM was 118 mg/dL. * No change to regimen today. 09/16: * BSGs remain stable. * Slight decrease in basal insulin this morning for fasting BSG trending down. * Loosened Novolog parameters slightly. 09/14 * Patient received total of 93 units of insulin yesterday, of which 75 units were basal insulin * Fasting BSG 72 mg/dL - below goal range, therefore will scale back on basal ~30-40% and have scale for BSG * Continue same CF/CR for now 09/13 * 77 year old admitted with shortness of breath/edema. Type 2 diabetic managed on high amounts of insulin at home (>200 units/day) * Fasting BSG 104 mg/dL - small reduction in home basal given this morning ~20% decrease as unclear PO intake * Lunch BSG low at 56 mg/dL, 10 units of novolog given for breakfast. Possibly too tight novolog, therefore will loosen parameters with dinner. No insulin given at lunch time as BSG low * Plan to have a scale for PM basal with reduced amounts PLAN FOR INPATIENT GLYCEMIC CONTROL: * Basal insulin * Lantus 15 units SC BID * Bolus insulin * NovoLog per scale ACHS or Q6hrs while NPO * Goal Range: Low 120 mg/dL - High 160 mg/dL * Correction Factor: 25 mg/dL/unit * Nutritional / Prandial insulin per carb ratio of 1 unit per 8 grams CHO consumed (per 6 grams CHO consumed at breakfast)
--- NOTE | 2022-09-22 15:44 | Hospitalist Progress Note ---
Date of Service September 22, 2022 Assessment & Plan (1) Acute on chronic respiratory failure with hypercapnia: Plan: patient noncompliant with CPAP at home (or BIPAP - not sure which one he has) wore it faithfully 1 night this week with marked improvement in pH and pCO2 with normalization of pH and improvement in pCO2 his myoclonic jerks nearly resolved and slurred speech improved significantly since that initial night when he wore it for 10+ hours he has used BIPAP very little VBG today showing worsening pH and pCO2 slurred speech and myoclonic jerks have returned family cannot find his home unit at his house again encouraged him to wear BIPAP faithfully/consistently he has been counseled numerous times that without BIPAP his quality of life will be poor and his slurred speech/myoclonic jerks will continue he has been counseled he is at high risk of ongoing morbidity without BIPAP (2) LLL pneumonia: Plan: day #6 of abx previously on rocephin/doxy for suspected pneumonia, then changed to PO cefdinir/doxy plan 7 day course of IV/PO abx. CRP 20 --> 13 --> 8. c/w improving inflammatory state. BIPAP HS, and when awake NC o2. sats low 90s are acceptable. (3) Pleural effusion on left: Plan: patient has significantly decreased BS on left previous CT chest and x-rays with effusion I ordered repeat cxr today - for some reason only a lateral view was obtained - but there continues to be a moderate effusion uncertain if due to LLL pneumonia (parapneumonic) vs due to CKD/CHF this bears close observation (4) Acute on chronic diastolic (congestive) heart failure: Plan: Cont attempts at diuresis. remains on large doses of diuretics - 120mg lasix IV BID - defer diuretic management to nephrology. creatinine remains stable on such. (5) Chest pain: Plan: occurred a few days ago has not recurred trops were negative was likely musculoskeletal from coughing (6) Pulmonary edema: Plan: Echo this admission with preserved EF. Suspect volume overload is more so due to CKD stage 4. However, uncontrolled a.fib could be causing some issues due to diastolic dysfunction as well. [place] [facility] [place]. Daily labs. (7) Atrial fibrillation: Plan: CHRONIC/PERMANENT. rates 90s/low 100s. Cont eliquis. Plan to increase metoprolol to 100mg BID today. Cont cardizem CD 180mg daily. if rates remain poor then increase cardizem CD next. reassess tomorrow. (8) CKD (chronic kidney disease) stage 4, GFR 15-29 ml/min: Plan: Renal function baseline -- about 2. Cr had risen higher in the face of diuresis (peak 2.59) but now Cr has improved to 2.2 today. Cont diuretics. Appreciate nephrology assistance. BMP am daily. (9) Diabetes mellitus type 2 in obese: Plan: A1c 6.9% Cont basal-bolus insulin Pharmacy glycemic management consultation appreciated control is very satisfactory (10) Hypertension: Plan: Hold losartan due to CKD stage 4 and bump in creatinine with diuresis. Cont to titrate metoprolol for improved rate control of a.fib & his HTN. Since we will be increasing his metoprolol will lower Hydralazine to 10mg TID. Continue Diltiazem 180mg day. Continue terazosin 5mg BID. (11) GERD (gastroesophageal reflux disease): Plan: cont PPI (12) CARINA on CPAP: Plan: noncompliant at home noncompliant here needs consistent use of BIPAP -- see #1 above (13) Morbid obesity with BMI of 45.0-49.9, adult: Plan: BMI 45-50 TSH wnl (14) Myoclonic jerking: Plan: 2nd to acute resp acidosis / high pCO2 MARKED improvement with normalization of pH and pCO2 a few days ago as soon as pH dropped again and pCO2 charlie his jerks & slurred speech quickly returned see #[address] a/p in 2019 at [facility] without cirrhosis of liver despite his morbid obesity /family updated multiple times at bedside over the last few days PT and OT recommend rehab - social work assisting with such - he is agreeable Admission and Anticipated Discharge Date Admission Date: September 13, 2022 Subjective patient still quite upset about the cable TV not working he is bored tele overnight - a.fib rates remain uncontrolled - at rest he is often low 100s he only used the BIPAP 2-3 hours last pm again his family can't find his home unit his speech is slurred again and the myoclonic jerks have returned we discussed that his pCO2 is rising again because he is not using the BIPAP consistently cough is nearly resolved no dyspnea at rest scrotal edema a little better Review of Systems Review of Systems: gen - no fevers or sweats; eating well - 75-100% of meals consumed per flowsheets; very sleepy cv - no cp pulm - occasional cough; +[facility] GI - no abd pain/nausea/emesis neuro - myoclonic jerks worse again today Physical Exam Physical Exam: gen - morbidly obese, NAD; sitting in chair; speech is slurry again today; myoclonic jerks present again today neck - unable to assess for JVD due to large neck size mouth - MMM heart - irregularly irregular, s1 s2, no murmur; rates >100 lungs - decreased BS left base, scant dry rales right base; no wheezes; no incr eased work of breathing abd - soft, BS+, NT, distended/obese; small umbilical hernia - reducible ext - 1+ edema b/l, pulses 2+ b/l - scrotal & penile edema remain - scantly better skin - stasis changes b/l shins; optifoams in place b/l shins; neither ulcer b/l shins without cellulitis/infection neuro - myoclonic jerks present Results & Data Results & Data Vital Signs (Past 12 Hours) Vital Signs Temp Pulse Pulse Resp BP BP Pulse Ox 09/22/22 15:22 36.4 C L 91 H 18 121/68 90 09/22/22 14:56 100 H 09/22/22 11:26 36.9 C 119 H 18 130/62 92 09/22/22 07:18 36.6 C 104 H 18 129/55 L 92 09/22/22 07:20 09/22/22 06:23 97 H O2 Del Method O2 Flow Rate 09/22/22 15:22 Nasal Cannula 3 09/22/22 14:56 09/22/22 11:26 Nasal Cannula 3 09/22/22 07:18 Nasal Cannula 3 09/22/22 07:20 Nasal Cannula 3 09/22/22 06:23 Laboratory Results Laboratory Results - last 24 hr 09/21/22 09/21/22 09/22/22 16:07 20:29 07:36 WBC RBC Hgb Hct MCV MCH MCHC RDW Std Deviation RDW Coeff of Barby Plt Count MPV VBG pH VBG pCO2 VBG pO2 VBG HCO3 VBG O2 Saturation VBG Base Excess Sodium 143 Potassium 4.0 Chloride 98 Carbon Dioxide 38 H Anion Gap 7 BUN 55 H Creatinine 2.23 H Est Cr Clr Drug Dosing 41.5 Est GFR ( Amer) 32.2 Est GFR (Non-Af Amer) 27.8 BUN/Creatinine Ratio 24.7 H Glucose 118 H POC Glucose 105 H 139 H Calcium 8.4 L Magnesium 1.7 09/22/22 09/22/22 09/22/22 07:36 07:36 07:43 WBC 10.53 RBC 3.44 L Hgb 9.5 L Hct 30.8 L MCV 89.5 MCH 27.6 MCHC 30.8 L RDW Std Deviation 49.7 H RDW Coeff of Barby 15.5 H Plt Count 286 MPV 10.9 VBG pH 7.34 L VBG pCO2 82 H VBG pO2 30 VBG HCO3 44 VBG O2 Saturation < 60.0 VBG Base Excess 14.4 Sodium Potassium Chloride Carbon Dioxide Anion Gap BUN Creatinine Est Cr Clr Drug Dosing Est GFR ( Amer) Est GFR (Non-Af Amer) BUN/Creatinine Ratio Glucose POC Glucose 127 H Calcium Magnesium 09/22/22 11:43 WBC RBC Hgb Hct MCV MCH MCHC RDW Std Deviation RDW Coeff of Barby Plt Count MPV VBG pH VBG pCO2 VBG pO2 VBG HCO3 VBG O2 Saturation VBG Base Excess Sodium Potassium Chloride Carbon Dioxide Anion Gap BUN Creatinine Est Cr Clr Drug Dosing Est GFR ( Amer) Est GFR (Non-Af Amer) BUN/Creatinine Ratio Glucose POC Glucose 154 H Calcium Magnesium PG Care Time/CCT Total # of Minutes Spent Total Time Spent with Patient: Total time spent is greater than 50% in coordination of care (as documented) at patient's floor/unit and/or counseling patient: Coding Level of Care Code 08442 SUB INP/OBS CARE 3/50MIN Diagnoses Acute on chronic respiratory failure with hypercapnia J96.22 LLL pneumonia J18.9 Pleural effusion on left J90 Acute on chronic diastolic (congestive) heart failure I50.33 Chest pain R07.9 Pulmonary edema J81.1 Atrial fibrillation I48.91 CKD (chronic kidney disease) stage 4, GFR 15-29 ml/min N18.4 Diabetes mellitus type 2 in obese E11.69; E66.9 Hypertension I10 GERD (gastroesophageal reflux disease) K21.9 CARINA on CPAP G47.33; Z99.89 Morbid obesity with BMI of 45.0-49.9, adult E66.01; Z68.42 Myoclonic jerking G25.3
--- NOTE | 2022-09-22 17:33 | XRay Report ---
XR chest 2V PA/lateral HISTORY: 77 years-old Male worsening left-sided effusion? Acute shortness breath with left-sided ple ural effusion COMPARISON: Chest radiograph 09/16/2022 TECHNIQUE: Lateral view of the chest FINDINGS: No frontal view of the chest was submitted. Lateral view of the chest demonstrates persistent layerin g pleural effusion along with cardiomegaly and basilar consolidation suggestive of probable compressi ve atelectasis. Degenerative changes of the spine. IMPRESSION: Lateral view of the chest demonstrates persistent pleural effusion. No frontal view of th e chest was submitted for review. ACT 112: Negative or not required by law. The above report was generated using voice recognition software. It may contain grammatical, syntax o r spelling errors. Electronically signed by: Spencer Joy M.D. 09/22/2022 5:32 PM
[2022-09-22] MEDS: ATORVASTATIN 40 MG TAB PO SCH (21:10)
[2022-09-23 07:20] LABS: Calcium 8.2 mg/dl (8.6-10.3); Creatinine Clr Calc Pharmacy 40.2 ml/min; Est GFR (African American) 31.2 ml/min; Est GFR (Non-African American) 26.9 ml/min; Potassium 3.9 mmol/L (3.5-5.1)
[2022-09-23] MEDS: guaiFENesin 600 MG TABCR PO SCH ×2 (08:35→21:44)
[2022-09-23] MEDS: hydrALAZINE 10 MG TAB PO SCH ×3 (08:36→21:46)
[2022-09-23] MEDS: ASPIRIN 81 MG ECTAB PO SCH (08:36)
[2022-09-23] MEDS: TERAZOSIN HCL 5 MG CAP PO SCH ×2 (08:36→21:40)
[2022-09-23] MEDS: PANTOprazole 40 MG TAB PO SCH (08:36)
[2022-09-23] MEDS: DOXYCYCLINE HYCLATE 100 MG CAP PO SCH ×2 (08:36→21:43)
[2022-09-23] MEDS: FINASTERIDE 5 MG TAB PO SCH (08:36)
[2022-09-23] MEDS: BENZONATATE 100 MG CAPSULE PO SCH ×3 (08:36→21:39)
[2022-09-23] MEDS: APIXABAN 5 MG TABLET PO SCH ×2 (08:36→21:43)
[2022-09-23] MEDS: METOPROLOL TARTRATE 100 MG TAB PO SCH ×2 (08:36→21:41)
[2022-09-23] MEDS: FUROSEMIDE 40 MG/4 ML VIAL IV SCH ×2 (08:37→18:18)
[2022-09-23] MEDS: CEFDINIR 300 MG CAP PO SCH ×2 (08:37→21:37)
[2022-09-23] MEDS: LACTULOSE SYRUP 30 GM/45 ML UDP PO SCH ×2 (08:37→09:00)
[2022-09-23] MEDS: POTASSIUM CHLORIDE CRTAB 20 MEQ TABCR PO SCH ×2 (08:43→21:43)
[2022-09-23] MEDS: DOCUSATE SODIUM 100 MG CAP PO SCH (08:43)
[2022-09-23] MEDS: INSULIN ASPART PER UNIT CHARGE SC SCH ×4 (08:44→21:42)
[2022-09-23] MEDS: LANTUS PER UNIT CHARGE SQ SCH ×2 (08:44→21:36)
[2022-09-23] MEDS: dilTIAZem HCL 180 MG CAPCR PO SCH (09:45)
--- NOTE | 2022-09-23 09:51 | Hospitalist Progress Note ---
Date of Service September 23, 2022 Assessment & Plan (1) Acute on chronic respiratory failure with hypercapnia: Plan: acute on chronic significant risk patient noncompliant with CPAP at home (or BIPAP - not sure which one he has) wore it faithfully 1 night with marked improvement in pH and pCO2 with normalization of pH and improvement in pCO2 his myoclonic jerks nearly resolved and slurred speech improved significantly since that initial night he has not been able to tolerate a full nights worth of CPAP. VBG in the morning showing worsening pH and pCO2 family cannot find his home unit at his house (2) LLL pneumonia: Plan: acute self limited moderate risk with underluing lung disease, resolving 7 day course of rocephin/doxy for suspected pneumonia, completed left persistent pleural effusion, unclear if acute or chronic, could be from Chronic diastolic HF (3) Acute on chronic diastolic (congestive) heart failure: Plan: acute, unstable, active diuresis. - 120mg lasix IV BID Echo this admission with preserved EF. nephrology advising diuretics ckd 4 stable (4) Atrial fibrillation: Plan: CHRONIC/PERMANENT. stable rate controlled metoprolol to 100mg BID, cardizem cd eliquis for thrombosis prevention (5) Diabetes mellitus type 2 in obese: Plan: chronic and stable A1c 6.9% Cont basal-bolus insulin Pharmacy glycemic management consultation appreciated (6) Morbid obesity with BMI of 45.0-49.9, adult: Plan: BMI 45-50, chronic unstable, moderate risk directly affects diabetes and respiratory issues TSH wnl Plan PT and OT recommend rehab - - he is agreeable Admission and Anticipated Discharge Date Admission Date: September 13, 2022 Subjective No acute events overnight. Patient continues to admit that he cannot find his noninvasive positive pressure breathing device at home. He tried to use Janie at night but cannot tolerate it for very long. He is sleeping poorly. He is endorsing that he is supportive going to rehab facility Physical Exam Physical Exam: When I saw him he is awake alert appropriate His lungs were clear but diminished air movement throughout Extremities are without edema Results & Data Results & Data Vital Signs (Past 12 Hours) Vital Signs Temp Pulse Pulse Resp BP BP Pulse Ox 09/23/22 07:59 97.9 F 93 H 20 132/78 99 09/23/22 03:31 98.2 F 107 H 18 149/87 H 96 09/23/22 00:24 09/23/22 00:22 99 H 09/22/22 23:28 97.7 F 75 20 129/72 95 O2 Del Method O2 Flow Rate 09/23/22 07:59 Nasal Cannula 3 09/23/22 03:31 Nasal Cannula 3 09/23/22 00:24 Nasal Cannula, CPAP 09/23/22 00:22 09/22/22 23:28 CPAP 3 Laboratory Results Reviewed PRP PG Care Time/CCT Total # of Minutes Spent Total Time Spent with Patient: Total time spent is greater than 50% in coordination of care (as documented) at patient's floor/unit and/or counseling patient: Coding Level of Care Code 14329 SUB INP/OBS CARE 2/35MIN Diagnoses Acute on chronic respiratory failure with hypercapnia J96.22 LLL pneumonia J18.9 Acute on chronic diastolic (congestive) heart failure I50.33 Atrial fibrillation I48.91 Diabetes mellitus type 2 in obese E11.69; E66.9 Morbid obesity with BMI of 45.0-49.9, adult E66.01; Z68.42
--- NOTE | 2022-09-23 11:49 | Nephrology Progress Note ---
Date of Service September 23, 2022 Assessment & Plan (1) CKD (chronic kidney disease) stage 4, GFR 15-29 ml/min: Plan: Stage IV A3 (PCR 0.35). Baseline creatinine 2.0-2.4 mg/dL. CKD attributed to DKD. Screening for paraprotein negative. Electrolytes normal. Unfortunately complicated by diuretic resistant volume overload. Tolerating aggressive dosing of furosemide. Low sodium diet. Repeat metabolic profile tomorrow AM. Document strict I/O's. (2) Anemia of chronic disease: Plan: Epogen 50611 units x 1 dose given on 09/18/22. completed Venofer 200 mg IV daily for total 5 doses. (3) Hypertension: Plan: BP controlled. Tolerating current therapy well. ALLA/ARB deferred due to advanced CKD and recent ARMOND. (4) Lower extremity edema: Plan: Continue furosemide as Rx. No indication to initiate dialysis at this time. (5) Acute on chronic respiratory failure with hypercapnia: Plan: Appears to be clinically more hypercapnic today. Encouraged BIPAP use. Consider updating ABG. Admission and Anticipated Discharge Date Admission Date: September 13, 2022 Subjective No acute events overnight. Sleeping in recliner this AM. Anup is more somnolent today. Anup continues to relate that he is not sleeping well at night. He is unable to tolerate BIPAP for more than a couple of hours. He otherwise does feel that he is breathing comfortably. He acknowledges progressive deconditioning. He admits that he feels well. Edema is improving. He feels that myoclonal jerking in his arms and hands is starting to return. Review of Systems Review of Systems: All systems reviewed & are unremarkable except as noted in HPI & below Physical Exam Constitutional: well developed and + morbidly obese; no acute distress Eyes: + anicteric sclerae; no scleral abnormality and no corneal abnormality Neck: normal visual inspection, trachea midline and + thick neck Respiratory: normal respiratory effort and + tachypneic Auscultation: lungs clear to auscultation bilaterally and + diminished lung sounds Cardiovascular: Rate/Rhythm: regular rate Heart Sounds: normal S1 and normal S2 Extremities: + edema Musculoskeletal: Extremities: no cyanosis and no clubbing Skin: normal turgor; no lesions and no jaundice Neurologic: Motor/Sensory: no tremor and no asterixis Psychiatric: Orientation: alert and oriented x 3 Results & Data Vital Signs (Past 12 Hours) Vital Signs Temp Pulse Pulse Resp BP BP Pulse Ox 09/23/22 11:31 09/23/22 09:58 87 09/23/22 07:59 36.6 C 93 H 20 132/78 99 09/23/22 03:31 36.8 C 107 H 18 149/87 H 96 09/23/22 00:24 09/23/22 00:22 99 H O2 Del Method O2 Flow Rate 09/23/22 11:31 Nasal Cannula, CPAP 3 09/23/22 09:58 09/23/22 07:59 Nasal Cannula 3 09/23/22 03:31 Nasal Cannula 3 09/23/22 00:24 Nasal Cannula, CPAP 09/23/22 00:22 Laboratory Results Laboratory Results - last 24 hr 09/22/22 09/22/22 09/23/22 16:34 20:34 06:25 Sodium 144 Potassium 3.9 Chloride 98 Carbon Dioxide 40 H Anion Gap 6 BUN 55 H Creatinine 2.29 H Est Cr Clr Drug Dosing 40.2 Est GFR ( Amer) 31.2 Est GFR (Non-Af Amer) 26.9 BUN/Creatinine Ratio 24.0 H Glucose 111 H POC Glucose 149 H 160 H Calcium 8.2 L 09/23/22 09/23/22 07:35 11:39 Sodium Potassium Chloride Carbon Dioxide Anion Gap BUN Creatinine Est Cr Clr Drug Dosing Est GFR ( Amer) Est GFR (Non-Af Amer) BUN/Creatinine Ratio Glucose POC Glucose 116 H 183 H Calcium PG Care Time/CCT Total # of Minutes Spent Total Time Spent with Patient: Total time spent is greater than 50% in coordination of care (as documented) at patient's floor/unit and/or counseling patient: Coding Level of Care Code 68548 SUB INP/OBS CARE 3/50MIN Diagnoses CKD (chronic kidney disease) stage 4, GFR 15-29 ml/min N18.4 Anemia of chronic disease D63.8 Hypertension I10 Lower extremity edema R60.0 Acute on chronic respiratory failure with hypercapnia J96.22
[2022-09-23] MEDS: ATORVASTATIN 40 MG TAB PO SCH (21:42)
[2022-09-23] MEDS ORDERED: QUEtiapine FUMARATE 25 MG TABLET PO ONE (22:00)
[2022-09-24] MEDS: DOXYCYCLINE HYCLATE 100 MG CAP PO SCH (08:24)
[2022-09-24] MEDS: hydrALAZINE 10 MG TAB PO SCH (08:24)
[2022-09-24] MEDS: POTASSIUM CHLORIDE CRTAB 20 MEQ TABCR PO SCH (08:24)
[2022-09-24] MEDS: APIXABAN 5 MG TABLET PO SCH (08:24)
[2022-09-24] MEDS: guaiFENesin 600 MG TABCR PO SCH (08:24)
[2022-09-24] MEDS: dilTIAZem HCL 180 MG CAPCR PO SCH (08:24)
[2022-09-24] MEDS: PANTOprazole 40 MG TAB PO SCH (08:25)
[2022-09-24] MEDS: ASPIRIN 81 MG ECTAB PO SCH (08:25)
[2022-09-24] MEDS: METOPROLOL TARTRATE 100 MG TAB PO SCH (08:25)
[2022-09-24] MEDS: FINASTERIDE 5 MG TAB PO SCH (08:25)
[2022-09-24] MEDS: TERAZOSIN HCL 5 MG CAP PO SCH (08:25)
[2022-09-24] MEDS: DOCUSATE SODIUM 100 MG CAP PO SCH (08:25)
[2022-09-24] MEDS: BENZONATATE 100 MG CAPSULE PO SCH (08:25)
[2022-09-24] MEDS: LACTULOSE SYRUP 30 GM/45 ML UDP PO SCH (08:29)
[2022-09-24] MEDS: FUROSEMIDE 40 MG/4 ML VIAL IV SCH (08:31)
[2022-09-24] MEDS: INSULIN ASPART PER UNIT CHARGE SC SCH ×2 (08:32→12:13)
[2022-09-24] MEDS: LANTUS PER UNIT CHARGE SQ SCH (08:32)
--- NOTE | 2022-09-24 08:44 | Hospitalist Progress Note ---
Date of Service September 24, 2022 Assessment & Plan (1) Acute on chronic respiratory failure with hypercapnia: Plan: acute on chronic significant risk patient noncompliant with CPAP at home (or BIPAP - not sure which one he has) wore it faithfully 1 night with marked improvement in pH and pCO2 with normalization of pH and improvement in pCO2 his myoclonic jerks nearly resolved and slurred speech improved significantly since that initial night he has not been able to tolerate a full nights worth of CPAP. VBG in the morning showing worsening pH and pCO2 family cannot find his home unit at his house (2) LLL pneumonia: Plan: acute self limited moderate risk with underluing lung disease, resolving 7 day course of rocephin/doxy for suspected pneumonia, completed left persistent pleural effusion, unclear if acute or chronic, could be from Chronic diastolic HF, no planned intervention at this time (3) Acute on chronic diastolic (congestive) heart failure: Plan: acute, unstable, active diuresis. - 120mg lasix IV BID Echo this admission with preserved EF. nephrology advising diuretics ckd 4 stable (4) Atrial fibrillation: Plan: CHRONIC/PERMANENT. stable rate controlled metoprolol to 100mg BID, cardizem cd eliquis for thrombosis prevention (5) Diabetes mellitus type 2 in obese: Plan: chronic and stable A1c 6.9% Cont basal-bolus insulin Pharmacy glycemic management consultation appreciated (6) Morbid obesity with BMI of 45.0-49.9, adult: Plan: BMI 45-50, chronic unstable, moderate risk directly affects diabetes and respiratory issues TSH wnl Plan PT and OT recommend rehab - - he is agreeable Admission and Anticipated Discharge Date Admission Date: September 13, 2022 Results & Data Results & Data Vital Signs (Past 12 Hours) Vital Signs Temp Pulse Pulse Resp BP BP Pulse Ox 09/24/22 07:37 98.1 F 92 H 18 157/65 H 98 09/24/22 04:08 98.2 F 85 16 125/68 93 09/23/22 22:06 97 H 09/23/22 23:14 98.2 F 93 H 18 142/74 H 92 09/23/22 22:25 80 20 95 O2 Del Method O2 Flow Rate 09/24/22 07:37 Nasal Cannula 3 09/24/22 04:08 Nasal Cannula 3 09/23/22 22:06 04/04/23 23:14 CPAP 09/23/22 22:25 2 PG Care Time/CCT Total # of Minutes Spent Total Time Spent with Patient: Total time spent is greater than 50% in coordination of care (as documented) at patient's floor/unit and/or counseling patient: Coding Diagnoses Acute on chronic respiratory failure with hypercapnia J96.22 LLL pneumonia J18.9 Acute on chronic diastolic (congestive) heart failure I50.33 Atrial fibrillation I48.91 Diabetes mellitus type 2 in obese E11.69; E66.9 Morbid obesity with BMI of 45.0-49.9, adult E66.01; Z68.42
--- NOTE | 2022-09-24 10:23 | Nephrology Progress Note ---
Date of Service September 24, 2022 Assessment & Plan (1) CKD (chronic kidney disease) stage 4, GFR 15-29 ml/min: Plan: Stage IV A3 (PCR 0.35). Baseline creatinine 2.0-2.4 mg/dL. CKD attributed to DKD. Screening for paraprotein negative. Unfortunately complicated by diuretic resistant volume overload. Anup has been tolerating aggressive dosing of furosemide. Consider maximum daily dose of furosemide 200 mg at discharge (i.e. 120 mg QAM and 80 mg QPM). Low sodium diet. Follow up with nephrology within 1-2 weeks of discharge. (2) Anemia of chronic disease: Plan: Epogen 78449 units x 1 dose given on 09/18/22. completed Venofer 200 mg IV daily for total 5 doses. (3) Hypertension: Plan: BP controlled. Tolerating current therapy well. ALLA/ARB deferred due to advanced CKD and recent ARMOND. (4) Lower extremity edema: Plan: Continue furosemide to encourage negative daily fluid balance. No indication to initiate dialysis at this time. (5) Acute on chronic respiratory failure with hypercapnia: Plan: Strongly encouraged regular use of BIPAP. Admission and Anticipated Discharge Date Admission Date: September 13, 2022 Subjective No acute events overnight. Anup was sleeping in his recliner this morning. Continues to endorse weakness. Myoclonic jerking returning. He cannot recall if he used BIPAP overnight. He continue to feel that edema is improving. No fevers or chills. Review of Systems Review of Systems: All systems reviewed & are unremarkable except as noted in HPI & below Physical Exam Constitutional: well developed and + morbidly obese; no acute distress Eyes: + anicteric sclerae; no scleral abnormality and no corneal abnormality ENMT: Mouth: no oral mucosal abnormality and oral mucous membranes not dry Neck: normal visual inspection, trachea midline and + thick neck Respiratory: normal respiratory effort and + tachypneic Auscultation: lungs clear to auscultation bilaterally and + diminished lung sounds Cardiovascular: Rate/Rhythm: + irregularly irregular Heart Sounds: normal S1 and normal S2 Extremities: + edema Musculoskeletal: Extremities: no cyanosis and no clubbing Skin: normal turgor; no lesions and no jaundice Neurologic: Motor/Sensory: no tremor and no asterixis Psychiatric: Orientation: alert and oriented x 3 Results & Data Vital Signs (Past 12 Hours) Vital Signs Temp Pulse Pulse Resp BP BP Pulse Ox 09/24/22 08:46 09/24/22 07:37 36.7 C 92 H 18 157/65 H 98 09/24/22 04:08 36.8 C 85 16 125/68 93 09/23/22 23:14 36.8 C 93 H 18 142/74 H 92 09/23/22 22:25 80 20 95 O2 Del Method O2 Flow Rate 09/24/22 08:46 Nasal Cannula 3 09/24/22 07:37 Nasal Cannula 3 09/24/22 04:08 Nasal Cannula 3 09/23/22 23:14 CPAP 09/23/22 22:25 2 Laboratory Results Laboratory Results - last 24 hr 09/23/22 09/23/22 09/23/22 11:39 16:40 20:21 POC Glucose 183 H 128 H 144 H 09/24/22 07:31 POC Glucose 127 H PG Care Time/CCT Total # of Minutes Spent Total Time Spent with Patient: Total time spent is greater than 50% in coordination of care (as documented) at patient's floor/unit and/or counseling patient: Coding Level of Care Code 12941 SUB INP/OBS CARE 3/50MIN Diagnoses CKD (chronic kidney disease) stage 4, GFR 15-29 ml/min N18.4 Anemia of chronic disease D63.8 Hypertension I10 Lower extremity edema R60.0 Acute on chronic respiratory failure with hypercapnia J96.22
--- NOTE | 2022-09-24 16:47 | Discharge Summary ---
Date of Service September 24, 2022 Admission HPI Per Admitting Provider Anup Narvaez is a pleasant 77yo male presenting with SOB. He has CKD IV, DM, PAF, BPH. Reports that for the last several months he has had significant shortness of breath and weight gain with acute worsening over the last several weeks. He follows routinely with [facility]. Patient seen two days ago at the [facility] with these complaints. He had a CXR performed that reportedly showed fluid in the lungs. His Lasix was increased from 80mg po daily to 80mg po BID in addition to his Metolazone every other day. Patient reports increased UOP with this medication adjustment and a weight loss of approximately 10 pounds over the last week. He also reports improved breathing and decreased in edema and orthopnea and orthostatic dizziness. He was seen again today at the [facility] and reportedly had a CT scan and blood work pe rformed - uncertain what the results were but patient was contacted to come to the ER for additional removal of fluid, possible thoracentesis. In the ER patient was mildly hypoxic to 87% on room air requiring supplemental O2. He does not use O2 at home. Presently with adequate oxygenation on 2L Principal Diagnosis Acute on chronic respiratory failure with hypercapnia Acute on chronic diastolic heart failure Left lower lobe pneumonia Sleep apnea with required noninvasive positive pressure ventilation Discharge Exam Sleeping upon my evaluation awoken. Patient is gruff and does not really wish to go to rehab center however he also does not really wish to wear his nighttime noninvasive positive pressure ventilation, which without he would have hypercapnia and depressed mental state At the time of discharge he is awake alert appropriate lungs are clear with diminished at the bases due to his body habitus and morbid obesity Discharge Data Allergies Allergy/AdvReac Type Severity Reaction Status Date / Time No Known Allergies Allergy Unverified 08/29/22 14:00 Consultations 09/13/22 01:22 ED Decision to Admit Stat 09/14/22 08:44 Consult Nephrology Routine Ordered Studies Chest X-Ray 09/12/22 19:51 SINGLE VIEW CHEST CLINICAL HISTORY: Atypical chest pain. FINDINGS: 2 AP, portable, upright chest radiographs are compared to study dated 11/28/2020. The heart is enlarged noting atherosclerotic calcification of the thoracic aorta. The pulmonary vasculature is noncongested. Chronic interstitial thickening similar to previous. There is left basilar consolidation and a small left pleural effusion. Right lung appears clear. No pneumothorax is seen. The skeletal structures are osteopenic. The bony thorax is grossly intact. IMPRESSION: 1. Cardiomegaly without radiographic evidence of congestive failure. 2. There is a small left pleural effusion and left basilar consolidation. Correlate clinically for evidence of pneumonia/aspiration pneumonitis. Radiographic follow-up to resolution is recommended. ACT 112: Negative or not required by law. Electronically signed by: Rolo Kidd M.D. 09/12/2022 8:[address] 09/12/22 23:46 Exam(s): CT CHEST Without Contrast EXAM: CT Chest Without Intravenous Contrast CLINICAL HISTORY: Reason for exam: PNA, pl effusion, obese. TECHNIQUE: Axial computed tomography images of the chest without intravenous contrast. Automated exposure control was utilized for the study. A dose lowering technique was utilized adhering to the principles of ALARA. COMPARISON: Chest radiograph earlier the same day. FINDINGS: Lungs: Left lower lobe consolidation which may be infectious. Pleural space: Small to moderate left effusion. No pneumothorax. Heart: Trace pericardial effusion. Coronary vascular calcification. Bones/joints: See above. Soft tissues: Unremarkable. Vasculature: There is diffuse atherosclerotic calcification of the aorta and its major branch vessels. Lymph nodes: Unremarkable. No enlarged lymph nodes. IMPRESSION: Small to moderate left pleural effusion with left lower lobe consolidation which may be infectious. Electronically signed by: Don Vasquez MD 09/13/22 00:45 AM Venous Doppler Study 09/13/22 00:00 Exam(s): US VENOUS BILATERAL LOWER EXTREMITIES EXAM: US Duplex Bilateral Lower Extremities Veins CLINICAL HISTORY: Reason for exam: DVT, increased swelling. TECHNIQUE: Real-time duplex ultrasound scan of the bilateral lower extremity veins integrating B-mode two-dimensional vascular structure, Doppler spectral analysis, color flow Doppler imaging and compression. COMPARISON: No relevant prior studies available. FINDINGS: Right deep veins: Unremarkable. No DVT in the right common femoral, femoral, proximal deep femoral or popliteal veins. The veins demonstrate normal color flow, are normally compressible, with normal phasic flow and/or augmentation response. Right superficial veins: Unremarkable. No thrombus in the visualized right great saphenous vein. Left deep veins: Unremarkable. No DVT in the left common femoral, femoral, proximal deep femoral or popliteal veins. The veins demonstrate normal color flow, are normally compressible, with normal phasic flow and/or augmentation response. Left superficial veins: Unremarkable. No thrombus in the visualized left great saphenous vein. Soft tissues: No acute findings. No popliteal cyst. IMPRESSION: No evidence of DVT in the lower extremities. Electronically signed by: Teo Peterson MD 09/13/22 04:35 AM Chest X-Ray 09/16/22 18:59 SINGLE VIEW CHEST CLINICAL HISTORY: Follow-up pleural effusion. FINDINGS: An AP, portable, upright chest radiograph is compared to study dated 09/12/2022 and correlated with chest CT dated 09/13/2022. The heart is enlarged noting atherosclerotic calcification of the thoracic aorta. There is pulmonary vascular congestion. There is a left pleural effusion with left basilar consolidation. This is unchanged to modestly increased from 09/12/2022. The right lung appears clear. No pneumothorax is seen. The skeletal structures are osteopenic. The bony thorax is grossly intact. IMPRESSION: 1. Cardiomegaly with pulmonary vascular congestion. 2. Layering left pleural effusion with left basilar consolidation. This is unchanged to modestly increased in size as compared to 09/12/2022. ACT 112: Negative or not required by law. Electronically signed by: Rolo Kidd M.D. 09/16/2022 7:[address] 09/18/22 18:[address] DOSE: 884.08 mGy.cm HISTORY: myoclonic jerks, slurry speech TECHNIQUE: Multiaxial CT images of the head were performed without the use of intravenous contrast. Automated exposure control was utilized for this study. A dose lowering technique was utilized adhering to the principles of ALARA. Comparison: Head CT 07/20/2018. Findings: Mild mucosal thickening within the right sphenoid sinus. The mastoid air cells are clear. The calvarium and skull base are intact. There is no mass, hematoma, midline shift, acute infarct. White matter hypodensity is nonspecific but suggestive of microvascular ischemic change. The ventricles and sulci demonstrate mild age-related involutional changes. Mild motion artifact. Impression: Mild motion artifact. No definite acute intracranial abnormality. ACT 112: Negative or not required by law. Electronically signed by: Rustam Bridges M.D. 09/18/2022 8:21 PM Chest X-Ray 09/22/22 15:43 XR chest 2V PA/lateral HISTORY: 77 years-old Male worsening left-sided effusion? Acute shortness breath with left-sided pleural effusion COMPARISON: Chest radiograph 09/16/2022 TECHNIQUE: Lateral view of the chest FINDINGS: No frontal view of the chest was submitted. Lateral view of the chest demonstrates persistent layering pleural effusion along with cardiomegaly and basilar consolidation suggestive of probable compressive atelectasis. Degenerative changes of the spine. IMPRESSION: Lateral view of the chest demonstrates persistent pleural effusion. No frontal view of the chest was submitted for review. ACT 112: Negative or not required by law. The above report was generated using voice recognition software. It may contain grammatical, syntax or spelling errors. Electronically signed by: Spencer Joy M.D. 09/22/2022 5:32 PM Hospital Course (1) Acute on chronic respiratory failure with hypercapnia: acute on chronic significant risk patient noncompliant with CPAP at home (or BIPAP - not sure which one he has) wore it faithfully 1 night with marked improvement in pH and pCO2 with normalization of pH and improvement in pCO2 his myoclonic jerks nearly resolved and slurred speech improved significantly since that initial night he has not been able to tolerate a full nights worth of CPAP. VBG in the morning showing worsening pH and pCO2 without CPAP family cannot find his home unit at his house [facility] no clear defined [facility] of [facility] (2) LLL pneumonia: acute self limited moderate risk with underluing lung disease, resolving 7 day course of rocephin/doxy for suspected pneumonia, completed left persistent pleural effusion, unclear if acute or chronic, could be from Chronic diastolic HF, no planned intervention at this time (3) Acute on chronic diastolic (congestive) heart failure: acute, unstable, active diuresis. - 120mg lasix BID Echo this admission with preserved EF. nephrology advising diuretics will recommend follow-up with nephrology after discharge ckd 4 stable (4) Atrial fibrillation: CHRONIC/PERMANENT. stable rate controlled metoprolol to 100mg BID, cardizem cd eliquis for thrombosis prevention (5) Diabetes mellitus type 2 in obese: chronic and stable A1c 6.9% Cont basal-bolus insulin (6) Morbid obesity with BMI of 45.0-49.9, adult: BMI 45-50, chronic unstable, moderate risk directly affects diabetes and respiratory issues TSH wnl Total Time Total Time Spent Total Time Spent (In Minutes): It required greater than 30 minutes to prepare this patient for discharge Discharge Plan Discharge Items Patient Disposition: Transfer Long-Term Fac Reason For Visit: SOB Discharge Diagnosis: acute on chronic respiratory failure hypercapneic encephalopathy LLL pneumonia treated diastolic heart failure afib Activity: Per Instructions section Activity Comment: per PT/OT Non-emergency contact: Primary Care Provider Call non-emergency contact if: your symptoms worsen Follow-up/Referrals: Vincent Melgar MD [Primary Care Provider] - Diet: Carb Consistent or DM2 and Low Sodium (2gm) Addtl Attending Provider Instructions: Mr. Narvaez will need attention paid to his volume status by daily weights and adjustment of his diuretic therapy. Patient will also need his electrolytes monitored. Continued challenges with the need for a noninvasive positive pressure device at night to avoid CO2 retention hypercapnia and confusion. Patient's family still looking for some unit. Pending Studies at Discharge: No Stand-Alone Forms: My [facility] Skilled Items Patient informed of condition?: Yes DNR: No Discharge Level of Care: Skilled Communicable Disease: No Discharge Prognosis: Stable Lines: None Urinary Catheter: No Medications and DC Order Prescriptions: Continued diltiazem HCl 120 mg capsule,extended release 24hr 120 mg PO DAILY tramadol 50 mg tablet 50 mg PO Q8H PRN (Reason: Pain) lactulose 10 gram/15 mL solution 30 g PO DAILY Eliquis 5 mg tablet 5 mg PO BID terazosin 5 mg Capsule 5 mg PO BID atorvastatin [Lipitor] 80 mg Tablet 40 mg PO HS aspirin 81 mg Tablet,Delayed Release (Dr/Ec) 81 mg PO QAM docusate sodium 100 mg Capsule 200 mg PO DAILY omeprazole 20 mg Capsule,Delayed Release(Dr/Ec) 20 mg PO Q12 finasteride [Proscar] 5 mg Tablet 5 mg PO DAILY multivitamin with minerals Tablet 1 tab PO DAILY Changed losartan 50 mg tablet 25 mg PO DAILY Qty: 30 0RF hydralazine 10 mg tablet 10 mg PO TID Qty: 30 0RF furosemide [Lasix] 80 mg Tablet 120 mg PO BID Qty: 90 0RF insulin aspart U-100 [Novolog FlexPen U-100 Insulin] 100 unit/mL Insulin Pen 10 - 35 unit SUBCUT .qacqhs Qty: 15 0RF Rx Instructions: --Goal BSG Range: Low 120 mg/dL, High 160 mg/dL --Correction Factor: 25 mg/dL/unit --Carbohydrate ratio = 6 g/unit --BSGs ACHS if eating, q6h if npo metoprolol tartrate 25 mg Tablet 100 mg PO BID 30 Days Qty: 60 3RF insulin glargine [Lantus Solostar U-100 Insulin] 100 unit/mL (3 mL) Insulin Pen 15 unit SUBCUT BID Qty: 15 0RF potassium chloride [K-Tab] 20 mEq tablet extended release 40 meq PO BIDM Qty: 60 0RF Discontinued gabapentin 300 mg capsule 300 mg PO BID calcium carbonate [Calcium 600] 600 mg calcium (1,500 mg) Tablet 600 mg PO QAM glucosamine-chondroitin 167-133 mg Capsule 1 cap PO DAILY metolazone 2.5 mg tablet 2.5 mg PO Q2D Rx Instructions: take this med every Thursday,, Thursday, Thursday, one hour before taking furosemide's first dose of the day. Discharge Orders: Discharge Order (Routine); Ordered 09/24/22 Ordered By: Christopher Grimm/Other Patient Handouts: Managing Type 2 Diabetes, Special [facility] for Diabetes Admission Data Admit Date/Time: 09/13/22 01:58 Attending Provider: Christopher Barahona Admit Provider: Antonietta Diamond Primary Care Provider: Vincent Melgar Other Providers: Antonietta Diamond ; Karlos Menendez ; Charisma Hernandez Kevin C. ; Brit Darden ; [facility] Other Interventions: Discharge Summary Assessment (RN) Last Done: 09/24/22 13:27 Coding Level of Care Code 35993 INP/OBS DISCH >30 MIN Diagnoses Acute on chronic respiratory failure with hypercapnia J96.22 LLL pneumonia J18.9 Acute on chronic diastolic (congestive) heart failure I50.33 Atrial fibrillation I48.91 Diabetes mellitus type 2 in obese E11.69; E66.9 Morbid obesity with BMI of 45.0-49.9, adult E66.01; Z68.42
--- NOTE | 2022-09-30 12:10 | Coding Query ---
PRESENT ON ADMISSION QUERY To promote full compliance with coding requirements relating to pateint care, physician participation is requested in all cases of legal aid uncertainty. Please assist us with the question(s) below: Please place an X within the parenthesis (x). The following diagnosis listed in this patient's medical record require physician assistance to determine if they were present on admission (POA) or not. Please advise for each diagnosis whether it was present on admission, not present on admission, or if it was clinically undetermined. 1. SACRAL DECUBITUS ULCER (documented on the 09/17 Progress Note) (x ) Present On Admission ( ) Not Present On Admission ( ) Clinically Undetermined Thank you Emily Pascual *Definition of the present on admission (POA)-Present on admission is defined as present at the time the order for inpatient admission occurs. Conditions that develop during an outpatient encounter prior to a written order for inpatient admission (including emergency department, observation, or outpatient surgery) are considered present on admission. MTDD
== END 2022-09-24 13:20 | DRG 291 ==
LOC: ED 19:40 → 2W 09-13 01:58 → SUATTDRO 09-13 01:58 → 2W 09-13 03:58

== ENCOUNTER 2022-11-29 01:19 | Inpatient (IN) ==
[2022-11-29] MEDS ORDERED: ONDANSETRON INJ 2 MG/ML 2 ML VIAL IV STA (01:24)
[2022-11-29] MEDS ORDERED: MoRPHine SULFATE 4 MG/ML 1 ML CARP\\VIAL IV STA (01:24)
--- NOTE | 2022-11-29 01:44 | Emergency Department Note ---
History of Present Illness General Chief complaint: Flank Pain Stated complaint: FLANK PAIN rt. Time Seen by Provider: 11/29/22 01:19 History of Present Illness 77-year-old male presents emergency department with a 1 day history of right upper and right lower abdominal pain that he states he woke up with. Patient denies history of the same he states he feels bloated. Patient denies nausea vomiting diarrhea. Patient denies fever. Patient has an extensive medical history denies any surgeries in his abdomen. He states he had a bowel movement yesterday that was normal. Patient called EMS due to increased pain in the right upper quadrant and right lower quadrant. There were no other mitigating or alleviating factors Home Medications Medication Instructions Recorded Confirmed Type aspirin 81 mg tablet,delayed 81 mg PO QAM 07/20/18 10/31/22 History release atorvastatin 80 mg tablet (Lipitor) 40 mg PO HS 07/20/18 10/31/22 History docusate sodium 100 mg capsule 200 mg PO DAILY 07/20/18 10/31/22 History finasteride 5 mg tablet (Proscar) 5 mg PO DAILY 07/20/18 10/31/22 History omeprazole 20 mg capsule,delayed 20 mg PO Q12 07/20/18 10/31/22 History release terazosin 5 mg capsule 5 mg PO BID 07/20/18 10/31/22 History multivitamin with minerals 1 tab PO DAILY 11/28/20 10/31/22 History diltiazem HCl 120 mg 120 mg PO DAILY 08/27/22 10/31/22 History capsule,extended release 24 hr lactulose 10 gram/15 mL oral 30 g PO DAILY 08/27/22 10/31/22 History solution tramadol 50 mg tablet 50 mg PO Q8H PRN Pain 08/27/22 10/31/22 History apixaban 5 mg tablet (Eliquis) 5 mg PO BID 08/29/22 10/31/22 History furosemide 80 mg tablet (Lasix) 120 mg PO BID #90 tabs 09/24/22 10/31/22 Rx hydralazine 10 mg tablet 10 mg PO TID #30 tabs 09/24/22 10/31/22 Rx insulin aspart U-100 100 unit/mL 10 - 35 unit (0.1 - 0.35 mL) 04/05/23 05/12/23 Rx (3 mL) subcutaneous pen (Novolog subcut .qacqhs #15 mL FlexPen U-100 Insulin aspart) insulin glargine 100 unit/mL (3 15 unit (0.15 mL) subcut BID #15 mL 09/24/22 10/31/22 Rx mL) subcutaneous pen (Lantus Solostar U-100 Insulin) losartan 50 mg tablet 25 mg PO DAILY #30 tabs 09/24/22 10/31/22 Rx metoprolol tartrate 25 mg tablet 100 mg PO BID 30 days #60 tabs 09/24/22 10/31/22 Rx potassium chloride 20 mEq 40 meq PO BIDM #60 tabs 09/24/22 10/31/22 Rx tablet,extended release (K-Tab) epoetin aaliyah 40,000 unit/mL 40,000 unit subcut MONTHLY hold hb 11/18/22 Rx injection solution (Procrit) 11 or greater 12 months #1 mL Allergies Allergy/AdvReac Type Severity Reaction Status Date / Time No Known Allergies Allergy Unverified 10/31/22 14:09 Past Med/Surg History Medical History Acute respiratory failure with hypoxia Anemia of chronic disease Cellulitis CKD (chronic kidney disease) stage 4, GFR 15-29 ml/min D-dimer, elevated Diabetes Diabetes mellitus type 2 in obese GERD (gastroesophageal reflux disease) Hematuria Hypertension Hypoxia Obesity CARINA on CPAP Proteinuria Vitamin D deficiency Social History Smoking Status: Former smoker Second Hand Exposure: Yes; Do You Dip or Chew Tobacco: No; Hx Alcohol Use: No Hx Substance Use: No Preferred Language: Lao Communication Ability: Effective Information Assurance Required: No Beliefs That Will Affect Care: None Current Living Situation: Spouse Feels Safe at Home: Yes Assistive Devices: Lift Chair, Scooter/Electric Scooter and Walker Review of Systems A total of 10 systems reviewed and were otherwise negative Gastrointestinal: + abdominal pain and + bloating; no nausea and no vomiting Physical Exam Vital Signs Vital Signs - 24 hr 11/29/22 01:24 11/29/22 01:24 11/29/22 01:24 Temperature 36.5 C 36.5 C Temperature Source Oral Oral Pulse Rate 117 H 117 H Pulse Rate [Apical] 117 H Pulse Rhythm Irregular Irregular Pulse Rhythm [Apical] Irregular Pulse Strength Normal Pulse Strength [Apical] Normal Respiratory Rate 22 22 22 Respiratory Effort / Characteristics Non-Labored Spontaneous Non-Labored Spontaneous Respiratory Depth Normal Normal Respiratory Pattern Regular Regular Blood Pressure 169/73 H Blood Pressure [Right Arm] 169/73 H Blood Pressure Mean 105 Blood Pressure Mean [Right Arm] 105 Blood Pressure Position Semi-fowlers Blood Pressure Position [Right Arm] Semi-fowlers Pulse Oximetry 96 96 96 Oxygen Delivery Method Room Air Nasal Cannula Nasal Cannula Oxygen Flow Rate 4 4 4 Sepsis Recent Fever Within 48 Hours No Sepsis New/Unexplained Change in Mental Status No Sepsis Action Taken by Nursing Physician Notified 11/29/22 01:24 Temperature Temperature Source Pulse Rate 103 H Pulse Rate [Apical] Pulse Rhythm Pulse Rhythm [Apical] Pulse Strength Pulse Strength [Apical] Respiratory Rate Respiratory Effort / Characteristics Respiratory Depth Respiratory Pattern Blood Pressure Blood Pressure [Right Arm] Blood Pressure Mean Blood Pressure Mean [Right Arm] Blood Pressure Position Blood Pressure Position [Right Arm] Pulse Oximetry Oxygen Delivery Method Oxygen Flow Rate Sepsis Recent Fever Within 48 Hours Sepsis New/Unexplained Change in Mental Status Sepsis Action Taken by Nursing GENERAL: Patient is awake alert in no acute distress patient is resting comfortably wearing oxygen, patient looks disheveled EYES: The conjunctivae are clear. The pupils are round and reactive. EARS, NOSE, MOUTH AND THROAT: The nose is without any evidence of any deformity. Mucous membranes are moist. Tongue is midline. NECK: The neck is nontender and supple. RESPIRATORY: Normal respiratory effort is noted there is no evidence of wheezing rhonchi or rales CARDIOVASCULAR: Tachycardic rate and rhythm noted there no murmurs rubs or gallops normal S1 normal S2. GASTROINTESTINAL: The abdomen is soft. Abdomen is mildly tender in the right mid abdomen there is no abnormal aortic pulsations there is no abdominal masses, there is some tympany there are decreased bowel sounds in all 4 quadrants, the patient is a morbidly obese BACK: No midline tenderness or or step-off noted range of motion in flexion extension as well as rotation no signs of muscle spasm noted MUSCULOSKELETAL/EXTREMITIES: There is no evidence of gross deformity full range of motion is noted in the hips and shoulders. SKIN: There is no obvious evidence of any rash. There are no petechiae, pallor or cyanosis noted. NEUROLOGIC: Patient is awake alert and oriented x3 Course Reevaluation(s) Reevaluation #1: Patient resting in no distress, started on IV pain medicine and antibiotics Time: 03:13 Consultations Consultation #1: Case was discussed with the [facility] hospitalist for admission Time: 03:13 Administered Medications Discontinued Medications Piperacillin Sod/Tazobactam Sod (Zosyn) 4.5 gm in 120 mls @ 240 mls/hr IV NOW ONE Stop: 11/29/22 02:40 Last Infusion: 11/29/22 02:50 Dose: 0 mls/hr Documented By: Admin: 11/29/22 02:19 Dose: 240 mls/hr Documented By: BITA Morphine Sulfate (Morphine Sulfate 4 Mg/Ml 1 Ml Carp\Vial) 4 mg IV NOW STA Stop: 11/29/22 01:25 Last Admin: 11/29/22 02:00 Dose: 4 mg Documented By: BITA Ondansetron HCl (Ondansetron Inj 2 Mg/Ml 2 Ml Vial) 4 mg IV NOW STA Stop: 11/29/22 01:25 Last Admin: 11/29/22 01:58 Dose: 4 mg Documented By: BITA Medical Decision Making Medical Records Attestation: I reviewed the patient's medical records. Home Medications Current Medication List: was personally reviewed by me Laboratory Data Attestation: I reviewed the patient's lab results. Patient has an elevated white blood cell count as interpreted by me, is mildly anemic, has CKD 11/29/22 01:35 11/29/22 01:35 Lab Results 11/29/22 11/29/22 11/29/22 Range/Units 01:35 01:35 01:35 WBC 13.31 H (4.8-10.8) K/ul RBC 3.39 L (4.70-6.10) M/uL Hgb 9.6 L (14.0-18.0) g/dl Hct 31.7 L (42.0-52.0) % MCV 93.5 (80.0-100.0) fL MCH 28.3 (25.0-34.0) pg MCHC 30.3 L (32.0-36.0) g/dL RDW Std Deviation 53.5 H (36.4-46.3) fL RDW Coeff of Barby 15.6 H (11.5-14.5) % Plt Count 222 (130-400) K/uL MPV 11.2 (9.4-12.4) fL Immature Gran % (Auto) 0.4 % Neut % (Auto) 80.4 % Lymph % (Auto) 9.5 % Irion % (Auto) 8.5 % Eos % (Auto) 1.0 % Baso % (Auto) 0.2 % Neut # (Auto) 10.71 H (1.40-6.50) K/uL Lymph # (Auto) 1.26 (1.2-3.4) K/uL Irion # (Auto) 1.13 H (0.11-0.59) K/uL Eos # (Auto) 0.13 (0-0.50) K/uL Baso # (Auto) 0.03 (0-0.2) K/uL Immature Gran # (Auto) 0.05 (0.01-0.20) K/uL Sodium 137 (136-145) mmol/L Potassium 4.3 (3.5-5.1) mmol/L Chloride 99 (98-107) mmol/L Carbon Dioxide 36 H (21-32) mmol/L Anion Gap 2 L (3-11) BUN 35 H (6-23) mg/dl Creatinine 1.61 H (0.6-1.4) mg/dl Est Cr Clr Drug Dosing 58.5 ml/min Est GFR ( Amer) 47.8 ml/min Est GFR (Non-Af Amer) 41.2 ml/min BUN/Creatinine Ratio 21.7 H (10-20) Glucose 219 H (70-99(Fasting)) mg/dl Calcium 8.0 L (8.6-10.3) mg/dl Total Bilirubin 0.3 (0.2-1.0) mg/dl AST 7 L (13-39) U/L ALT 7 (7-52) U/L Alkaline Phosphatase 61 (34-104) U/L Total Protein 6.0 (6.0-8.3) gm/dl Albumin 3.0 L (3.4-5.0) gm/dl Globulin 3.0 (2.5-4.0) gm/dl Albumin/Globulin Ratio 1.0 (0.9-2) Lipase 13 (11-82) U/L SARS-CoV-2, RNA, NAAT NEGATIVE (NEGATIVE) Imaging Data Attestation: I personally reviewed and interpreted this imaging study as follows: My Impression: CT abdomen pelvis interpreted by me large left pleural effusion and slight increased size of the gallbladder fossa Radiologist's Impression: Abdomen/Pelvis CT 11/29/22 01:24 Exam(s): CT ABDOMEN + PELVIS Without Contrast EXAM: CT Abdomen and Pelvis Without Intravenous Contrast CLINICAL HISTORY: Reason for exam: abd pain. TECHNIQUE: Axial computed tomography images of the abdomen and pelvis without intravenous contrast. CTDI is 38.67 mGy and DLP is 2029.78 mGy-cm. Automated exposure control was utilized for the study. A dose lowering technique was utilized adhering to the principles of ALARA. COMPARISON: Dated 07/20/18 FINDINGS: Lung bases: Unremarkable. No mass. No consolidation. Pleural space: There is a large pleural effusion on the left. Small right pleural effusion. ABDOMEN: Liver: Unremarkable. Gallbladder and bile ducts: There is questionable pericholecystic stranding (image 24 series 300). No ductal dilation. Pancreas: Unremarkable. No ductal dilation. Spleen: Unremarkable. No splenomegaly. Adrenals: Unremarkable. No mass. Kidneys and ureters: Atrophic kidneys. No obstructing stones. No hydronephrosis. Stomach and bowel: Unremarkable. No obstruction. No mucosal thickening. PELVIS: Appendix: No findings to suggest acute appendicitis. Bladder: Unremarkable. No stones. Reproductive: Unremarkable as visualized. ABDOMEN and PELVIS: Intraperitoneal space: Unremarkable. No free air. No significant fluid collection. Bones/joints: Degenerative disease of the thoracolumbar spine. No acute fracture. No dislocation. Soft tissues: Anasarca. Vasculature: There is diffuse atherosclerotic calcification of the aorta and its major branch vessels. No abdominal aortic aneurysm. Lymph nodes: Unremarkable. No enlarged lymph nodes. IMPRESSION: 1. Large left pleural effusion. 2. Questionable pericholecystic stranding which could reflect cholecystitis, further evaluation with right upper quadrant ultrasound may be appropriate. Electronically signed by: Don Vasquez MD 11/29/22 02:04 AM ECG Data Attestation: I personally reviewed and interpreted this ECG as follows: Additional Comments: EKG interpreted by me rapid atrial fibrillation rate of 108, PVCs, right bundle branch block, right axis deviation, no obvious ST segment elevation or depression Telemetry was ordered by me, interpreted as atrial fibrillation rate of 105 MDM Narrative Medical decision making differential diagnosis includes bowel obstruction, gas tritis gastroenteritis appendicitis cholecystitis metabolic derangement dehydration electrolyte abnormality urinary tract infection ureteral cyst Plan is to check labs, CT, give IV pain medicine External medical records were reviewed by me EMS report was given to me at bedside Patient will be admitted for further evaluation for potential acute cholecystitis and this left large pleural effusion Impression & Plan Abdominal pain, Pleural effusion Discharge Plan Visit Data Chief Complaint: Flank Pain Stated Complaint: FLANK PAIN rt. ED Provider: Young Dill Discharge Problem: Abdominal pain, Pleural effusion Patient Disposition: Admitted As Inpatient Forms Stand Alone Forms: My [facility] Prescriptions Prescriptions: No Action Procrit 40,000 unit/mL solution 40,000 unit subcut MONTHLY 360 Days Qty: 1 0RF diltiazem HCl 120 mg capsule,extended release 24hr 120 mg PO DAILY tramadol 50 mg tablet 50 mg PO Q8H PRN (Reason: Pain) lactulose 10 gram/15 mL solution 30 g PO DAILY Eliquis 5 mg tablet 5 mg PO BID terazosin 5 mg Capsule 5 mg PO BID atorvastatin [Lipitor] 80 mg Tablet 40 mg PO HS aspirin 81 mg Tablet,Delayed Release (Dr/Ec) 81 mg PO QAM docusate sodium 100 mg Capsule 200 mg PO DAILY omeprazole 20 mg Capsule,Delayed Release(Dr/Ec) 20 mg PO Q12 finasteride [Proscar] 5 mg Tablet 5 mg PO DAILY multivitamin with minerals Tablet 1 tab PO DAILY losartan 50 mg tablet 25 mg PO DAILY Qty: 30 0RF hydralazine 10 mg tablet 10 mg PO TID Qty: 30 0RF furosemide [Lasix] 80 mg Tablet 120 mg PO BID Qty: 90 0RF insulin aspart U-100 [Novolog FlexPen U-100 Insulin] 100 unit/mL Insulin Pen 10 - 35 unit SUBCUT .qacqhs Qty: 15 0RF Rx Instructions: --Goal BSG Range: Low 120 mg/dL, High 160 mg/dL --Correction Factor: 25 mg/dL/unit --Carbohydrate ratio = 6 g/unit --BSGs ACHS if eating, q6h if npo metoprolol tartrate 25 mg Tablet 100 mg PO BID 30 Days Qty: 60 3RF insulin glargine [Lantus Solostar U-100 Insulin] 100 unit/mL (3 mL) Insulin Pen 15 unit SUBCUT BID Qty: 15 0RF potassium chloride [K-Tab] 20 mEq tablet extended release 40 meq PO BIDM Qty: 60 0RF Referrals Referrals: PCP,NO [Physician] -
[2022-11-29 01:49] LABS: Basophils # (auto) 0.03 K/uL (0-0.2); Basophils % (auto) 0.2 %; Eosinophils # (auto) 0.13 K/uL (0-0.50); Hematocrit (blood only) 31.7 % (42.0-52.0); Hemoglobin 9.6 g/dl (14.0-18.0); Immature Granulocytes # (auto) 0.05 K/uL (0.01-0.20); Immature Granulocytes % (auto) 0.4 %; Lymphocytes # (auto) 1.26 K/uL (1.2-3.4); Lymphocytes % (auto) 9.5 %; Mean Corpuscular Hemoglobin 28.3 pg (25.0-34.0); Mean Corpuscular Hgb Conc 30.3 g/dL (32.0-36.0); Mean Corpuscular Volume 93.5 fL (80.0-100.0); Mean Platelet Volume 11.2 fL (9.4-12.4); Monocytes # (auto) 1.13 K/uL (0.11-0.59); Monocytes % (auto) 8.5 %; Neutrophils # (auto) 10.71 K/uL (1.40-6.50); Neutrophils % (auto) 80.4 %; Platelet Count 222 K/uL (130-400); RDW Coefficient of Variation 15.6 % (11.5-14.5); RDW Standard Deviation 53.5 fL (36.4-46.3); Red Blood Count 3.39 M/uL (4.70-6.10); White Blood Count 13.31 K/ul (4.8-10.8)
[2022-11-29 02:04] LABS: BUN Creatinine Ratio 21.7 (10-20); Bilirubin,Total 0.3 mg/dl (0.2-1.0); Creatinine Clr Calc Pharmacy 58.5 ml/min; Est GFR (African American) 47.8 ml/min; Est GFR (Non-African American) 41.2 ml/min; Potassium 4.3 mmol/L (3.5-5.1)
--- NOTE | 2022-11-29 02:05 | CT Scan Report ---
Exam(s): CT ABDOMEN + PELVIS Without Contrast EXAM: CT Abdomen and Pelvis Without Intravenous Contrast CLINICAL HISTORY: Reason for exam: abd pain. TECHNIQUE: Axial computed tomography images of the abdomen and pelvis without intravenous contrast. CTDI is 38.67 mGy and DLP is 2029.78 mGy-cm. Automated exposure control was utilized for the study. A dose lowering technique was utilized adhering to the principles of ALARA. COMPARISON: Dated 07/20/18 FINDINGS: Lung bases: Unremarkable. No mass. No consolidation. Pleural space: There is a large pleural effusion on the left. Small right pleural effusion. ABDOMEN: Liver: Unremarkable. Gallbladder and bile ducts: There is questionable pericholecystic stranding (image 24 series 300). No ductal dilation. Pancreas: Unremarkable. No ductal dilation. Spleen: Unremarkable. No splenomegaly. Adrenals: Unremarkable. No mass. Kidneys and ureters: Atrophic kidneys. No obstructing stones. No hydronephrosis. Stomach and bowel: Unremarkable. No obstruction. No mucosal thickening. PELVIS: Appendix: No findings to suggest acute appendicitis. Bladder: Unremarkable. No stones. Reproductive: Unremarkable as visualized. ABDOMEN and PELVIS: Intraperitoneal space: Unremarkable. No free air. No significant fluid collection. Bones/joints: Degenerative disease of the thoracolumbar spine. No acute fracture. No dislocation. Soft tissues: Anasarca. Vasculature: There is diffuse atherosclerotic calcification of the aorta and its major branch vessels. No abdominal aortic aneurysm. Lymph nodes: Unremarkable. No enlarged lymph nodes. IMPRESSION: 1. Large left pleural effusion. 2. Questionable pericholecystic stranding which could reflect cholecystitis, further evaluation with right upper quadrant ultrasound may be appropriate. Electronically signed by: Don Vasquez MD 11/29/22 02:04 AM
[2022-11-29] MEDS ORDERED: PIPERACILLIN/TAZOBACTAM 4.5 GM/120 ML BAG IV ONE (02:11)
--- NOTE | 2022-11-29 02:45 | History & Physical Report ---
Date of Service November 29, 2022 Assessment & Plan (1) Abdominal pain: Plan: 77 y/o M w/ PmHx T2DM, CKD IV, PAF, BPH admitted for possible cholecystitis. Abdominal Pain: -WBC 13, AST/ALT 7/7, T. bili 0.3, alk phos 219. -CT A&P w/ questionable pericholecystic stranding could reflect cholecystitis. -Positive Sifuentes's on exam. -Will obtain US of gallbladder. Ordered HIDA scan if needed, if US negative can consider canceling. -Consulted surgery for evaluation, will appreciate recommendations. -NPO if deemed cholecystitis and candidate for surgery. -Gentle D5/NSS at 60ml/hr given hx bilateral edema. -Pain control with Tylenol mild pain, tramadol mod pain, morphine severe pain PRN. -Nausea control with Zofran 4mg IV PRN. -Admit to telemetry. Pleural effusion: -Large left pleural effusion on CT A&P. -Past history of L pleural effusion on previous CT and CXR. -Short of breath but may be from abdominal pain as he has pain with deep breathing. -May consider diagnostic thoracentesis for further evaluation. Atrial Fibrillation: -History of A. Fib on diltiazem, metoprolol, Eliquis. -Will continue diltiazem and metoprolol. -Hold Eliquis for potential surgery. T2DM: -SSI, bumped basal dose to 20U BID while in hospital. -ACHS glucose checks. Hypoglycemia protocol. Anemia of chronic disease: -Hgb 9.6 on arrival. -Trend CBC. CKD: -creatinine 1.61 on arrival. Baseline 1.6-2.1 -Continue to trend w/ AM BMP. HTN: -Continue home metoprolol, losartan, diltiazem. Lower extremity edema: -Continue home Lasix. BPH: -Continue proscar, terazosin. CARINA on CPAP: -Ordered CPAP qHS. F/E/N/GI: NPO for potential surgery. DVT Prophylaxis: Holding chemoprophylaxis if potential surgery. Code status: Full code Dispo: Med/tele. (2) Pleural effusion: (3) Atrial fibrillation: (4) Anemia of chronic disease: (5) Diabetes mellitus type 2 in obese: (6) CKD (chronic kidney disease) stage 4, GFR 15-29 ml/min: (7) GERD (gastroesophageal reflux disease): (8) Hypertension: (9) Lower extremity edema: (10) CARINA on CPAP: (11) Vitamin D deficiency: History of Present Illness Chief Complaint: R abdominal pain Primary Care Provider: [facility] Anup is a 77 year old male w/ PmHx T2DM, CKD IV, PAF, BPH coming in for RUQ ab dominal pain from earlier today. Patient states that earlier today he was sitting in his chair asleep and woke up with pain at the R abdomen. The pain was sharp and located midway to upper quadrant, worse with deep breath. He had some associated nausea with this but no vomiting. He denies any fevers, chills, diarrhea, headaches, dysuria, chest pain. He had diarrhea previously while taking lactulose but said that has gotten better since stopping it last week. He did endorse some shortness of breath he has been having, he uses oxygen at home at 2L for rest and ambulation. Patient states he has not had any past history of abdominal surgery and still has gallbladder and appendix. He denies any left sided abdominal pain. Did not notice any difference with the pain with eating. He states he ate a hard boiled egg and half a olivia cheesesteak earlier today. He had previously been sent to rehab from prior hospitalization however he states he would not want to go to a far away rehab in [place] like he did last time. In the ED WBC 13.31, Hgb 9.6, Neut 10.71, creatinine 1.61, AST/ALT 7/7, T bili 0.3, alk phos 61, lipase 13. CT A&P w/ large left pleural effusion, questionable pericholecystic stranding could reflect cholecystitis. Given morphine, zofran, and 4.5g Zosyn. Allergies Allergy/AdvReac Type Severity Reaction Status Date / Time No Known Allergies Allergy Unverified 10/31/22 14:09 Home Medications Medication Instructions Recorded Confirmed Type aspirin 81 mg tablet,delayed 81 mg PO QAM 07/20/18 10/31/22 History release atorvastatin 80 mg tablet (Lipitor) 40 mg PO HS 07/20/18 10/31/22 History docusate sodium 100 mg capsule 200 mg PO DAILY 07/20/18 10/31/22 History finasteride 5 mg tablet (Proscar) 5 mg PO DAILY 07/20/18 10/31/22 History omeprazole 20 mg capsule,delayed 20 mg PO Q12 07/20/18 10/31/22 History release terazosin 5 mg capsule 5 mg PO BID 07/20/18 10/31/22 History multivitamin with minerals 1 tab PO DAILY 11/28/20 10/31/22 History diltiazem HCl 120 mg 120 mg PO DAILY 08/27/22 10/31/22 History capsule,extended release 24 hr lactulose 10 gram/15 mL oral 30 g PO DAILY 08/27/22 10/31/22 History solution tramadol 50 mg tablet 50 mg PO Q8H PRN Pain 08/27/22 10/31/22 History apixaban 5 mg tablet (Eliquis) 5 mg PO BID 08/29/22 10/31/22 History furosemide 80 mg tablet (Lasix) 120 mg PO BID #90 tabs 09/24/22 10/31/22 Rx hydralazine 10 mg tablet 10 mg PO TID #30 tabs 09/24/22 10/31/22 Rx insulin aspart U-100 100 unit/mL 10 - 35 unit (0.1 - 0.35 mL) 09/24/22 10/31/22 Rx (3 mL) subcutaneous pen (Novolog subcut .qaqhs #15 mL FlexPen U-100 Insulin aspart) insulin glargine 100 unit/mL (3 15 unit (0.15 mL) subcut BID #15 mL 09/24/22 10/31/22 Rx mL) subcutaneous pen (Lantus Solostar U-100 Insulin) losartan 50 mg tablet 25 mg PO DAILY #30 tabs 09/24/22 10/31/22 Rx metoprolol tartrate 25 mg tablet 100 mg PO BID 30 days #60 tabs 09/24/22 10/31/22 Rx potassium chloride 20 mEq 40 meq PO BIDM #60 tabs 09/24/22 10/31/22 Rx tablet,extended release (K-Tab) epoetin aaliyah 40,000 unit/mL 40,000 unit subcut MONTHLY hold hb 11/18/22 Rx injection solution (Procrit) 11 or greater 12 months #1 mL Past Med/Surg History Medical History (Updated 11/29/22 @ 13:38 by Fadi Barone MD) Acute respiratory failure with hypoxia Anemia of chronic disease Cellulitis CKD (chronic kidney disease) stage 4, GFR 15-29 ml/min D-dimer, elevated Diabetes Diabetes mellitus type 2 in obese GERD (gastroesophageal reflux disease) Hematuria Hypertension Hypoxia Obesity CARINA (obstructive sleep apnea) CARINA on CPAP Proteinuria Vitamin D deficiency Social History Smoking Status: Former smoker Second Hand Exposure: No; Do You Dip or Chew Tobacco: No; Hx Alcohol Use: No Hx Substance Use: No Preferred Language: [place] Communication Ability: Effective Commercial Intern Required: No Beliefs That Will Affect Care: None Current Living Situation: Spouse Other Information That Helps Us Care for You: No Feels Safe at Home: Yes Safety Concerns: Feels Safe At This Time Assistive Devices: CPAP, Denture - Upper, Glasses, Hearing Aid - Bilateral, Scooter/Electric Scooter and Walker Review of Systems Review of Systems: As per HPI. Physical Exam Constitutional: WD/WN, vitals as above Eyes: PERRL, conjunctivae normal, anicteric sclerae Respiratory: Diminished breath sounds at the LLL, clear to auscultation otherwise. Cardiovascular: Rate/Rhythm: + tachycardic and + irregularly irregular Heart Sounds: normal S1 and normal S2 B/l lower extremity edema in compression wrapping. Gastrointestinal (Abdomen): Obese habitus, soft, tender to palpation at the RUQ, +Sifuentes's. Skin: no rashes, warm and dry Psychiatric: A+Ox3, euthymic affect Results & Data Results & Data Vital Signs (Past 12 Hours) Vital Signs Temp Pulse Pulse Resp BP BP Pulse Ox 11/29/22 01:24 117 H 22 96 11/29/22 01:24 36.5 C 117 H 22 169/73 H 96 11/29/22 01:24 36.5 C 117 H 22 169/73 H 96 O2 Del Method O2 Flow Rate 11/29/22 01:24 Nasal Cannula 4 11/29/22 01:24 Nasal Cannula 4 11/29/22 01:24 Room Air 4 Supervising Physician Co-Signing Physician Notes Attending addendum: I have physically seen this patient, have supervised the medical residents activities, and agree with the H&P unless as otherwise noted. Assessment and Plan: Abdominal pain/possible cholecystitis- WBC elevated at 13 CT abdomen/pelvis with possible pericholecystic stranding could reflect cholecystitis Order ultrasound of right upper quadrant Order HIDA scan Consult to general surgery Large left pleural effusion Has been noted in the past Unclear if work-up has been performed Could consider diagnostic thoracentesis Atrial fibrillation/hypertension- Continue diltiazem, metoprolol with hold parameters Hold Eliquis in the event of potential surgery Diabetes mellitus- Insulin adjustments as noted Based on Accu-Cheks with NovoLog SSI Remaining orders and notations as noted Resident Activity Tracking Resident Involvement: Resident Care Provided Care Provided: Adult Hospital Medicine
[2022-11-29] MEDS ORDERED: GLUCOSE 40% GEL 15 GM TUBE PO PRN (03:56)
[2022-11-29] MEDS ORDERED: traMADol HCL 50 MG TABLET PO PRN ×2 (03:56→12:45)
[2022-11-29] MEDS ORDERED: DEXTROSE 50% 50 ML SYRINGE IV PRN (03:56)
[2022-11-29] MEDS ORDERED: CARBOHYDRATES FOR HYPOGLYCEMIA PO PRN (03:56)
[2022-11-29] MEDS ORDERED: MoRPHine SULFATE 2 MG/ML CARP IV PRN (03:56)
[2022-11-29] MEDS ORDERED: GLUCAGON FOR INJ 1 MG VIAL SQ PRN (03:56)
[2022-11-29] MEDS ORDERED: GLUCOSE 10 TAB/TUBE PO PRN (03:56)
[2022-11-29] MEDS ORDERED: D5W AND NSS 1,000 ML IV SCH (04:05)
[2022-11-29 04:15] LABS: Appearance Urine Clear (Clear); Bacteria Urine Automated Negative (Negative); Bilirubin Urine Negative (Negative); Blood Urine 2+ (Negative); Color Urine Yellow; Glucose Urine UA Negative (Negative); Ketones Urine Negative (Negative); Leukocyte Esterase Urine Negative (Negative); Nitrite Urine Negative (Negative); Protein Urine 2+ (Negative); RBC Urine Automated >30 /hpf (0-4); Specific Gravity Urine 1.013 (1.000-1.030); Urobilinogen Urine Negative (Negative)
[2022-11-29] MEDS ORDERED: INSULIN ASPART PER UNIT CHARGE SC SCH ×2 (07:30→12:00)
--- NOTE | 2022-11-29 08:05 | Communication Note ---
Date of Service: November 29, 2022 Please see today's H+P for full assessment and plan except as otherwise stated: Abdominal pain, concern for cholecystitis: continue Zosyn, RUQ US ordered, no evidence of gallstones or cholecystitis. HIDA ordered but not performed at this facility on weekends, ordered for Thursday. Pain control prn; patient became quite lethargic with morphine dose x1 so have discontinued, will give patient Tylenol and for breakthrough pain can trial low-dose of tramadol. Clear liquid diet ordered. Given pleural effusion and hypoxia suspected at least in part secondary to this, deferring further fluids for now in favor of oral fluid intake. In discussion with general surgery, if patient's HIDA scan is positive, patient is a poor surgical candidate due to his medical comorbidities and would likely require a percutaneous cholecystostomy tube at a tertiary care center. Continue Zosyn for possible intra-abdominal pathology, with daily laboratory monitoring. L pleural effusion: CXR today with L pleural effusion, relatively stable to increased from last imaging. Was initially on 4 L nasal cannula, now decreased to 2 L which is his home baseline. Patient also has history of CARINA, noncompliant with CPAP, stressed importance of use, ordered in the event that patient is willing to try it. Pulmonology consulted, consider thoracentesis tomorrow depending on clinical progression, hold Eliquis for now in the event of possible procedure. Suspect effusion is 2/2 volume overload (from CHF and CKD). Resumed Lasix PO home dosing, monitor intake and output and add IV dosing if necessary. Discussed plan of care with patient's , with surgery, and with pulmonology.
[2022-11-29] MEDS ORDERED: LANTUS PER UNIT CHARGE SQ ONE (08:13)
[2022-11-29] MEDS: LANTUS PER UNIT CHARGE SQ SCH ×2 (08:13→21:06)
[2022-11-29] MEDS: PANTOprazole 40 MG TAB PO SCH ×2 (09:21→20:54)
[2022-11-29] MEDS: METOPROLOL TARTRATE 100 MG TAB PO SCH ×2 (09:22→20:54)
[2022-11-29] MEDS: dilTIAZem HCL 120 MG CAPCR PO SCH (09:22)
[2022-11-29] MEDS: DOCUSATE SODIUM 100 MG CAP PO SCH (09:22)
[2022-11-29] MEDS: FINASTERIDE 5 MG TAB PO SCH (09:22)
[2022-11-29] MEDS: TERAZOSIN HCL 5 MG CAP PO SCH ×2 (09:22→20:53)
[2022-11-29] MEDS: LOSARTAN POTASSIUM 25 MG TAB PO SCH (09:22)
[2022-11-29] MEDS: POTASSIUM CHLORIDE CRTAB 20 MEQ TABCR PO SCH ×2 (09:22→17:42)
[2022-11-29] MEDS: PIPERACILLIN/TAZOBACTAM 4.5 GM in DEXTROSE 5% 100 ML IV SCH ×3 (09:23→23:59)
--- NOTE | 2022-11-29 09:56 | Surgery Consultation ---
Date of Consultation November 29, 2022 Assessment & Plan (1) Morbid obesity with BMI of 45.0-49.9, adult: His CT images and results were personally viewed by myself, a nondistended gallbladder with questionable infiltration, no stones seen His pain is improved at this point, will await the gallbladder ultrasound r esults and go from there Would hold his Eliquis if a procedure is needed, but he is likely not a surgical candidate based on his medical comorbidities Keep n.p.o., give antibiotics Surgery will continue to follow (2) Abdominal pain: (3) Pleural effusion: History of Present Illness Reason for Consultation: Possible cholecystitis Attending Physician: Salena Bashir, History of Present Illness Is a 77-year-old male who presented to the ER yesterday and there is concern for cholecystitis per the admitting team. He states that around yesterday afternoon he had upper abdominal pain/right upper quadrant pain without radiation, sharp in nature worsened with palpation and relieved by nothing. He currently states that the pain is improved and has very little at this point. He denies any fevers or chills. He denies any previous abdominal surgeries. He is on 3 L nasal cannula O2 due to COPD. He also has chronic kidney disease and takes Eliquis for history of A-fib. He currently states that he is hungry. Allergies Allergy/AdvReac Type Severity Reaction Status Date / Time No Known Allergies Allergy Unverified 10/31/22 14:09 Home Medications Medication Instructions Recorded Confirmed Type aspirin 81 mg tablet,delayed 81 mg PO QAM 07/20/18 10/31/22 History release atorvastatin 80 mg tablet (Lipitor) 40 mg PO HS 07/20/18 10/31/22 History docusate sodium 100 mg capsule 200 mg PO DAILY 07/20/18 10/31/22 History finasteride 5 mg tablet (Proscar) 5 mg PO DAILY 07/20/18 10/31/22 History omeprazole 20 mg capsule,delayed 20 mg PO Q12 07/20/18 10/31/22 History release terazosin 5 mg capsule 5 mg PO BID 07/20/18 10/31/22 History multivitamin with minerals 1 tab PO DAILY 11/28/20 10/31/22 History diltiazem HCl 120 mg 120 mg PO DAILY 08/27/22 10/31/22 History capsule,extended release 24 hr lactulose 10 gram/15 mL oral 30 g PO DAILY 08/27/22 10/31/22 History solution tramadol 50 mg tablet 50 mg PO Q8H PRN Pain 08/27/22 10/31/22 History apixaban 5 mg tablet (Eliquis) 5 mg PO BID 08/29/22 10/31/22 History furosemide 80 mg tablet (Lasix) 120 mg PO BID #90 tabs 09/24/22 10/31/22 Rx hydralazine 10 mg tablet 10 mg PO TID #30 tabs 09/24/22 10/31/22 Rx insulin aspart U-100 100 unit/mL 10 - 35 unit (0.1 - 0.35 mL) 09/24/22 10/31/22 Rx (3 mL) subcutaneous pen (Novolog subcut .qacqhs #15 mL FlexPen U-100 Insulin aspart) insulin glargine 100 unit/mL (3 15 unit (0.15 mL) subcut BID #15 mL 09/24/22 10/31/22 Rx mL) subcutaneous pen (Lantus Solostar U-100 Insulin) losartan 50 mg tablet 25 mg PO DAILY #30 tabs 09/24/22 10/31/22 Rx metoprolol tartrate 25 mg tablet 100 mg PO BID 30 days #60 tabs 09/24/22 0 10/31/22 Rx potassium chloride 20 mEq 40 meq PO BIDM #60 tabs 09/24/22 10/31/22 Rx tablet,extended release (K-Tab) epoetin aaliyah 40,000 unit/mL 40,000 unit subcut MONTHLY hold hb 11/18/22 Rx injection solution (Procrit) 11 or greater 12 months #1 mL Patient History Medical History Acute respiratory failure with hypoxia Anemia of chronic disease Cellulitis CKD (chronic kidney disease) stage 4, GFR 15-29 ml/min D-dimer, elevated Diabetes Diabetes mellitus type 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 GERD (gastroesophageal reflux disease) Hematuria Hypertension Hypoxia Obesity CARINA on CPAP Proteinuria Vitamin D deficiency Social History Smoking Status: Former smoker Second Hand Exposure: No; Do You Dip or Chew Tobacco: No; Hx Alcohol Use: No Hx Substance Use: No Preferred Language: Kazakh Communication Ability: Effective Bridal 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 Required: No Beliefs That Will Affect Care: None Current Living Situation: Spouse Other Information That Helps Us Care for You: No Feels Safe at Home: Yes Safety Concerns: Feels Safe At This Time Assistive Devices: CPAP, Denture - Upper, Glasses, Hearing Aid - Bilateral, Scooter/Electric Scooter and Walker Review of Systems Constitutional: no fever and no chills Eyes: no blind spots and no worsening vision Ear, Nose, Mouth, Throat: no ear pain and no hearing loss Respiratory: no cough and no dyspnea Cardiovascular: no chest pain and no dyspnea on exertion Gastrointestinal: + abdominal pain; no nausea, no vomiting, no constipation and no diarrhea/loose stools Genitourinary: no dysuria Musculoskeletal: no back pain and no neck pain Integumentary: no acne and no skin ulcer Neurologic: no headache(s) Psychiatric: no behavioral changes and no depression Hematologic / Lymphatic: no easy bleeding and no easy bruising On Eliquis Physical Exam Constitutional: WD/WN, vitals as above Eyes: PERRL, conjunctivae normal, anicteric sclerae ENMT: external ear and nose normal, oropharynx normal Neck: trachea midline, no thyromegaly Respiratory: normal respiratory effort On nasal cannula 3 L Cardiovascular: Rate/Rhythm: + irregularly irregular Gastrointestinal (Abdomen): Inspection/Auscultation: abdomen normal to inspection; abdomen not distended Percussion/Palpation: + abdomen tender (Mild right upper quadrant) and abdomen soft; no guarding, abdomen not rigid and no hernia Negative Sifuentes's Musculoskeletal: no cyanosis or clubbing, extremities motor strength 5/5 Skin: no rashes, warm and dry Neurologic: PERRL, EOMI, accommodation nl, no face palsy, no dysarthria Psychiatric: A+Ox3, euthymic affect Results & Data Vital Signs (Past 12 Hours) Vital Signs Temp Pulse Pulse Pulse Resp BP BP 11/29/22 07:44 36.7 C 98 H 20 129/77 11/29/22 07:23 96 H 11/29/22 06:30 36.7 C 106 H 22 11/29/22 03:57 36.4 C L 113 H 22 138/72 11/29/22 05:43 100 H 11/29/22 05:10 11/29/22 05:10 36.4 C L 113 H 22 138/72 11/29/22 03:47 103 H 20 129/74 11/29/22 03:30 110 H 17 11/29/22 03:30 129/74 11/29/22 03:20 93 H 15 11/29/22 03:10 108 H 15 11/29/22 03:00 113 H 18 11/29/22 03:00 150/77 H 11/29/22 02:50 104 H 17 11/29/22 02:40 104 H 19 11/29/22 02:31 153/71 H 11/29/22 02:31 112 H 27 H 11/29/22 02:30 107 H 17 11/29/22 02:20 103 H 19 11/29/22 02:17 108 H 16 11/29/22 01:24 103 H 11/29/22 01:24 117 H 22 11/29/22 01:24 36.5 C 117 H 22 11/29/22 01:24 36.5 C 117 H 22 169/73 H BP Pulse Ox O2 Del Method O2 Flow Rate 11/29/22 07:44 95 Nasal Cannula 4 11/29/22 07:23 11/29/22 06:30 138/75 94 Nasal Cannula 4 11/29/22 03:57 92 Nasal Cannula 4 11/29/22 05:43 11/29/22 05:10 Nasal Cannula 4 11/29/22 05:10 92 Nasal Cannula 4 11/29/22 03:47 94 Nasal Cannula 4 11/29/22 03:30 11/29/22 03:30 11/29/22 03:20 11/29/22 03:10 94 11/29/22 03:00 94 11/29/22 03:00 11/29/22 02:50 95 11/29/22 02:40 93 11/29/22 02:31 11/29/22 02:31 95 11/29/22 02:30 94 11/29/22 02:20 95 11/29/22 02:17 94 11/29/22 01:24 11/29/22 01:24 96 Nasal Cannula 4 11/29/22 01:24 169/73 H 96 Nasal Cannula 4 11/29/22 01:24 96 Room Air 4 PG Care Time/CCT Total # of Minutes Spent Total Time Spent with Patient: Total time spent is greater than 50% in coordination of care (as documented) at patient's floor/unit and/or counseling patient: Coding Level of Care Code 90643 IN/OBS CONSULT LVL 3,45M Diagnoses Morbid obesity with BMI of 45.0-49.9, adult E66.01; Z68.42 Abdominal pain R10.9 Pleural effusion J90
--- NOTE | 2022-11-29 10:17 | XRay Report ---
XR chest 1V portable CLINICAL HISTORY: hypoxia COMPARISON STUDY: Chest radiograph September 23, 2022. Chest CT September 13, 2022 FINDINGS: A moderate to large left pleural effusion has significantly increased in size since prior e xam. Associated left lung opacities are present. Cardiomegaly is again noted. There is pulmonary vasc ular congestion. There is no pneumothorax. IMPRESSION: 1. Increase in size of a moderate to large left pleural effusion with associated airspace opacity. 2. Cardiomegaly. Pulmonary vascular congestion. ACT 112: Negative or not required by law. Electronically signed by: Urban Borrero M.D. 11/29/2022 10:15 AM
--- NOTE | 2022-11-29 10:41 | Ultrasound Report ---
US gallbladder CLINICAL HISTORY: Possible cholecystitis. Abnormal CT. COMPARISON STUDY: CT of the abdomen and pelvis November 29, 2022. FINDINGS: This study is mildly compromised by suboptimal penetration. No hepatic lesions are identifi ed. The liver is enlarged, measuring 21.5 cm in maximal sagittal dimension. There is no biliary ducta l dilatation. The common bile duct measures 5 mm in caliber. Pancreatic body is normal. The head and tail are obscured by overlying bowel gas. No gallstones are identified. There is no gallbladder wall thickening. No sonographic Sifuentes sign was reported. There is no right hydronephrosis. IMPRESSION: 1. No gallstones. No gallbladder wall thickening. No sonographic evidence for acute cholecystitis. If persistent clinical suspicion, a hepatobiliary scan could be obtained. 2. No biliary ductal dilatation. 3. Mild hepatomegaly. ACT 112: Negative or not required by law. Electronically signed by: Urban Borrero M.D. 11/29/2022 10:38 AM
[2022-11-29] MEDS ORDERED: ONDANSETRON INJ 2 MG/ML 2 ML VIAL IV PRN (10:46)
[2022-11-29] MEDS ORDERED: Nursing to Pharmacy Communication SCH (11:00)
--- NOTE | 2022-11-29 12:06 | Pulmonary Consultation ---
Date of Consultation November 29, 2022 Assessment & Plan (1) Pleural effusion on left: Pleural effusion likely secondary to volume overload from diastolic CHF and CKD stage IV. Continue to hold Eliquis. We will consider thoracentesis tomorrow depending on clinical progression. Procedure may be technically difficult given patient's morbid obesity. The effusion appears largely stable compared to prior chest x-rays and CT chest dating back to August 2022. (2) Acute dyspnea: Multifactorial related to diastolic CHF, chronic anemia, atrial fibrillation, morbid obesity and pleural effusion. Recommend repeating troponins and echocardiogram. (3) Pulmonary edema: Continue management of fluid status per primary team and nephrology. (4) Atrial fibrillation: Continue to hold Eliquis. (5) CKD (chronic kidney disease) stage 4, GFR 15-29 ml/min: Recommend nephrology input. (6) Acute on chronic diastolic (congestive) heart failure: Consider Lasix infusion, cardiology and nephrology input. (7) CARINA (obstructive sleep apnea): Noncompliant with Pap therapy. Caution with analgesia given lethargy. Recommend discontinuing morphine. Communicated with hospitalist. History of Present Illness Reason for Consultation: Pleural effusion Attending Physician: Salena Bashir DO History of Present Illness 77-year-old male who was admitted to the hospital due to abdominal complaints. There is concern for cholecystitis. He has been evaluated by general surgery who is recommending a conservative approach at this time. Patient with dyspnea on mild exertion. Denies chest pain. No fevers, chills or night sweats. Patient very lethargic. He just received morphine. He notes that he has CPAP at home, but is noncompliant. Refused BiPAP last night. Chest x-ray obtained 11/29/2022 reveals moderate to large left pleural effusion. Chest x-ray from 09/16/2022 also with evidence of a left pleural effusion which was slightly smaller than today's x-ray. CT chest 09/13/2022 revealed a small to moderate pleural effusion. LVEF 60 to 65% based on echo 09/15/2022. Allergies Allergy/AdvReac Type Severity Reaction Status Date / Time No Known Allergies Allergy Unverified 10/31/22 14:09 Home Medications Medication Instructions Recorded Confirmed Type aspirin 81 mg tablet,delayed 81 mg PO QAM 07/20/18 10/31/22 History release atorvastatin 80 mg tablet (Lipitor) 40 mg PO HS 07/20/18 10/31/22 History docusate sodium 100 mg capsule 200 mg PO DAILY 07/20/18 10/31/22 History finasteride 5 mg tablet (Proscar) 5 mg PO DAILY 07/20/18 10/31/22 History omeprazole 20 mg capsule,delayed 20 mg PO Q12 07/20/18 10/31/22 History release terazosin 5 mg capsule 5 mg PO BID 07/20/18 10/31/22 History multivitamin with minerals 1 tab PO DAILY 11/28/20 10/31/22 History diltiazem HCl 120 mg 120 mg PO DAILY 08/27/22 10/31/22 History capsule,extended release 24 hr lactulose 10 gram/15 mL oral 30 g PO DAILY 08/27/22 10/31/22 History solution tramadol 50 mg tablet 50 mg PO Q8H PRN Pain 08/27/22 10/31/22 History apixaban 5 mg tablet (Eliquis) 5 mg PO BID 08/29/22 10/31/22 History furosemide 80 mg tablet (Lasix) 120 mg PO BID #90 tabs 09/24/22 10/31/22 Rx hydralazine 10 mg tablet 10 mg PO TID #30 tabs 09/24/22 10/31/22 Rx insulin aspart U-100 100 unit/mL 10 - 35 unit (0.1 - 0.35 mL) 09/24/22 10/31/22 Rx (3 mL) subcutaneous pen (Novolog subcut .qacqhs #15 mL FlexPen U-100 Insulin aspart) insulin glargine 100 unit/mL (3 15 unit (0.15 mL) subcut BID #15 mL 09/24/22 10/31/22 Rx mL) subcutaneous pen (Lantus Solostar U-100 Insulin) losartan 50 mg tablet 25 mg PO DAILY #30 tabs 09/24/22 10/31/22 Rx metoprolol tartrate 25 mg tablet 100 mg PO BID 30 days #60 tabs 09/24/22 10/31/22 Rx potassium chloride 20 mEq 40 meq PO BIDM #60 tabs 09/24/22 10/31/22 Rx tablet,extended release (K-Tab) epoetin aaliyah 40,000 unit/mL 40,000 unit subcut MONTHLY hold hb 11/18/22 Rx injection solution (Procrit) 11 or greater 12 months #1 mL Patient History Medical History (Updated 11/29/22 @ 13:38 by Fadi Barone MD) Acute respiratory failure with hypoxia Anemia of chronic disease Cellulitis CKD (chronic kidney disease) stage 4, GFR 15-29 ml/min D-dimer, elevated Diabetes Diabetes mellitus type 2 in obese GERD (gastroesophageal reflux disease) Hematuria Hypertension Hypoxia Obesity CARINA (obstructive sleep apnea) CARINA on CPAP Proteinuria Vitamin D deficiency Social History Smoking Status: Former smoker Second Hand Exposure: No; Do You Dip or Chew Tobacco: No; Hx Alcohol Use: No Hx Substance Use: No Preferred Language: Georgian Communication Ability: Effective Administrative Assistant Receptionist Required: No Beliefs That Will Affect Care: None Current Living Situation: Spouse Other Information That Helps Us Care for You: No Feels Safe at Home: Yes Safety Concerns: Feels Safe At This Time Assistive Devices: CPAP, Denture - Upper, Glasses, Hearing Aid - Bilateral, Scooter/Electric Scooter and Walker Review of Systems Review of Systems: All systems reviewed & are unremarkable except as noted in HPI & below Physical Exam Physical Exam: Constitutional: Morbidly obese. Lethargic. Disheveled. Eyes: Pupils are equal round and reactive to light. Conjunctivae are normal. Anicteric sclera. Ears nose, mouth and throat: Mallampati class 3. Normal posterior oropharynx. Uvula is midline. Neck: Trachea is midline. Visual inspection is normal. Respiratory: Diminished bilaterally. No wheezes. Cardiovascular: Regular rate and rhythm. No murmurs. No edema. Gastrointestinal: Normal bowel sounds, soft, nontender and nondistended. No hepatosplenomegaly noted. Musculoskeletal: No cyanosis. Patient is able to move all extremities. Strength is 5 out of 5 in the upper and lower extremities. Skin: No rashes, warm dry and intact. Neurologic: No obvious focal neurological deficits seen. Psychiatric: Lethargic. Results & Data Results & Data Vital Signs (Past 12 Hours) Vital Signs Temp Pulse Pulse Pulse Resp BP BP 11/29/22 10:38 36.7 C 96 H 20 140/70 11/29/22 07:44 36.7 C 98 H 20 129/77 11/29/22 07:23 96 H 11/29/22 06:30 36.7 C 106 H 22 11/29/22 03:57 36.4 C L 113 H 22 138/72 11/29/22 05:43 100 H 11/29/22 05:10 11/29/22 05:10 36.4 C L 113 H 22 138/72 11/29/22 03:47 103 H 20 129/74 11/29/22 03:30 110 H 17 11/29/22 03:30 129/74 11/29/22 03:20 93 H 15 11/29/22 03:10 108 H 15 11/29/22 03:00 113 H 18 11/29/22 03:00 150/77 H 11/29/22 02:50 104 H 17 11/29/22 02:40 104 H 19 11/29/22 02:31 153/71 H 11/29/22 02:31 112 H 27 H 11/29/22 02:30 107 H 17 11/29/22 02:20 103 H 19 11/29/22 02:17 108 H 16 11/29/22 01:24 103 H 11/29/22 01:24 117 H 22 11/29/22 01:24 36.5 C 117 H 22 11/29/22 01:24 36.5 C 117 H 22 169/73 H BP Pulse Ox O2 Del Method O2 Flow Rate 11/29/22 10:38 93 Nasal Cannula 4 11/29/22 07:44 95 Nasal Cannula 4 11/29/22 07:23 11/29/22 06:30 138/75 94 Nasal Cannula 4 11/29/22 03:57 92 Nasal Cannula 4 11/29/22 05:43 11/29/22 05:10 Nasal Cannula 4 11/29/22 05:10 92 Nasal Cannula 4 11/29/22 03:47 94 Nasal Cannula 4 11/29/22 03:30 11/29/22 03:30 11/29/22 03:20 11/29/22 03:10 94 11/29/22 03:00 94 11/29/22 03:00 11/29/22 02:50 95 11/29/22 02:40 93 11/29/22 02:31 11/29/22 02:31 95 11/29/22 02:30 94 11/29/22 02:20 95 11/29/22 02:17 94 11/29/22 01:24 11/29/22 01:24 96 Nasal Cannula 4 11/29/22 01:24 169/73 H 96 Nasal Cannula 4 11/29/22 01:24 96 Room Air 4 PG Care Time/CCT Total # of Minutes Spent Total Time Spent with Patient: Total time spent is greater than 50% in coordination of care (as documented) at patient's floor/unit and/or counseling patient: Coding Level of Care Code 02209 INT INP/OBS CARE 2/55MIN Diagnoses Pleural effusion on left J90 Acute dyspnea R06.00 Pulmonary edema J81.1 Atrial fibrillation I48.91 CKD (chronic kidney disease) stage 4, GFR 15-29 ml/min N18.4 Acute on chronic diastolic (congestive) heart failure I50.33 CARINA (obstructive sleep apnea) G47.33
[2022-11-29] MEDS: INSULIN ASPART PER UNIT CHARGE SC SCH ×3 (12:38→21:06)
[2022-11-29 13:06] LABS: INR 1.1 (0.9-1.1); Prothrombin Time 11.7 Seconds (9.0-12.0)
[2022-11-29] MEDS ORDERED: NALOXONE HCL 0.4 MG/1 ML VIAL/CARP IV PRN (13:55)
[2022-11-29] MEDS: ACETAMINOPHEN 325 MG TAB PO PRN ×2 (17:41→22:11)
[2022-11-29] MEDS ORDERED: BUMETANIDE 1 MG in SYRINGE 0 ML IV ONE (18:00)
[2022-11-29] MEDS ORDERED: CHLOROTHIAZIDE SODIUM 500 MG in DEXTROSE 5% 50 ML IV ONE (18:00)
--- NOTE | 2022-11-29 20:15 | Billing Data ---
Date of Service November 29, 2022 Coding Level of Care Code 90743 INT INP/OBS CARE
--- NOTE | 2022-11-29 20:45 | XCELERA ---
[id number]
[2022-11-29] MEDS: FUROSEMIDE 40 MG TAB PO SCH (20:54)
[2022-11-29] MEDS: ATORVASTATIN 40 MG TAB PO SCH (20:54)
[2022-11-29] MEDS ORDERED: guaiFENesin/DEXTROM SYRUP 100MG/10MG 5ML UDC PO PRN (22:20)
[2022-11-30] MEDS: ACETAMINOPHEN 325 MG TAB PO PRN ×2 (05:08→17:49)
[2022-11-30 07:20] LABS: Hematocrit (blood only) 30.9 % (42.0-52.0); Mean Corpuscular Hgb Conc 29.1 g/dL (32.0-36.0); Mean Platelet Volume 11.4 fL (9.4-12.4); Platelet Count 225 K/uL (130-400); RDW Coefficient of Variation 15.5 % (11.5-14.5); RDW Standard Deviation 54.7 fL (36.4-46.3); Red Blood Count 3.22 M/uL (4.70-6.10); White Blood Count 11.28 K/ul (4.8-10.8)
--- NOTE | 2022-11-30 07:26 | Electrocardiogram Report ---
Test Reason : Blood Pressure : / mmHG Vent. Rate : 108 BPM Atrial Rate : 000 BPM P-R Int : 000 ms QRS Dur : 130 ms QT Int : 324 ms P-R-T Axes : 000 055 021 degrees QTc Int : 434 ms Atrial fibrillation with rapid ventricular response with premature ventricular or aberrantly conducte d complexes Right bundle branch block Abnormal ECG When compared with ECG of 16-SEP-2022 19:07, QRS axis Shifted left Nonspecific T wave abnormality, improved in Inferior leads Confirmed by Adair Broderick ([id number]) on 11/30/2022 7:26:06 AM Referred By: REFERRED SELF Confirmed By:Adair Broderick
[2022-11-30 07:33] LABS: BUN Creatinine Ratio 15.9 (10-20); Bilirubin,Total 0.4 mg/dl (0.2-1.0); Calcium 8.2 mg/dl (8.6-10.3); Creatinine Clr Calc Pharmacy 38.3 ml/min; Est GFR (African American) 28.8 ml/min; Est GFR (Non-African American) 24.8 ml/min
--- NOTE | 2022-11-30 07:37 | Hospitalist Progress Note ---
Date of Service November 30, 2022 Assessment & Plan (1) Cholecystitis: Plan: Abdominal pain, concern for cholecystitis: CTAP with concern for cholecystitis, RUQ US without evidence of gallstones or cholecystitis. HIDA ordered but not performed at this facility on weekends, ordered for Thursday. Pain control prn; patient became quite lethargic with morphine dose x1 so have discontinued, will give patient Tylenol and for breakthrough pain and can trial low-dose of tramado l. Low-fat, low-sodium, diabetic diet ordered. In discussion with general surgery, if patient's HIDA scan is positive, patient is a poor surgical candidate due to his medical comorbidities and would likely require a percutaneous cholecystostomy tube at a tertiary care center. Continue Zosyn for possible intra-abdominal pathology, with daily laboratory monitoring. WBC count improved from 13.3->11.2 with these interventions. (2) Pleural effusion on left: Plan: CXR with L pleural effusion, with some increase in size compared to imaging 08/2022. Was initially on 4 L nasal cannula, now decreased to 3 L (home baseline 2L). Patient also has history of CARINA, noncompliant with CPAP, stressed importance of use, ordered in the event that patient is willing to try it. Pulmonology consulted, s/p thoracentesis today with output so far of 1800mL exudative fluid. Continue Zosyn. (3) CARINA (obstructive sleep apnea): Plan: Noncompliant with CPAP. Also suspect element of OHS contributing given patient's central obesity. (4) Atrial fibrillation: Plan: History of, holding Eliquis for possible upcoming thoracentesis and possible intraabdominal procedures pending HIDA scan tomorrow. Continue diltiazem and metoprolol home dosing. (5) CKD (chronic kidney disease) stage 4, GFR 15-29 ml/min: Plan: History of, with baseline CKD 1.6-2.1. With ARMOND this morning to 2.45, normal BUN/Cr ratio, with tender LE and scrotal edema Nephrology consulted, ordered Lasix 100mg IV TID Repeat BMP tomorrow (6) Diabetes mellitus type 2 in obese: Plan: Continue basal/bolus insulin, adjust as needed based on POC BSGs (7) Hidden penis: Plan: Patient with extremely difficult catheterization by nursing staff, noted on exam to have edema/inflammation of the scrotum and foreskin, unable to retract foreskin, Urology asked to evaluate patient as he was supposed to see Urology outpatient for these ongoing issues as well as difficulty with urination, but was hospitalized (8) Anemia: Plan: History of chronic anemia, with steady decline noted since 2020 with Hgb in 9's since August 2022 FOBT positive, no black or bright red stools Iron studies ordered Patient will need follow up with Gastroenterology on discharge for consideration of endoscopy; can consult while admitted if any evidence of acute significant bleeding Admission and Anticipated Discharge Date Admission Date: November 29, 2022 Subjective No acute events overnight. Reports his breathing is somewhat better after thoracentesis. Still with some right upper quadrant pain but is better than yesterday and the day before. Feeling hungry. Review of Systems Review of Systems: All systems reviewed & are unremarkable except as noted in Subjective Physical Exam Constitutional: WD/WN, vitals as above Respiratory: Diminished breath sounds bilaterally, no wheezes or crackles Cardiovascular: Regular rate and rhythm no murmurs, tense pitting edema in bilateral lower extremities, with swelling/edema into scrotum and foreskin Gastrointestinal (Abdomen): abdomen soft, protuberant, except mildly tender in the right upper quadrant to deep palpation without rebound or guarding Skin: no rashes, warm and dry Psychiatric: A+Ox3, euthymic affect Results & Data Results & Data Vital Signs (Past 12 Hours) Vital Signs Temp Pulse Pulse Resp BP BP Pulse Ox 11/30/22 07:09 85 11/30/22 03:05 36.3 C L 87 22 134/73 94 11/29/22 23:00 76 11/29/22 22:08 84 20 114/61 116/67 94 11/29/22 21:55 36.8 C 84 20 97/54 L 90 11/29/22 21:18 11/29/22 20:40 36.8 C 89 20 137/72 95 O2 Del Method O2 Flow Rate 11/30/22 07:09 11/30/22 03:05 Nasal Cannula 3 11/29/22 23:00 11/29/22 22:08 Nasal Cannula 3 11/29/22 21:55 Nasal Cannula 2 11/29/22 21:18 Nasal Cannula 2 11/29/22 20:40 Nasal Cannula 2 PG Care Time/CCT Total # of Minutes Spent Total Time Spent with Patient: Total time spent is greater than 50% in coordination of care (as documented) at patient's floor/unit and/or counseling patient: Coding Level of Care Code 13368 SUB INP/OBS CARE 350MIN Diagnoses Cholecystitis K81.9 Pleural effusion on left J90 CARINA (obstructive sleep apnea) G47.33 Atrial fibrillation I48.91 CKD (chronic kidney disease) stage 4, GFR 15-29 ml/min N18.4 Diabetes mellitus type 2 in obese E11.69; E66.9 Hidden penis Q55.64 Anemia D64.9
[2022-11-30] MEDS: METOPROLOL TARTRATE 100 MG TAB PO SCH ×2 (08:21→20:40)
[2022-11-30] MEDS: PANTOprazole 40 MG TAB PO SCH ×2 (08:21→20:41)
[2022-11-30] MEDS: INSULIN ASPART PER UNIT CHARGE SC SCH ×4 (08:21→20:38)
[2022-11-30] MEDS: POTASSIUM CHLORIDE CRTAB 20 MEQ TABCR PO SCH ×2 (08:21→17:33)
[2022-11-30] MEDS: LANTUS PER UNIT CHARGE SQ SCH ×2 (08:21→20:38)
[2022-11-30] MEDS: TERAZOSIN HCL 5 MG CAP PO SCH ×2 (08:21→20:41)
[2022-11-30] MEDS: FINASTERIDE 5 MG TAB PO SCH (08:22)
[2022-11-30] MEDS: LOSARTAN POTASSIUM 25 MG TAB PO SCH (08:22)
[2022-11-30] MEDS: dilTIAZem HCL 120 MG CAPCR PO SCH (08:22)
[2022-11-30] MEDS: DOCUSATE SODIUM 100 MG CAP PO SCH (08:22)
[2022-11-30] MEDS: FUROSEMIDE 40 MG TAB PO SCH (08:22)
[2022-11-30] MEDS: PIPERACILLIN/TAZOBACTAM 4.5 GM in DEXTROSE 5% 100 ML IV SCH ×2 (08:23→17:37)
--- NOTE | 2022-11-30 09:26 | Surgery Progress Note ---
Date of Service November 30, 2022 Assessment & Plan (1) Abdominal pain: Plan: Ultrasound images and results were personally viewed by myself, no cholelithiasis or any signs suggestive of cholecystitis Advance diet as tolerated Surgery will sign off at this time, please call with any questions or concerns Admission and Anticipated Discharge Date Admission Date: November 29, 2022 Subjective Patient seen and examined. Still complains of mild right-sided pain. Denies nausea or vomiting. Vital signs stable. Afebrile. Review of Systems Constitutional: no fever and no chills Physical Exam Constitutional: WD/WN, vitals as above Gastrointestinal (Abdomen): Inspection/Auscultation: abdomen normal to inspection; abdomen not distended Percussion/Palpation: abdomen soft; abdomen nontender, no guarding and abdomen not rigid Results & Data Vital Signs (Past 12 Hours) Vital Signs Temp Pulse Pulse Resp BP BP Pulse Ox 11/30/22 07:44 36.9 C 92 H 20 109/73 97 11/30/22 07:09 85 11/30/22 03:05 36.3 C L 87 22 134/73 94 11/29/22 23:00 76 11/29/22 22:08 84 20 114/61 116/67 94 11/29/22 21:55 36.8 C 84 20 97/54 L 90 O2 Del Method O2 Flow Rate 11/30/22 07:44 Nasal Cannula 3 11/30/22 07:09 11/30/22 03:05 Nasal Cannula 3 11/29/22 23:00 11/29/22 22:08 Nasal Cannula 3 11/29/22 21:55 Nasal Cannula 2 PG Care Time/CCT Total # of Minutes Spent Total Time Spent with Patient: Total time spent is greater than 50% in coordination of care (as documented) at patient's floor/unit and/or counseling patient: Coding Level of Care Code 89210 SUB INP/OBS CARE 1/25MIN Diagnoses Abdominal pain R10.9
[2022-11-30] MEDS: FUROSEMIDE 10 MG/ML 10 ML VIAL IV SCH ×3 (09:52→20:40)
--- NOTE | 2022-11-30 11:01 | Procedure Note ---
Procedure Note Date of Service November 30, 2022 Note Left PIGTAIL CATHETER PLACEMENT NOTE: Procedure: Left Pigtail Catheter Chest Tube Placement Indication: Large left pleural effusion Anesthesia: 10 mL lidocaine 1% Written consent was obtained and placed on the chart. Timeout was done prior to the procedure. Prior to procedure, chest x-ray films were reviewed by myself and demonstrated large left pleural effusion. A time-out was completed verifying correct patient, procedure, site, positioning, and implant(s) or special equipment if applicable. Utilizing bedside ultrasound, chest wall was evaluated for location for optimal chest tube placement. Location between the fifth and 6 ribs were marked on the skin using gentle pressure. The left sided chest wall was prepped with chlorhexidine and draped in the typical sterile fashion. 10 mL of 1% Lidocaine without epinephrine was used to anesthetize the skin down to the dorsal surface of the fifth rib. Serosanguineous fluid return confirmed entry into the pleural space. Lidocaine was injected into the pleural space for increased anesthetization. Introducer needle on syringe was inserted in perpendicular fashion taking care to ride just above the dorsal surface of the fifth rib. Entry into the pleural space was heralded by serosanguineous fluid return into the syringe while under gentle aspiration. Guide wire was advanced into the pleural space without resistance and the introducer needle was subsequently removed. Scalpel was used to make small incision of the superficial tissue, parallel to the direction of the rib anatomy. Dilator was advanced uneventfully over the guide wire into the pleural space. 14 Swiss Pigtail Catheter was inserted into the pleural space. Inner introducer and guide wire were removed. Drain was immediately connected to pre-prepared ANA M pleur-evac system. Pigtail was sutured securely in place and sterile dressing was applied. Chest tube was placed to -20 cmH2O suction. Patient tolerated procedure well. Blood Loss: Minimal Complications: None Postprocedure chest x-ray is pending. Pleural fluid sent for cultures, cytology and cell counts. Coding CPT Codes Pulmonary/Thoracic - Pulmonary and Thoracic: 02113 Tube thoracostomy ([id number]) [facility] [place]odes (Charges) Pulmonary/Thoracic Procedure 1: Pulmonary and Thoracic: 93083 Tube thoracostomy
--- NOTE | 2022-11-30 11:07 | Pulmonology Progress Note ---
Date of Service November 30, 2022 Assessment & Plan (1) Pleural effusion on left: Plan: Large right pleural effusion noted on ultrasound. 14 Cameroonian pigtail chest tube placed 11/30/2022. Fluid appears to be an exudate. Cultures, cytology and cell count sent. Continue Zosyn. Patient has a history of bladder cancer. Malignancy remains in the differential. Continue chest tube to suction at -10 cm water. (2) Acute dyspnea: Plan: Multifactorial related to diastolic CHF, chronic anemia, atrial fibrillation, morbid obesity and pleural effusion. Recommend repeating troponins and echocardiogram. (3) Pulmonary edema: Plan: Continue management of fluid status per primary team and nephrology. (4) Atrial fibrillation: Plan: Continue to hold Eliquis. (5) CKD (chronic kidney disease) stage 4, GFR 15-29 ml/min: Plan: Diuretics per nephrology. (6) Acute on chronic diastolic (congestive) heart failure: Plan: Defer diuretics to primary team and nephrology. (7) CAIRNA (obstructive sleep apnea): Plan: Noncompliant with Pap therapy. Caution with analgesia given lethargy. Admission and Anticipated Discharge Date Admission Date: November 29, 2022 Subjective Patient seen and examined. Continues to have shortness of breath with minimal exertion and requiring supplemental oxygen. Review of Systems Review of Systems: All systems reviewed & are unremarkable except as noted in HPI & below Physical Exam Physical Exam: Constitutional: Morbidly obese. Lethargic. Disheveled. Eyes: Pupils are equal round and reactive to light. Conjunctivae are normal. Anicteric sclera. Ears nose, mouth and throat: Mallampati class 3. Normal posterior oropharynx. Uvula is midline. Neck: Trachea is midline. Visual inspection is normal. Respiratory: Diminished bilaterally. No wheezes. Cardiovascular: Regular rate and rhythm. No murmurs. No edema. Gastrointestinal: Normal bowel sounds, soft, nontender and nondistended. No hepatosplenomegaly noted. Musculoskeletal: No cyanosis. Patient is able to move all extremities. Strength is 5 out of 5 in the upper and lower extremities. Skin: No rashes, warm dry and intact. Neurologic: No obvious focal neurological deficits seen. Psychiatric: Lethargic. Results & Data Results & Data Vital Signs (Past 12 Hours) Vital Signs Temp Pulse Pulse Resp BP BP Pulse Ox 11/30/22 07:44 36.9 C 92 H 20 109/73 97 11/30/22 07:09 85 11/30/22 03:05 36.3 C L 87 22 134/73 94 O2 Del Method O2 Flow Rate 11/30/22 07:44 Nasal Cannula 3 11/30/22 07:09 11/30/22 03:05 Nasal Cannula 3 PG Care Time/CCT Total # of Minutes Spent Total Time Spent with Patient: Total time spent is greater than 50% in coordination of care (as documented) at patient's floor/unit and/or counseling patient: Coding Level of Care Code 87033 SUB INP/OBS CARE 3/50MIN Diagnoses Pleural effusion on left J90 Acute dyspnea R06.00 Pulmonary edema J81.1 Atrial fibrillation I48.91 CKD (chronic kidney disease) stage 4, GFR 15-29 ml/min N18.4 Acute on chronic diastolic (congestive) heart failure I50.33 CARINA (obstructive sleep apnea) G47.33
--- NOTE | 2022-11-30 11:07 | Nephrology Consultation ---
Date of Consultation November 30, 2022 Assessment & Plan (1) CKD (chronic kidney disease) stage 4, GFR 15-29 ml/min: * CKD stage G4/A2 (advanced impairment). Baseline Cr has been 2.0-2.4 w/ EGFR 24 cc/min since at least 2016. His primary Chief Vendor Quality is Dr. Hernandez. Outpatient evaluation has revealed an acellular urine sediment. Renal US was negative for hydronephrosis. Renal impairment has been attributed to diabetic nephropathy * Kidney function is stable at this time * Monitor PRP, UO (2) Acute on chronic diastolic (congestive) heart failure: * 1500 mg/day NaCl restricted diet * Will order Furosemide 100 mg IV TID * Monitor I&O, wt * Await thoracentesis (3) Anemia: * Will order FOBT, iron studies History of Present Illness Reason for Consultation: CKD, volume overload Attending Physician: Salena Bashir, History of Present Illness Mr. Narvaez was evaluated in his hospital room this morning at the request of [facility] for evaluation of CKD and volume overload. Information for the HPI is obtained from patient interview, review of EMR and is summarized as follows: Mr. Narvaez has CKD stage G4/A2 (advanced impairment). Baseline Cr has been 2.0-2.4 w/ EGFR 24 cc/min since at least 2016. His primary Chief Vendor Quality is Dr. Hernandez. Outpatient evaluation has revealed an acellular urine sediment. Renal US was negative for hydronephrosis. Renal impairment has been attributed to diabetic nephropathy. Mr. Narvaez's medical history is also significant for AODM (+retinopathy), HTN, GERD, obesity w/ BMI > 45, CARINA on CPAP and BPH. Mr. Narvaez was admitted to [facility] 11/29/22 for evaluation of RUQ abdominal discomfort. CT revealed pe richolecystic stranding but US was negative for stones or wall thickening. HIDA scan is pending. CT also revealed a large L pleural effusion. Pulmonology plans L thoracentesis today and recommended Nephrology evaluation due to volume overload and need for additional diuresis. 11/29/22 Echo - LVEF 60-65%, RV poorly visualized but appears dilated, RVSP 43 mmHg, valves were not well visualized. Allergies Allergy/AdvReac Type Severity Reaction Status Date / Time No Known Allergies Allergy Unverified 10/31/22 14:09 Home Medications Medication Instructions Recorded Confirmed Type aspirin 81 mg tablet,delayed 81 mg PO QAM 07/20/18 10/31/22 History release atorvastatin 80 mg tablet (Lipitor) 40 mg PO HS 07/20/18 10/31/22 History docusate sodium 100 mg capsule 200 mg PO DAILY 07/20/18 10/31/22 History finasteride 5 mg tablet (Proscar) 5 mg PO DAILY 07/20/18 10/31/22 History omeprazole 20 mg capsule,delayed 20 mg PO Q12 07/20/18 10/31/22 History release terazosin 5 mg capsule 5 mg PO BID 07/20/18 10/31/22 History multivitamin with minerals 1 tab PO DAILY 11/28/20 10/31/22 History diltiazem HCl 120 mg 120 mg PO DAILY 08/27/22 10/31/22 History capsule,extended release 24 hr lactulose 10 gram/15 mL oral 30 g PO DAILY 08/27/22 10/31/22 History solution tramadol 50 mg tablet 50 mg PO Q8H PRN Pain 08/27/22 10/31/22 History apixaban 5 mg tablet (Eliquis) 5 mg PO BID 08/29/22 10/31/22 History furosemide 80 mg tablet (Lasix) 120 mg PO BID #90 tabs 09/24/22 10/31/22 Rx hydralazine 10 mg tablet 10 mg PO TID #30 tabs 09/24/22 10/31/22 Rx insulin aspart U-100 100 unit/mL 10 - 35 unit (0.1 - 0.35 mL) 09/24/22 10/31/22 Rx (3 mL) subcutaneous pen (Novolog subcut .qacqhs #15 mL FlexPen U-100 Insulin aspart) insulin glargine 100 unit/mL (3 15 unit (0.15 mL) subcut BID #15 mL 09/24/22 10/31/22 Rx mL) subcutaneous pen (Lantus Solostar U-100 Insulin) losartan 50 mg tablet 25 mg PO DAILY #30 tabs 09/24/22 10/31/22 Rx metoprolol tartrate 25 mg tablet 100 mg PO BID 30 days #60 tabs 09/24/22 10/31/22 Rx potassium chloride 20 mEq 40 meq PO BIDM #60 tabs 09/24/22 10/31/22 Rx tablet,extended release (K-Tab) epoetin aaliyah 40,000 unit/mL 40,000 unit subcut MONTHLY hold hb 11/18/22 Rx injection solution (Procrit) 11 or greater 12 months #1 mL Patient History Medical History Acute respiratory failure with hypoxia Anemia of chronic disease Cellulitis CKD (chronic kidney disease) stage 4, GFR 15-29 ml/min D-dimer, elevated Diabetes Diabetes mellitus type 2 in obese GERD (gastroesophageal reflux disease) Hematuria Hypertension Hypoxia Obesity CARINA (obstructive sleep apnea) CARINA on CPAP Proteinuria Vitamin D deficiency Social History Smoking Status: Former smoker Second Hand Exposure: No; Do You Dip or Chew Tobacco: No; Hx Alcohol Use: No Hx Substance Use: No Preferred Language: [place] Citizen Communication Ability: Effective Exhaust Equipment Operator Required: No Beliefs That Will Affect Care: None Current Living Situation: Spouse Other Information That Helps Us Care for You: No Feels Safe at Home: Yes Safety Concerns: Feels Safe At This Time Assistive Devices: CPAP, Denture - Upper, Glasses, Hearing Aid - Bilateral, Scooter/Electric Scooter and Walker Review of Systems Constitutional: no fever Eyes: no worsening vision Ear, Nose, Mouth, Throat: no problem reported Respiratory: + dyspnea; no cough Cardiovascular: no chest pain Gastrointestinal: + abdominal pain (RUQ) Genitourinary: no dysuria, no urinary hesitancy or no hematuria Integumentary: no rash Physical Exam Constitutional: not in distress Eyes: PERRL, conjunctivae normal, anicteric sclerae ENMT: external ear and nose normal, oropharynx normal Neck: trachea midline, no thyromegaly Respiratory: Auscultation: + diminished lung sounds (L side) Cardiovascular: Rate/Rhythm: regular rate and regular rhythm Extremities: + edema (tense B LE edema) Gastrointestinal (Abdomen): normal bowel sounds, soft, nontender, no hepatosplenomegaly Skin: pretibial hemosiderin staining from chronic LE edema Neurologic: Speech / Cognition: normal speech and normal cognition Results & Data Vital Signs (Past 12 Hours) Vital Signs Temp Pulse Pulse Resp BP BP Pulse Ox 11/30/22 07:44 36.9 C 92 H 20 109/73 97 11/30/22 07:09 85 11/30/22 03:05 36.3 C L 87 22 134/73 94 11/29/22 23:00 76 O2 Del Method O2 Flow Rate 11/30/22 07:44 Nasal Cannula 3 11/30/22 07:09 11/30/22 03:05 Nasal Cannula 3 11/29/22 23:00 Laboratory Results Laboratory Tests 11/30/22 11/30/22 06:34 06:34 WBC 11.28 H Hgb 9.0 L Hct 30.9 L Plt Count 225 Sodium 138 Potassium 5.0 Chloride 99 Carbon Dioxide 35 H BUN 39 H Creatinine 2.45 H D Est GFR (Non-Af Amer) 24.8 Calcium 8.2 L Albumin 3.0 L Diagnostic Findings 11/29/22 CXR - A moderate to large left pleural effusion has significantly increased in size since prior exam. Associated left lung opacities are present. Cardiomegaly is again noted. There is pulmonary vascular congestion. There is no pneumothorax. PG Care Time/CCT Total # of Minutes Spent Total Time Spent with Patient: Total time spent is greater than 50% in coordination of care (as documented) at patient's floor/unit and/or counseling patient: Coding Level of Care Code 92626 IN/OBS CONSULT LVL 5,80M Diagnoses CKD (chronic kidney disease) stage 4, GFR 15-29 ml/min N18.4 Acute on chronic diastolic (congestive) heart failure I50.33 Anemia D64.9
[2022-11-30 11:30] LABS: Amylase Pleural Fluid 38 U/L
[2022-11-30 11:35] LABS: Glucose Pleural Fluid 144 mg/dl; LDH Pleural Fluid 304 U/L; Total Protein Pleural Fluid < 3.0 gm/dl
[2022-11-30 11:37] LABS: Appearance Pleural Fluid Cloudy; Color Pleural Fluid Red; RBC Pleural Fluid Auto 72000 /uL; Source Pleural Fluid Left Lung; WBC Pleural Fluid Auto 3667 /uL
--- NOTE | 2022-11-30 11:44 | XRay Report ---
XR chest 1V portable CLINICAL HISTORY: left pigtail TECHNIQUE: Single frontal radiograph of the chest was obtained. Comparison: Comparison is made to chest radiograph 11/29/2022 FINDINGS: Left pleural catheter is seen. Cardiomegaly is noted. Minimal improvement in aeration of left lower l john. Right lower lung airspace opacity is seen. Interval decrease in size of left pleural effusion. IMPRESSION: Interval decrease in size of left pleural effusion status post placement of left drainage catheter. T he effusion is small in size. Underlying opacity has also improved. Right lower lung airspace opacity likely reflects atelectasis. ACT 112: Negative or not required by law. Electronically signed by: Richar Soria M.D. 11/30/2022 11:43 AM
[2022-11-30 11:59] LABS: Lymphocytes, Fluid 10 %; Neutrophils, Fluid 66 %
[2022-11-30 12:00] LABS: Eosinophils, Fluid 1 %; Mono,Macrophage,Mesothelial 23 %
[2022-11-30] MEDS: ATORVASTATIN 40 MG TAB PO SCH (20:40)
[2022-11-30] MEDS: traMADol HCL 50 MG TABLET PO PRN (20:41)
[2022-12-01] MEDS: PIPERACILLIN/TAZOBACTAM 4.5 GM in DEXTROSE 5% 100 ML IV SCH ×2 (00:01→09:10)
[2022-12-01] MEDS: ACETAMINOPHEN 325 MG TAB PO PRN ×2 (01:35→09:16)
[2022-12-01] MEDS: traMADol HCL 50 MG TABLET PO PRN (05:53)
[2022-12-01] MEDS ORDERED: Nursing to Pharmacy Communication SCH ×2 (06:15→15:00)
[2022-12-01] MEDS: INSULIN ASPART PER UNIT CHARGE SC SCH ×4 (06:29→20:08)
[2022-12-01 07:19] LABS: BUN Creatinine Ratio 14.5 (10-20); Calcium 8.2 mg/dl (8.6-10.3); Creatinine Clr Calc Pharmacy 33.4 ml/min; Est GFR (African American) 24.9 ml/min; Est GFR (Non-African American) 21.5 ml/min; Potassium 4.4 mmol/L (3.5-5.1)
[2022-12-01 07:22] LABS: Hematocrit (blood only) 29.5 % (42.0-52.0); Hemoglobin 9.2 g/dl (14.0-18.0); Mean Corpuscular Hemoglobin 28.7 pg (25.0-34.0); Mean Corpuscular Hgb Conc 31.2 g/dL (32.0-36.0); Mean Corpuscular Volume 91.9 fL (80.0-100.0); Mean Platelet Volume 11.1 fL (9.4-12.4); Platelet Count 229 K/uL (130-400); RDW Coefficient of Variation 15.4 % (11.5-14.5); RDW Standard Deviation 51.7 fL (36.4-46.3); Red Blood Count 3.21 M/uL (4.70-6.10)
[2022-12-01 07:40] LABS: Ferritin 477.3 ng/ml (8-388)
[2022-12-01] MEDS: LANTUS PER UNIT CHARGE SQ SCH ×3 (08:01→20:09)
[2022-12-01] MEDS ORDERED: IRON SUCROSE 200 MG in 0.9 % SODIUM CHLORIDE 100 ML IV ONE (08:15)
--- NOTE | 2022-12-01 08:49 | Nephrology Progress Note ---
Date of Service December 01, 2022 Assessment & Plan (1) CKD (chronic kidney disease) stage 4, GFR 15-29 ml/min: Plan: * CKD stage G4/A2 (advanced impairment). Baseline Cr has been 2.0-2.4 w/ EGFR 24 cc/min since at least 2016. His primary Ethanol Quality Leader is Dr. Hernandez. Outpatient evaluation has revealed an acellular urine sediment. Renal US was negative for hydronephrosis. Renal impairment has been attributed to diabetic nephropathy * Kidney function is relatively stable at this time * Monitor PRP, UO (2) Acute on chronic diastolic (congestive) heart failure: Plan: * 1500 mg/day NaCl restricted diet * Creatinine has risen from 2.4 to 2.7. UO was 5500 cc last shift. Will reduce Furosemide to 100 mg IV BID * Monitor I&O, wt (3) Anemia: Plan: * 11/30 FOBT is positive * Will order IV Venofer * Will provide SQ Epogen today * If Hgb drops further, consider GI evaluation Admission and Anticipated Discharge Date Admission Date: November 29, 2022 Subjective Mr. Narvaez was evaluated in his hospital room this morning. He reports that his breathing has improved following thoracentesis yesterday. He voices no new medical concerns. Review of Systems Constitutional: no fever Eyes: no worsening vision Ear, Nose, Mouth, Throat: no problem reported Respiratory: + dyspnea; no cough Cardiovascular: no chest pain Gastrointestinal: + abdominal pain (RUQ) Genitourinary: no dysuria, no urinary hesitancy or no hematuria Integumentary: no rash Physical Exam Constitutional: not in distress Eyes: PERRL, conjunctivae normal, anicteric sclerae ENMT: external ear and nose normal, oropharynx normal Neck: trachea midline, no thyromegaly Respiratory: Auscultation: + diminished lung sounds (L base. Pigtail catheter is in place) Cardiovascular: Rate/Rhythm: regular rate and regular rhythm Extremities: + edema (tense B LE edema) Gastrointestinal (Abdomen): normal bowel sounds, soft, nontender, no hepatosplenomegaly Neurologic: Speech / Cognition: normal speech and normal cognition Results & Data Vital Signs (Past 12 Hours) Vital Signs Temp Pulse Pulse Resp BP Pulse Ox O2 Del Method 12/01/22 08:36 36.5 C 90 18 142/84 H 92 Nasal Cannula 12/01/22 07:17 82 12/01/22 03:06 36.6 C 83 16 145/74 H 94 Nasal Cannula 11/30/22 23:44 101 H 11/30/22 23:12 36.9 C 91 H 18 160/71 H 96 Nasal Cannula 11/30/22 22:27 Nasal Cannula O2 Flow Rate 12/01/22 08:36 3 12/01/22 07:17 12/01/22 03:06 3 11/30/22 23:44 11/30/22 23:12 3 11/30/22 22:27 2 Laboratory Results Laboratory Tests 11/29/22 12/01/22 12/01/22 04:00 06:22 06:22 WBC 10.00 Hgb 9.2 L Hct 29.5 L Plt Count 229 Sodium 140 Potassium 4.4 Chloride 98 Carbon Dioxide 38 H BUN 40 H Creatinine 2.76 H D Calcium 8.2 L Transferrin % Sat 21 Ferritin 477.3 H Ur Specific [place] 1.013 Urine Protein 2+ H Urine Glucose (UA) Negative Urine Blood 2+ H Urine Nitrite Negative Urine RBC (Auto) >30 H Urine Bacteria (Auto) Negative Diagnostic Findings 11/30/22 CXR: Interval decrease in size of left pleural effusion status post placement of left drainage catheter. The effusion is small in size. Underlying opacity has also improved. Right lower lung airspace opacity likely reflects atelectasis. PG Care Time/CCT Total # of Minutes Spent Total Time Spent with Patient: Total time spent is greater than 50% in coordination of care (as documented) at patient's floor/unit and/or counseling patient: Coding Level of Care Code 88231 SUB INP/OBS CARE 3/50MIN Diagnoses CKD (chronic kidney disease) stage 4, GFR 15-29 ml/min N18.4 Acute on chronic diastolic (congestive) heart failure I50.33 Anemia D64.9
[2022-12-01] MEDS ORDERED: EPOETIN ALFA 20,000 UNITS/ML VIAL SQ ONE (09:00)
[2022-12-01] MEDS: FUROSEMIDE 10 MG/ML 10 ML VIAL IV SCH ×2 (09:10→17:20)
[2022-12-01] MEDS: DOCUSATE SODIUM 100 MG CAP PO SCH (09:11)
[2022-12-01] MEDS: POTASSIUM CHLORIDE CRTAB 20 MEQ TABCR PO SCH ×2 (09:11→17:22)
[2022-12-01] MEDS: dilTIAZem HCL 120 MG CAPCR PO SCH (09:11)
[2022-12-01] MEDS: TERAZOSIN HCL 5 MG CAP PO SCH ×2 (09:11→20:09)
[2022-12-01] MEDS: PANTOprazole 40 MG TAB PO SCH ×2 (09:11→20:09)
[2022-12-01] MEDS: FINASTERIDE 5 MG TAB PO SCH (09:11)
[2022-12-01] MEDS: METOPROLOL TARTRATE 100 MG TAB PO SCH ×2 (09:11→20:09)
[2022-12-01] MEDS: LOSARTAN POTASSIUM 25 MG TAB PO SCH (09:11)
--- NOTE | 2022-12-01 11:02 | Pulmonology Progress Note ---
CT reviewed. The catheter is no longer in the pleural space. There is minimal residual fluid. Catheter will be discontinued and a follow-up chest x-ray will be obtained in the a.m.. Follow-up on pleural fluid studies. Chas Cueto MD [facility] Pulmonary/Critical Care/Sleep Medicine Date of Service December 01, 2022 Assessment & Plan (1) LLL pneumonia: (2) Pleural effusion on left: (3) CARINA on CPAP: (4) Morbid obesity with BMI of 45.0-49.9, adult: Plan Attending: Dr. Cueto Impression: 77-year-old male presented for admission 11/29/[address] of the abdomen pelvis demonstrated left pleural effusion. Pigtail catheter placed by Dr. Barone 11/30/2022 and placed to suction. No significant output since pigtail catheter was placed. Unclear placement of catheter on chest x-ray. Patient has difficulty repositioning for proper e xamination. No previous CT scan of the chest. Chest x-ray this morning shows persistent effusion. Patient denies any acute complaints. Recommendations: 1. Right-sided pleural effusion: * 14 Serbian pigtail catheter placed 11/30/[address] Barone with 2 liters out. No significant output since that time * CXR this morning with decreased but persistent fluid * No effusion noted on imaging prior to August 2022 * Will order Chest CT to evaluate effusion and parenchyma and look for proper chest tube placement * Continue to suction for now 2. Obstructive sleep apnea/obesity hypoventilation syndrome: * Patient self reports noncompliance * I do not see any previous records * Hypercarbia on VBG in September. Serum CO2 was at 38 which appears to be close to baseline for the patient 3. Dyspnea with exertion: * Chronic. Most likely multifactorial to underlying pulmonary disease, morbid obesity, deconditioning, CHF * Continue supplemental oxygen to maintain SaO2 around the percent. * Smoker. No PFTs are available. * Patient does use supplemental oxygen at home * Continue diuretics per primary team. Thank you for including us in the care of this patient. We will continue to follow along with you. Please refer to Dr. Cueto's addendum for further recommendations or corrections. Admission and Anticipated Discharge Date Admission Date: November 29, 2022 Subjective Attending: Dr. Cueto This is a 77-year-old male that presented with abdominal pain and found to have a pleural effusion. A 4 Serbian pigtail chest tube was placed 11/30/[address] Barone. Fluid appeared to be exudative. Patient does have a history of bladder cancer and malignancy is on the differential for pleural fluid. Pleural fluid revealed a pH of 7.34, glucose of 144, protein of less than 3 and a pleural LDH of 304. Chest x-ray this morning shows decrease in effusion. Patient states that he has some tenderness at chest tube site but no other pleuritic pain. Non-compliance with CPAP. Morbidly obese with BMI 48.6kG/m2. Patient denies any significant SOB and states that the SOB is usual for him. He lives in a double wide trailer and can walk to the other end but not back without rest. No current chest -pain or tightness. No cough or sputum production. No fever at this time Patient did have moderate pleural effusion in August [address] chest. No intervention at that time. No prior suggestion of pleural effusion going back to 2018 Review of Systems Review of Systems: A total of 10 systems was reviewed and is negative other than as listed in the HPI Physical Exam Physical Exam: GENERAL : No acute distress EYES: No icterus, gaze conjugate NOSE: No evidence of epistaxis MOUTH: No lesions or candidiasis NECK: Supple LUNGS: Decreased at the right base HEART: Regular, rate controlled ABDOMEN: Soft, NT, ND, BS Present EXTREMITIES: No LE edema, pedal pulses intact NEURO: A&OX3 Results & Data Results & Data Vital Signs (Past 12 Hours) Vital Signs Temp Pulse Pulse Resp BP Pulse Ox O2 Del Method 12/01/22 08:36 36.5 C 90 18 142/84 H 92 Nasal Cannula 12/01/22 07:17 82 12/01/22 03:06 36.6 C 83 16 145/74 H 94 Nasal Cannula 11/30/22 23:44 101 H 11/30/22 23:12 36.9 C 91 H 18 160/71 H 96 Nasal Cannula O2 Flow Rate 12/01/22 08:36 3 12/01/22 07:17 12/01/22 03:06 3 11/30/22 23:44 11/30/22 23:12 3 Critical Care Results & Data Vital Signs (Past 12 Hours) Vital Signs Temp Pulse Pulse Resp BP Pulse Ox Pulse Ox 12/01/22 10:56 93 12/01/22 08:36 36.5 C 90 18 142/84 H 92 12/01/22 07:17 82 12/01/22 03:06 36.6 C 83 16 145/74 H 94 11/30/22 23:44 101 H 11/30/22 23:12 36.9 C 91 H 18 160/71 H 96 O2 Del Method O2 Del Method O2 Flow Rate O2 Flow Rate 12/01/22 10:56 Nasal Cannula 3 12/01/22 08:36 Nasal Cannula 3 12/01/22 07:17 12/01/22 03:06 Nasal Cannula 3 11/30/22 23:44 11/30/22 23:12 Nasal Cannula 3 Lab & Micro Results (Past 24 Hours) RBC 3.21 M/uL (4.70-6.10) L 12/01/22 WBC 10.00 K/ul (4.8-10.8) 12/01/22 Hgb 9.2 g/dl (14.0-18.0) L 12/01/22 Hct 29.5 % (42.0-52.0) L 12/01/22 MCV 91.9 fL (80.0-100.0) 12/01/22 MCH 28.7 pg (25.0-34.0) 12/01/22 MCHC 31.2 g/dL (32.0-36.0) L 12/01/22 RDW Standard Deviation 51.7 fL (36.4-46.3) H 12/01/22 RDW Coefficient of Variation 15.4 % (11.5-14.5) H 12/01/22 Plt Count 229 K/uL (130-400) 12/01/22 MPV 11.1 fL (9.4-12.4) 12/01/22 Na 140 mmol/L (136-145) 12/01/22 K 4.4 mmol/L (3.5-5.1) 12/01/22 Cl 98 mmol/L (98-107) 12/01/22 CO2 38 mmol/L (21-32) H 12/01/22 Anion Gap 4 (3-11) 12/01/22 BUN 40 mg/dl (6-23) H 12/01/22 Creatinine 2.76 mg/dl (0.6-1.4) H 12/01/22 Estimated GFR ( Amer) 24.9 ml/min 12/01/22 Estimated GFR (Non-Af Amer) 21.5 ml/min 12/01/22 BUN/Creatinine Ratio 14.5 (10-20) 12/01/22 Glu 113 mg/dl (70-99(Fasting)) H 12/01/22 Ca 8.2 mg/dl (8.6-10.3) L 12/01/22 Calcium Level 8.2 mg/dl (8.6-10.3) L 12/01/22 06:22 Microbiology 11/30/22 Unknown Acid Fast Bacilli Smear - Final Pleural Fluid 11/30/22 Unknown Gram Stain - Final Pleural Fluid Diagnostic Findings (Past 24 Hours) Chest X-Ray 11/30/22 10:57 XR chest 1V portable CLINICAL HISTORY: left pigtail TECHNIQUE: Single frontal radiograph of the chest was obtained. Comparison: Comparison is made to chest radiograph 11/29/2022 FINDINGS: Left pleural catheter is seen. Cardiomegaly is noted. Minimal improvement in aeration of left lower lung. Right lower lung airspace opacity is seen. Interval decrease in size of left pleural effusion. IMPRESSION: Interval decrease in size of left pleural effusion status post placement of left drainage catheter. The effusion is small in size. Underlying opacity has also improved. Right lower lung airspace opacity likely reflects atelectasis. ACT 112: Negative or not required by law. Electronically signed by: Richar Soria M.D. 11/30/2022 11:43 AM I & O Totals 24 Hours 11/30/22 12/01/22 12/02/22 06:59 06:59 06:59 Intake Total 2318 / 2318 1200 / 1200 110 / 110 Output Total 925 / 925 5500 / 5500 Balance 1393 / 1393 -4300 / -4300 110 / 110 Cumulative 11/29/22 01:12 thru 12/01/22 10:17 Intake Total 3748 Output Total 6775 Balance -3027 RT Ventilator Mngmt (Last Documented) Ventilator Ordered Settings Respiratory Rate 18 12/01/22 08:36 Ventilator - PT Measurements Respiratory Rate 18 PG Care Time/CCT Total # of Minutes Spent Total Time Spent with Patient: Total time spent is greater than 50% in coordination of care (as documented) at patient's floor/unit and/or counseling patient: Coding Level of Care Code 91361 SUB INP/OBS CARE MIN Diagnoses LLL pneumonia J18.9 Pleural effusion on left J90 CARINA on CPAP G47.33; Z99.89 Morbid obesity with BMI of 45.0-49.9, adult E66.01; Z68.42
[2022-12-01] MEDS: IRON SUCROSE 400 MG in SODIUM CHLORIDE 0.9% 250 ML IV SCH (12:17)
--- NOTE | 2022-12-01 14:11 | Hospitalist Progress Note ---
Date of Service December 01, 2022 Assessment & Plan (1) CARINA on CPAP: Plan: No apparent exacerbation. Continue current medical management (2) Morbid obesity with BMI of 45.0-49.9, adult: Plan: Weight loss recommended (3) Pleural effusion, right: Plan: He underwent right thoracentesis with placement of right-sided chest tube yesterday, November 30. Serial chest x-ray. Appreciate pulmonary medicine consultation and recommendations (4) Abdominal pain: Plan: HIDA scan pending to rule out acute cholecystitis. If this is present and surgery is needed, he will need to be transferred to a tertiary care center. Appreciate surgical consultation and recommendations (5) Acute on chronic respiratory failure with hypercapnia: Plan: Oxygen per nasal cannula to maintain saturation greater than 90%. Continue treatment of diastolic CHF. He underwent thoracentesis and placement of chest tube yesterday, November 30. Serial chest x-ray (6) Acute on chronic diastolic (congestive) heart failure: Plan: Continue diuresis. Monitor intake and output. Serial chest x-ray (7) GERD (gastroesophageal reflux disease): Plan: Continue PPI therapy (8) Hypertension: Plan: Stable. Continue current medical management (9) Iron deficiency anemia: Plan: Parenteral iron replacement daily for 3 days while hospitalized. 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 (11) Diabetes mellitus type 2 in obese: Plan: ADA diet. Sliding scale insulin coverage. Medical management Plan To be determined Admission and Anticipated Discharge Date Admission Date: November 29, 2022 Subjective Alert and oriented. No complaints. Awaiting HIDA scan today, December 01. If gallbladder surgery is necessary, he will need to be transferred to a tertiary care center. Creatinine has risen to 2.7. We will continue daily lab studies. Iron levels are low and Venofer for iron replacement has been started. He had left thoracentesis with left chest tube placement done yesterday, November 30. He remains on Zosyn therapy Review of Systems Review of Systems: Constitutional-no fever or chills ENT-no blurred vision, no double vision, no epistaxis, no sore throat Respiratory-no cough, no wheezing, no shortness of breath at rest Cardiac-no palpitations, no chest pain, no syncope GI-mild left lower quadrant and right lower quadrant abdominal discomfort. Intermittent nausea. No vomiting. No melena or hematochezia. -no urinary retention, no urinary incontinence, no dysuria, no hematuria Musculoskeletal-no joint pain, no muscle tenderness Skin-no bruising, no rashes, no pruritus Neuro-no isolated weakness, no paresthesia, no weakness Psych-no depression, no anxiety Physical Exam Physical Exam: General-alert and oriented x3, no fevers, no chills. Morbidly obese HEENT-head atraumatic and normocephalic, pupils equal and reactive to light, extraocular muscles intact Neck-no lymphadenopathy or thyromegaly, trachea midline Chest-diminished breath sounds and dullness at the right base. No rales , wheezing or rhonchi Cardiac-irregular rhythm. Controlled rate. Normal S1 and S2 Abdomen-normal bowel sounds. Mild left lower quadrant and right lower quadrant tenderness. No rebound or guarding. No ascites Extremities-chronic venous stasis dermatitis and edema noted bilaterally Neuro-cranial nerves II through XII intact, motor and sensory function within normal limits, strength symmetrical , no focal deficits Psych-normal affect, normal mood Results & Data Results & Data Vital Signs (Past 12 Hours) Vital Signs Temp Pulse Pulse Resp BP Pulse Ox Pulse Ox 12/01/22 11:35 36.8 C 75 18 134/76 93 12/01/22 11:14 12/01/22 10:56 93 12/01/22 08:36 36.5 C 90 18 142/84 H 92 12/01/22 07:17 82 12/01/22 03:06 36.6 C 83 16 145/74 H 94 O2 Del Method O2 Del Method O2 Flow Rate O2 Flow Rate 12/01/22 11:35 Nasal Cannula 3 12/01/22 11:14 Nasal Cannula 3 12/01/22 10:56 Nasal Cannula 3 12/01/22 08:36 Nasal Cannula 3 12/01/22 07:17 12/01/22 03:06 Nasal Cannula 3 Laboratory Results 12/01/22 06:22 12/01/22 06:22 PG Care Time/CCT Total # of Minutes Spent Total Time Spent with Patient: Total time spent is greater than 50% in coordination of care (as documented) at patient's floor/unit and/or counseling patient: Coding Level of Care Code 48496 SUB INP/OBS CARE 3/50MIN Diagnoses CARINA on CPAP G47.33; Z99.89 Morbid obesity with BMI of 45.0-49.9, adult E66.01; Z68.42 Pleural effusion, right J90 Abdominal pain R10.9 Acute on chronic respiratory failure with hypercapnia J96.22 Acute on chronic diastolic (congestive) heart failure I50.33 GERD (gastroesophageal reflux disease) K21.9 Hypertension I10 Iron deficiency anemia D50.9 Hidden penis Q55.64 Diabetes mellitus type 2 in obese E11.69; E66.9
--- NOTE | 2022-12-01 14:34 | Nuclear Medicine Report ---
NM hepatobiliary CLINICAL HISTORY: 77 years-old Male with Possible cholecystitis. Acute right upper quadrant abdomina l pain TECHNIQUE: Sequential anterior abdominal images were obtained through 60 minutes following the intra venous administration of 4.5 mCi of technetium-99m Choletec. COMPARISON: CT abdomen and pelvis 11/29/2022 FINDINGS: There is prompt, uniform accumulation of the tracer by the liver. There is normal filling of the int rahepatic ducts, common bile duct and normal excretion of the tracer into the duodenum. The gallblad lowell fills normally. IMPRESSION: Normal hepatobiliary study. No scintigraphic evidence for acute cholecystitis or common bile duct obstruction. ACT 112: Negative or not required by law. The above report was generated using voice recognition software. It may contain grammatical, syntax o r spelling errors. Electronically signed by: Spencer Joy M.D. 12/01/2022 2:33 PM
--- NOTE | 2022-12-01 14:44 | CT Scan Report ---
CT chest diagnostic wo con CT DOSE: 984.06 mGy.cm CLINICAL HISTORY: 77 years-old Male with Right pleural effusion with chest tube. Follow-up study in a patient with right pleural effusion and chest tube TECHNIQUE: Multiaxial CT images of the chest were performed without contrast. A dose lowering techni que was utilized adhering to the principles of ALARA. COMPARISON: Chest CT 09/13/2022 FINDINGS: Unremarkable thyroid. Mild right hilar and subcarinal lymphadenopathy. Subcarinal lymph nod es measure up to 1.5 cm. The heart is moderately enlarged. No pericardial effusion. Moderate coronary artery calcifications. Decreased attenuation of the cardiac blood pool suggestive of anemia. Atheros clerosis of the aorta. Small left greater than right pleural effusions. No chest tubes are present. Mild pulmonary emphysema . Mild dependent predominant left greater than right bibasilar consolidation. Mild intralobular septa l thickening. Unchanged 4 mm nodular focus of the right upper lobe on image 56 suggestive of mucous p lugging. There are a few scattered solid nodules noted within the lungs measuring up to 4 mm which ap pear stable and are likely benign. The central airways are patent. Decreased transverse dimension of the trachea. 1.5 cm left adrenal gland hypodense lesion suggestive of an adenoma. No acute process of the imaged u pper abdomen. Unremarkable soft tissues. Degenerative changes of the shoulders and spine. IMPRESSION: 1. Small left greater than right pleural effusions. The right pleural effusion is new and the left pl eural effusion has mildly decreased in size compared to 09/13/2022. 2. Mild bibasilar consolidation, left greater than right suggestive of probable atelectasis. 3. Cardiomegaly with mild intralobular septal thickening. A component of mild pulmonary edema may be present. 4. Emphysema. 5. Scattered low suspicion solid pulmonary nodules measuring up to 4 mm are stable. 6. Mild mediastinal and hilar lymphadenopathy. ACT 112: Negative or not required by law. Electronically signed by: Spencer Joy M.D. 12/01/2022 2:43 PM
--- NOTE | 2022-12-01 15:45 | Urology Consultation ---
Date of Consultation December 01, 2022 Assessment & Plan (1) Scrotal edema: (2) Obesity: (3) Difficult Patten catheter placement: (4) Hidden penis: Plan 77yo/M admitted with pleural effusion and concern for cholecystitis. Urology consulted for scrotal edema, difficult catheterization. Afebrile and hemodynamically stable. Labs show a WBC 10, hemoglobin 9.2, creatinine up to 2.76. Continue to trend. Nephrology following. CT abdomen pelvis 11/29/2022 reviewed -atrophic kidneys, no obstructing stones or hydronephrosis, unremarkable bladder. Per chart review, patient with extremely difficult catheterization by nursing staff, noted on exam to have edema/inflammation of the scrotum and foreskin. Patten catheter intact, currently draining clear yellow urine. Maintain Patten catheter for now. Can likely have a voiding trial prior to discharge. Scrotal edema and right sided scrotal discomfort on exam today. Scrotal edema likely secondary to anasarca, however will check scrotal ultrasound. Patient follows with urologist at the [facility] in [place]. Recommend continued follow-up with primary urologist on discharge. Continue supportive care. Urology will follow. History of Present Illness Attending Physician: Teo Rush MD History of Present Illness 77-year-old male with a PMHx including T2DM, CKD IV, PAF, BPH admitted to the hospital due to abdominal pain and concern for cholecystitis. Imaging on arrival noted a pleural effusion and he underwent right thoracentesis with placement of right-sided chest tube yesterday 11/30. HIDA scan pending today 12/01 to rule out acute cholecystitis. Urology consulted for scrotal edema, difficult catheterization. Per chart review- Patient with extremely difficult catheterization by nursing staff, noted on exam to have edema/inflammation of the scrotum and foreskin. CT abdomen pelvis 11/29/2022 noted atrophic kidneys, no obstructing stones or hydronephrosis, unremarkable bladder. Patient examined at bedside this AM. Awake, sitting in bedside chair on arrival. No acute distress. Patten catheter intact, draining clear yellow urine. He reports following with a urologist at the [facility] in [place]. Reports a history of bladder cancer, reports yearly cysto with [facility] urologist. No issues with recurrence. Denies additional urological history. Was to have a follow-up with [facility] Urologist earlier this month, however he did not make the appointment. Allergies Allergy/AdvReac Type Severity Reaction Status Date / Time No Known Allergies Allergy Unverified 10/31/22 14:09 Home Medications Medication Instructions Recorded Confirmed Type aspirin 81 mg tablet,delayed 81 mg PO QAM 07/20/18 10/31/22 History release atorvastatin 80 mg tablet (Lipitor) 40 mg PO HS 07/20/18 10/31/22 History docusate sodium 100 mg capsule 200 mg PO DAILY 07/20/18 10/31/22 History finasteride 5 mg tablet (Proscar) 5 mg PO DAILY 07/20/18 10/31/22 History omeprazole 20 mg capsule,delayed 20 mg PO Q12 07/20/18 10/31/22 History release terazosin 5 mg capsule 5 mg PO BID 07/20/18 10/31/22 History multivitamin with minerals 1 tab PO DAILY 11/28/20 10/31/22 History diltiazem HCl 120 mg 120 mg PO DAILY 08/27/22 10/31/22 History capsule,extended release 24 hr lactulose 10 gram/15 mL oral 30 g PO DAILY 08/27/22 10/31/22 History solution tramadol 50 mg tablet 50 mg PO Q8H PRN Pain 08/27/22 10/31/22 History apixaban 5 mg tablet (Eliquis) 5 mg PO BID 08/29/22 10/31/22 History furosemide 80 mg tablet (Lasix) 120 mg PO BID #90 tabs 09/24/22 10/31/22 Rx hydralazine 10 mg tablet 10 mg PO TID #30 tabs 09/24/22 10/31/22 Rx insulin aspart U-100 100 unit/mL 10 - 35 unit (0.1 - 0.35 mL) 09/24/22 10/31/22 Rx (3 mL) subcutaneous pen (Novolog subcut .qaqhs #15 mL FlexPen U-100 Insulin aspart) insulin glargine 100 unit/mL (3 15 unit (0.15 mL) subcut BID #15 mL 09/24/22 10/31/22 Rx mL) subcutaneous pen (Lantus Solostar U-100 Insulin) losartan 50 mg tablet 25 mg PO DAILY #30 tabs 09/24/22 10/31/22 Rx metoprolol tartrate 25 mg tablet 100 mg PO BID 30 days #60 tabs 09/24/22 10/31/22 Rx potassium chloride 20 mEq 40 meq PO BIDM #60 tabs 09/24/22 10/31/22 Rx tablet,extended release (K-Tab) epoetin aaliyah 40,000 unit/mL 40,000 unit subcut MONTHLY hold hb 11/18/22 Rx injection solution (Procrit) 11 or greater 12 months #1 mL Patient History Medical History Acute respiratory failure with hypoxia Anemia of chronic disease Cellulitis CKD (chronic kidney disease) stage 4, GFR 15-29 ml/min D-dimer, elevated Diabetes Diabetes mellitus type 2 in obese GERD (gastroesophageal reflux disease) Hematuria Hypertension Hypoxia Obesity CARINA (obstructive sleep apnea) CARINA on CPAP Proteinuria Vitamin D deficiency Social History Smoking Status: Former smoker Second Hand Exposure: No; Do You Dip or Chew Tobacco: No; Hx Alcohol Use: No Hx Substance Use: No Preferred Language: Palauan Communication Ability: Effective Training Generalist Required: No Beliefs That Will Affect Care: None Current Living Situation: Spouse Other Information That Helps Us Care for You: No Feels Safe at Home: Yes Safety Concerns: Feels Safe At This Time Assistive Devices: Lift Chair, Oxygen - Continuous, Scooter/Electric Scooter and Walker Review of Systems Review of Systems: All systems reviewed & are unremarkable except as noted in HPI & below Physical Exam Constitutional: + obese; no acute distress Neck: normal visual inspection Respiratory: no respiratory distress and no labored breathing Musculoskeletal: Head/Neck/Chest: normocephalic Skin: No visible rashes or lesions to exposed skin areas Neurologic: awake Psychiatric: A+Ox3, euthymic affect Genitourinary: Patten catheter intact. Mild scrotal edema and tenderness on exam. No significant erythema. No open areas or drainage noted. No fluctuance or crepitus. Results & Data Vital Signs (Past 12 Hours) Vital Signs Temp Pulse Pulse Resp BP Pulse Ox Pulse Ox 12/01/22 11:35 36.8 C 75 18 134/76 93 12/01/22 11:14 12/01/22 10:56 93 12/01/22 08:36 36.5 C 90 18 142/84 H 92 12/01/22 07:17 82 12/01/22 03:06 36.6 C 83 16 145/74 H 94 O2 Del Method O2 Del Method O2 Flow Rate O2 Flow Rate 12/01/22 11:35 Nasal Cannula 3 12/01/22 11:14 Nasal Cannula 3 12/01/22 10:56 Nasal Cannula 3 12/01/22 08:36 Nasal Cannula 3 12/01/22 07:17 12/01/22 03:06 Nasal Cannula 3 PG Care Time/CCT Total # of Minutes Spent Total Time Spent with Patient: Total time spent is greater than 50% in coordination of care (as documented) at patient's floor/unit and/or counseling patient: Coding Level of Care Code 70277 INT INP/OBS CARE MIN Diagnoses Scrotal edema N50.89 Obesity E66.9 Difficult Patten catheter placement T83.9XXA Hidden penis Q55.64
[2022-12-01] MEDS: ATORVASTATIN 40 MG TAB PO SCH (20:08)
--- NOTE | 2022-12-01 22:55 | Ultrasound Report ---
Exam(s): US SCROTAL EXAM: US Scrotum CLINICAL HISTORY: Reason for exam: scrotal edema, right scrotal/testicular pain. TECHNIQUE: Real-time ultrasound of the scrotum with color Doppler and image documentation. COMPARISON: No relevant prior studies available. FINDINGS: Right testicle: Unremarkable. No mass. No torsion. Left testicle: Unremarkable. No mass. No torsion. Epididymides: Poorly visualized RIGHT epididymis. LEFT epididymal cyst measures 10 x 7 x 7 mm. Scrotum: Large, mildly complex RIGHT hydrocele. Large, mildly complex LEFT hydrocele. Small LEFT varicocele. Scrotal skin thickening. IMPRESSION: 1. Large, mildly complex bilateral hydroceles. 2. Small LEFT varicocele. 3. Scrotal skin thickening. Electronically signed by: Aravind Sandoval MD 12/01/22 22:55 PM
[2022-12-02] MEDS: ACETAMINOPHEN 325 MG TAB PO PRN ×2 (01:35→16:54)
[2022-12-02 07:20] LABS: Basophils # (auto) 0.04 K/uL (0-0.2); Basophils % (auto) 0.4 %; Eosinophils # (auto) 0.29 K/uL (0-0.50); Eosinophils % (auto) 3.1 %; Hematocrit (blood only) 29.9 % (42.0-52.0); Hemoglobin 9.3 g/dl (14.0-18.0); Immature Granulocytes # (auto) 0.07 K/uL (0.01-0.20); Immature Granulocytes % (auto) 0.8 %; Mean Corpuscular Hgb Conc 31.1 g/dL (32.0-36.0); Mean Corpuscular Volume 90.1 fL (80.0-100.0); Mean Platelet Volume 10.9 fL (9.4-12.4); Monocytes # (auto) 1.01 K/uL (0.11-0.59); Monocytes % (auto) 10.9 %; Neutrophils # (auto) 6.63 K/uL (1.40-6.50); Neutrophils % (auto) 71.8 %; Platelet Count 237 K/uL (130-400); RDW Coefficient of Variation 15.5 % (11.5-14.5); RDW Standard Deviation 51.1 fL (36.4-46.3); Red Blood Count 3.32 M/uL (4.70-6.10); White Blood Count 9.24 K/ul (4.8-10.8)
[2022-12-02 07:38] LABS: BUN Creatinine Ratio 14.4 (10-20); Calcium 8.2 mg/dl (8.6-10.3); Creatinine Clr Calc Pharmacy 36.6 ml/min; Est GFR (African American) 28.1 ml/min; Est GFR (Non-African American) 24.2 ml/min; Potassium 4.3 mmol/L (3.5-5.1)
--- NOTE | 2022-12-02 08:12 | Pulmonology Progress Note ---
Date of Service December 02, 2022 Assessment & Plan (1) LLL pneumonia: (2) Pleural effusion on left: (3) CARINA on CPAP: (4) Morbid obesity with BMI of 45.0-49.9, adult: Plan Impression: 77-year-old male presented for admission 11/29/[address] of the abdomen pelvis demonstrated left pleural effusion. Pigtail catheter placed by Dr. Barone 11/30/2022 and placed to suction. CT of the chest performed yesterday demonstrated that the tube had migrated out of the pleural space into the subcutaneous tissues and was subsequently removed. Small bilateral pleural effusions persist Recommendations: 1. Bilateral pleural effusions: Suspect related to anasarca and fluid overload. Continue diuretics under the direction of primary admitting service with att ention to kidney function. Blood pressure control given the patient's diastolic dysfunction. No indication for repeat pleural procedures at this time. 2. Obstructive sleep apnea/obesity hypoventilation syndrome: Advised the patient to bring in his home CPAP machine. He should continue to use CPAP nightly. 3. Hypoxemia: Appears to be back to baseline oxygen requirement. Continue to wean as tolerated. Thank you for including us in the care of this patient. The patient appears to be at his baseline status. Pulmonary will sign off at this point time. Feel free to contact us if we can be of additional assistance Admission and Anticipated Discharge Date Admission Date: November 29, 2022 Subjective Patient seen and examined. EMR reviewed. Images were independently reviewed. The patient is sitting up at the bedside. He states he feels like he is breathing well. He is not coughing or expectorating any phlegm. His pigtail drain was removed yesterday. He is not having any pain at the site. He continues to have generalized edema and anasarca. He denies fevers chills night sweats or other constitutional symptoms. No wheezing. The patient has CPAP at home but states he does not really use it when he comes to the hospital as he sleeps sleeping up. He is on 2 to 3 L at baseline and currently on 3 L/min with acceptable oxygen saturations. Review of Systems Review of Systems: All systems reviewed & are unremarkable except as noted in Subjective Physical Exam Constitutional: WD/WN, vitals as above Patient is morbidly obese. This limits the sensitivity of physical exam Neck: trachea midline, no thyromegaly Respiratory: no respiratory distress, no labored breathing, no cough and not tachypneic Auscultation: + diminished lung sounds Diminished due to body habitus Cardiovascular: Rate/Rhythm: regular rate Heart Sounds: normal S1, normal S2 and + murmur Extremities: + edema Gastrointestinal (Abdomen): normal bowel sounds, soft, nontender, no hepatosplenomegaly Musculoskeletal: Extremities: extremities normal to inspection Skin: no rashes, warm and dry Neurologic: Nonfocal exam Lymphatic: no cervical lymphadenopathy Results & Data Results & Data Vital Signs (Past 12 Hours) Vital Signs Temp Pulse Pulse Resp BP Pulse Ox O2 Del Method 12/02/22 06:56 94 H 12/02/22 03:36 37.0 C 96 H 18 141/78 H 93 Nasal Cannula 12/02/22 01:10 98 H 12/02/22 00:30 36.5 C 87 18 120/65 96 Nasal Cannula 12/02/22 00:22 Nasal Cannula O2 Flow Rate 12/02/22 06:56 12/02/22 03:36 3 12/02/22 01:10 12/02/22 00:30 3 12/02/22 00:22 2 Laboratory Results 12/02/22 06:51 12/02/22 06:[address] of the chest performed yesterday demonstrated the pigtail catheter to be in the subcutaneous tissues. There were small pleural effusions noted. Small adenopathy with cardiomegaly. Emphysematous changes again noted. Small pulmonary nodules. PG Care Time/CCT Total # of Minutes Spent Total Time Spent with Patient: Total time spent is greater than 50% in coordination of care (as documented) at patient's floor/unit and/or counseling patient: Coding Level of Care Code 06002 SUB INP/OBS CARE 2/35MIN Diagnoses LLL pneumonia J18.9 Pleural effusion on left J90 CARINA on CPAP G47.33; Z99.89 Morbid obesity with BMI of 45.0-49.9, adult E66.01; Z68.42
--- NOTE | 2022-12-02 08:22 | Nephrology Progress Note ---
Date of Service December 02, 2022 Assessment & Plan (1) CKD (chronic kidney disease) stage 4, GFR 15-29 ml/min: Plan: * CKD stage G4/A2 (advanced impairment). Baseline Cr has been 2.0-2.4 w/ EGFR 24 cc/min since at least 2016. His primary Ip/Mosaic Technician is Dr. Hernandez. Outpatient evaluation has revealed an acellular urine sediment. Renal US was negative for hydronephrosis. Renal impairment has been attributed to diabetic nephropathy * Kidney function is relatively stable at this time * Monitor PRP, UO (2) Acute on chronic diastolic (congestive) heart failure: Plan: * 1500 mg/day NaCl restricted diet * Kidney function remains relatively stable. UO 4300 cc yesterday. Patient is net -6.2L since admission. LE swelling is improved. Continue Furosemide 100 mg IV BID * Developing metabolic alkalosis. Will provide one dose IV Acetazolamide today * Monitor I&O, wt (3) Anemia: Plan: * Hgb is stable at ~ 9.2 * Day #2 ot 3 IV Venofer * Epogen administered 12/01/22 * 11/30 FOBT is positive * If Hgb drops further, consider GI evaluation (4) Abdominal pain: Plan: * 12/01/22 HIDA scan negative Admission and Anticipated Discharge Date Admission Date: November 29, 2022 Subjective Mr. Narvaez was evaluated in his hospital room this morning. He reports that the pigtail catheter came out yesterday. His breathing is subjectively improved. Mr. Narvaez reports that his LE swelling is improved as well. Review of Systems Constitutional: no fever Eyes: no worsening vision Ear, Nose, Mouth, Throat: no problem reported Respiratory: no cough and no dyspnea Cardiovascular: no chest pain Gastrointestinal: no abdominal pain Genitourinary: no dysuria, no urinary hesitancy or no hematuria Integumentary: no rash Physical Exam Constitutional: not in distress Eyes: PERRL, conjunctivae normal, anicteric sclerae ENMT: external ear and nose normal, oropharynx normal Neck: trachea midline, no thyromegaly Respiratory: Auscultation: + diminished lung sounds (L base. Pigtail catheter is in place) Cardiovascular: Rate/Rhythm: regular rate and regular rhythm Extremities: + edema (2+ B LE edema) Gastrointestinal (Abdomen): normal bowel sounds, soft, nontender, no hepatosplenomegaly Neurologic: Speech / Cognition: normal speech and normal cognition Results & Data Vital Signs (Past 12 Hours) Vital Signs Temp Pulse Pulse Resp BP Pulse Ox O2 Del Method 12/02/22 06:56 94 H 12/02/22 03:36 37.0 C 96 H 18 141/78 H 93 Nasal Cannula 12/02/22 01:10 98 H 12/02/22 00:30 36.5 C 87 18 120/65 96 Nasal Cannula 12/02/22 00:22 Nasal Cannula O2 Flow Rate 12/02/22 06:56 12/02/22 03:36 3 12/02/22 01:10 12/02/22 00:30 3 12/02/22 00:22 2 Laboratory Results Laboratory Tests 11/30/22 12/02/22 12/02/22 06:34 06:51 06:51 WBC 9.24 Hgb 9.3 L Hct 29.9 L Plt Count 237 Sodium 142 Potassium 4.3 Chloride 99 Carbon Dioxide 38 H BUN 36 H Creatinine 2.50 H Est GFR (Non-Af Amer) 24.2 Calcium 8.2 L Albumin 3.0 L PG Care Time/CCT Total # of Minutes Spent Total Time Spent with Patient: Total time spent is greater than 50% in coordination of care (as documented) at patient's floor/unit and/or counseling patient: Coding Level of Care Code 67653 SUB INP/OBS CARE 3/50MIN Diagnoses CKD (chronic kidney disease) stage 4, GFR 15-29 ml/min N18.4 Acute on chronic diastolic (congestive) heart failure I50.33 Anemia D64.9 Abdominal pain R10.9
[2022-12-02] MEDS: PANTOprazole 40 MG TAB PO SCH ×2 (08:39→20:51)
[2022-12-02] MEDS: TERAZOSIN HCL 5 MG CAP PO SCH ×2 (08:39→20:51)
[2022-12-02] MEDS: FINASTERIDE 5 MG TAB PO SCH (08:39)
[2022-12-02] MEDS: dilTIAZem HCL 120 MG CAPCR PO SCH (08:39)
[2022-12-02] MEDS: FUROSEMIDE 10 MG/ML 10 ML VIAL IV SCH ×2 (08:39→16:54)
[2022-12-02] MEDS: METOPROLOL TARTRATE 100 MG TAB PO SCH ×2 (08:39→20:51)
[2022-12-02] MEDS: LOSARTAN POTASSIUM 25 MG TAB PO SCH (08:39)
[2022-12-02] MEDS: IRON SUCROSE 400 MG in SODIUM CHLORIDE 0.9% 250 ML IV SCH (08:39)
[2022-12-02] MEDS: DOCUSATE SODIUM 100 MG CAP PO SCH (08:40)
[2022-12-02] MEDS: INSULIN ASPART PER UNIT CHARGE SC SCH ×4 (08:43→20:52)
[2022-12-02] MEDS: LANTUS PER UNIT CHARGE SQ SCH ×2 (08:43→20:51)
[2022-12-02] MEDS: POTASSIUM CHLORIDE CRTAB 20 MEQ TABCR PO SCH ×2 (08:43→16:54)
[2022-12-02] MEDS ORDERED: acetaZOLAMIDE 500 MG in SYRINGE 0 ML IV ONE (08:45)
--- NOTE | 2022-12-02 09:16 | Urology Progress Note ---
Date of Service December 02, 2022 Assessment & Plan (1) Scrotal edema: (2) Obesity: (3) Difficult Patten catheter placement: (4) Hidden penis: Plan 77yo/M admitted with pleural effusion and concern for cholecystitis. Urology consulted for scrotal edema, difficult catheterization. Afebrile and hemodynamically stable. Labs show a WBC 9.24, hemoglobin 9.3, creatinine 2.50. Continue to trend. Nephrology following. CT abdomen pelvis 11/29/2022 reviewed -atrophic kidneys, no obstructing stones or hydronephrosis, unremarkable bladder. Per chart review, patient with extremely difficult catheterization by nursing staff, noted on exam to have edema/inflammation of the scrotum and foreskin. Patten catheter intact, currently draining clear yellow urine. Maintain Patten catheter for now. Can likely have a voiding trial prior to discharge. Scrotal ultrasound reviewed - Large, mildly complex bilateral hydroceles, small left varicocele, scrotal skin thickening. We reviewed scrotal ultrasound findings. Discussed scrotal and penile edema and that this is likely due to generalized swelling. Discussed conservative management with elevation and ice as needed. Patient follows with urology at the [facility] in [place]. Recommend continued follow-up with primary urologist on discharge. We can also arrange follow-up with our office if he prefers. Urology will sign-off. Please contact us with any further questions, concerns, or changes in patient status. Admission and Anticipated Discharge Date Admission Date: November 29, 2022 Subjective Pt examined at bedside this AM. Awake, sitting in bedside chair on arrival. No acute distress. Patten draining clear yellow urine. Denies fevers, chills, nausea, or vomiting. Still with some scrotal and penile edema. Pt reports he is circumcised. Review of Systems Constitutional: as per Subjective / HPI Genitourinary: + as per Subjective / HPI Physical Exam Constitutional: + obese; no acute distress Respiratory: no respiratory distress and no labored breathing Skin: No visible rashes or lesions to exposed skin areas Neurologic: awake Psychiatric: A+Ox3, euthymic affect Genitourinary: Buried penis. Patten catheter intact. Mild penile and scrotal edema. Pt reports he is circumcised. No significant erythema. No open areas or drainage noted. No fluctuance or crepitus. Results & Data Vital Signs (Past 12 Hours) Vital Signs Temp Pulse Pulse Resp BP Pulse Ox O2 Del Method 12/02/22 08:22 36.7 C 91 H 18 161/76 H 96 Nasal Cannula 12/02/22 06:56 94 H 12/02/22 03:36 37.0 C 96 H 18 141/78 H 93 Nasal Cannula 12/02/22 01:10 98 H 12/02/22 00:30 36.5 C 87 18 120/65 96 Nasal Cannula 12/02/22 00:22 Nasal Cannula O2 Flow Rate 12/02/22 08:22 3 12/02/22 06:56 12/02/22 03:36 3 12/02/22 01:10 12/02/22 00:30 3 12/02/22 00:22 2 PG Care Time/CCT Total # of Minutes Spent Total Time Spent with Patient: Total time spent is greater than 50% in coordination of care (as documented) at patient's floor/unit and/or counseling patient: Coding Level of Care Code 92879 SUB INP/OBS CARE 2/35MIN Diagnoses Scrotal edema N50.89 Obesity E66.9 Difficult Patten catheter placement T83.9XXA Hidden penis Q55.64
[2022-12-02] MEDS ORDERED: IRON SUCROSE 200 MG in 0.9 % SODIUM CHLORIDE 100 ML IV ONE (09:40)
[2022-12-02] MEDS: APIXABAN 5 MG TABLET PO SCH ×2 (11:46→20:51)
--- NOTE | 2022-12-02 14:43 | Hospitalist Progress Note ---
Date of Service December 02, 2022 Assessment & Plan (1) CARINA on CPAP: Plan: No apparent exacerbation. Continue current medical management (2) Morbid obesity with BMI of 45.0-49.9, adult: Plan: Weight loss recommended (3) Abdominal pain: Plan: HIDA scan negative for acute cholecystitis. Eliquis has been restarted. Diet has been restarted. Appreciate surgical consultation and recommendations (4) Acute on chronic respiratory failure with hypercapnia: Plan: Oxygen per nasal cannula to maintain saturation greater than 90%. Continue treatment of diastolic CHF. He underwent left thoracentesis and placement of chest tube on November 30. The chest tube has since been removed. Serial chest x- ray (5) Acute on chronic diastolic (congestive) heart failure: Plan: Continue diuresis. Monitor intake and output. Serial chest x-ray. Improving (6) GERD (gastroesophageal reflux disease): Plan: Continue PPI therapy (7) Hypertension: Plan: Stable. Continue current medical management (8) Iron deficiency anemia: Plan: Parenteral iron replacement daily for 3 days while hospitalized. Oral iron replacement at discharge (9) Hidden penis: Plan: Urology consultation noted (10) Diabetes mellitus type 2 in obese: Plan: ADA diet. Sliding scale insulin coverage. Medical management (11) Pleural effusion, left: Plan: Left thoracentesis and left chest tube placement completed on September 30. The lef t-sided chest tube has since been removed. This appears to be due to CHF with no evidence of underlying malignancy Plan Hopeful discharge to home tomorrow, December 03 Admission and Anticipated Discharge Date Admission Date: November 29, 2022 Subjective Alert and oriented. No new problems. Oxygen saturation 96% on 3 L. His b aseline oxygen uses 2 L/min at home. Eliquis has been restarted since the HIDA scan is negative and there will be no need for cholecystectomy. Day 2 of parenteral iron replacement today. Hopefully he can go home tomorrow, December 03. Creatinine is 2.5 today, down from 2.7 yesterday. The left sided chest tube has been removed. Review of Systems Review of Systems: Constitutional-no fever or chills ENT-no blurred vision, no double vision, no epistaxis, no sore throat Respiratory-no cough, no wheezing, no shortness of breath at rest Cardiac-no palpitations, no chest pain, no syncope GI-mild left lower quadrant and right lower quadrant abdominal discomfort. Intermittent nausea. No vomiting. No melena or hematochezia. -no urinary retention, no urinary incontinence, no dysuria, no hematuria Musculoskeletal-no joint pain, no muscle tenderness Skin-no bruising, no rashes, no pruritus Neuro-no isolated weakness, no paresthesia, no weakness Psych-no depression, no anxiety Physical Exam Physical Exam: General-alert and oriented x3, no fevers, no chills. Morbidly obese HEENT-head atraumatic and normocephalic, pupils equal and reactive to light, extraocular muscles intact Neck-no lymphadenopathy or thyromegaly, trachea midline Chest-diminished breath sounds and dullness at the right base. No rales , wheezing or rhonchi Cardiac-irregular rhythm. Controlled rate. Normal S1 and S2 Abdomen-normal bowel sounds. Mild left lower quadrant and right lower quadrant tenderness. No rebound or guarding. No ascites Extremities-chronic venous stasis dermatitis and edema noted bilaterally Neuro-cranial nerves II through XII intact, motor and sensory function within normal limits, strength symmetrical , no focal deficits Psych-normal affect, normal mood Results & Data Results & Data Vital Signs (Past 12 Hours) Vital Signs Temp Pulse Pulse Resp BP Pulse Ox Pulse Ox 12/02/22 11:19 36.5 C 89 18 135/52 L 94 12/02/22 10:22 12/02/22 10:00 94 12/02/22 08:22 36.7 C 91 H 18 161/76 H 96 12/02/22 06:56 94 H 12/02/22 03:36 37.0 C 96 H 18 141/78 H 93 O2 Del Method O2 Del Method O2 Flow Rate O2 Flow Rate 12/02/22 11:19 Nasal Cannula 3 12/02/22 10:22 Nasal Cannula 2 12/02/22 10:00 Nasal Cannula 2 12/02/22 08:22 Nasal Cannula 3 12/02/22 06:56 12/02/22 03:36 Nasal Cannula 3 Laboratory Results 12/02/22 06:51 12/02/22 06:51 PG Care Time/CCT Total # of Minutes Spent Total Time Spent with Patient: Total time spent is greater than 50% in coordination of care (as documented) at patient's floor/unit and/or counseling patient: Coding Level of Care Code 58077 SUB INP/OBS CARE 50MIN Diagnoses CARINA on CPAP G47.33; Z99.89 Morbid obesity with BMI of 45.0-49.9, adult E66.01; Z68.42 Abdominal pain R10.9 Acute on chronic respiratory failure with hypercapnia J96.22 Acute on chronic diastolic (congestive) heart failure I50.33 GERD (gastroesophageal reflux disease) K21.9 Hypertension I10 Iron deficiency anemia D50.9 Hidden penis Q55.64 Diabetes mellitus type 2 in obese E11.69; E66.9 Pleural effusion, left J90
[2022-12-02] MEDS: ATORVASTATIN 40 MG TAB PO SCH (20:51)
[2022-12-03 07:13] LABS: Basophils # (auto) 0.04 K/uL (0-0.2); Basophils % (auto) 0.4 %; Eosinophils # (auto) 0.28 K/uL (0-0.50); Hematocrit (blood only) 31.4 % (42.0-52.0); Hemoglobin 9.5 g/dl (14.0-18.0); Immature Granulocytes # (auto) 0.08 K/uL (0.01-0.20); Immature Granulocytes % (auto) 0.9 %; Lymphocytes # (auto) 1.22 K/uL (1.2-3.4); Mean Corpuscular Hemoglobin 28.1 pg (25.0-34.0); Mean Corpuscular Hgb Conc 30.3 g/dL (32.0-36.0); Mean Corpuscular Volume 92.9 fL (80.0-100.0); Mean Platelet Volume 10.9 fL (9.4-12.4); Monocytes # (auto) 1.03 K/uL (0.11-0.59); Neutrophils # (auto) 6.73 K/uL (1.40-6.50); Neutrophils % (auto) 71.7 %; Platelet Count 233 K/uL (130-400); RDW Coefficient of Variation 15.7 % (11.5-14.5); RDW Standard Deviation 52.8 fL (36.4-46.3); Red Blood Count 3.38 M/uL (4.70-6.10); White Blood Count 9.38 K/ul (4.8-10.8)
[2022-12-03 07:44] LABS: BUN Creatinine Ratio 14.5 (10-20); Calcium 7.9 mg/dl (8.6-10.3); Creatinine Clr Calc Pharmacy 41.5 ml/min; Est GFR (African American) 32.7 ml/min; Est GFR (Non-African American) 28.3 ml/min; Potassium 3.2 mmol/L (3.5-5.1)
[2022-12-03] MEDS: DOCUSATE SODIUM 100 MG CAP PO SCH (08:09)
--- NOTE | 2022-12-03 08:33 | Nephrology Progress Note ---
Date of Service December 03, 2022 Assessment & Plan (1) CKD (chronic kidney disease) stage 4, GFR 15-29 ml/min: Plan: * CKD stage G4/A2 (advanced impairment). Baseline Cr has been 2.0-2.4 w/ EGFR 24 cc/min since at least 2016. His primary Product Development Assistant is Dr. Hernandez. Outpatient evaluation has revealed an acellular urine sediment. Renal US was negative for hydronephrosis. Renal impairment has been attributed to diabetic nephropathy * Kidney function is relatively stable at this time * Monitor PRP, UO (2) Acute on chronic diastolic (congestive) heart failure: Plan: * 1500 mg/day NaCl restricted diet * Kidney function remains relatively stable. UO 3100 cc yesterday. Patient is net -7.4 L since admission. LE swelling is improved. Continue Furosemide 100 mg IV BID * Developing metabolic alkalosis. Will provide one dose IV Acetazolamide again today * Monitor I&O, wt (3) Anemia: Plan: * Hgb is mildly improved at 9.5 this am * Day #3/3 IV Venofer * Epogen administered 12/01/22 * 11/30 FOBT is positive * If Hgb drops further, consider GI evaluation (4) Abdominal pain: Plan: * 12/01/22 HIDA scan negative * New onset diarrhea. Recommend C. Difficile testing if not already completed Admission and Anticipated Discharge Date Admission Date: November 29, 2022 Subjective Mr. Narvaez was evaluated in his hospital room this morning. He reports new onset diarrhea overnight. Mr. Narvaez notes that his LE swelling and dyspnea are improved Review of Systems Constitutional: no fever Eyes: no worsening vision Ear, Nose, Mouth, Throat: no problem reported Respiratory: no cough and no dyspnea Cardiovascular: no chest pain Gastrointestinal: no abdominal pain Genitourinary: no dysuria, no urinary hesitancy or no hematuria Integumentary: no rash Physical Exam Constitutional: not in distress Eyes: PERRL, conjunctivae normal, anicteric sclerae ENMT: external ear and nose normal, oropharynx normal Neck: trachea midline, no thyromegaly Respiratory: Auscultation: lungs clear to auscultation bilaterally Cardiovascular: Rate/Rhythm: regular rate and regular rhythm Extremities: + edema (2+ B LE edema) Gastrointestinal (Abdomen): normal bowel sounds, soft, nontender, no hepatosplenomegaly Neurologic: Speech / Cognition: normal speech and normal cognition Results & Data Vital Signs (Past 12 Hours) Vital Signs Temp Pulse Pulse Resp BP BP Pulse Ox 12/03/22 07:06 36.7 C 82 16 150/75 H 96 12/03/22 06:59 84 12/03/22 02:17 36.6 C 85 18 145/83 H 96 12/02/22 23:21 36.7 C 83 18 147/83 H 99 12/02/22 21:48 O2 Del Method O2 Flow Rate 12/03/22 07:06 Nasal Cannula 2 12/03/22 06:59 12/03/22 02:17 Nasal Cannula 2 12/02/22 23:21 Nasal Cannula 2 12/02/22 21:48 Nasal Cannula 2 Laboratory Results Laboratory Tests 11/30/22 12/03/22 12/03/22 06:34 06:31 06:31 WBC 9.38 Hgb 9.5 L Hct 31.4 L Plt Count 233 Sodium 144 Potassium 3.2 L D Chloride 102 Carbon Dioxide 37 H BUN 32 H Creatinine 2.20 H D Glucose 140 H Calcium 7.9 L Albumin 3.0 L PG Care Time/CCT Total # of Minutes Spent Total Time Spent with Patient: Total time spent is greater than 50% in coordination of care (as documented) at patient's floor/unit and/or counseling patient: Coding Level of Care Code 42078 SUB INP/OBS CARE 3/50MIN Diagnoses CKD (chronic kidney disease) stage 4, GFR 15-29 ml/min N18.4 Acute on chronic diastolic (congestive) heart failure I50.33 Anemia D64.9 Abdominal pain R10.9
[2022-12-03] MEDS: POTASSIUM CHLORIDE CRTAB 20 MEQ TABCR PO SCH (08:34)
[2022-12-03] MEDS: PANTOprazole 40 MG TAB PO SCH (08:34)
[2022-12-03] MEDS: FUROSEMIDE 10 MG/ML 10 ML VIAL IV SCH (08:34)
[2022-12-03] MEDS: METOPROLOL TARTRATE 100 MG TAB PO SCH (08:34)
[2022-12-03] MEDS: APIXABAN 5 MG TABLET PO SCH (08:34)
[2022-12-03] MEDS: FINASTERIDE 5 MG TAB PO SCH (08:34)
[2022-12-03] MEDS: TERAZOSIN HCL 5 MG CAP PO SCH (08:34)
[2022-12-03] MEDS: dilTIAZem HCL 120 MG CAPCR PO SCH (08:35)
[2022-12-03] MEDS: LOSARTAN POTASSIUM 25 MG TAB PO SCH (08:35)
[2022-12-03] MEDS: INSULIN ASPART PER UNIT CHARGE SC SCH ×2 (08:45→12:28)
[2022-12-03] MEDS: LANTUS PER UNIT CHARGE SQ SCH (08:45)
[2022-12-03] MEDS ORDERED: acetaZOLAMIDE 500 MG in SYRINGE 0 ML IV ONE (09:15)
[2022-12-03] MEDS: IRON SUCROSE 400 MG in SODIUM CHLORIDE 0.9% 250 ML IV SCH (09:20)
[2022-12-03] MEDS: POTASSIUM CHLORIDE / WTR 10 MEQ/100 ML PLCT IV SCH ×2 (12:52→14:15)
--- NOTE | 2022-12-03 13:13 | Discharge Summary ---
Date of Service December 03, 2022 Admission HPI Per Admitting Provider Anup is a 77 year old male w/ PmHx T2DM, CKD IV, PAF, BPH coming in for RUQ abdominal pain from earlier today. Patient states that earlier today he was sitting in his chair asleep and woke up with pain at the R abdomen. The pain was sharp and located midway to upper quadrant, worse with deep breath. He had some associated nausea with this but no vomiting. He denies any fevers, chills, diarrhea, headaches, dysuria, chest pain. He had diarrhea previously while taking lactulose but said that has gotten better since stopping it last week. He did endorse some shortness of breath he has been having, he uses oxygen at home at 2L for rest and ambulation. Patient states he has not had any past history of abdominal surgery and still has gallbladder and appendix. He denies any left sided abdominal pain. Did not notice any difference with the pain with eating. He states he ate a hard boiled egg and half a olivia cheesesteak earlier today. He had previously been sent to rehab from prior hospitalization however he stat es he would not want to go to a far away rehab in [place] like he did last time. In the ED WBC 13.31, Hgb 9.6, Neut 10.71, creatinine 1.61, AST/ALT 7/7, T bili 0.3, alk phos 61, lipase 13. CT A&P w/ large left pleural effusion, questionable pericholecystic stranding could reflect cholecystitis. Given morphine, zofran, and 4.5g Zosyn. Principal Diagnosis Acute on chronic diastolic CHF with left pleural effusion, iron deficiency Discharge Exam General-alert and oriented x3, no fevers, no chills. Morbidly obese HEENT-head atraumatic and normocephalic, pupils equal and reactive to light, extraocular muscles intact Neck-no lymphadenopathy or thyromegaly, trachea midline Chest-diminished breath sounds and dullness at the right base. No rales , wheezing or rhonchi Cardiac-irregular rhythm. Controlled rate. Normal S1 and S2 Abdomen-normal bowel sounds. Mild left lower quadrant and right lower quadrant tenderness. No rebound or guarding. No ascites Extremities-chronic venous stasis dermatitis and edema noted bilaterally Neuro-cranial nerves II through XII intact, motor and sensory function within normal limits, strength symmetrical , no focal deficits Psych-normal affect, normal mood Discharge Data Allergies Allergy/AdvReac Type Severity Reaction Status Date / Time No Known Allergies Allergy Unverified 10/31/22 14:09 Consultations 11/29/22 02:35 ED Decision to Admit Stat 11/29/22 03:56 Consult General Surgery Routine 11/29/22 10:51 Consult Pulmonology Routine 11/30/22 07:36 Consult Nephrology Routine 11/30/22 15:08 Consult Urology Routine Ordered Studies 11/29/22 01:24 CT abd pelvis wo con Stat 11/29/22 03:56 US gallbladder Routine 11/30/22 10:09 US point of care ultrasound Urgent 12/01/22 12:54 CT chest diagnostic wo con Routine 12/01/22 14:31 US scrotum/testicle Urgent Hospital Course (1) CARINA on CPAP: No apparent exacerbation. Continue current medical management (2) Morbid obesity with BMI of 45.0-49.9, adult: Weight loss recommended (3) Abdominal pain: HIDA scan negative for acute cholecystitis. Eliquis has been restarted. Diet has been restarted. Appreciate surgical consultation and recommendations (4) Acute on chronic respiratory failure with hypercapnia: Oxygen per nasal cannula to maintain saturation greater than 90%. Continue treatment of diastolic CHF. He is now down to his oxygen baseline he underwent left thoracentesis and placement of chest tube on November 30. The chest tube has since been removed. Serial chest x-ray (5) Acute on chronic diastolic (congestive) heart failure: Treated with intravenous Lasix diuresis while hospitalized. Oral Lasix will be increased at discharge. Monitor intake and output. Serial chest x-ray. Improving (6) GERD (gastroesophageal reflux disease): Continue PPI therapy (7) Hypertension: Stable. Continue current medical management (8) Iron deficiency anemia: Parenteral iron replacement was given daily for 3 days while hospitalized. Oral iron replacement at discharge (9) Hidden penis: Urology consultation noted (10) Diabetes mellitus type 2 in obese: ADA diet. Sliding scale insulin coverage. Medical management (11) Pleural effusion, left: Left thoracentesis and left chest tube placement completed on September 30. The left-sided chest tube has since been removed. This appears to be due to CHF with no evidence of underlying malignancy (12) Diarrhea: Colace discontinued. C. difficile toxin assay pending. Symptomatic treatment Plan Discharge to home today, December 03, with home health services Total Time Total Time Spent Total Time Spent (In Minutes): 40 minutes Discharge Plan Discharge Items Patient Disposition: Home - Home Health Services Reason For Visit: FLANK PAIN RT Discharge Diagnosis: Acute on chronic diastolic CHF, left pleural effusion due to CHF, iron deficiency Activity: Resume your previous activity Non-emergency contact: Primary Care Provider Call non-emergency contact if: you have any medication questions Follow-up/Referrals: [facility] [Primary Care Provider] - Diet: Regular and Heart Healthy Addtl Attending Provider Instructions: Lasix (furosemide) dosage has been increased Pending Studies at Discharge: Yes Studies:: C. difficile toxin assay Stand-Alone Forms: My [employer], Smoking Cessation Medications and DC Order Prescriptions: New furosemide [Lasix] 80 mg tablet 160 mg PO BID Qty: 90 0RF Continued Procrit 40,000 unit/mL solution 40,000 unit subcut MONTHLY 360 Days Qty: 1 0RF diltiazem HCl 120 mg capsule,extended release 24hr 120 mg PO DAILY tramadol 50 mg tablet 50 mg PO Q8H PRN (Reason: Pain) lactulose 10 gram/15 mL solution 30 g PO DAILY Eliquis 5 mg tablet 5 mg PO BID terazosin 5 mg Capsule 5 mg PO BID atorvastatin [Lipitor] 80 mg Tablet 40 mg PO HS aspirin 81 mg Tablet,Delayed Release (Dr/Ec) 81 mg PO QAM docusate sodium 100 mg Capsule 200 mg PO DAILY omeprazole 20 mg Capsule,Delayed Release(Dr/Ec) 20 mg PO Q12 finasteride [Proscar] 5 mg Tablet 5 mg PO DAILY multivitamin with minerals Tablet 1 tab PO DAILY losartan 50 mg tablet 25 mg PO DAILY Qty: 30 0RF hydralazine 10 mg tablet 10 mg PO TID Qty: 30 0RF insulin aspart U-100 [Novolog FlexPen U-100 Insulin] 100 unit/mL Insulin Pen 10 - 35 unit SUBCUT .qacqhs Qty: 15 0RF Rx Instructions: --Goal BSG Range: Low 120 mg/dL, High 160 mg/dL --Correction Factor: 25 mg/dL/unit --Carbohydrate ratio = 6 g/unit --BSGs ACHS if eating, q6h if npo metoprolol tartrate 25 mg Tablet 100 mg PO BID 30 Days Qty: 60 3RF insulin glargine [Lantus Solostar U-100 Insulin] 100 unit/mL (3 mL) Insulin Pen 15 unit SUBCUT BID Qty: 15 0RF potassium chloride [K-Tab] 20 mEq tablet extended release 40 meq PO BIDM Qty: 60 0RF Discontinued furosemide [Lasix] 80 mg Tablet 120 mg PO BID Qty: 90 0RF Discharge Orders: Discharge Order (Routine); Ordered 12/03/22 Ordered By: Teo Rush Admission Data Admit Date/Time: 11/29/22 02:56 Attending Provider: Teo Rush Admit Provider: Manfred Fatima Primary Care Provider: [facility] Other Providers: Jeferson Starr ; Killian Umana ; Fadi Barone ; Karlos Menendez ; Karlos Pan ; [facility] Coding Level of Care Code 45866 INP/OBS DISCH >30 MIN Diagnoses CARINA on CPAP G47.33; Z99.89 Morbid obesity with BMI of 45.0-49.9, adult E66.01; Z68.42 Abdominal pain R10.9 Acute on chronic respiratory failure with hypercapnia J96.22 Acute on chronic diastolic (congestive) heart failure I50.33 GERD (gastroesophageal reflux disease) K21.9 Hypertension I10 Iron deficiency anemia D50.9 Hidden penis Q55.64 Diabetes mellitus type 2 in obese E11.69; E66.9 Pleural effusion, left J90 Diarrhea R19.7
[2022-12-03] MEDS: ACETAMINOPHEN 325 MG TAB PO PRN (13:50)
--- NOTE | 2022-12-05 06:32 | Coding Query ---
CODING QUERY To promote full compliance with coding requirements relating to patient care, provider participation is requested in all cases of manager marketing communications uncertainty. Please assist us with the question(s) below: Coding Question(s): Pt admitted with CHF/pleural effusions. Pulmonary progress notes document Pneumona . Please check below the phrase that describes the pneumonia Thank you. Kimo Charles [facility] Physician's Response(s): __x The patient was treated for Pneumonia, present on admission The patient did not have Pneumonia Other: please document: Principal Diagnosis: "that condition established after study, to be chiefly responsible for occasioning the admission of the patient to the hospital for care." Co-Existing Principal Diagnosis: "when two or more diagnoses equally meet the criteria for principal diagnosis as determined by the circumstances of admission, diagnostic work up, and/or therapy provided, and the Alphabetic Index, Tabular List, or another coding guideline does not provide sequencing direction, any one of the diagnoses may be sequenced first." "When the physician has documented what appears to be a current diagnosis in the body of the record, but has not included the diagnosis in the final diagnostic statement, the physician should be asked whether the diagnosis should be added." (Source Coding Clinic 2 QTR90. p3-4) [place]
== END 2022-12-03 16:15 | disposition home health service (06) | DRG 291 ==
LOC: ED 01:19 → SUATTDRO 02:56 → 2N 02:56

== ENCOUNTER 2023-02-16 12:37 | Inpatient (IN) ==
[2023-02-16 13:28] LABS: Basophils # (auto) 0.06 K/uL (0.00-0.20); Basophils % (auto) 0.6 %; Eosinophils # (auto) 0.35 K/uL (0.00-0.50); Eosinophils % (auto) 3.6 %; Hematocrit (blood only) 33.9 % (42.0-52.0); Hemoglobin 10.8 g/dl (14.0-18.0); Immature Granulocytes # (auto) 0.03 K/uL (0.01-0.20); Immature Granulocytes % (auto) 0.3 %; Lymphocytes # (auto) 1.14 K/uL (1.20-3.40); Lymphocytes % (auto) 11.9 %; Mean Corpuscular Hemoglobin 28.6 pg (25.0-34.0); Mean Corpuscular Hgb Conc 31.9 g/dL (32.0-36.0); Mean Corpuscular Volume 89.9 fL (80.0-100.0); Mean Platelet Volume 11.6 fL (9.4-12.4); Monocytes # (auto) 0.77 K/uL (0.11-0.59); Neutrophils # (auto) 7.25 K/uL (1.40-6.50); Neutrophils % (auto) 75.6 %; Platelet Count 215 K/uL (130-400); RDW Coefficient of Variation 14.6 % (11.5-14.5); RDW Standard Deviation 48.6 fL (36.4-46.3); Red Blood Count 3.77 M/uL (4.70-6.10)
[2023-02-16 13:45] LABS: Alanine Aminotransferase 7 U/L (7-52); Albumin Globulin Ratio 1.1 (0.9-2); Albumin Level 3.5 gm/dl (3.4-5.0); Alkaline Phosphatase 70 U/L (34-104); Anion Gap 3 (3-11); Aspartate Aminotransferase 9 U/L (13-39); Bilirubin,Total 0.3 mg/dl (0.2-1.0); Blood Urea Nitrogen 35 mg/dl (6-23); Calcium 8.5 mg/dl (8.6-10.3); Carbon Dioxide 40 mmol/L (21-32); Chloride 99 mmol/L (98-107); Est GFR (African American) 42.9 ml/min; Globulin 3.3 gm/dl (2.5-4.0); Glucose 141 mg/dl (70-99(Fasting)); Sodium 142 mmol/L (136-145); Total Protein 6.8 gm/dl (6.0-8.3)
[2023-02-16 13:52] LABS: Troponin I High Sensitivity 7.5 pg/ml (0-20)
--- NOTE | 2023-02-16 13:58 | XRay Report ---
XR chest 1V not portable CLINICAL HISTORY: Chest pain, nonspecific TECHNIQUE: Single frontal radiograph of the chest was obtained. Comparison: Comparison is made to chest radiograph 12/25/2022 FINDINGS: No lines and tubes are seen. Cardiomegaly is noted. The aortic arch is calcified. The lungs are clear . Moderate left pleural effusion is slightly enlarged from prior exam, there is also a small right ef fusion. IMPRESSION: Moderate left pleural effusion is seen, slightly enlarged from prior exam. Small right effusion has d eveloped as well. ACT 112: Negative or not required by law. Electronically signed by: Richar Soria M.D. 02/16/2023 1:57 PM
[2023-02-16 14:02] LABS: INR 1.1 (0.9-1.1); Partial Thromboplastin Ratio 1.1; Partial Thromboplastin Time 31.9 Seconds (21.0-31.0); Prothrombin Time 11.5 Seconds (9.0-12.0)
[2023-02-16] MEDS ORDERED: FUROSEMIDE 40 MG/4 ML VIAL IV ONE (16:30)
--- NOTE | 2023-02-16 16:34 | Emergency Department Note ---
History of Present Illness General Chief complaint: Shortness of Breath/Dyspnea Stated complaint: CAN'T BREATHE, SHARP RIB PAIN, DIZZY Time Seen by Provider: 02/16/23 16:19 History of Present Illness 78-year-old male presents emergency department longstanding history of CHF and pedal edema, states he has been taking 120 mg of Lasix twice daily and he states increased shortness of breath dyspnea on exertion and bilateral flank pain that started over the weekend. Patient called his primary care physician and reportedly had an appointment at 1:30 PM today but then was told to come to the emergency department. Patient wears 3 L of oxygen typically. Patient states increased shortness of breath with any movement. There are no other mitigating or alleviating factors. Patient denies cough cold congestion fever or hemoptysis. Patient denies substernal chest pressure. There are no other mitigating or alleviating factors Home Medications Medication Instructions Recorded Confirmed Type aspirin 81 mg tablet,delayed 81 mg PO QAM 07/20/18 02/16/23 History release atorvastatin 80 mg tablet (Lipitor) 40 mg PO HS 07/20/18 02/16/23 History docusate sodium 100 mg capsule 200 mg PO BID 07/20/18 02/16/23 History finasteride 5 mg tablet (Proscar) 5 mg PO DAILY 07/20/18 02/16/23 History omeprazole 20 mg capsule,delayed 20 mg PO BID 07/20/18 02/16/23 History release terazosin 5 mg capsule 5 mg PO BID 07/20/18 02/16/23 History multivitamin with minerals 1 tab PO DAILY 11/28/20 02/16/23 History diltiazem HCl 120 mg 120 mg PO DAILY 08/27/22 02/16/23 History capsule,extended release 24 hr tramadol 50 mg tablet 50 mg PO Q8H PRN Pain 08/27/22 02/16/23 History apixaban 5 mg tablet (Eliquis) 5 mg PO BID 08/29/22 02/16/23 History insulin aspart U-100 100 unit/mL 10 - 35 unit (0.1 - 0.35 mL) 09/24/22 02/16/23 Rx (3 mL) subcutaneous pen (Novolog subcut .qacqhs #15 mL FlexPen U-100 Insulin aspart) potassium chloride 20 mEq 40 meq PO BIDM #60 tabs 09/24/22 02/16/23 Rx tablet,extended release (K-Tab) epoetin aaliyah 40,000 unit/mL 40,000 unit subcut MONTHLY hold hb 11/18/22 02/16/23 Rx injection solution (Procrit) 11 or greater 12 months #1 mL food supplemt, lactose-reduced 1 ea PO DAILY 12/03/22 02/16/23 History (Ensure High Protein oral liquid) hydralazine 10 mg tablet 10 mg PO TID 12/03/22 02/16/23 History insulin glargine 100 unit/mL (3 See Rx Instructions .Route .COMPLEX 12/03/22 02/16/23 History mL) subcutaneous pen (Lantus Solostar U-100 Insulin) losartan 50 mg tablet 50 mg PO DAILY 12/03/22 02/16/23 History metoprolol succinate 50 mg 50 mg PO DAILY 12/03/22 02/16/23 History tablet,extended release 24 hr tiotropium 2.5 mcg-olodaterol 2.5 2 puff inhalation DAILY #4 grams 01/01/23 02/16/23 Rx mcg/actuation mist for inhalation (Stiolto Respimat) furosemide 80 mg tablet 160 mg PO .COMPLEX 02/09/23 02/16/23 History calcitriol 0.5 mcg capsule 0.5 mcg PO UD #45 caps 02/13/23 02/16/23 Rx albuterol sulfate 90 mcg/actuation 2 puff inhalation QID PRN 02/16/23 02/16/23 History aerosol inhaler wheezing/SOB Allergies Allergy/AdvReac Type Severity Reaction Status Date / Time No Known Allergies Allergy Unverified 02/16/23 17:06 Past Med/Surg History Medical History Acute respiratory failure with hypoxia Anemia of chronic disease Atrial fibrillation Cellulitis CKD (chronic kidney disease) stage 4, GFR 15-29 ml/min D-dimer, elevated Diabetes Diabetes mellitus type 2 in obese GERD (gastroesophageal reflux disease) Hematuria Hypertension Hypoxia Morbid obesity with BMI of 45.0-49.9, adult Obesity CARINA (obstructive sleep apnea) CARINA on CPAP Proteinuria Vitamin D deficiency Social History Smoking Status: Former smoker Tobacco Type: Cigarettes Age Started Using Tobacco: 16; Age Quit Using Tobacco: 52; packs per day: 2.5; Second Hand Exposure: No; Do You Dip or Chew Tobacco: No; Hx Alcohol Use: No Hx Substance Use: No Preferred Language: Mauritanian 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 Electrical Required: No Beliefs That Will Affect Care: None Current Living Situation: Spouse Feels Safe at Home: Yes Assistive Devices: Lift Chair, Oxygen - Continuous, Scooter/Electric Scooter and Walker Review of Systems A total of 10 systems reviewed and were otherwise negative Respiratory: + dyspnea on exertion Cardiovascular: no chest pain Physical Exam Vital Signs Vital Signs - 24 hr 02/16/23 12:46 02/16/23 16:34 02/16/23 16:37 Pulse Rate 89 54 L Respiratory Rate 20 Blood Pressure 153/80 H Blood Pressure Mean 104 Pulse Oximetry 91 98 Oxygen Delivery Method Nasal Cannula Nasal Cannula Oxygen Flow Rate 3 3 Sepsis Recent Fever Within 48 Hours No Sepsis New/Unexplained Change in Mental Status No Sepsis Action Taken by Nursing No Action Required GENERAL: Patient is awake alert in no acute distress patient is resting comfortably and showing no signs of anxiety; able to speak in full sentences EYES: The conjunctivae are clear. The pupils are round and reactive. EARS, NOSE, MOUTH AND THROAT: The nose is without any evidence of any deformity. Mucous membranes are moist. Tongue is midline. NECK: The neck is nontender and supple. RESPIRATORY: Normal respiratory effort is noted there is no evidence of wheezing rhonchi or rales CARDIOVASCULAR: Regular rate and rhythm noted there no murmurs rubs or gallops normal S1 normal S2. GASTROINTESTINAL: The abdomen is soft. Abdomen is nontender. Morbidly obese; no rebound rigidity or guarding BACK: No midline tenderness or or step-off noted range of motion in flexion extension as well as rotation no signs of muscle spasm noted MUSCULOSKELETAL/EXTREMITIES: There is no evidence of gross deformity full range of motion is noted in the hips and shoulders. Bilateral lower extremity pitting edema SKIN: There is no obvious evidence of any rash. There are no petechiae, pallor or cyanosis noted. NEUROLOGIC: Patient is awake alert and oriented x3 strength is symmetric Course Reevaluation(s) Reevaluation #1: Patient was given IV Lasix. Patient is resting in no distress he is on 3 L of oxygen. He is not in any respiratory distress Time: 16:45 Consultations Consultation #1: Case was discussed with the [facility] hospitalist for admission Time: 17:25 Administered Medications Discontinued Medications Furosemide (Furosemide 40 Mg/4 Ml Vial) 80 mg IV ONE ONE Stop: 02/16/23 16:31 Last Admin: 02/16/23 16:56 Dose: 80 mg Documented By: GUIDO Medical Decision Making Medical Records Attestation: I reviewed the patient's medical records. Home Medications Current Medication List: was personally reviewed by me Laboratory Data Attestation: I reviewed the patient's lab results. Lab results interpreted by me elevated creatinine and elevated BNP 02/16/23 12:50 02/16/23 12:50 Lab Results 02/16/23 02/16/23 02/16/23 Range/Units 12:50 12:50 12:50 WBC 9.60 (4.8-10.8) K/ul RBC 3.77 L (4.70-6.10) M/uL Hgb 10.8 L (14.0-18.0) g/dl Hct 33.9 L (42.0-52.0) % MCV 89.9 (80.0-100.0) fL MCH 28.6 (25.0-34.0) pg MCHC 31.9 L (32.0-36.0) g/dL RDW Std Deviation 48.6 H (36.4-46.3) fL RDW Coeff of Barby 14.6 H (11.5-14.5) % Plt Count 215 (130-400) K/uL MPV 11.6 (9.4-12.4) fL Immature Gran % (Auto) 0.3 % Neut % (Auto) 75.6 % Lymph % (Auto) 11.9 % [place] % (Auto) 8.0 % Eos % (Auto) 3.6 % Baso % (Auto) 0.6 % Neut # (Auto) 7.25 H (1.40-6.50) K/uL Lymph # (Auto) 1.14 L (1.20-3.40) K/uL [place] # (Auto) 0.77 H (0.11-0.59) K/uL Eos # (Auto) 0.35 (0.00-0.50) K/uL Baso # (Auto) 0.06 (0.00-0.20) K/uL Immature Gran # (Auto) 0.03 (0.01-0.20) K/uL PT 11.5 (9.0-12.0) Seconds INR 1.1 (0.9-1.1) APTT 31.9 H (21.0-31.0) Seconds PTT Ratio 1.1 Sodium 142 (136-145) mmol/L Potassium 4.0 (3.5-5.1) mmol/L Chloride 99 (98-107) mmol/L Carbon Dioxide 40 H (21-32) mmol/L Anion Gap 3 (3-11) BUN 35 H (6-23) mg/dl Creatinine 1.75 H (0.6-1.4) mg/dl Est Cr Clr Drug Dosing Not Reportable Est GFR ( Amer) 42.9 ml/min Est GFR (Non-Af Amer) 37.0 ml/min BUN/Creatinine Ratio 20.0 (10-20) Glucose 141 H (70-99(Fasting)) mg/dl POC Glucose (70-99) mg/dl Calcium 8.5 L (8.6-10.3) mg/dl Total Bilirubin 0.3 (0.2-1.0) mg/dl AST 9 L (13-39) U/L ALT 7 (7-52) U/L Alkaline Phosphatase 70 (34-104) U/L Troponin I High Sens 7.5 (0-20) pg/ml Total Protein 6.8 (6.0-8.3) gm/dl Albumin 3.5 (3.4-5.0) gm/dl Globulin 3.3 (2.5-4.0) gm/dl Albumin/Globulin Ratio 1.1 (0.9-2) 02/16/23 Range/Units 14:09 WBC (4.8-10.8) K/ul RBC (4.70-6.10) M/uL Hgb (14.0-18.0) g/dl Hct (42.0-52.0) % MCV (80.0-100.0) fL MCH (25.0-34.0) pg MCHC (32.0-36.0) g/dL RDW Std Deviation (36.4-46.3) fL RDW Coeff of Barby (11.5-14.5) % Plt Count (130-400) K/uL MPV (9.4-12.4) fL Immature Gran % (Auto) % Neut % (Auto) % Lymph % (Auto) % [place] % (Auto) % Eos % (Auto) % Baso % (Auto) % Neut # (Auto) (1.40-6.50) K/uL Lymph # (Auto) (1.20-3.40) K/uL [place] # (Auto) (0.11-0.59) K/uL Eos # (Auto) (0.00-0.50) K/uL Baso # (Auto) (0.00-0.20) K/uL Immature Gran # (Auto) (0.01-0.20) K/uL PT (9.0-12.0) Seconds INR (0.9-1.1) APTT (21.0-31.0) Seconds PTT Ratio Sodium (136-145) mmol/L Potassium (3.5-5.1) mmol/L Chloride (98-107) mmol/L Carbon Dioxide (21-32) mmol/L Anion Gap (3-11) BUN (6-23) mg/dl Creatinine (0.6-1.4) mg/dl Est Cr Clr Drug Dosing Est GFR ( Amer) ml/min Est GFR (Non-Af Amer) ml/min BUN/Creatinine Ratio (10-20) Glucose (70-99(Fasting)) mg/dl POC Glucose 130 H (70-99) mg/dl Calcium (8.6-10.3) mg/dl Total Bilirubin (0.2-1.0) mg/dl AST (13-39) U/L ALT (7-52) U/L Alkaline Phosphatase (34-104) U/L Troponin I High Sens (0-20) pg/ml Total Protein (6.0-8.3) gm/dl Albumin (3.4-5.0) gm/dl Globulin (2.5-4.0) gm/dl Albumin/Globulin Ratio (0.9-2) Imaging Data Attestation: I personally reviewed and interpreted this imaging study as follows: My Impression: Chest x-ray interpreted by me left-sided pleural effusion Radiologist's Impression: Chest X-Ray 02/16/23 13:08 XR chest 1V not portable CLINICAL HISTORY: Chest pain, nonspecific TECHNIQUE: Single frontal radiograph of the chest was obtained. Comparison: Comparison is made to chest radiograph 12/25/2022 FINDINGS: No lines and tubes are seen. Cardiomegaly is noted. The aortic arch is calcified. The lungs are clear. Moderate left pleural effusion is slightly enlarged from prior exam, there is also a small right effusion. IMPRESSION: Moderate left pleural effusion is seen, slightly enlarged from prior exam. Small right effusion has developed as well. ACT 112: Negative or not required by law. Electronically signed by: Richar Soria M.D. 02/16/2023 1:57 PM ECG Data Attestation: I personally reviewed and interpreted this ECG as follows: Additional Comments: EKG interpreted by me atrial fibrillation rate of 81, right bundle branch block, no obvious ST segment elevation or depression normal axis Telemetry was ordered by me, interpreted as atrial fibrillation rate of 81 MDM Narrative Medical decision making differential diagnosis includes CHF, pneumonia, pleural effusions, cardiac dysrhythmia, ACS, electrolyte abnormality Plan is to check labs, chest x-ray, give IV Lasix External medical records were reviewed by me Patient's heart score is a 4 Patient was given IV Lasix, will be admitted for further evaluation of pleural effusions and CHF Impression & Plan Congestive heart failure, Pleural effusion on left, Pleural effusion on right Discharge Plan Visit Data Chief Complaint: Shortness of Breath/Dyspnea Stated Complaint: CAN'T BREATHE, SHARP RIB PAIN, DIZZY ED Provider: Young Dill Discharge Problem: Congestive heart failure, Pleural effusion on left, Pleural effusion on right Patient Disposition: Admitted As Inpatient Forms Stand Alone Forms: My [facility] Prescriptions Prescriptions: No Action Procrit 40,000 unit/mL solution 40,000 unit subcut MONTHLY 360 Days Qty: 1 0RF Rx Instructions: As of 02/16/23 - Pt hasn't taken this month as their HB was 11.2 Stiolto Respimat 2.5-2.5 mcg/actuation mist 2 puff inhalation DAILY Qty: 4 3RF calcitriol 0.5 mcg capsule 0.5 mcg PO UD Qty: 45 3RF Rx Instructions: 3 times weekly. As of 02/16/23 - Pt hasn't started yet diltiazem HCl 120 mg capsule,extended release 24hr 120 mg PO DAILY tramadol 50 mg tablet 50 mg PO Q8H PRN (Reason: Pain) Eliquis 5 mg tablet 5 mg PO BID furosemide 80 mg tablet 160 mg PO .COMPLEX Rx Instructions: 160 mg orally QAM and 160mg QPM for a total of 320mg daily; terazosin 5 mg Capsule 5 mg PO BID atorvastatin [Lipitor] 80 mg Tablet 40 mg PO HS aspirin 81 mg Tablet,Delayed Release (Dr/Ec) 81 mg PO QAM docusate sodium 100 mg Capsule 200 mg PO BID omeprazole 20 mg Capsule,Delayed Release(Dr/Ec) 20 mg PO BID finasteride [Proscar] 5 mg Tablet 5 mg PO DAILY multivitamin with minerals Tablet 1 tab PO DAILY losartan 50 mg Tablet 50 mg PO DAILY hydralazine 10 mg Tablet 10 mg PO TID metoprolol succinate 50 mg Tablet Extended Release 24 Hr 50 mg PO DAILY Ensure High Protein Liquid 1 ea PO DAILY insulin glargine [Lantus Solostar U-100 Insulin] 100 unit/mL (3 mL) Insulin Pen See Rx Instructions .ROUTE .COMPLEX Rx Instructions: Inject 23 units in the morning and 16 units at bedtime insulin aspart U-100 [Novolog FlexPen U-100 Insulin] 100 unit/mL Insulin Pen 10 - 35 unit SUBCUT .qacqhs Qty: 15 0RF Rx Instructions: --Goal BSG Range: Low 120 mg/dL, High 160 mg/dL --Correction Factor: 25 mg/dL/unit --Carbohydrate ratio = 6 g/unit --BSGs ACHS if eating, q6h if npo potassium chloride [K-Tab] 20 mEq tablet extended release 40 meq PO BIDM Qty: 60 0RF albuterol sulfate 90 mcg/actuation Hfa Aerosol Inhaler 2 puff INHALATION QID PRN (Reason: wheezing/SOB) Referrals Referrals: [facility] [Primary Care Provider] -
--- NOTE | 2023-02-16 17:06 | History & Physical Report ---
Date of Service February 16, 2023 Assessment & Plan (1) Hypervolemia associated with renal insufficiency: Plan: Not controlled on Lasix 160mg PO BID therefore will switch to Lasix 10mg/hr IV drip May need occasional acetazolamide per prior admission Aim 1.5L/day net negative and add metolazone as needed to achieve this Nephrology consult deferred as long as he continues to improve (2) Pleural effusion on right: Plan: Suspect this is the cause of his right sided pleuritic pain Noted workup for cholecystitis last admission which was subsequently negative therefore will defer repeating this given normal LFTs/WBC and alternative explanation Should improve with diureses as above Consider pulmonology consult if persistent (3) CKD (chronic kidney disease) stage 4, GFR 15-29 ml/min: Plan: At baseline, suspect some elevation may be needed to acquire adequate diuresis, continue to trend Cr (4) CARINA (obstructive sleep apnea): Plan: BiPAP 16/8 HS (5) Diabetes: Plan: HbA1C 7.8 Home dose Lantus 23 + 16 Prior hospitalization requiring Lantus 15 units BID therefore will switch to this dose initially Novolog: --Goal BSG Range: Low 110 mg/dL, High 140 mg/dL --Correction Factor: 25 mg/dL/unit --Carbohydrate ratio = 8 g/unit --BSGs ACHS if eating, q6h if npo (6) Atrial fibrillation: Plan: Eliquis for anticoagulation Rate control with diltiazem and metoprolol succinate Plan VTE Prophylaxis - Eliquis Diet - T2DM, low Na, heart healthy, fluid restricted Disposition - admit to PCU Admission and Anticipated Discharge Date Admission Date: February 16, 2023 History of Present Illness Chief Complaint: Shortness of breath, right sided chest pain Primary Care Provider: [facility] Anup Narvaez is a 78 year old male with hypervolemia due to CKD who presents to the ER with right sided chest pain, shortness of breath and weight gain. Main reason he came to the ER was for the progressive intermittent worsening right rib pain which started 4 days ago. Worse on inspiration or movement. This morning he woke up with worse pleuritic chest pain around 2-3am in the morning, dizziness and coughing which prompted a call to his PCP and subsequently advised to come to the ER. No association with eating. Increased weight. He reports havi ng a similar presentation in November 2022 with hypervolemia and left sided pain with a large pleural effusion on left side requiring pigtail catheter in November 2022. He reports recent decrease in his Lasix dosing last week and has noticed weight gain since then. He think he was taking x3 80mg twice a day, switched to 80mg x2 BID - unsure why it was changed other than to [facility] thought he was on too many diuretics. Allergies Allergy/AdvReac Type Severity Reaction Status Date / Time No Known Allergies Allergy Unverified 02/16/23 17:06 Home Medications Medication Instructions Recorded Confirmed Type aspirin 81 mg tablet,delayed 81 mg PO QAM 07/20/18 02/16/23 History release atorvastatin 80 mg tablet (Lipitor) 40 mg PO HS 07/20/18 02/16/23 History docusate sodium 100 mg capsule 200 mg PO BID 07/20/18 02/16/23 History finasteride 5 mg tablet (Proscar) 5 mg PO DAILY 07/20/18 02/16/23 History omeprazole 20 mg capsule,delayed 20 mg PO BID 07/20/18 02/16/23 History release terazosin 5 mg capsule 5 mg PO BID 07/20/18 02/16/23 History multivitamin with minerals 1 tab PO DAILY 11/28/20 02/16/23 History diltiazem HCl 120 mg 120 mg PO DAILY 08/27/22 02/16/23 History capsule,extended release 24 hr tramadol 50 mg tablet 50 mg PO Q8H PRN Pain 08/27/22 02/16/23 History apixaban 5 mg tablet (Eliquis) 5 mg PO BID 08/29/22 02/16/23 History insulin aspart U-100 100 unit/mL 10 - 35 unit (0.1 - 0.35 mL) 09/24/22 02/16/23 Rx (3 mL) subcutaneous pen (Novolog subcut .qaqhs #15 mL FlexPen U-100 Insulin aspart) potassium chloride 20 mEq 40 meq PO BIDM #60 tabs 09/24/22 02/16/23 Rx tablet,extended release (K-Tab) epoetin aaliyah 40,000 unit/mL 40,000 unit subcut MONTHLY hold hb 11/18/22 02/16/23 Rx injection solution (Procrit) 11 or greater 12 months #1 mL food supplemt, lactose-reduced 1 ea PO DAILY 12/03/22 02/16/23 History (Ensure High Protein oral liquid) hydralazine 10 mg tablet 10 mg PO TID 12/03/22 02/16/23 History insulin glargine 100 unit/mL (3 See Rx Instructions .Route .COMPLEX 12/03/22 02/16/23 History mL) subcutaneous pen (Lantus Solostar U-100 Insulin) losartan 50 mg tablet 50 mg PO DAILY 12/03/22 02/16/23 History metoprolol succinate 50 mg 50 mg PO DAILY 12/03/22 02/16/23 History tablet,extended release 24 hr tiotropium 2.5 mcg-olodaterol 2.5 2 puff inhalation DAILY #4 grams 01/01/23 02/16/23 Rx mcg/actuation mist for inhalation (Stiolto Respimat) furosemide 80 mg tablet 160 mg PO .COMPLEX 02/09/23 02/16/23 History calcitriol 0.5 mcg capsule 0.5 mcg PO UD #45 caps 02/13/23 02/16/23 Rx albuterol sulfate 90 mcg/actuation 2 puff inhalation QID PRN 02/16/23 02/16/23 History aerosol inhaler wheezing/SOB Past Med/Surg History Medical History (Updated 02/17/23 @ 06:28 by Brenden Tong MD) Acute respiratory failure with hypoxia Anemia of chronic disease Atrial fibrillation Cellulitis CKD (chronic kidney disease) stage 4, GFR 15-29 ml/min D-dimer, elevated Diabetes Diabetes mellitus type 2 in obese GERD (gastroesophageal reflux disease) Hematuria Hypertension Hypoxia Morbid obesity with BMI of 45.0-49.9, adult Obesity CARINA (obstructive sleep apnea) CARINA on CPAP Proteinuria Vitamin D deficiency Social History Smoking Status: Former smoker Tobacco Type: Cigarettes Age Started Using Tobacco: 16; Age Quit Using Tobacco: 52; packs per day: 2.5; Second Hand Exposure: No; Do You Dip or Chew Tobacco: No; Hx Alcohol Use: No Hx Substance Use: No Preferred Language: Tuvaluan Communication Ability: Effective Behavioral Health Rn Required: No Beliefs That Will Affect Care: None Current Living Situation: Spouse Other Information That Helps Us Care for You: No Feels Safe at Home: Yes Safety Concerns: Feels Safe At This Time Assistive Devices: CPAP, Denture - Upper, Hearing Aid - Bilateral and Scooter/Electric Scooter Review of Systems Review of Systems: All systems reviewed & are unremarkable except as noted in HPI & below Physical Exam Constitutional: well developed; + not well nourished and no acute distress Respiratory: normal respiratory effort; no respiratory distress Auscultation: + breath sounds absent (right base) and + crackles (bibasal); no wheezes Cardiovascular: Rate/Rhythm: regular rate and + irregularly irregular Heart Sounds: no murmur Extremities: normal capillary refill and + pedal edema (2+ b/l pitting); no calf tenderness Gastrointestinal (Abdomen): normal bowel sounds, soft, nontender, no hepatosplenomegaly Musculoskeletal: no cyanosis or clubbing, extremities motor strength 5/5 Skin: no rashes, warm and dry (venous dermatitis changes) Neurologic: moves all extremities and awake; not confused Psychiatric: A+Ox3, euthymic affect Results & Data Results & Data Vital Signs (Past 12 Hours) Vital Signs Pulse Resp BP Pulse Ox O2 Del Method O2 Flow Rate 02/16/23 16:37 54 L 02/16/23 16:34 98 Nasal Cannula 3 02/16/23 12:46 89 20 153/80 H 91 Nasal Cannula 3 Laboratory Results Abnormal lab results 02/16/23 02/16/23 02/16/23 Range/Units 12:50 12:50 12:50 RBC 3.77 L (4.70-6.10) M/uL Hgb 10.8 L (14.0-18.0) g/dl Hct 33.9 L (42.0-52.0) % MCHC 31.9 L (32.0-36.0) g/dL RDW Std Deviation 48.6 H (36.4-46.3) fL RDW Coeff of Barby 14.6 H (11.5-14.5) % Neut # (Auto) 7.25 H (1.40-6.50) K/uL Lymph # (Auto) 1.14 L (1.20-3.40) K/uL Sierra # (Auto) 0.77 H (0.11-0.59) K/uL APTT 31.9 H (21.0-31.0) Seconds Carbon Dioxide 40 H (21-32) mmol/L BUN 35 H (6-23) mg/dl Creatinine 1.75 H (0.6-1.4) mg/dl Glucose 141 H (70-99(Fasting)) mg/dl POC Glucose (70-99) mg/dl Calcium 8.5 L (8.6-10.3) mg/dl AST 9 L (13-39) U/L 02/16/23 Range/Units 14:09 RBC (4.70-6.10) M/uL Hgb (14.0-18.0) g/dl Hct (42.0-52.0) % MCHC (32.0-36.0) g/dL RDW Std Deviation (36.4-46.3) fL RDW Coeff of Barby (11.5-14.5) % Neut # (Auto) (1.40-6.50) K/uL Lymph # (Auto) (1.20-3.40) K/uL Sierra # (Auto) (0.11-0.59) K/uL APTT (21.0-31.0) Seconds Carbon Dioxide (21-32) mmol/L BUN (6-23) mg/dl Creatinine (0.6-1.4) mg/dl Glucose (70-99(Fasting)) mg/dl POC Glucose 130 H (70-99) mg/dl Calcium (8.6-10.3) mg/dl AST (13-39) U/L Diagnostic Findings XR chest 1V not portable CLINICAL HISTORY: Chest pain, nonspecific TECHNIQUE: Single frontal radiograph of the chest was obtained. Comparison: Comparison is made to chest radiograph 12/25/2022 FINDINGS: No lines and tubes are seen. Cardiomegaly is noted. The aortic arch is calcified. The lungs are clear. Moderate left pleural effusion is slightly enlarged from prior exam, there is also a small right effusion. IMPRESSION: Moderate left pleural effusion is seen, slightly enlarged from prior exam. Small right effusion has developed as well. Medications Administered ER Medications Given: Furosemide 80mg IV ECG Rate (beats per minute): 81 Rhythm: atrial fibrillation Findings: + RBBB Comparison ECG Date: from (November 29, 2022) Change: no significant change Code Status & VTE Plan Code Status Full VTE Prophylaxis Plan VTE Prophylaxis will be ordered: Yes PG Care Time/CCT Total # of Minutes Spent Total Time Spent with Patient: Total time spent is greater than 50% in coordination of care (as documented) at patient's floor/unit and/or counseling patient: Coding Level of Care Code 59271 INT INP/OBS CARE 3/75MIN Diagnoses Hypervolemia associated with renal insufficiency E87.70; N28.9 Pleural effusion on right J90 CKD (chronic kidney disease) stage 4, GFR 15-29 ml/min N18.4 CARINA (obstructive sleep apnea) G47.33 Diabetes E11.9 Atrial fibrillation I48.91
[2023-02-16 19:56] LABS: Influenza A virus by PCR Negative (Neg); Influenza B virus by PCR Negative (Neg); RSV by PCR Negative (Neg); SARS CoV2 RNA(COVID-19) Ceph NEGATIVE (Negative)
[2023-02-16] MEDS ORDERED: ACETAMINOPHEN 325 MG TAB PO PRN (21:23)
[2023-02-16] MEDS: FUROSEMIDE 100 MG in DEXTROSE 5% 90 ML IV SCH (21:54)
[2023-02-16] MEDS ORDERED: CARBOHYDRATES FOR HYPOGLYCEMIA PO PRN (23:25)
[2023-02-16] MEDS ORDERED: GLUCOSE 40% GEL 15 GM TUBE PO PRN (23:25)
[2023-02-16] MEDS ORDERED: GLUCAGON FOR INJ 1 MG VIAL SQ PRN (23:25)
[2023-02-16] MEDS ORDERED: DEXTROSE 50% 50 ML SYRINGE IV PRN (23:25)
[2023-02-16] MEDS ORDERED: GLUCOSE 10 TAB/TUBE PO PRN (23:25)
[2023-02-17] MEDS: APIXABAN 5 MG TABLET PO SCH ×3 (00:56→20:05)
[2023-02-17] MEDS: TERAZOSIN HCL 5 MG CAP PO SCH ×3 (00:56→20:06)
[2023-02-17] MEDS: hydrALAZINE 10 MG TAB PO SCH ×4 (00:56→20:06)
[2023-02-17] MEDS: DOCUSATE SODIUM 100 MG CAP PO SCH ×3 (00:57→20:05)
[2023-02-17] MEDS: LANTUS PER UNIT CHARGE SQ SCH ×3 (00:57→21:15)
[2023-02-17] MEDS: FUROSEMIDE 100 MG in DEXTROSE 5% 90 ML IV SCH ×2 (05:16→15:22)
[2023-02-17 06:22] LABS: Basophils # (auto) 0.05 K/uL (0.00-0.20); Basophils % (auto) 0.6 %; Eosinophils # (auto) 0.32 K/uL (0.00-0.50); Eosinophils % (auto) 3.5 %; Hematocrit (blood only) 31.3 % (42.0-52.0); Immature Granulocytes # (auto) 0.03 K/uL (0.01-0.20); Immature Granulocytes % (auto) 0.3 %; Lymphocytes % (auto) 16.6 %; Mean Corpuscular Hemoglobin 28.8 pg (25.0-34.0); Mean Corpuscular Hgb Conc 31.9 g/dL (32.0-36.0); Mean Corpuscular Volume 90.2 fL (80.0-100.0); Mean Platelet Volume 11.5 fL (9.4-12.4); Monocytes # (auto) 0.97 K/uL (0.11-0.59); Monocytes % (auto) 10.7 %; Neutrophils # (auto) 6.18 K/uL (1.40-6.50); Neutrophils % (auto) 68.3 %; Platelet Count 189 K/uL (130-400); RDW Coefficient of Variation 14.7 % (11.5-14.5); RDW Standard Deviation 48.6 fL (36.4-46.3); Red Blood Count 3.47 M/uL (4.70-6.10); White Blood Count 9.05 K/ul (4.8-10.8)
[2023-02-17 06:38] LABS: BUN Creatinine Ratio 19.4 (10-20); Calcium 8.2 mg/dl (8.6-10.3); Creatinine Clr Calc Pharmacy 51.3 ml/min; Est GFR (African American) 42.9 ml/min; Potassium 3.2 mmol/L (3.5-5.1)
[2023-02-17] MEDS: INSULIN ASPART PER UNIT CHARGE SC SCH ×4 (08:18→21:15)
[2023-02-17] MEDS: ASPIRIN 81 MG ECTAB PO SCH (08:19)
[2023-02-17] MEDS: POTASSIUM CHLORIDE CRTAB 20 MEQ TABCR PO SCH ×2 (08:19→20:05)
[2023-02-17] MEDS: dilTIAZem HCL 120 MG CAPCR PO SCH (08:19)
[2023-02-17] MEDS: FINASTERIDE 5 MG TAB PO SCH (08:20)
[2023-02-17] MEDS: LOSARTAN POTASSIUM 50 MG TAB PO SCH (08:21)
[2023-02-17] MEDS: PANTOprazole 40 MG TAB PO SCH ×2 (08:21→20:06)
[2023-02-17] MEDS: METOPROLOL SUCC 50MG EXT REL TAB PO SCH (08:21)
[2023-02-17] MEDS: UMECLIDINIUM/VILANTEROL 62.5/25MCG 7 PUFFS/INHALER INH SCH (08:22)
[2023-02-17] MEDS: ATORVASTATIN 40 MG TAB PO SCH (20:05)
--- NOTE | 2023-02-17 21:31 | Hospitalist Progress Note ---
Date of Service February 17, 2023 Assessment & Plan (1) Hypervolemia associated with renal insufficiency: Plan: Not controlled on Lasix 160mg PO BID therefore will switch to Lasix 10mg/hr IV drip will remain on this overnight and recheck xhest x ray. May need occasional acetazolamide per prior admission Aim 1.5L/day net negative and add metolazone as needed to achieve this Nephrology consult deferred as long as he continues to improve, however, not much improvement today. Will recheck labs in AM. (2) Pleural effusion on right: Plan: Suspect this is the cause of his right sided pleuritic pain Noted workup for cholecystitis last admission which was subsequently negative therefore will defer repeating this given normal LFTs/WBC and alternative explanation Should improve with diureses as above Consider pulmonology consult if persistent (3) CKD (chronic kidney disease) stage 4, GFR 15-29 ml/min: Plan: At baseline, suspect some elevation may be needed to acquire adequate diuresis, continue to trend Cr (4) CARINA (obstructive sleep apnea): Plan: BiPAP 16/8 HS (5) Diabetes: Plan: HbA1C 7.8 Home dose Lantus 23 + 16 Prior hospitalization requiring Lantus 15 units BID therefore will switch to this dose initially Novolog: --Goal BSG Range: Low 110 mg/dL, High 140 mg/dL --Correction Factor: 25 mg/dL/unit --Carbohydrate ratio = 8 g/unit --BSGs ACHS if eating, q6h if npo (6) Atrial fibrillation: Plan: Eliquis for anticoagulation Rate control with diltiazem and metoprolol succinate Plan VTE Prophylaxis - Eliquis Diet - T2DM, low Na, heart healthy, fluid restricted Disposition - admit to PCU Admission and Anticipated Discharge Date Admission Date: February 16, 2023 Subjective Patient reports no new symptoms. Review of Systems Review of Systems: All systems reviewed & are unremarkable except as noted in HPI & below Physical Exam Constitutional: well developed; + not well nourished and no acute distress Respiratory: normal respiratory effort; no respiratory distress Auscultation: + breath sounds absent (right base) and + crackles (bibasal); no wheezes Cardiovascular: Rate/Rhythm: regular rate and + irregularly irregular Heart Sounds: no murmur Extremities: normal capillary refill and + pedal edema (2+ b/l pitting); no calf tenderness Gastrointestinal (Abdomen): normal bowel sounds, soft, nontender, no hepatosplenomegaly Musculoskeletal: no cyanosis or clubbing, extremities motor strength 5/5 Skin: no rashes, warm and dry (venous dermatitis changes) Neurologic: moves all extremities and awake; not confused Psychiatric: A+Ox3, euthymic affect Results & Data Results & Data Vital Signs (Past 12 Hours) Vital Signs Temp Pulse Pulse Resp BP Pulse Ox Pulse Ox 02/17/23 19:39 36.2 C L 86 20 146/81 H 95 02/17/23 16:02 36.7 C 75 23 165/82 H 98 02/17/23 15:16 85 02/17/23 14:44 97 02/17/23 14:03 94 02/17/23 10:45 36.4 C L 83 21 143/71 H 97 Pulse Ox Pulse Ox O2 Del Method O2 Flow Rate O2 Flow Rate O2 Flow Rate O2 Flow Rate 02/17/23 19:39 Nasal Cannula 3 02/17/23 16:02 Nasal Cannula 3.5 02/17/23 15:16 02/17/23 14:44 02/17/23 14:03 94 93 3.5 3.5 3.5 02/17/23 10:45 Room Air PG Care Time/CCT Total # of Minutes Spent Total Time Spent with Patient: Total time spent is greater than 50% in coordination of care (as documented) at patient's floor/unit and/or counseling patient: Coding Level of Care Code 51154 SUB INP/OBS CARE 2/35MIN Diagnoses Hypervolemia associated with renal insufficiency E87.70; N28.9 Pleural effusion on right J90 CKD (chronic kidney disease) stage 4, GFR 15-29 ml/min N18.4 CARINA (obstructive sleep apnea) G47.33 Diabetes E11.9 Atrial fibrillation I48.91
[2023-02-18] MEDS: FUROSEMIDE 100 MG in DEXTROSE 5% 90 ML IV SCH (00:48)
--- NOTE | 2023-02-18 05:58 | Electrocardiogram Report ---
Test Reason : Blood Pressure : / mmHG Vent. Rate : 081 BPM Atrial Rate : 000 BPM P-R Int : 000 ms QRS Dur : 134 ms QT Int : 394 ms P-R-T Axes : 000 052 038 degrees QTc Int : 457 ms Atrial fibrillation Right bundle branch block Abnormal ECG When compared with ECG of 29-NOV-2022 01:25, No significant change was found Confirmed by Adair Broderick ([id number]) on 02/18/2023 5:57:49 AM Referred By: Confirmed By:Adair Broderick
[2023-02-18 08:05] LABS: Hematocrit (blood only) 32.5 % (42.0-52.0); Hemoglobin 10.2 g/dl (14.0-18.0); Mean Corpuscular Hemoglobin 28.7 pg (25.0-34.0); Mean Corpuscular Hgb Conc 31.4 g/dL (32.0-36.0); Mean Corpuscular Volume 91.3 fL (80.0-100.0); Mean Platelet Volume 11.4 fL (9.4-12.4); Platelet Count 191 K/uL (130-400); RDW Coefficient of Variation 14.7 % (11.5-14.5); RDW Standard Deviation 49.7 fL (36.4-46.3); Red Blood Count 3.56 M/uL (4.70-6.10); White Blood Count 8.59 K/ul (4.8-10.8)
[2023-02-18] MEDS: LOSARTAN POTASSIUM 50 MG TAB PO SCH (08:23)
[2023-02-18] MEDS: TERAZOSIN HCL 5 MG CAP PO SCH ×2 (08:23→20:14)
[2023-02-18] MEDS: DOCUSATE SODIUM 100 MG CAP PO SCH ×2 (08:23→20:14)
[2023-02-18] MEDS: dilTIAZem HCL 120 MG CAPCR PO SCH (08:23)
[2023-02-18] MEDS: POTASSIUM CHLORIDE CRTAB 20 MEQ TABCR PO SCH ×2 (08:23→18:10)
[2023-02-18] MEDS: hydrALAZINE 10 MG TAB PO SCH ×3 (08:23→20:13)
[2023-02-18] MEDS: FINASTERIDE 5 MG TAB PO SCH (08:23)
[2023-02-18] MEDS: APIXABAN 5 MG TABLET PO SCH ×2 (08:23→20:15)
[2023-02-18] MEDS: METOPROLOL SUCC 50MG EXT REL TAB PO SCH (08:23)
[2023-02-18] MEDS: PANTOprazole 40 MG TAB PO SCH ×2 (08:24→20:13)
[2023-02-18] MEDS: ASPIRIN 81 MG ECTAB PO SCH (08:24)
[2023-02-18] MEDS: UMECLIDINIUM/VILANTEROL 62.5/25MCG 7 PUFFS/INHALER INH SCH (08:24)
[2023-02-18 08:25] LABS: BUN Creatinine Ratio 17.2 (10-20); Calcium 8.4 mg/dl (8.6-10.3); Creatinine Clr Calc Pharmacy 42.7 ml/min; Est GFR (African American) 34.6 ml/min; Est GFR (Non-African American) 29.9 ml/min; Potassium 3.3 mmol/L (3.5-5.1)
[2023-02-18] MEDS: LANTUS PER UNIT CHARGE SQ SCH ×2 (08:31→20:27)
[2023-02-18] MEDS: INSULIN ASPART PER UNIT CHARGE SC SCH ×4 (08:32→20:27)
[2023-02-18 09:53] LABS: HCO3 VBG 41 mmol/L; Oxygen Saturation VBG 78.2 %; PCO2 VBG 66 mmHg (38-50); PO2 VBG 44 mmHg
--- NOTE | 2023-02-18 10:15 | Nephrology Consultation ---
Date of Consultation February 18, 2023 Assessment & Plan (1) CKD (chronic kidney disease) stage 4, GFR 15-29 ml/min: CKD IV A2-3 attributed to DKD. Baseline creatinine 2.0-2.4 mg/dL. Primary Ditching Machine Operator is Dr. Hernandez. Kidney function relatively stable. Electrolytes normal. Volume status improving. Medications appropriate for kidney dysfunction. Continue losartan 50 mg daily as Rx. Defer SGLT2i option at this time pending adequate diuresis and stable volume status. Continue calcitriol for sPTH. Diuretics to encourage negative fluid balance. Oral KCl 40 mEq BID as Rx. Monitor metabolic profile daily. Document I/O's and daily AM weight. Low sodium diet. (2) Acute on chronic diastolic (congestive) heart failure: Dietary sodium restriction. Daily fluid restriction. I would suggest resuming furosemide at a dose of 120 mg BID and providing combination diuretic therapy with additional thiazide diuretic =/- MRA as needed. Oral furosemide 120 mg BID ordered to resume this afternoon. Anup denies hearing loss or symptoms of ototoxicity. (3) Anemia: Chronic, stable. Not requiring NEVILLE therapy. Close outpatient follow up. Maintained on monthly Epogen as outpatient. (4) Alkalosis, metabolic: Will provide a dose of acetazolamide now. History of Present Illness Reason for Consultation: CKD pleural effusion Requesting Physician: Shamir Eckert Attending Physician: Shamir Eckert History of Present Illness Mr. Anup Narvaez is a 78 year-old male with advanced chronic kidney disease. Nephrology consultation requested for evaluation of CKD and volume overload.Mr. Narvaez has CKD stage IV A2-3.Baseline creatinine 2.0-2.4 mg/dL.He follows in the nephrology clinic with Dr. Hernandez.Outpatient evaluation has revealed an acellular urine sediment.Renal US was negative for hydronephrosis.Renal impairment has been attributed to diabetic nephropathy.Mr. Narvaez's medical history is also significant for AODM (+retinopathy), HTN, GERD, obesity w/ BMI > 45, CARINA on CPAP and BPH.Mr. Narvaez was admitted to [facility] in November with volume overload and a large left sided pleural effusion. Thoracentesis with pigtail catheter placement was performed. Documentation suggests that the effusion was transudative.11/29/22 Echo - LVEF 60-65%, RV poorly visualized but appears dilated, RVSP 43 mmHg, valves were not well visualized. Anup was diuresed in November and discharged on high doses of furosemide 3 x 80 mg tablets twice daily. He states that he was tolerating diuretic therapy well. He felt that the regimen was controlling his volume status. Anup documented daily weights of 319-321 lbs for most of January. [facility] instructed him to decrease the diuretic to 2 x 80 mg BID a couple weeks ago. Anup noted that his weight progressively increased and he experienced increasing edema on the reduced dose of diuretic. He tries to maintain a low sodium diet and daily fluid restriction. Unfortunately, he felt progressively worse and presented to the hospital for evaluation of what he suspected as increasing recurrent pleural effusion. Anup presented with right sided chest pain which he describes as involving the ribs and worse with inspiration. He referred to his symptoms as pleuritic. Symptoms have improved with diuretics. Anup was placed on a furosemide gtt on admission which was stopped this AM. Weight is down 2 kg since admission with a negative fluid balance of 1.8 L. Creatinine on admission was 1.75 mg/dL. Creatinine is currently 2.0 mg/dL. Serum electrolytes are normal. Anup denies chest pains or palpitations. He denies notable dyspnea at rest currently. He denies lightheadedness, dizziness, syncope, or presyncope. He has no urinary symptoms. Lower extremity and abdominal edema is improving. Allergies Allergy/AdvReac Type Severity Reaction Status Date / Time No Known Allergies Allergy Unverified 02/16/23 17:06 Home Medications Medication Instructions Recorded Confirmed Type aspirin 81 mg tablet,delayed 81 mg PO QAM 07/20/18 02/16/23 History release atorvastatin 80 mg tablet (Lipitor) 40 mg PO HS 07/20/18 02/16/23 History docusate sodium 100 mg capsule 200 mg PO BID 07/20/18 02/16/23 History finasteride 5 mg tablet (Proscar) 5 mg PO DAILY 07/20/18 02/16/23 History omeprazole 20 mg capsule,delayed 20 mg PO BID 07/20/18 02/16/23 History release terazosin 5 mg capsule 5 mg PO BID 07/20/18 02/16/23 History multivitamin with minerals 1 tab PO DAILY 11/28/20 02/16/23 History diltiazem HCl 120 mg 120 mg PO DAILY 08/27/22 02/16/23 History capsule,extended release 24 hr tramadol 50 mg tablet 50 mg PO Q8H PRN Pain 08/27/22 02/16/23 History apixaban 5 mg tablet (Eliquis) 5 mg PO BID 08/29/22 02/16/23 History insulin aspart U-100 100 unit/mL 10 - 35 unit (0.1 - 0.35 mL) 09/24/22 02/16/23 Rx (3 mL) subcutaneous pen (Novolog subcut .[facility] #15 mL FlexPen U-100 Insulin aspart) potassium chloride 20 mEq 40 meq PO BIDM #60 tabs 09/24/22 02/16/23 Rx tablet,extended release (K-Tab) epoetin aaliyah 40,000 unit/mL 40,000 unit subcut MONTHLY hold hb 11/18/22 02/16/23 Rx injection solution (Procrit) 11 or greater 12 months #1 mL food supplemt, lactose-reduced 1 ea PO DAILY 12/03/22 02/16/23 History (Ensure High Protein oral liquid) hydralazine 10 mg tablet 10 mg PO TID 12/03/22 02/16/23 History insulin glargine 100 unit/mL (3 See Rx Instructions .Route .COMPLEX 12/03/22 02/16/23 History mL) subcutaneous pen (Lantus Solostar U-100 Insulin) losartan 50 mg tablet 50 mg PO DAILY 12/03/22 02/16/23 History metoprolol succinate 50 mg 50 mg PO DAILY 12/03/22 02/16/23 History tablet,extended release 24 hr tiotropium 2.5 mcg-olodaterol 2.5 2 puff inhalation DAILY #4 grams 01/01/23 02/16/23 Rx mcg/actuation mist for inhalation (Stiolto Respimat) furosemide 80 mg tablet 160 mg PO .COMPLEX 02/09/23 02/16/23 History calcitriol 0.5 mcg capsule 0.5 mcg PO UD #45 caps 02/13/23 02/16/23 Rx albuterol sulfate 90 mcg/actuation 2 puff inhalation QID PRN 02/16/23 02/16/23 History aerosol inhaler wheezing/SOB Patient History Medical History Acute respiratory failure with hypoxia Anemia of chronic disease Atrial fibrillation Cellulitis CKD (chronic kidney disease) stage 4, GFR 15-29 ml/min D-dimer, elevated Diabetes Diabetes mellitus type 2 in obese GERD (gastroesophageal reflux disease) Hematuria Hypertension Hypoxia Morbid obesity with BMI of 45.0-49.9, adult Obesity CARINA (obstructive sleep apnea) CARINA on CPAP Proteinuria Vitamin D deficiency Social History Smoking Status: Former smoker Tobacco Type: Cigarettes Age Started Using Tobacco: 16; Age Quit Using Tobacco: 52; packs per day: 2.5; Second Hand Exposure: No; Do You Dip or Chew Tobacco: No; Hx Alcohol Use: No Hx Substance Use: No Preferred Language: Pakistani Communication Ability: Effective Cash Applications Clerk Required: No Beliefs That Will Affect Care: None Current Living Situation: Spouse Other Information That Helps Us Care for You: No Feels Safe at Home: Yes Safety Concerns: Feels Safe At This Time Assistive Devices: Oxygen - Continuous and Walker Review of Systems Review of Systems: All systems reviewed & are unremarkable except as noted in HPI & below Physical Exam Constitutional: well developed and + morbidly obese; no acute distress Eyes: + anicteric sclerae; no scleral abnormality and no corneal abnormality ENMT: Mouth: no oral mucosal abnormality and oral mucous membranes not dry Neck: normal visual inspection, trachea midline and + thick neck Respiratory: normal respiratory effort and + tachypneic Auscultation: lungs clear to auscultation bilaterally and + diminished lung sounds Cardiovascular: Rate/Rhythm: + irregularly irregular Heart Sounds: normal S1 and normal S2 Extremities: + edema Musculoskeletal: Extremities: no cyanosis and no clubbing Skin: normal turgor; no lesions and no jaundice Neurologic: Motor/Sensory: no tremor and no asterixis Psychiatric: Orientation: alert and oriented x 3 Results & Data Vital Signs (Past 12 Hours) Vital Signs Temp Pulse Pulse Resp BP Pulse Ox O2 Del Method 02/18/23 09:11 Nasal Cannula 02/18/23 07:09 36.8 C 94 H 20 155/82 H 97 Nasal Cannula 02/18/23 07:33 104 H 02/17/23 23:00 93 H 02/18/23 02:35 36.5 C 79 18 138/61 96 Nasal Cannula 02/17/23 23:05 36.6 C 89 18 152/80 H 97 Room Air O2 Flow Rate 02/18/23 09:11 3 02/18/23 07:09 3 02/18/23 07:33 02/17/23 23:00 02/18/23 02:35 3 02/17/23 23:05 Laboratory Results Laboratory Results - last 24 hr 02/17/23 02/17/23 02/17/23 11:17 16:24 20:26 WBC RBC Hgb Hct MCV MCH MCHC RDW Std Deviation RDW Coeff of Barby Plt Count MPV VBG pH VBG pCO2 VBG pO2 VBG HCO3 VBG O2 Saturation VBG Base Excess Sodium Potassium Chloride Carbon Dioxide Anion Gap BUN Creatinine Est Cr Clr Drug Dosing Est GFR ( Amer) Est GFR (Non-Af Amer) BUN/Creatinine Ratio Glucose POC Glucose 133 H 97 146 H Calcium B-Natriuretic Peptide 02/18/23 02/18/23 02/18/23 07:01 07:01 07:01 WBC 8.59 RBC 3.56 L Hgb 10.2 L Hct 32.5 L MCV 91.3 MCH 28.7 MCHC 31.4 L RDW Std Deviation 49.7 H RDW Coeff of Barby 14.7 H Plt Count 191 MPV 11.4 VBG pH VBG pCO2 VBG pO2 VBG HCO3 VBG O2 Saturation VBG Base Excess Sodium 145 Potassium 3.3 L Chloride 100 Carbon Dioxide 41 H* Anion Gap 4 BUN 36 H Creatinine 2.09 H D Est Cr Clr Drug Dosing 42.7 Est GFR ( Amer) 34.6 Est GFR (Non-Af Amer) 29.9 BUN/Creatinine Ratio 17.2 Glucose 98 POC Glucose Calcium 8.4 L B-Natriuretic Peptide Pending 02/18/23 02/18/23 07:11 09:28 WBC RBC Hgb Hct MCV MCH MCHC RDW Std Deviation RDW Coeff of Barby Plt Count MPV VBG pH 7.40 VBG pCO2 66 H VBG pO2 44 VBG HCO3 41 VBG O2 Saturation 78.2 VBG Base Excess 13.0 Sodium Potassium Chloride Carbon Dioxide Anion Gap BUN Creatinine Est Cr Clr Drug Dosing Est GFR ( Amer) Est GFR (Non-Af Amer) BUN/Creatinine Ratio Glucose POC Glucose 126 H Calcium B-Natriuretic Peptide Diagnostic Findings XR chest 1V not portable Cardiomegaly. The aortic arch is calcified. The lungs are clear. Moderate left pleural effusion is slightly enlarged from prior exam, there is also a small right effusion. IMPRESSION: Moderate left pleural effusion is seen, slightly enlarged from prior exam. Small right effusion has developed as well. PG Care Time/CCT Total # of Minutes Spent Total Time Spent with Patient: Total time spent is greater than 50% in coordination of care (as documented) at patient's floor/unit and/or counseling patient: Coding Level of Care Code 69051 IN/OBS CONSULT LVL 4,60M Diagnoses CKD (chronic kidney disease) stage 4, GFR 15-29 ml/min N18.4 Acute on chronic diastolic (congestive) heart failure I50.33 Anemia D64.9 Alkalosis, metabolic E87.3
--- NOTE | 2023-02-18 10:58 | XRay Report ---
TWO VIEW CHEST CLINICAL HISTORY: Pleural effusion. FINDINGS: AP and lateral chest radiographs are compared to study dated 02/16/2023 and correlated with chest CT dated 12/01/2022. The heart is enlarged noting atherosclerotic calcification of the thoracic aorta. There is mild pulmonary vascular congestion. Emphysema and chronic interstitial thickening is similar to previous. There is a [id number] left pleural effusion with left basilar consolidati on. Trace pleural effusion is seen on the right. There is no pneumothorax. The skeletal structures ar e osteopenic. The bony thorax appears intact. IMPRESSION: 1. Cardiomegaly and emphysema with pulmonary vascular congestion. 2. Left larger than right pleural effusions with left basilar consolidation. This is similar to previ ous. ACT 112: Negative or not required by law. Electronically signed by: Rolo Kidd M.D. 02/18/2023 10:57 AM
[2023-02-18 12:12] LABS: Appearance Urine Clear (Clear); Bacteria Urine Automated Negative (Negative); Bilirubin Urine Negative (Negative); Blood Urine Negative (Negative); Color Urine Yellow; Glucose Urine UA Negative (Negative); Ketones Urine Negative (Negative); Leukocyte Esterase Urine Negative (Negative); Nitrite Urine Negative (Negative); Protein Urine 2+ (Negative); RBC Urine Automated 0-4 /hpf (0-4); Specific Gravity Urine 1.011 (1.000-1.030); Urobilinogen Urine Negative (Negative)
[2023-02-18] MEDS ORDERED: acetaZOLAMIDE 250 MG in SYRINGE 0 ML IV ONE (13:00)
[2023-02-18] MEDS ORDERED: FUROSEMIDE 10 MG/ML 10 ML VIAL IV SCH (14:00)
[2023-02-18] MEDS: ATORVASTATIN 40 MG TAB PO SCH (20:13)
--- NOTE | 2023-02-18 20:56 | Hospitalist Progress Note ---
Date of Service February 18, 2023 Assessment & Plan (1) Hypervolemia associated with renal insufficiency: Plan: Acute diastolic (congestive) heart failure Pt admitted with hypervolemia has echo 12/12 documenting moderate concentric LVH, indeterminate diastolic dysfunction, and EF=60-65%. Not controlled on Lasix 160mg PO BID therefore will switch to Lasix 10mg/hr IV drip May need occasional acetazolamide per prior admission, ordered dose on 02/18 Aim 1.5L/day net negative and add metolazone as needed to achieve this stopped IV lasix drip due to worsening creat and alkalosis. acetazolamide ordered as above. placed on lasix IV BID. consulted nephro. (2) Pleural effusion on right: Plan: Suspect this is the cause of his right sided pleuritic pain Noted workup for cholecystitis last admission which was subsequently negative therefore will defer repeating this given normal LFTs/WBC and alternative explanation Should improve with diureses as above Consider pulmonology consult if persistent will order chest x ray in AM of 02/19 (3) CKD (chronic kidney disease) stage 4, GFR 15-29 ml/min: Plan: At baseline, suspect some elevation may be needed to acquire adequate diuresis, continue to trend Cr (4) CARINA (obstructive sleep apnea): Plan: BiPAP 04/02 HS (5) Diabetes: Plan: HbA1C 7.8 Home dose Lantus 23 + 16 Prior hospitalization requiring Lantus 15 units BID therefore will switch to this dose initially Novolog: --Goal BSG Range: Low 110 mg/dL, High 140 mg/dL --Correction Factor: 25 mg/dL/unit --Carbohydrate ratio = 8 g/unit --BSGs ACHS if eating, q6h if npo (6) Atrial fibrillation: Plan: Eliquis for anticoagulation Rate control with diltiazem and metoprolol succinate Plan VTE Prophylaxis - Eliquis Diet - T2DM, low Na, heart healthy, fluid restricted Disposition - admit to PCU Admission and Anticipated Discharge Date Admission Date: February 16, 2023 Subjective Patient reports no new symptoms Review of Systems Review of Systems: All systems reviewed & are unremarkable except as noted in HPI & below Physical Exam Constitutional: well developed; + not well nourished and no acute distress Respiratory: normal respiratory effort; no respiratory distress Auscultation: + breath sounds absent (right base) and + crackles (bibasal); no wheezes Cardiovascular: Rate/Rhythm: regular rate and + irregularly irregular Heart Sounds: no murmur Extremities: normal capillary refill and + pedal edema (2+ b/l pitting); no calf tenderness Gastrointestinal (Abdomen): normal bowel sounds, soft, nontender, no hepatosplenomegaly Musculoskeletal: no cyanosis or clubbing, extremities motor strength 5/5 Skin: no rashes, warm and dry (venous dermatitis changes) Neurologic: moves all extremities and awake; not confused Psychiatric: A+Ox3, euthymic affect Results & Data Results & Data Vital Signs (Past 12 Hours) Vital Signs Temp Pulse Resp BP Pulse Ox O2 Del Method O2 Flow Rate 02/18/23 19:00 36.9 C 79 20 154/72 H 98 Nasal Cannula 02/18/23 17:00 Nasal Cannula 3 02/18/23 11:03 36.6 C 90 21 141/82 H 96 Nasal Cannula 3 02/18/23 09:11 Nasal Cannula 3 PG Care Time/CCT Total # of Minutes Spent Total Time Spent with Patient: Total time spent is greater than 50% in coordination of care (as documented) at patient's floor/unit and/or counseling patient: Coding Level of Care Code 80818 SUB INP/OBS CARE 2/35MIN Diagnoses Hypervolemia associated with renal insufficiency E87.70; N28.9 Pleural effusion on right J90 CKD (chronic kidney disease) stage 4, GFR 15-29 ml/min N18.4 CARINA (obstructive sleep apnea) G47.33 Diabetes E11.9 Atrial fibrillation I48.91
--- NOTE | 2023-02-18 21:25 | Cardiology Consultation ---
Date of Consultation February 18, 2023 Assessment & Plan (1) Acute on chronic heart failure with preserved ejection fraction (HFpEF): (2) Atrial fibrillation: (3) Chest pain: (4) Hypertension: (5) CKD (chronic kidney disease) stage 4, GFR 15-29 ml/min: Plan ASSESSMENT/PLAN: 1. Acute on chronic heart failure with preserved EF: He is hypervolemic. He has been on a Lasix drip during this hospital stay and has had significant diuresis. Now on 120 mg IV twice daily and has received a dose of acetazolamide. Diuretics were adjusted earlier today by nephrology. Would continue net negative fluid balance. While on high-dose Lasix, agree with thiazide diuretic if/when necessary to help maintain a more euvolemic state. Could also consider Bumex in place of Lasix in the future if needed. Monitor electrolytes closely and replete as necessary. Low-sodium diet, less than 2000 mg daily. Strict I's and O's while hospitalized. Daily weights. 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 Given need for potassium supplementation, consider spironolactone. Recommend SGLT2 inhibitor as long as renal function does not significantly worsen and GFR remains above 20. We will consider initiating this prior to discharge if able. 2. Atrial fibrillation: Appears to be permanent. Continue anticoagulation for stroke risk reduction. He seems asymptomatic in this regard. Can continue diltiazem and metoprolol for rate control strategy. Heart rate adequately controlled. 3. Chest pain: Chest pain is atypical and not consistent with ischemic heart disease. Right-sided rib pain has improved. 4. Hypertension: Blood pressure has mostly been elevated and may further improve with additional diuresis. Medications can be adjusted as appropriate if blood pressure remains elevated. 5. CKD: Followed by nephrology. 6. Disposition: Cardiology will continue to follow. [facility] but he is interested and would like to follow-up with heart failure program locally. Heart failure program referral will be ordered. Thank you for allowing me to participate in the care of your patient. Please call for any other questions or concerns. Sincerely, Jf Broderick M.D. History of Present Illness Reason for Consultation: Heart failure Requesting Physician: Shamir Eckert Attending Physician: Shamir Eckert History of Present Illness Mr. Hockenberry is a very pleasant 78-year-old gentleman with a history significant for heart failure with preserved EF, type 2 diabetes, sleep apnea on CPAP, atrial fibrillation, pleural effusion, CKD, and hypertension. He also uses supplemental oxygen 1.5 L at rest and 2 L with exertion. 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 He was admitted on 02/16/2023 after presenting with right lateral rib pain that was present for 4 days. He describes the pain as pleuritic in nature but nonpositional. He admits that the week before he had left lateral rib pain after urinating which has since resolved. He has chronic issues with shortness of breath and edema. He has had orthopnea for at least 3 years and sleeps in a chair. He has had bilateral lower extre mity edema chronically, left greater than the right. He believes that the edema is rather stable. He had been taking 240 mg of Lasix twice daily and Lasix was reduced to 160 mg twice daily by his outpatient providers through the [facility]. After this reduction in diuretic, he had gained 8 to 12 pounds over the past few weeks as he weighs himself daily. He maintains a low-sodium diet as well. He was hospitalized here in November 2022 with a diagnosis of acute on chronic heart failure with preserved EF and left pleural effusion. He underwent thoracentesis and placement of a left-sided chest tube in September 2022. At some point in time, he recalls being on Bumex. He stated that some providers will start medications and other providers will discontinue the medications. The hospitalist is not consistent with his home list. At home, through the [facility] it states that he is taking metoprolol tartrate 100 mg twice daily and losartan 25 mg daily. He denies chest pain, syncope, palpitations, melena, hematochezia, or hematuria. He has chronic lightheadedness when he gets up from a seated position. He has had the following studies/procedures: 1. Myocardial perfusion study 05/09/2022 [facility]: No significant ischemia or infarct. EF 70%. 2. Echo 11/29/2022 [facility]: Normal LV size, wall motion, systolic function. EF 60 to 65%. Moderate LVH. RV not well visualized but appears dilated. Valves were not well visualized. RVSP 43. Poor image quality. Review of systems: As above. Review of systems otherwise negative/unremarkable. Family history: No known premature CAD. Social history: Quit smoking years ago. No current alcohol. No drug abuse. Lives at home with his . Has 4 children. He lives near [facility]. His was present at the bedside. Allergies Allergy/AdvReac Type Severity Reaction Status Date / Time No Known Allergies Allergy Unverified 02/16/23 17:06 Home Medications Medication Instructions Recorded Confirmed Type aspirin 81 mg tablet,delayed 81 mg PO QAM 07/20/18 02/16/23 History release atorvastatin 80 mg tablet (Lipitor) 40 mg PO HS 07/20/18 02/16/23 History docusate sodium 100 mg capsule 200 mg PO BID 07/20/18 02/16/23 History finasteride 5 mg tablet (Proscar) 5 mg PO DAILY 07/20/18 02/16/23 History omeprazole 20 mg capsule,delayed 20 mg PO BID 07/20/18 02/16/23 History release terazosin 5 mg capsule 5 mg PO BID 07/20/18 02/16/23 History multivitamin with minerals 1 tab PO DAILY 11/28/20 02/16/23 History diltiazem HCl 120 mg 120 mg PO DAILY 08/27/22 02/16/23 History capsule,extended release 24 hr tramadol 50 mg tablet 50 mg PO Q8H PRN Pain 08/27/22 02/16/23 History apixaban 5 mg tablet (Eliquis) 5 mg PO BID 08/29/22 02/16/23 History insulin aspart U-100 100 unit/mL 10 - 35 unit (0.1 - 0.35 mL) 09/24/22 02/16/23 Rx (3 mL) subcutaneous pen (Novolog subcut [facility] mL FlexPen U-100 Insulin aspart) potassium chloride 20 mEq 40 meq PO BIDM #60 tabs 09/24/22 02/16/23 Rx tablet,extended release (K-Tab) epoetin aaliyah 40,000 unit/mL 40,000 unit subcut MONTHLY hold hb 11/18/22 02/16/23 Rx injection solution (Procrit) 11 or greater 12 months #1 mL food supplemt, lactose-reduced 1 ea PO DAILY 12/03/22 02/16/23 History (Ensure High Protein oral liquid) hydralazine 10 mg tablet 10 mg PO TID 12/03/22 02/16/23 History insulin glargine 100 unit/mL (3 See Rx Instructions .Route .COMPLEX 12/03/22 02/16/23 History mL) subcutaneous pen (Lantus Solostar U-100 Insulin) losartan 50 mg tablet 50 mg PO DAILY 12/03/22 02/16/23 History metoprolol succinate 50 mg 50 mg PO DAILY 12/03/22 02/16/23 History tablet,extended release 24 hr tiotropium 2.5 mcg-olodaterol 2.5 2 puff inhalation DAILY #4 grams 01/01/23 02/16/23 Rx mcg/actuation mist for inhalation (Stiolto Respimat) furosemide 80 mg tablet 160 mg PO .COMPLEX 02/09/23 02/16/23 History calcitriol 0.5 mcg capsule 0.5 mcg PO UD #45 caps 02/13/23 02/16/23 Rx albuterol sulfate 90 mcg/actuation 2 puff inhalation QID PRN 02/16/23 02/16/23 History aerosol inhaler wheezing/SOB Patient History Medical History Acute respiratory failure with hypoxia Anemia of chronic disease Atrial fibrillation Cellulitis Chronic heart failure with preserved ejection fraction CKD (chronic kidney disease) stage 4, GFR 15-29 ml/min D-dimer, elevated Diabetes Diabetes mellitus type 2 in obese GERD (gastroesophageal reflux disease) Hematuria Hypertension Hypoxia Morbid obesity with BMI of 45.0-49.9, adult Obesity CARINA (obstructive sleep apnea) CARINA on CPAP Proteinuria Vitamin D deficiency Social History Smoking Status: Former smoker Tobacco Type: Cigarettes Age Started Using Tobacco: 16; Age Quit Using Tobacco: 52; packs per day: 2.5; Second Hand Exposure: No; Do You Dip or Chew Tobacco: No; Hx Alcohol Use: No Hx Substance Use: No Preferred Language: Japanese Communication Ability: Effective Food Inspector Required: No Beliefs That Will Affect Care: None Current Living Situation: Spouse Other Information That Helps Us Care for You: No Feels Safe at Home: Yes Safety Concerns: Feels Safe At This Time Assistive Devices: Oxygen - Continuous and Walker Physical Exam Physical Exam: Gen.: No acute distress. Alert and oriented. HEENT: Anicteric sclera. Neck: Elevated JVD. Hepatojugular reflux noted. No bruits. Normal carotid upstrokes bilaterally. Cardiac: No ventricular heave. Irregularly irregular. Normal S1-S2. No murmurs, rubs, or gallops. Pulmonary: Clear to auscultation bilaterally without wheezes, rales, or rhonchi. Abdomen: Soft, nontender, nondistended, with normoactive bowel sounds. No bruits noted. Extremities: 2+ radial pulses bilaterally. 2+ bilateral lower extremity edema. Left lower extremity larger compared to the right. No cyanosis. Psychiatric: Affect appears appropriate. Results & Data Vital Signs (Past 12 Hours) Vital Signs Temp Pulse Resp BP Pulse Ox O2 Del Method O2 Flow Rate 02/18/23 19:00 36.9 C 79 20 154/72 H 98 Nasal Cannula 02/18/23 17:00 Nasal Cannula 3 02/18/23 11:03 36.6 C 90 21 141/82 H 96 Nasal Cannula 3 Intake & Output 02/16/23 02/17/23 02/18/23 02/19/23 06:59 06:59 06:59 06:59 Intake Total 303.667 / 303.667 794.333 / 794.333 680 / 680 Output Total 1974 2940 / 2940 1051 / 1051 Balance -1671.333 / -1671.333 -2145.667 / -2145.667 -371 / -371 Weight 322 lb 15.635 oz 319 lb 3.669 oz Laboratory Results Laboratory Results - last 24 hr 02/18/23 02/18/23 02/18/23 07:01 07:01 07:01 WBC 8.59 RBC 3.56 L Hgb 10.2 L Hct 32.5 L MCV 91.3 MCH 28.7 MCHC 31.4 L RDW Std Deviation 49.7 H RDW Coeff of Barby 14.7 H Plt Count 191 MPV 11.4 VBG pH VBG pCO2 VBG pO2 VBG HCO3 VBG O2 Saturation VBG Base Excess Sodium 145 Potassium 3.3 L Chloride 100 Carbon Dioxide 41 H* Anion Gap 4 BUN 36 H Creatinine 2.09 H D Est Cr Clr Drug Dosing 42.7 Est GFR ( Amer) 34.6 Est GFR (Non-Af Amer) 29.9 BUN/Creatinine Ratio 17.2 Glucose 98 POC Glucose Calcium 8.4 L B-Natriuretic Peptide 261 H Urine Color Urine Appearance Urine pH Ur Specific [place] Urine Protein Urine Glucose (UA) Urine Ketones Urine Blood Urine Nitrite Urine Bilirubin Urine Urobilinogen Ur Leukocyte Esterase Urine WBC (Auto) Urine RBC (Auto) U Hyaline Cast (Auto) U Epithel Cells (Auto) Urine Bacteria (Auto) 02/18/23 02/18/23 02/18/23 07:11 09:28 11:26 WBC RBC Hgb Hct MCV MCH MCHC RDW Std Deviation RDW Coeff of Barby Plt Count MPV VBG pH 7.40 VBG pCO2 66 H VBG pO2 44 VBG HCO3 41 VBG O2 Saturation 78.2 VBG Base Excess 13.0 Sodium Potassium Chloride Carbon Dioxide Anion Gap BUN Creatinine Est Cr Clr Drug Dosing Est GFR ( Amer) Est GFR (Non-Af Amer) BUN/Creatinine Ratio Glucose POC Glucose 126 H 213 H Calcium B-Natriuretic Peptide Urine Color Urine Appearance Urine pH Ur Specific [place] Urine Protein Urine Glucose (UA) Urine Ketones Urine Blood Urine Nitrite Urine Bilirubin Urine Urobilinogen Ur Leukocyte Esterase Urine WBC (Auto) Urine RBC (Auto) U Hyaline Cast (Auto) U Epithel Cells (Auto) Urine Bacteria (Auto) 02/18/23 02/18/23 02/18/23 11:56 16:23 20:21 WBC RBC Hgb Hct MCV MCH MCHC RDW Std Deviation RDW Coeff of Barby Plt Count MPV VBG pH VBG pCO2 VBG pO2 VBG HCO3 VBG O2 Saturation VBG Base Excess Sodium Potassium Chloride Carbon Dioxide Anion Gap BUN Creatinine Est Cr Clr Drug Dosing Est GFR ( Amer) Est GFR (Non-Af Amer) BUN/Creatinine Ratio Glucose POC Glucose 162 H 113 H Calcium B-Natriuretic Peptide Urine Color Yellow Urine Appearance Clear Urine pH 7.0 Ur Specific [place] 1.011 Urine Protein 2+ H Urine Glucose (UA) Negative Urine Ketones Negative Urine Blood Negative Urine Nitrite Negative Urine Bilirubin Negative Urine Urobilinogen Negative Ur Leukocyte Esterase Negative Urine WBC (Auto) 1-5 Urine RBC (Auto) 0-4 U Hyaline Cast (Auto) 1-5 U Epithel Cells (Auto) 5-10 H Urine Bacteria (Auto) Negative Diagnostic Findings ECG personally reviewed 02/16/2023: Atrial fibrillation 81 bpm. RBBB. Telemetry personally reviewed: Atrial fibrillation with adequately controlled heart rate, mostly in the 80s when reviewed this morning. Nephrology consultation reviewed from 02/18/2023. History and physical report reviewed. Echo report and nuclear stress report reviewed as noted above in HPI. Labs reviewed from 02/18/2023 demonstrating mild hypokalemia, abnormal renal function, mild (chronic) anemia. Elevated BNP but improved from admission. Chest x-ray 02/18/2023: Mild pulmonary vascular congestion. Emphysema and chronic interstitial thickening similar to previous per radiology. Small to moderate left pleural effusion. Medications Administered Current Inpatient Medications Acetaminophen (Acetaminophen 325 Mg Tab) 650 mg PO Q4H PRN PRN Reason: Pain or Fever Stop: 03/18/23 21:22 Last Admin: 02/17/23 05:16 Dose: 650 mg Apixaban (Apixaban 5 Mg Tablet) 5 mg PO BID DAYAN Stop: 03/18/23 23:29 Last Admin: 02/18/23 20:15 Dose: 5 mg Aspirin (Aspirin 81 Mg Ectab) 81 mg PO QAM DAYAN Stop: 03/19/23 08:59 Last Admin: 02/18/23 08:24 Dose: 81 mg Atorvastatin Calcium (Atorvastatin 40 Mg Tab) 40 mg PO HS DAYAN Stop: 03/19/23 20:59 Last Admin: 02/18/23 20:13 Dose: 40 mg Dextrose (Dextrose 50% 50 Ml Syringe) 25 - 50 ml IV UD PRN; Protocol PRN Reason: Hypoglycemia Protocol Stop: 03/18/23 23:24 Diltiazem HCl (Diltiazem Hcl 120 Mg Capcr) 120 mg PO DAILY DAYAN Stop: 03/19/23 08:59 Last Admin: 02/18/23 08:23 Dose: 120 mg Docusate Sodium (Docusate Sodium 100 Mg Cap) 200 mg PO BID DAYAN Stop: 03/18/23 23:29 Last Admin: 02/18/23 20:14 Dose: 200 mg Finasteride (Finasteride 5 Mg Tab) 5 mg PO DAILY DAYAN Stop: 03/19/23 08:59 Last Admin: 02/18/23 08:23 Dose: 5 mg Furosemide (Furosemide 40 Mg/4 Ml Vial) 120 mg IV [id number] DAYAN Stop: 03/21/23 06:59 Glucagon (Glucagon For Inj 1 Mg Vial) 1 mg SQ UD PRN; Protocol PRN Reason: Hypoglycemia Protocol Stop: 03/18/23 23:24 Glucose (Glucose 10 Tab/Tube) 4 - 8 tab PO UD PRN; Protocol PRN Reason: Hypoglycemia Treatment Stop: 03/18/23 23:24 Glucose (Glucose 40% Gel 15 Gm Tube) 15 - 30 gm PO UD PRN; Protocol PRN Reason: Hypoglycemia Protocol Stop: 03/18/23 23:24 Hydralazine HCl (Hydralazine 10 Mg Tab) 10 mg PO TID DAYAN Stop: 03/18/23 23:24 Last Admin: 02/18/23 20:13 Dose: 10 mg Insulin Aspart (Insulin Aspart Per Unit Charge) 0 units SC ACHS DAYAN Stop: 03/19/23 07:29 Last Admin: 02/18/23 20:27 Dose: 10 units Insulin Glargine (Lantus Per Unit Charge) 15 units SQ BID DAYAN Stop: 03/18/23 23:29 Last Admin: 02/18/23 20:27 Dose: 15 units Losartan Potassium (Losartan Potassium 50 Mg Tab) 50 mg PO DAILY DAYAN Stop: 03/19/23 08:59 Last Admin: 02/18/23 08:23 Dose: 50 mg Metoprolol Succinate (Metoprolol Succ 50mg Ext Rel Tab) 50 mg PO DAILY DAYAN Stop: 03/19/23 08:59 Last Admin: 02/18/23 08:23 Dose: 50 mg Miscellaneous (Carbohydrates For Hypoglycemia ) 15 - 30 gm PO UD PRN PRN Reason: Hypoglycemia Protocol Stop: 03/18/23 23:24 Pantoprazole Sodium (Pantoprazole 40 Mg Tab) 40 mg PO BID [facility] Stop: 03/19/23 08:59 Last Admin: 02/18/23 20:13 Dose: 40 mg Potassium Chloride (Potassium Chloride Crtab 20 Meq Tabcr) 40 meq PO BIDM DAYAN Stop: 03/19/23 07:59 Last Admin: 02/18/23 18:10 Dose: 40 meq Terazosin HCl (Terazosin Hcl 5 Mg Cap) 5 mg PO BID DAYAN Stop: 03/18/23 23:29 Last Admin: 02/18/23 20:14 Dose: 5 mg Tramadol HCl (Tramadol Hcl 50 Mg Tablet) 50 mg PO Q8H PRN PRN Reason: Pain Stop: 03/18/23 23:21 Umeclidinium/Vilanterol (Umeclidinium/Vilanterol 62.5/25mcg 7 Puffs/Inhaler) 1 puffs INH DAILY DAYAN Stop: 03/19/23 08:59 Last Admin: 02/18/23 08:24 Dose: 1 puffs PG Care Time/CCT Total # of Minutes Spent Total Time Spent with Patient: Total time spent is greater than 50% in coordination of care (as documented) at patient's floor/unit and/or counseling patient: Coding Level of Care Code 06174 INT INP/OBS CARE 3/75MIN Diagnoses Acute on chronic heart failure with preserved ejection fraction (HFpEF) I50.33 Atrial fibrillation I48.91 Chest pain R07.9 Hypertension I10 CKD (chronic kidney disease) stage 4, GFR 15-29 ml/min N18.4
[2023-02-19 07:24] LABS: Albumin Level 3.2 gm/dl (3.4-5.0); BUN Creatinine Ratio 17.8 (10-20); Calcium 8.3 mg/dl (8.6-10.3); Creatinine Clr Calc Pharmacy 41.8 ml/min; Est GFR (African American) 33.8 ml/min; Est GFR (Non-African American) 29.2 ml/min; Magnesium 2.1 mg/dl (1.7-2.4); Phosphorus 3.9 mg/dl (2.5-4.9); Potassium 3.5 mmol/L (3.5-5.1)
[2023-02-19] MEDS: PANTOprazole 40 MG TAB PO SCH ×2 (08:42→21:09)
[2023-02-19] MEDS: FUROSEMIDE 40 MG/4 ML VIAL IV SCH ×2 (08:42→14:28)
[2023-02-19] MEDS: hydrALAZINE 10 MG TAB PO SCH ×3 (08:42→21:08)
[2023-02-19] MEDS: LOSARTAN POTASSIUM 50 MG TAB PO SCH (08:42)
[2023-02-19] MEDS: APIXABAN 5 MG TABLET PO SCH ×2 (08:42→21:04)
[2023-02-19] MEDS: ASPIRIN 81 MG ECTAB PO SCH (08:42)
[2023-02-19] MEDS: METOPROLOL SUCC 50MG EXT REL TAB PO SCH (08:42)
[2023-02-19] MEDS: POTASSIUM CHLORIDE CRTAB 20 MEQ TABCR PO SCH ×2 (08:42→17:42)
[2023-02-19] MEDS: FINASTERIDE 5 MG TAB PO SCH (08:42)
[2023-02-19] MEDS: LANTUS PER UNIT CHARGE SQ SCH ×2 (08:42→21:17)
[2023-02-19] MEDS: dilTIAZem HCL 120 MG CAPCR PO SCH (08:42)
[2023-02-19] MEDS: DOCUSATE SODIUM 100 MG CAP PO SCH ×2 (08:43→21:07)
[2023-02-19] MEDS: INSULIN ASPART PER UNIT CHARGE SC SCH ×4 (08:43→21:18)
[2023-02-19] MEDS: TERAZOSIN HCL 5 MG CAP PO SCH ×2 (08:44→21:10)
[2023-02-19] MEDS: UMECLIDINIUM/VILANTEROL 62.5/25MCG 7 PUFFS/INHALER INH SCH (08:44)
--- NOTE | 2023-02-19 09:47 | Hospitalist Progress Note ---
Date of Service February 19, 2023 Assessment & Plan (1) Hypervolemia associated with renal insufficiency: Plan: Acute diastolic (congestive) heart failure Pt admitted with hypervolemia has echo 12/12 documenting moderate concentric LVH, indeterminate diastolic dysfunction, and EF=60-65%. Not controlled on Lasix 160mg PO BID therefore tried Lasix 10mg/hr IV drip, worsening raúl, now back to bid lasix plus spironolactone (started by nephrology) consulted nephro recommended continued losartan, increase to 160 mg bid at discharge cardiology recommends consideration of bumex and also SGLT2 if GFR >25, SGLT2 FARxiga will not be started until at steady state (2) Pleural effusion on right: Plan: Suspect this is the cause of his right sided pleuritic pain Noted workup for cholecystitis last admission which was subsequently negative therefore will defer repeating this given normal LFTs/WBC and alternative explanation is improved but still residual (3) CKD (chronic kidney disease) stage 4, GFR 15-29 ml/min: Plan: At baseline, suspect some elevation may be needed to acquire adequate diuresis, continue to trend Cr (4) CARINA (obstructive sleep apnea): Plan: BiPAP 16/ HS (5) Diabetes: Plan: HbA1C 7.8 Home dose Lantus 23 + 16 Prior hospitalization requiring Lantus 15 units BID therefore will switch to this dose initially Novolog: --Goal BSG Range: Low 110 mg/dL, High 140 mg/dL --Correction Factor: 25 mg/dL/unit --Carbohydrate ratio = 8 g/unit --BSGs ACHS if eating, q6h if npo (6) Atrial fibrillation: Plan: Eliquis for anticoagulation Rate control with diltiazem and metoprolol succinate Plan VTE Prophylaxis - Eliquis Diet - T2DM, low Na, heart healthy, fluid restricted Disposition - admit to PCU Admission and Anticipated Discharge Date Admission Date: February 16, 2023 Subjective pt states he feels improved his weight is at or below his dry weight nephrology feels we can return to his higher dose of po diuretic at discharge pt feels he is getting around well at his typical performance status Physical Exam Physical Exam: awake and alert cardiac is regular lungs are diminished at base le is with 2+ edema Results & Data Results & Data Vital Signs (Past 12 Hours) Vital Signs Temp Pulse Resp BP Pulse Ox O2 Del Method O2 Flow Rate 02/19/23 07:54 97.5 F L 100 H 18 159/53 H 96 Nasal Cannula 3 02/19/23 03:00 97.7 F 86 16 156/80 H 96 Nasal Cannula 02/18/23 23:00 98.2 F 60 18 147/79 H 98 Nasal Cannula Laboratory Results reviewed chemistry PG Care Time/CCT Total # of Minutes Spent Total Time Spent with Patient: Total time spent is greater than 50% in coordination of care (as documented) at patient's floor/unit and/or counseling patient: Coding Level of Care Code 61684 SUB INP/OBS CARE 2/35MIN Diagnoses Hypervolemia associated with renal insufficiency E87.70; N28.9 Pleural effusion on right J90 CKD (chronic kidney disease) stage 4, GFR 15-29 ml/min N18.4 CARINA (obstructive sleep apnea) G47.33 Diabetes E11.9 Atrial fibrillation I48.91
[2023-02-19] MEDS: SPIRONOLACTONE 25 MG TAB PO SCH (09:59)
--- NOTE | 2023-02-19 10:29 | Cardiology Progress Note ---
Date of Service February 19, 2023 Assessment & Plan (1) Acute on chronic heart failure with preserved ejection fraction (HFpEF): (2) Atrial fibrillation: (3) Chest pain: (4) Hypertension: (5) CKD (chronic kidney disease) stage 4, GFR 15-29 ml/min: Plan ASSESSMENT/PLAN: 1. Acute on chronic heart failure with preserved EF: Volume status improving. Still hypervolemic. He has been on a Lasix drip during this hospital stay and has had significant diuresis. Now on 120 mg IV twice daily and has received a dose of acetazolamide on 02/18/23. Would continue net negative fluid balance. While on high-dose Lasix, agree with thiazide diuretic if/when necessary to help maintain a more euvolemic state. Could also consider Bumex in place of Lasix in the future if needed. Monitor electrolytes closely and replete as necessary. Low-sodium diet, less than 2000 mg daily. Strict I's and O's while hospitalized. Daily weights. He is agreeable for heart failure program to work in conjunction with his primary mosaicist through the [place] system. Given need for potassium supplementation, spironolactone initiated. Recommend SGLT2 inhibitor as long as renal function does not significantly worsen and GFR remains above 20. We will consider initiating this prior to discharge or in the outpatient setting. 2. Atrial fibrillation: Appears to be permanent. Continue anticoagulation for stroke risk reduction. He seems asymptomatic in this regard. Can continue diltiazem and metoprolol for rate control strategy. Heart rate adequately controlled. 3. Chest pain: Chest pain is atypical and not consistent with ischemic heart disease. Right-sided rib pain has improved. 4. Hypertension: Blood pressure has mostly been elevated and may further improve with additional diuresis. Medications can be adjusted as appropriate if blood pressure remains elevated. 5. CKD: Followed by nephrology. 6. Disposition: Cardiology will continue to follow. [facility] but he is interested and would like to follow-up with heart failure program locally. Luh Gutierrez PA-C met with him. Admission and Anticipated Discharge Date Admission Date: February 16, 2023 Subjective Patient seen earlier today. He denies shortness of breath, chest pain, syncope, near syncope, palpitations. Edema has improved. Still has occasional right- sided rib pain. He was alone in his hospital room. Physical Exam Physical Exam: Gen.: No acute distress. Alert and oriented. HEENT: Anicteric sclera. Neck: No appreciable JVD. Cardiac: No ventricular heave. Irregularly irregular. Normal S1-S2. No murmurs, rubs, or gallops. Pulmonary: Clear to auscultation bilaterally without wheezes, rales, or rhonchi. Abdomen: Soft, nontender, nondistended, with normoactive bowel sounds. No bruits noted. Extremities: 2+ radial pulses bilaterally. 1+ left lower extremity edema. Left lower extremity larger compared to the right. Trace to 1+ right lower extremity edema. No cyanosis. Psychiatric: Affect appears appropriate. Results & Data Vital Signs (Past 12 Hours) Vital Signs Temp Pulse Resp BP Pulse Ox O2 Del Method O2 Flow Rate 02/19/23 07:54 36.4 C L 100 H 18 159/53 H 96 Nasal Cannula 3 02/19/23 03:00 36.5 C 86 16 156/80 H 96 Nasal Cannula 02/18/23 23:00 36.8 C 60 18 147/79 H 98 Nasal Cannula Intake & Output 02/17/23 02/18/23 02/19/23 02/20/23 06:59 06:59 06:59 06:59 Intake Total 303.667 / 303.667 794.333 / 794.333 800 / 800 Output Total 1974 2940 / 2940 1851 / 1851 Balance -1671.333 / -1671.333 -2145.667 / -2145.667 -1051 / -1051 Weight 322 lb 15.635 oz 319 lb 3.669 oz 318 lb 2.032 oz Laboratory Results Laboratory Results - last 24 hr 02/18/23 02/18/23 02/18/23 11:26 11:56 16:23 Sodium Potassium Chloride Carbon Dioxide Anion Gap BUN Creatinine Est Cr Clr Drug Dosing Est GFR ( Amer) Est GFR (Non-Af Amer) BUN/Creatinine Ratio Glucose POC Glucose 213 H 162 H Calcium Phosphorus Magnesium Albumin Urine Color Yellow Urine Appearance Clear Urine pH 7.0 Ur Specific [place] 1.011 Urine Protein 2+ H Urine Glucose (UA) Negative Urine Ketones Negative Urine Blood Negative Urine Nitrite Negative Urine Bilirubin Negative Urine Urobilinogen Negative Ur Leukocyte Esterase Negative Urine WBC (Auto) 1-5 Urine RBC (Auto) 0-4 U Hyaline Cast (Auto) 1-5 U Epithel Cells (Auto) 5-10 H Urine Bacteria (Auto) Negative 02/18/23 02/19/23 02/19/23 20:21 06:42 07:32 Sodium 144 Potassium 3.5 Chloride 101 Carbon Dioxide 38 H Anion Gap 5 BUN 38 H Creatinine 2.13 H Est Cr Clr Drug Dosing 41.8 Est GFR ( Amer) 33.8 Est GFR (Non-Af Amer) 29.2 BUN/Creatinine Ratio 17.8 Glucose 109 H POC Glucose 113 H 125 H Calcium 8.3 L Phosphorus 3.9 Magnesium 2.1 Albumin 3.2 L Urine Color Urine Appearance Urine pH Ur Specific [place] Urine Protein Urine Glucose (UA) Urine Ketones Urine Blood Urine Nitrite Urine Bilirubin Urine Urobilinogen Ur Leukocyte Esterase Urine WBC (Auto) Urine RBC (Auto) U Hyaline Cast (Auto) U Epithel Cells (Auto) Urine Bacteria (Auto) Diagnostic Findings Labs reviewed and notable for abnormal but similar renal function, normal potassium. Telemetry reviewed: Atrial fibrillation. Nephrology note reviewed. Medications Administered Current Inpatient Medications Acetaminophen (Acetaminophen 325 Mg Tab) 650 mg PO Q4H PRN PRN Reason: Pain or Fever Stop: 03/18/23 21:22 Last Admin: 02/17/23 05:16 Dose: 650 mg Apixaban (Apixaban 5 Mg Tablet) 5 mg PO BID [facility] Stop: 03/18/23 23:29 Last Admin: 02/19/23 08:42 Dose: 5 mg Aspirin (Aspirin 81 Mg Ectab) 81 mg PO QAM [facility] Stop: 03/19/23 08:59 Last Admin: 02/19/23 08:42 Dose: 81 mg Atorvastatin Calcium (Atorvastatin 40 Mg Tab) 40 mg PO HS [facility] Stop: 03/19/23 20:59 Last Admin: 02/18/23 20:13 Dose: 40 mg Dextrose (Dextrose 50% 50 Ml Syringe) 25 - 50 ml IV UD PRN; Protocol PRN Reason: Hypoglycemia Protocol Stop: 03/18/23 23:24 Diltiazem HCl (Diltiazem Hcl 120 Mg Capcr) 120 mg PO DAILY [facility] Stop: 03/19/23 08:59 Last Admin: 02/19/23 08:42 Dose: 120 mg Docusate Sodium (Docusate Sodium 100 Mg Cap) 200 mg PO BID [facility] Stop: 03/18/23 23:29 Last Admin: 02/19/23 08:43 Dose: 200 mg Finasteride (Finasteride 5 Mg Tab) 5 mg PO DAILY [facility] Stop: 03/19/23 08:59 Last Admin: 02/19/23 08:42 Dose: 5 mg Furosemide (Furosemide 40 Mg/4 Ml Vial) 120 mg IV [id number] [facility] Stop: 03/21/23 06:59 Last Admin: 02/19/23 08:42 Dose: 120 mg Glucagon (Glucagon For Inj 1 Mg Vial) 1 mg SQ UD PRN; Protocol PRN Reason: Hypoglycemia Protocol Stop: 03/18/23 23:24 Glucose (Glucose 10 Tab/Tube) 4 - 8 tab PO UD PRN; Protocol PRN Reason: Hypoglycemia Treatment Stop: 03/18/23 23:24 Glucose (Glucose 40% Gel 15 Gm Tube) 15 - 30 gm PO UD PRN; Protocol PRN Reason: Hypoglycemia Protocol Stop: 03/18/23 23:24 Hydralazine HCl (Hydralazine 10 Mg Tab) 10 mg PO TID [facility] Stop: 03/18/23 23:24 Last Admin: 02/19/23 08:42 Dose: 10 mg Insulin Aspart (Insulin Aspart Per Unit Charge) 0 units SC ACHS [facility] Stop: 03/19/23 07:29 Last Admin: 02/19/23 08:43 Dose: 11 units Insulin Glargine (Lantus Per Unit Charge) 15 units SQ BID [facility] Stop: 03/18/23 23:29 Last Admin: 02/19/23 08:42 Dose: 15 units Losartan Potassium (Losartan Potassium 50 Mg Tab) 50 mg PO DAILY [facility] Stop: 03/19/23 08:59 Last Admin: 02/19/23 08:42 Dose: 50 mg Metoprolol Succinate (Metoprolol Succ 50mg Ext Rel Tab) 50 mg PO DAILY [facility] Stop: 03/19/23 08:59 Last Admin: 02/19/23 08:42 Dose: 50 mg Miscellaneous (Carbohydrates For Hypoglycemia ) 15 - 30 gm PO UD PRN PRN Reason: Hypoglycemia Protocol Stop: 03/18/23 23:24 Pantoprazole Sodium (Pantoprazole 40 Mg Tab) 40 mg PO BID [facility] Stop: 03/19/23 08:59 Last Admin: 02/19/23 08:42 Dose: 40 mg Potassium Chloride (Potassium Chloride Crtab 20 Meq Tabcr) 40 meq PO BIDM [facility] Stop: 03/19/23 07:59 Last Admin: 02/19/23 08:42 Dose: 40 meq Spironolactone (Spironolactone 25 Mg Tab) 25 mg PO QAM [facility] Stop: 03/21/23 08:59 Last Admin: 02/19/23 09:59 Dose: 25 mg Terazosin HCl (Terazosin Hcl 5 Mg Cap) 5 mg PO BID [facility] Stop: 03/18/23 23:29 Last Admin: 02/19/23 08:44 Dose: 5 mg Tramadol HCl (Tramadol Hcl 50 Mg Tablet) 50 mg PO Q8H PRN PRN Reason: Pain Stop: 03/18/23 23:21 Umeclidinium/Vilanterol (Umeclidinium/Vilanterol 62.5/25mcg 7 Puffs/Inhaler) 1 puffs INH DAILY [facility] Stop: 03/19/23 08:59 Last Admin: 02/19/23 08:44 Dose: 1 puffs PG Care Time/CCT Total # of Minutes Spent Total Time Spent with Patient: Total time spent is greater than 50% in coordination of care (as documented) at patient's floor/unit and/or counseling patient: Coding Level of Care Code 45314 SUB INP/OBS CARE 2/35MIN Diagnoses Acute on chronic heart failure with preserved ejection fraction (HFpEF) I50.33 Atrial fibrillation I48.91 Chest pain R07.9 Hypertension I10 CKD (chronic kidney disease) stage 4, GFR 15-29 ml/min N18.4
--- NOTE | 2023-02-19 10:32 | Nephrology Progress Note ---
Date of Service February 19, 2023 Assessment & Plan (1) CKD (chronic kidney disease) stage 4, GFR 15-29 ml/min: Plan: CKD IV A2-3 attributed to DKD. Baseline creatinine 2.0-2.4 mg/dL. Primary Death Claim Clerk is Dr. Hernandez. Kidney function relatively stable. Electrolytes normal. Volume status improving. Medications appropriate for kidney dysfunction. Continue losartan 50 mg daily as Rx. Low dose spironolactone added this AM. Defer SGLT2i option at this time pending adequate diuresis and stable kidney function. Continue calcitriol for sPTH. Diuretics to encourage negative fluid balance. Oral KCl 40 mEq BID as Rx. Monitor metabolic profile daily. Document I/O's and daily AM weight. Low sodium diet. (2) Acute on chronic diastolic (congestive) heart failure: Plan: Dietary sodium restriction. Daily fluid restriction. Anup met with Omayra Gutierrez PA-C from the CHF program. He remains on furosemide 120 mg BID. Spironolactone 25 mg provided this AM. I suspect he would tolerate resuming 160 mg PO BID at discharge with PRN metolazone. (3) Anemia: Plan: Chronic, stable. Not requiring NEVILLE therapy. Close outpatient follow up. Maintained on monthly Epogen as outpatient. (4) Alkalosis, metabolic: Plan: Acetazolamide 250 mg provided yesterday. Admission and Anticipated Discharge Date Admission Date: February 16, 2023 Subjective No acute events overnight. Anup feels well this AM. He was seen and evaluated sitting in his bedside chair. Anup is breathing comfortably. Edema improved. Weight stable. Review of Systems Review of Systems: All systems reviewed & are unremarkable except as noted in HPI & below Physical Exam Constitutional: well developed and + morbidly obese; no acute distress Eyes: + anicteric sclerae; no corneal abnormality ENMT: Mouth: no oral mucosal abnormality and oral mucous membranes not dry Neck: normal visual inspection, trachea midline and + thick neck Respiratory: normal respiratory effort and + tachypneic Auscultation: lungs clear to auscultation bilaterally and + diminished lung sounds Cardiovascular: Rate/Rhythm: + irregularly irregular Heart Sounds: normal S1 and normal S2 Extremities: + edema Musculoskeletal: Extremities: no cyanosis and no clubbing Skin: normal turgor; no lesions and no jaundice Neurologic: Motor/Sensory: no tremor and no asterixis Psychiatric: Orientation: alert and oriented x 3 Results & Data Vital Signs (Past 12 Hours) Vital Signs Temp Pulse Resp BP Pulse Ox O2 Del Method O2 Flow Rate 02/19/23 07:54 36.4 C L 100 H 18 159/53 H 96 Nasal Cannula 3 02/19/23 03:00 36.5 C 86 16 156/80 H 96 Nasal Cannula 02/18/23 23:00 36.8 C 60 18 147/79 H 98 Nasal Cannula Laboratory Results Laboratory Results - last 24 hr 02/18/23 02/18/23 02/18/23 11:26 11:56 16:23 Sodium Potassium Chloride Carbon Dioxide Anion Gap BUN Creatinine Est Cr Clr Drug Dosing Est GFR ( Amer) Est GFR (Non-Af Amer) BUN/Creatinine Ratio Glucose POC Glucose 213 H 162 H Calcium Phosphorus Magnesium Albumin Urine Color Yellow Urine Appearance Clear Urine pH 7.0 Ur Specific [place] 1.011 Urine Protein 2+ H Urine Glucose (UA) Negative Urine Ketones Negative Urine Blood Negative Urine Nitrite Negative Urine Bilirubin Negative Urine Urobilinogen Negative Ur Leukocyte Esterase Negative Urine WBC (Auto) 1-5 Urine RBC (Auto) 0-4 U Hyaline Cast (Auto) 1-5 U Epithel Cells (Auto) 5-10 H Urine Bacteria (Auto) Negative 02/18/23 02/19/23 02/19/23 20:21 06:42 07:32 Sodium 144 Potassium 3.5 Chloride 101 Carbon Dioxide 38 H Anion Gap 5 BUN 38 H Creatinine 2.13 H Est Cr Clr Drug Dosing 41.8 Est GFR ( Amer) 33.8 Est GFR (Non-Af Amer) 29.2 BUN/Creatinine Ratio 17.8 Glucose 109 H POC Glucose 113 H 125 H Calcium 8.3 L Phosphorus 3.9 Magnesium 2.1 Albumin 3.2 L Urine Color Urine Appearance Urine pH Ur Specific [place] Urine Protein Urine Glucose (UA) Urine Ketones Urine Blood Urine Nitrite Urine Bilirubin Urine Urobilinogen Ur Leukocyte Esterase Urine WBC (Auto) Urine RBC (Auto) U Hyaline Cast (Auto) U Epithel Cells (Auto) Urine Bacteria (Auto) PG Care Time/CCT Total # of Minutes Spent Total Time Spent with Patient: Total time spent is greater than 50% in coordination of care (as documented) at patient's floor/unit and/or counseling patient: Coding Level of Care Code 90967 SUB INP/OBS CARE 3/50MIN Diagnoses CKD (chronic kidney disease) stage 4, GFR 15-29 ml/min N18.4 Acute on chronic diastolic (congestive) heart failure I50.33 Anemia D64.9 Alkalosis, metabolic E87.3
--- NOTE | 2023-02-19 12:38 | Heart Failure Consultation ---
Date of Consultation February 19, 2023 History of Present Illness Attending Physician: Christopher Barahona MD History of Present Illness Meet with patient in their hospital room. We discussed the nature of heart failure and the goals of the heart failure program. Patient is agreeable to ongoing participation and will be formally enrolled in the [facility] [place] [facility]. Patient advised to weigh themselves daily on their home scale. Notify the office if 2+ lb weight gain overnight or 5+ lb in 1 week. Low sodium diet recommended on discharge. Contact information provided. Patient will have scheduled outpatient follow up within 7 days of discharge - 02/26 at 1400. Please see full cardiology consult for additional recommendations and formal plan of care. Allergies Allergy/AdvReac Type Severity Reaction Status Date / Time No Known Allergies Allergy Unverified 02/16/23 17:06 Home Medications Medication Instructions Recorded Confirmed Type aspirin 81 mg tablet,delayed 81 mg PO QAM 07/20/18 02/16/23 History release atorvastatin 80 mg tablet (Lipitor) 40 mg PO HS 07/20/18 02/16/23 History docusate sodium 100 mg capsule 200 mg PO BID 07/20/18 02/16/23 History finasteride 5 mg tablet (Proscar) 5 mg PO DAILY 07/20/18 02/16/23 History omeprazole 20 mg capsule,delayed 20 mg PO BID 07/20/18 02/16/23 History release terazosin 5 mg capsule 5 mg PO BID 07/20/18 02/16/23 History multivitamin with minerals 1 tab PO DAILY 11/28/20 02/16/23 History diltiazem HCl 120 mg 120 mg PO DAILY 08/27/22 02/16/23 History capsule,extended release 24 hr tramadol 50 mg tablet 50 mg PO Q8H PRN Pain 08/27/22 02/16/23 History apixaban 5 mg tablet (Eliquis) 5 mg PO BID 08/29/22 02/16/23 History insulin aspart U-100 100 unit/mL 10 - 35 unit (0.1 - 0.35 mL) 09/24/22 02/16/23 Rx (3 mL) subcutaneous pen (Novolog subcut .qacqhs #15 mL FlexPen U-100 Insulin aspart) potassium chloride 20 mEq 40 meq PO BIDM #60 tabs 09/24/22 02/16/23 Rx tablet,extended release (K-Tab) epoetin aaliyah 40,000 unit/mL 40,000 unit subcut MONTHLY hold hb 11/18/22 02/16/23 Rx injection solution (Procrit) 11 or greater 12 months #1 mL food supplemt, lactose-reduced 1 ea PO DAILY 12/03/22 02/16/23 History (Ensure High Protein oral liquid) hydralazine 10 mg tablet 10 mg PO TID 12/03/22 02/16/23 History insulin glargine 100 unit/mL (3 See Rx Instructions .Route .COMPLEX 12/03/22 02/16/23 History mL) subcutaneous pen (Lantus Solostar U-100 Insulin) losartan 50 mg tablet 50 mg PO DAILY 12/03/22 02/16/23 History metoprolol succinate 50 mg 50 mg PO DAILY 12/03/22 02/16/23 History tablet,extended release 24 hr tiotropium 2.5 mcg-olodaterol 2.5 2 puff inhalation DAILY #4 grams 01/01/23 02/16/23 Rx mcg/actuation mist for inhalation (Stiolto Respimat) furosemide 80 mg tablet 160 mg PO .COMPLEX 02/09/23 02/16/23 History calcitriol 0.5 mcg capsule 0.5 mcg PO UD #45 caps 02/13/23 02/16/23 Rx albuterol sulfate 90 mcg/actuation 2 puff inhalation QID PRN 02/16/23 02/16/23 History aerosol inhaler wheezing/SOB Patient History Medical History Acute respiratory failure with hypoxia Anemia of chronic disease Atrial fibrillation Cellulitis Chronic heart failure with preserved ejection fraction CKD (chronic kidney disease) stage 4, GFR 15-29 ml/min D-dimer, elevated Diabetes Diabetes mellitus type 2 in obese GERD (gastroesophageal reflux disease) Hematuria Hypertension Hypoxia Morbid obesity with BMI of 45.0-49.9, adult Obesity CARINA (obstructive sleep apnea) CARINA on CPAP Proteinuria Vitamin D deficiency Social History Smoking Status: Former smoker Tobacco Type: Cigarettes Age Started Using Tobacco: 16; Age Quit Using Tobacco: 52; packs per day: 2.5; Second Hand Exposure: No; Do You Dip or Chew Tobacco: No; Hx Alcohol Use: No Hx Substance Use: No Preferred Language: Divehi Communication Ability: Effective Senior Clinical Research Scientist Required: No Beliefs That Will Affect Care: None Current Living Situation: Spouse Other Information That Helps Us Care for You: No Feels Safe at Home: Yes Safety Concerns: Feels Safe At This Time Assistive Devices: Oxygen - Continuous and Walker Results & Data Vital Signs (Past 12 Hours) Vital Signs Temp Pulse Pulse Resp BP Pulse Ox O2 Del Method 02/19/23 11:44 97.9 F 89 18 151/81 H 96 Nasal Cannula 02/19/23 08:00 99 H 02/19/23 08:00 Nasal Cannula 02/19/23 07:54 97.5 F L 100 H 18 159/53 H 96 Nasal Cannula 02/19/23 03:00 97.7 F 86 16 156/80 H 96 Nasal Cannula O2 Flow Rate 02/19/23 11:44 3 02/19/23 08:00 02/19/23 08:00 2 02/19/23 07:54 3 02/19/23 03:00 Heart Failure Data/Metrics Heart Failure Type: HFpEF (EF > 50%) Ejection Fraction: 60-65% Coding Level of Care Code None Diagnoses
[2023-02-19] MEDS: traMADol HCL 50 MG TABLET PO PRN (17:44)
[2023-02-19] MEDS: ATORVASTATIN 40 MG TAB PO SCH (21:05)
[2023-02-20] MEDS: traMADol HCL 50 MG TABLET PO PRN (06:26)
[2023-02-20] MEDS: FUROSEMIDE 40 MG/4 ML VIAL IV SCH (06:28)
[2023-02-20 07:25] LABS: Albumin Level 3.3 gm/dl (3.4-5.0); BUN Creatinine Ratio 17.3 (10-20); Calcium 8.3 mg/dl (8.6-10.3); Creatinine Clr Calc Pharmacy 39.4 ml/min; Est GFR (African American) 31.5 ml/min; Est GFR (Non-African American) 27.2 ml/min; Magnesium 2.1 mg/dl (1.7-2.4); Phosphorus 3.8 mg/dl (2.5-4.9); Potassium 3.7 mmol/L (3.5-5.1)
[2023-02-20] MEDS ORDERED: acetaZOLAMIDE 250 MG in SYRINGE 0 ML IV STA (08:30)
[2023-02-20] MEDS: INSULIN ASPART PER UNIT CHARGE SC SCH ×2 (09:00→12:03)
[2023-02-20] MEDS: APIXABAN 5 MG TABLET PO SCH (09:01)
[2023-02-20] MEDS: LANTUS PER UNIT CHARGE SQ SCH (09:01)
[2023-02-20] MEDS: TERAZOSIN HCL 5 MG CAP PO SCH (09:01)
[2023-02-20] MEDS: FINASTERIDE 5 MG TAB PO SCH (09:01)
[2023-02-20] MEDS: SPIRONOLACTONE 25 MG TAB PO SCH (09:02)
[2023-02-20] MEDS: dilTIAZem HCL 120 MG CAPCR PO SCH (09:02)
[2023-02-20] MEDS: LOSARTAN POTASSIUM 50 MG TAB PO SCH (09:02)
[2023-02-20] MEDS: PANTOprazole 40 MG TAB PO SCH (09:02)
[2023-02-20] MEDS: DOCUSATE SODIUM 100 MG CAP PO SCH (09:02)
[2023-02-20] MEDS: METOPROLOL SUCC 50MG EXT REL TAB PO SCH (09:02)
[2023-02-20] MEDS: ASPIRIN 81 MG ECTAB PO SCH (09:02)
[2023-02-20] MEDS: hydrALAZINE 10 MG TAB PO SCH (09:03)
[2023-02-20] MEDS: POTASSIUM CHLORIDE CRTAB 20 MEQ TABCR PO SCH (09:03)
[2023-02-20] MEDS: UMECLIDINIUM/VILANTEROL 62.5/25MCG 7 PUFFS/INHALER INH SCH (09:06)
--- NOTE | 2023-02-20 09:43 | Nephrology Progress Note ---
Date of Service February 20, 2023 Assessment & Plan (1) CKD (chronic kidney disease) stage 4, GFR 15-29 ml/min: Plan: CKD IV A2-3 attributed to DKD. Baseline creatinine 2.0-2.4 mg/dL. Primary [employer] Supervisor is Dr. Hernandez. Kidney function relatively stable. Electrolytes normal. Volume status improving. Medications appropriate for kidney dysfunction. Continue losartan 50 mg daily as Rx. Spironolactone 25 mg daily added yesterday. Continue calcitriol for sPTH. Diuretics to encourage negative fluid balance. Oral KCl 40 mEq BID as Rx. Monitor metabolic profile daily. Document I/O's and daily AM weight. Low sodium diet. (2) Acute on chronic diastolic (congestive) heart failure: Plan: Dietary sodium restriction. Daily fluid restriction. Appreciate cardiology consultation. He remains on furosemide 120 mg BID and spironolactone 25 mg daily. It would be reasonable to consider addition of SGLT2i (such as empagliflozin 25 mg) if kidney function remains stable. This may also be visited as an outpatient if Anup is discharged home prior to the weekend. (3) Anemia: Plan: Chronic, stable. Not requiring NEVILLE therapy. Close outpatient follow up. Maintained on monthly Epogen as outpatient. (4) Alkalosis, metabolic: Plan: Acetazolamide 250 mg provided this AM. Admission and Anticipated Discharge Date Admission Date: February 16, 2023 Subjective No acute events overnight. Anup was seen and evaluated in his bedside chair. Edema continues to improve. He feels well. He states that his strength is good and he feels like he could go home today. He denies any dyspnea. Activity tolerance improving. He continues to have some discomfort in the right side of his chest with taking a deep breath. He describes tenderness along the upper ribs anteriorly. Review of Systems Review of Systems: All systems reviewed & are unremarkable except as noted in HPI & below Physical Exam Constitutional: well developed and + morbidly obese; no acute distress Eyes: + anicteric sclerae; no scleral abnormality and no corneal abnormality ENMT: Mouth: no oral mucosal abnormality and oral mucous membranes not dry Neck: normal visual inspection, trachea midline and + thick neck Respiratory: normal respiratory effort and + tachypneic Auscultation: lungs clear to auscultation bilaterally, + diminished lung sounds and + rales (bibasilar) Cardiovascular: Rate/Rhythm: + irregularly irregular Heart Sounds: normal S1 and normal S2 Extremities: + edema Musculoskeletal: Extremities: no cyanosis and no clubbing Skin: normal turgor; no lesions and no jaundice Neurologic: Motor/Sensory: no tremor and no asterixis Psychiatric: Orientation: alert and oriented x 3 Results & Data Vital Signs (Past 12 Hours) Vital Signs Temp Pulse Resp BP Pulse Ox O2 Del Method O2 Flow Rate 02/20/23 09:00 Nasal Cannula 3 02/20/23 07:18 36.5 C 62 18 158/74 H 96 Nasal Cannula 3 02/20/23 02:49 36.5 C 80 20 154/75 H 98 Nasal Cannula 02/20/23 02:32 89 164/70 H 02/19/23 23:00 36.6 C 80 18 177/85 H 98 Nasal Cannula 3 02/19/23 22:51 Nasal Cannula 3 Laboratory Results Laboratory Results - last 24 hr 02/19/23 02/19/23 02/19/23 11:41 16:33 20:00 Sodium Potassium Chloride Carbon Dioxide Anion Gap BUN Creatinine Est Cr Clr Drug Dosing Est GFR ( Amer) Est GFR (Non-Af Amer) BUN/Creatinine Ratio Glucose POC Glucose 209 H 113 H 105 H Calcium Phosphorus Magnesium Albumin 02/20/23 02/20/23 06:31 07:29 Sodium 143 Potassium 3.7 Chloride 100 Carbon Dioxide 40 H Anion Gap 3 BUN 39 H Creatinine 2.26 H Est Cr Clr Drug Dosing 39.4 Est GFR ( Amer) 31.5 Est GFR (Non-Af Amer) 27.2 BUN/Creatinine Ratio 17.3 Glucose 157 H POC Glucose 143 H Calcium 8.3 L Phosphorus 3.8 Magnesium 2.1 Albumin 3.3 L PG Care Time/CCT Total # of Minutes Spent Total Time Spent with Patient: Total time spent is greater than 50% in coordination of care (as documented) at patient's floor/unit and/or counseling patient: Coding Level of Care Code 47500 SUB INP/OBS CARE 3/50MIN Diagnoses CKD (chronic kidney disease) stage 4, GFR 15-29 ml/min N18.4 Acute on chronic diastolic (congestive) heart failure I50.33 Anemia D64.9 Alkalosis, metabolic E87.3
--- NOTE | 2023-02-20 17:56 | Discharge Summary ---
Date of Service February 20, 2023 Admission HPI Per Admitting Provider Anup Narvaez is a 78 year old male with hypervolemia due to CKD who presents to the ER with right sided chest pain, shortness of breath and weight gain. Main reason he came to the ER was for the progressive intermittent worsening right rib pain which started 4 days ago. Worse on inspiration or movement. This morning he woke up with worse pleuritic chest pain around 2-3am in the morning, dizziness and coughing which prompted a call to his PCP and subsequently advised to come to the ER. No association with eating. Increased weight. He reports having a similar presentation in November 2022 with hypervolemia and left sided pain with a large pleural effusion on left side requiring pigtail catheter in November 2022. He reports recent decrease in his Lasix dosing last week and has noticed weight gain since then. He think he was taking x3 80mg twice a day, switched to 80mg x2 BID - unsure why it was changed other than to [facility] thought he was on too many diuretics. Principal Diagnosis acute on chronic diastolic heart failure Discharge Exam pt has chronic lower extremity edema, and venous stasis changes lungs are clear cardiac is regular Discharge Data Allergies Allergy/AdvReac Type Severity Reaction Status Date / Time No Known Allergies Allergy Unverified 02/16/23 17:06 Consultations 02/16/23 17:01 ED Decision to Admit Stat 02/18/23 09:18 Consult Nephrology Routine 02/18/23 09:22 Consult Cardiology Routine 02/18/23 22:10 [facility] Referral Routine Hospital Course (1) Hypervolemia associated with renal insufficiency: Acute diastolic (congestive) heart failure Pt admitted with hypervolemia has echo 12/12 documenting moderate concentric LVH, indeterminate diastolic dysfunction, and EF=60-65%. consulted nephro recommended continued losartan, return lasix to 160 mg bid at discharge, added spironolactone and farxiga cardiology heart failure will follow up FARxiga will not be started until at steady state (2) Pleural effusion on right: Suspect this is the cause of his right sided pleuritic pain Noted workup for cholecystitis last admission which was subsequently negative therefore will defer repeating this given normal LFTs/WBC and alternative explanation is improved (3) CKD (chronic kidney disease) stage 4, GFR 15-29 ml/min: At baseline, suspect some elevation may be needed to acquire adequate diuresis, continue to trend Cr (4) CARINA (obstructive sleep apnea): BiPAP 16/ HS (5) Diabetes: HbA1C 7.8 Home dose Lantus 23 + 16 (6) Atrial fibrillation: Eliquis for anticoagulation Rate control with diltiazem and metoprolol succinate Total Time Total Time Spent Total Time Spent (In Minutes): it required greater than 30 minutes to prepare this patient for discharge Discharge Plan Discharge Items Patient Disposition: Home - Home Health Services Reason For Visit: HYPERVOLEMIA Discharge Diagnosis: Acute on chronic diastolic heart failure Activity: Resume your previous activity Non-emergency contact: Primary Care Provider and Slasher Tender Call non-emergency contact if: your symptoms worsen Follow-up/Referrals: Luh Gutierrez PA-C [Physician Meat Carrier] - 02/26/23 2:00 pm (Congestive Heart Failure Program Appointment Information Early follow up is essential to managing your heart failure. An appointment has been scheduled for you with the [facility] within 7 days of discharge. Anticipate this visit to be 30-60 minutes long. Please expect a proof technician helper phone call from one of our nurses approximately 48 hours from discharge. They will also be placing an order for lab work to be completed 1-2 days prior to your heart failure follow up appointment. Please be sure to have this done so we can go over the results when you come in. Office Location The cardiology office building is located in front of the hospital at [address] Bring the following with you to your follow-up doctor appointments: Please bring your daily weight log any discharge paperwork all of your medication bottles with you to this visit. ) [facility] [Primary Care Provider] - Diet: Low Sodium (2gm) Addtl Attending Provider Instructions: Call 911 and go to the Emergency Room if: * You have tightness or pain in your chest that does not go away with rest or Nitroglycerin * You are very short of breath even with rest Call your doctor if any of the following symptoms or problems start or get worse: * Shortness of breath or difficulty breathing * Wake up at night short of breath * Chest pain * Cough * Swelling of your hands, fee, or legs * More fatigued or tired with your normal activity * Palpitations - sudden fast heart beats WEIGHT * Weigh yourself every morning after using the bathroom. * Use the same scale. * Wear the same amount of clothing. * Write your weight down on your chart. * Call your doctor if you gain more than 2-3 pounds in 1-2 days. MEDICATIONS * Use this discharge instruction sheet for instructions. * Take your medications at the time your doctor ordered. * Do not skip a dose of your medicines. * If you miss a dose of medicine, take as soon as possible, but DO NOT DOUBLE A DOSE. * Read your medicine information when you get home. * Know all of the side effects of your medicine. * Call your doctor's office if you have any side effects. * Be sure all of your doctors know what medicine and herbs you take (including cold, flu, and herbal medicine). * Pain Medicine: If you do not get relief from your pain, please call your doctor for help. Take the following with you to your follow-up doctor appointments: * Weight Chart * Medication List * List of questions Do not drink excessive alcohol, beer or wine. Addtl Director Payer Provider Instructions: you have been started on two new medications for your heart, if the Farxiga is too costly please let it at pharmacy and discuss at your heart doctor follow up to see if samples can be available for you Pending Studies at Discharge: No Stand-Alone Forms: My [facility], Smoking Cessation Medications and DC Order Prescriptions: New spironolactone 25 mg Tablet 25 mg PO QAM Qty: 30 4RF Farxiga 5 mg tablet 5 mg PO DAILY Qty: 30 3RF Continued Procrit 40,000 unit/mL solution 40,000 unit subcut MONTHLY 360 Days Qty: 1 0RF Rx Instructions: As of 02/16/23 - Pt hasn't taken this month as their HB was 11.2 Stiolto Respimat 2.5-2.5 mcg/actuation mist 2 puff inhalation DAILY Qty: 4 3RF calcitriol 0.5 mcg capsule 0.5 mcg PO UD Qty: 45 3RF Rx Instructions: 3 times weekly. As of 02/16/23 - Pt hasn't started yet diltiazem HCl 120 mg capsule,extended release 24hr 120 mg PO DAILY tramadol 50 mg tablet 50 mg PO Q8H PRN (Reason: Pain) Eliquis 5 mg tablet 5 mg PO BID furosemide 80 mg tablet 160 mg PO .COMPLEX Rx Instructions: 160 mg orally QAM and 160mg QPM for a total of 320mg daily; terazosin 5 mg Capsule 5 mg PO BID atorvastatin [Lipitor] 80 mg Tablet 40 mg PO HS aspirin 81 mg Tablet,Delayed Release (Dr/Ec) 81 mg PO QAM docusate sodium 100 mg Capsule 200 mg PO BID omeprazole 20 mg Capsule,Delayed Release(Dr/Ec) 20 mg PO BID finasteride [Proscar] 5 mg Tablet 5 mg PO DAILY multivitamin with minerals Tablet 1 tab PO DAILY losartan 50 mg Tablet 50 mg PO DAILY hydralazine 10 mg Tablet 10 mg PO TID metoprolol succinate 50 mg Tablet Extended Release 24 Hr 50 mg PO DAILY Ensure High Protein Liquid 1 ea PO DAILY insulin glargine [Lantus Solostar U-100 Insulin] 100 unit/mL (3 mL) Insulin Pen See Rx Instructions .ROUTE .COMPLEX Rx Instructions: Inject 23 units in the morning and 16 units at bedtime insulin aspart U-100 [Novolog FlexPen U-100 Insulin] 100 unit/mL Insulin Pen 10 - 35 unit SUBCUT .qacqhs Qty: 15 0RF Rx Instructions: --Goal BSG Range: Low 120 mg/dL, High 160 mg/dL --Correction Factor: 25 mg/dL/unit --Carbohydrate ratio = 6 g/unit --BSGs ACHS if eating, q6h if npo potassium chloride [K-Tab] 20 mEq tablet extended release 40 meq PO BIDM Qty: 60 0RF albuterol sulfate 90 mcg/actuation Hfa Aerosol Inhaler 2 puff INHALATION QID PRN (Reason: wheezing/SOB) Discharge Orders: Discharge Order (Routine); Ordered 02/20/23 Ordered By: Christopher Barahona Admission Data Admit Date/Time: 02/16/23 17:15 Attending Provider: Christopher Barahona Admit Provider: Brenden Tong Primary Care Provider: [facility] Other Providers: Brenden Tong ; Percy Joseph ; William Hendrickson ; Jan Meadows ; Janes Alonso ; Tre Burkett ; Joao Noble ; Shyam Mcintosh Jr ; Adair Broderick ; Mecca Lin,Cari M. ; Munir Toth ; Zhang Andrade ; Teo Alexander ; Luh Gutierrez ; Myra Marquez ; Lobo Gutiérrez ; Brian Perales ; Tre Pierre V. ; Jewel Cisneros ; [facility] Other Interventions: Discharge Summary Assessment (RN) Last Done: 02/20/23 10:53 Coding Level of Care Code 19988 INP/OBS DISCH >30 MIN Diagnoses Hypervolemia associated with renal insufficiency E87.70; N28.9 Pleural effusion on right J90 CKD (chronic kidney disease) stage 4, GFR 15-29 ml/min N18.4 CARINA (obstructive sleep apnea) G47.33 Diabetes E11.9 Atrial fibrillation I48.91
== END 2023-02-20 13:01 | disposition home health service (06) | DRG 291 ==
LOC: ED 12:37 → 2S 17:15 → SUATTDRO 17:15 → 2S 20:47